=== PATIENT | male | born 1945 | race Caucasian/White ===

== ENCOUNTER 2024-03-02 16:07 | Observation (INO) ==
[2024-03-02 16:58] LABS: Basophils # (auto) 0.03 K/uL (0.00-0.20); Basophils % (auto) 0.3 %; Eosinophils # (auto) 0.06 K/uL (0.00-0.50); Eosinophils % (auto) 0.6 %; Hematocrit (blood only) 33.4 % (42.0-52.0); Hemoglobin 11.7 g/dl (14.0-18.0); Immature Granulocytes # (auto) 0.06 K/uL (0.01-0.20); Immature Granulocytes % (auto) 0.6 %; Lymphocytes # (auto) 1.51 K/uL (1.20-3.40); Lymphocytes % (auto) 13.9 %; Mean Corpuscular Hemoglobin 32.2 pg (25.0-34.0); Mean Platelet Volume 9.5 fL (9.4-12.4); Monocytes # (auto) 0.89 K/uL (0.11-0.59); Monocytes % (auto) 8.2 %; Neutrophils % (auto) 76.4 %; Platelet Count 315 K/uL (130-400); RDW Coefficient of Variation 13.7 % (11.5-14.5); RDW Standard Deviation 46.5 fL (36.4-46.3); Red Blood Count 3.63 M/uL (4.70-6.10); White Blood Count 10.85 K/ul (4.8-10.8)
[2024-03-02 17:16] LABS: Albumin Globulin Ratio 1.3 (0.9-2); Albumin Level 4.2 gm/dl (3.4-5.0); BUN Creatinine Ratio 17.8 (10-20); Bilirubin,Total 1.8 mg/dl (0.2-1.0); Calcium 9.6 mg/dl (8.6-10.3); Creatinine Clr Calc Pharmacy 45.9 ml/min; Globulin 3.3 gm/dl (2.5-4.0); Potassium 3.3 mmol/L (3.5-5.1); Total Protein 7.5 gm/dl (6.0-8.3)
--- NOTE | 2024-03-02 17:27 | XRay Report ---
EXAM: Radiograph of the Chest 1 View INDICATION: History Reason For Study weakness. TECHNIQUE: Frontal view of the chest. COMPARISON: No relevant prior studies available. FINDINGS: Lungs and pleural spaces: There is mild left basilar pleural effusion and/or thickening with mild adjacent atelectasis or scarring. No pneumothorax. No confluent consolidation or pulmonary edema. Heart: Cardiomegaly accentuated by portable technique. Right atrial and ventricular pacing wires grossly intact. Mediastinum: Normal contour. Bones/joints: Bilateral shoulder arthroplasties present. No acute osseous abnormality. Soft tissues: No abnormality noted. No radiopaque foreign body noted. Upper abdomen: No abnormality noted. IMPRESSION: There is mild left basilar pleural effusion and/or thickening with mild adjacent atelectasis or scarring. Electronically signed by Deedee Hubbard 03-02-2024 5:26 PM
[2024-03-02 17:30] LABS: Thyroid Stimulating Hormone 1.546 uIu/ml (0.300-4.500)
[2024-03-02 18:51] LABS: Appearance Urine Cloudy (Clear); Bacteria Urine Automated None Seen (None Seen); Bilirubin Urine Negative (Negative); Blood Urine Negative (Negative); Color Urine Dark Yellow; Glucose Urine UA Negative (Negative); Hyaline Casts Urine Present /lpf (None Presnt); Ketones Urine Trace (Negative); Leukocyte Esterase Urine Negative (Negative); Nitrite Urine Negative (Negative); Protein Urine 1+ (Negative); RBC Urine Automated 0-2 /hpf (0-2); Specific Gravity Urine 1.022 (1.000-1.030); Urobilinogen Urine Negative (Negative); WBC Urine Automated 0-5 /hpf (0-5); pH Urine 5.5 (4.5-7.5)
[2024-03-02] MEDS: SODIUM CHLORIDE 0.9% 1,000 ML IV SCH (19:19)
[2024-03-02 19:33] LABS: Adenovirus PCR Not Detected (NotDetected); Bordetella parapertussis PCR Not Detected (NotDetected); Bordetella pertussis PCR Not Detected (NotDetected); Chlamydia pneumoniae PCR Not Detected (NotDetected); Coronavirus 229E PCR Not Detected (NotDetected); Coronavirus CoV-2 (COVID19)PCR Not Detected (NotDetected); Coronavirus HKU1 PCR Not Detected (NotDetected); Coronavirus NL63 PCR Not Detected (NotDetected); Coronavirus OC43PCR Not Detected (NotDetected); Human Metapneumovirus PCR Not Detected (NotDetected); Influenza A PCR Not Detected (NotDetected); Influenza B PCR Not Detected (NotDetected); Mycoplasma pneumoniae PCR Not Detected (NotDetected); Parainfluenza Virus 1 PCR Not Detected (NotDetected); Parainfluenza Virus 2 PCR Not Detected (NotDetected); Parainfluenza Virus 3 PCR Not Detected (NotDetected); Parainfluenza Virus 4 PCR Not Detected (NotDetected); Respiratory Syncytial VirusPCR Not Detected (NotDetected); Rhinovirus/Enterovirus PCR Not Detected (NotDetected)
--- NOTE | 2024-03-02 21:27 | CT Scan Report ---
Exam(s): CT C SPINE EXAM: CT Cervical Spine Without Intravenous Contrast CLINICAL HISTORY: Reason for exam: fall. TECHNIQUE: Axial computed tomography images of the cervical spine without intravenous contrast. CTDI is 26.95 mGy and DLP is 576.46 mGy-cm. Automated exposure control was utilized for the study. A dose lowering technique was utilized adhering to the principles of ALARA. COMPARISON: No relevant prior studies available. FINDINGS: Vertebrae: No acute fracture. Reversal of the normal cervical lordosis. Advanced degenerative spondylosis most pronounced at C3-4, C5- 6, and C6-7. Trace retrolisthesis at C3-4. No high-grade canal stenosis. Multilevel uncovertebral and facet hypertrophy causing variable degrees of foraminal stenosis. Soft tissues: Unremarkable. IMPRESSION: No acute fracture. Electronically signed by: Edson Can MD 03/02/24 21:26 PM
--- NOTE | 2024-03-02 21:29 | CT Scan Report ---
Exam(s): CT HEAD Without Contrast EXAM: CT Head Without Intravenous Contrast CLINICAL HISTORY: Reason for exam: fall. TECHNIQUE: Axial computed tomography images of the head/brain without intravenous contrast. CTDI is 37.87 mGy and DLP is 624.41 mGy-cm. Automated exposure control was utilized for the study. A dose lowering technique was utilized adhering to the principles of ALARA. COMPARISON: No relevant prior studies available. FINDINGS: Brain: No hemorrhage, extra-axial fluid collection, mass effect, or edema. Ventricles: Unremarkable. Bones/joints: Unremarkable. No fracture. Soft tissues: Unremarkable. Sinuses: No acute sinusitis. Mastoid air cells: Unremarkable as visualized. IMPRESSION: 1. No acute intracranial abnormality. Electronically signed by: Edson Can MD 03/02/24 21:28 PM
[2024-03-02] MEDS: ACETAMINOPHEN 500 MG TAB PO STA (21:58)
[2024-03-02 22:18] LABS: Estimated Average Glucose 103 mg/dl; Hemoglobin A1C 5.2 % (4.5-5.6)
[2024-03-02 22:26] LABS: Magnesium 1.9 mg/dl (1.7-2.4)
[2024-03-02] MEDS: SODIUM CHLORIDE 0.9% 1,000 ML IV ONE (22:29)
[2024-03-02] MEDS: POTASSIUM CHLORIDE CRTAB 20 MEQ TABCR PO STA (22:37)
--- NOTE | 2024-03-02 22:39 | Emergency Department Note ---
Impression & Plan Acute kidney injury, Generalized weakness, Contusion of knee, right, CHI (closed head injury), Cervical strain, acute, Fall ED Provider Note NAME: MICHELLE SHIRLEY AGE: 78 SEX: Male INFORMANT: Patient ED PROVIDER(S): Memo Umana MD CHIEF COMPLAINT: Weakness PLAN: Disposition: Admitted Outpatient prescription management: none Referral: None MEDICAL DECISION MAKING: Patient presented because of generalized weakness. He had a minor fall. CT ridging of the head and cervical spine did not reveal any acute traumatic findings and he has a benign examination. He did have moderate tenderness about the left knee and bruising. x-ray imaging does not reveal any obvious fracture. Patient has generalized weakness. He had a very subtle leukocytosis and was found to have CHOCO on his chemistry panel. Urinalysis was unremarkable. He had flulike symptoms over a week ago. Chest x-ray reveals no clear evidence of pneumonia. The patient was gently hydrated. He was given oral Tylenol as he initially declined analgesia but then excepted. Further management in the hospital will be necessary. Consultation was made with Dr. Alexis Calvin, [facility]. Patient was evaluated in the ER and admitted for further management Care/management discussed with: operations program manager Level of care consideration(s): After review of the information above and other included data, I feel the patient requires escalation of care to admission Triage Nursing notes: reviewed and agree them. Vital Signs: reviewed and remarkable for no significant abnormalities Additional History obtained from: none Chronic Medical/Social Conditions affecting care: Parkinson's Prior/ Outside/ External records reviewed: Outpatient lab testing obtained from his primary clinic from February 20, 2024. Patient's creatinine was 1.1 Differential Diagnosis: Infection, dehydration, metabolic abnormality, hypo/hyperglycemia, electrolyte disturbance, anemia, hypoxia, cardiac sources, intracerebral event, toxicologic, neurologic, as well as other pathologies. Diagnostics, independently interpreted by me: ECG: Twelve-lead ECG reveals normal sinus rhythm at 85 beats per minute. No evidence of pericarditis, ischemia, ectopy, or dysrhythmia. Cardiac Monitoring: Cardiac monitoring ordered by me: The patient was placed on continuous cardiac monitoring and observed. It revealed a normal sinus rhythm at 71 beats per minute without ectopy or evidence of dysrhythmia. Medical decision rules: None Imaging studies: Chest x-ray. Findings: A chest x-ray was performed and revealed no pneumothorax, effusion, infiltrate, pulmonary edema, free air under the diaphragm, or wide mediastinum. Impression: No acute disease. X-ray imaging of the right knee is negative for fracture or dislocation. Head CT: A noncontrast CT scan of the head was performed and was negative for tumor, fracture, intracranial hemorrhage, or other acute pathology. CT scan of the cervical spine revealed no evidence of acute fracture. Some image degradation due to his surgical hardware noted. HPI: 78 year old Male arrives for evaluation of generalized weakness. This started over the last few days and is progressing. Patient states that he has Parkinson's. He got weak last night and fell backwards. He did strain the right side of his neck as well as hit his head. He is not on any blood thinners. He states he also bruised his right knee. Patient does note having flulike symptoms over a week ago but thought he was getting better. He has had decreased appetite. The patient has been prescribed no medication for relieving factors. Current pain is rated as 10/10 in the right knee. Pt denies LOC, fevers, chills, diaphoresis, visual changes, chest pain, breathing difficulties, nausea, vomiting, abdominal pain, back pain, melena, hematochezia, urinary symptoms, numbness, lymphadenopathy, rash, or other complaints.. PAST MEDICAL HISTORY: See Below, Parkinson's PAST SURGICAL HISTORY: See Below, SOCIAL HISTORY: See Below, retired HOME MEDICATIONS: See Below ALLERGIES: See Below VITALS: See Below PHYSICAL EXAMINATION: GENERAL: Awake, alert, well-appearing, in no distress HENT: Normocephalic, atraumatic. Oropharynx unremarkable. EYES: Normal conjunctiva. Sclera non-icteric. NECK: Inspection normal. Non-tender. Supple. No nuchal rigidity. FROM. No masses. RESPIRATORY: Clear to auscultation. No wheezes. No rales. Normal respiratory effort. CARDIAC: Normal rate. Normal rhythm. No murmurs. No rubs. Extremities warm and well perfused. Pulses equal. No JVD. GI: Soft, non-distended. No tenderness to palpation. No rebound or guarding. No masses. RECTAL: Deferred. MUSCULOSKELETAL: Upper extremities are atraumatic. Chest examination reveals no tenderness. The back is symmetrical on inspection without obvious abnormality. There is no CVA tenderness to palpation. No joint edema. LOWER EXTREMITIES: Calves are equal size bilaterally and non-tender. 1+ edema. No discoloration. There is a minor contusion to the left knee without any tenderness or joint swelling. Examination of the right knee reveals some discomfort with range of motion testing. No joint effusion present. Abrasion and associated ecchymosis. Normal quadricep function. No ligamentous instability. NEURO: Normal sensorium. No sensory or motor deficits noted. SKIN: No rash or jaundice noted. PROCEDURES: none CRITICAL CARE: none OBSERVATION NOTE: none Past Med/Surg History Problem List (Updated 03/02/24 @ 22:39 by Memo Umana MD) Fall (Acute) Cervical strain, acute (Acute) CHI (closed head injury) (Acute) Contusion of knee, right (Acute) Generalized weakness (Acute) Acute kidney injury (Acute) Social History Feels Safe at Home: Yes Allergies Allergies Allergy/AdvReac Type Severity Reaction Status Date / Time naproxen Allergy Intermediate ITCHING Verified 05/27/14 08:50 dexbrompheniramine AdvReac Intermediate nightmares, Verified 05/27/14 08:50 NOT A TRUE ALLERGY Home Meds Home Medications Medication Instructions Recorded Confirmed Calcium (Caltrate) 600 mg PO BID ##0 02/21/07 03/02/24 Fluticasone Propionate (Flonase 2 spry BERNARD DAILY ##0 02/21/07 03/02/24 Nasal Marathon *) Lisinopril (Zestril) 10 mg PO BID ##0 02/21/07 03/02/24 OMEGA 3 1,000 mg PO BID ##0 02/21/07 03/02/24 Fexofenadine Hcl (Gertrude *) 30 mg PO PRN PRN Allergy Symptoms 03/30/07 03/02/24 ##0 Aspirin Enteric Coated (Ecotrin Or 81 mg PO DAILY ##0 08/27/11 03/02/24 Generic *) Folic Acid (Folvite *) 400 mcg PO DAILY ##0 08/27/11 03/02/24 METOPROLOL TARTRATE (LOPRESSOR) 50 mg PO BID ##0 08/27/11 03/02/24 ATORVASTATIN (LIPITOR) 10 mg PO DAILY #0 tabs 05/22/14 03/02/24 CHOLECALCIFEROL (Vitamin D) 1,000 inter.unit PO DAILY #0 tabs 05/22/14 03/02/24 HYDROCHLOROTHIAZIDE (HCTZ) 25 mg PO DAILY #0 tabs 05/22/14 03/02/24 MULTIPLE VITAMINS W/ MINERALS 1 tab PO DAILY ##0 05/22/14 03/02/24 (CENTRUM SILVER) SILDENAFIL CITRATE (VIAGRA) 100 mg PO PRN #0 tabs 05/22/14 03/02/24 [facility]iotics 1 tab PO DAILY ##0 05/22/14 03/02/24 sinus washneti pot 1 applic Flush ONCE ##0 05/22/14 03/02/24 carbidopa 25 mg-levodopa 100 mg 1.5 tab PO QID 03/02/24 03/02/24 tablet trihexyphenidyl 2 mg tablet 2 mg PO DIRECTED 03/02/24 03/02/24 Results & Data (ED) Vital Signs Vital Signs - 24 hr 03/02/24 16:20 03/02/24 16:20 03/02/24 16:20 Temperature 36.9 C 36.9 C Temperature Source Oral Oral Pulse Rate 75 Pulse Rate [Apical] 75 Respiratory Rate 20 20 Respiratory Effort / Characteristics Non-Labored Spontaneous Non-Labored Spontaneous Respiratory Depth Normal Normal Blood Pressure 117/68 Blood Pressure [Right Arm] 117/68 Blood Pressure Mean 84 Blood Pressure Mean [Right Arm] 84 Pulse Oximetry 98 98 98 Oxygen Delivery Method Room Air Room Air Room Air Sepsis Recent Fever Within 48 Hours No Sepsis New/Unexplained Change in Mental Status No Sepsis Action Taken by Nursing No Action Required 03/02/24 16:31 03/02/24 17:09 03/02/24 18:00 Temperature Temperature Source Pulse Rate 67 Pulse Rate [Apical] 69 Respiratory Rate 20 Respiratory Effort / Characteristics Non-Labored Spontaneous Respiratory Depth Normal Blood Pressure Blood Pressure [Right Arm] 126/63 Blood Pressure Mean Blood Pressure Mean [Right Arm] 84 Pulse Oximetry 95 100 Oxygen Delivery Method Room Air Room Air Sepsis Recent Fever Within 48 Hours Sepsis New/Unexplained Change in Mental Status Sepsis Action Taken by Nursing 03/02/24 20:00 03/02/24 20:18 Temperature Temperature Source Pulse Rate 71 Pulse Rate [Apical] 76 Respiratory Rate 21 Respiratory Effort / Characteristics Non-Labored Spontaneous Respiratory Depth Normal Blood Pressure Blood Pressure [Right Arm] 114/67 Blood Pressure Mean Blood Pressure Mean [Right Arm] 82 Pulse Oximetry 98 Oxygen Delivery Method Room Air Sepsis Recent Fever Within 48 Hours Sepsis New/Unexplained Change in Mental Status Sepsis Action Taken by Nursing Laboratory Data 03/02/24 16:20 03/02/24 16:20 Lab Results 03/02/24 03/02/24 Range/Units 16:20 18:22 WBC 10.85 H (4.8-10.8) K/ul RBC 3.63 L (4.70-6.10) M/uL Hgb 11.7 L (14.0-18.0) g/dl Hct 33.4 L (42.0-52.0) % MCV 92.0 (80.0-100.0) fL MCH 32.2 (25.0-34.0) pg MCHC 35.0 (32.0-36.0) g/dL RDW Std Deviation 46.5 H (36.4-46.3) fL RDW Coeff of Rupinder 13.7 (11.5-14.5) % Plt Count 315 (130-400) K/uL MPV 9.5 (9.4-12.4) fL Immature Gran % (Auto) 0.6 % Neut % (Auto) 76.4 % Lymph % (Auto) 13.9 % [place] % (Auto) 8.2 % Eos % (Auto) 0.6 % Baso % (Auto) 0.3 % Neut # (Auto) 8.30 H (1.40-6.50) K/uL Lymph # (Auto) 1.51 (1.20-3.40) K/uL [place] # (Auto) 0.89 H (0.11-0.59) K/uL Eos # (Auto) 0.06 (0.00-0.50) K/uL Baso # (Auto) 0.03 (0.00-0.20) K/uL Immature Gran # (Auto) 0.06 (0.01-0.20) K/uL Sodium 136 (136-145) mmol/L Potassium 3.3 L (3.5-5.1) mmol/L Chloride 99 (98-107) mmol/L Carbon Dioxide 28 (21-32) mmol/L Anion Gap 9 (3-11) BUN 35 H (6-23) mg/dl Creatinine 1.97 H (0.6-1.4) mg/dl Est Cr Clr Drug Dosing 45.9 ml/min eGFR 34.15 BUN/Creatinine Ratio 17.8 (10-20) Glucose 113 H (70-99(Fasting)) mg/dl Estimat Average Glucose 103 mg/dl Hemoglobin A1c 5.2 (4.5-5.6) % Calcium 9.6 (8.6-10.3) mg/dl Magnesium 1.9 (1.7-2.4) mg/dl Total Bilirubin 1.8 H (0.2-1.0) mg/dl AST 39 (13-39) U/L ALT 22 (7-52) U/L Alkaline Phosphatase 90 (34-104) U/L Total Creatine Kinase 964 H (30-223) U/L Total Protein 7.5 (6.0-8.3) gm/dl Albumin 4.2 (3.4-5.0) gm/dl Globulin 3.3 (2.5-4.0) gm/dl Albumin/Globulin Ratio 1.3 (0.9-2) TSH 1.546 (0.300-4.500) uIu/ml Urine Color Dark Yellow Urine Appearance Cloudy A (Clear) Urine pH 5.5 (4.5-7.5) Ur Specific [place] 1.022 (1.000-1.030) Urine Protein 1+ H (Negative) Urine Glucose (UA) Negative (Negative) Urine Ketones Trace H (Negative) Urine Blood Negative (Negative) Urine Nitrite Negative (Negative) Urine Bilirubin Negative (Negative) Urine Urobilinogen Negative (Negative) Ur Leukocyte Esterase Negative (Negative) Urine WBC (Auto) 0-5 (0-5) /hpf Urine RBC (Auto) 0-2 (0-2) /hpf U Hyaline Cast (Auto) 11-20 H (0-2) /lpf U Epithel Cells (Auto) 3-5 H (0-2) /hpf Urine Bacteria (Auto) None Seen (None Seen) Hyaline Casts Present A (None Presnt) /lpf Adenovirus (PCR) Not Detected (NotDetected) B. pertussis DNA (PCR) Not Detected (NotDetected) B.parapertussis DNA PCR Not Detected (NotDetected) C. pneumoniae DNA (PCR) Not Detected (NotDetected) Coronavirus OC43 (PCR) Not Detected (NotDetected) Coronavirus HKU1 (PCR) Not Detected (NotDetected) Coronavirus 229E (PCR) Not Detected (NotDetected) SARS-CoV-2 (PCR) Not Detected (NotDetected) Coronavirus NL63 (PCR) Not Detected (NotDetected) Human Metapneumovir PCR Not Detected (NotDetected) Influenza Type A (PCR) Not Detected (NotDetected) Influenza Type B (PCR) Not Detected (NotDetected) M. pneumoniae (PCR) Not Detected (NotDetected) Parainfluenza 1 (PCR) Not Detected (NotDetected) Parainfluenza 2 (PCR) Not Detected (NotDetected) Parainfluenza 3 (PCR) Not Detected (NotDetected) Parainfluenza 4 (PCR) Not Detected (NotDetected) RSV (PCR) Not Detected (NotDetected) Entero/Rhino (PCR) Not Detected (NotDetected) Administered Medications Discontinued Medications Acetaminophen (Acetaminophen 500 Mg Tab) 1,000 mg PO NOW STA Stop: 03/02/24 21:51 Last Admin: 03/02/24 21:58 Dose: 1,000 mg Documented By: NATALIA Sodium Chloride (Nss) 1,000 mls @ 125 mls/hr IV .Q8H BRAD Stop: 03/03/24 18:59 Last Admin: 03/02/24 19:19 Dose: 125 mls/hr Documented By: NATALIA Imaging Data Radiologist's Impression: Chest X-Ray 03/02/24 16:43 EXAM: Radiograph of the Chest 1 View INDICATION: History Reason For Study weakness. TECHNIQUE: Frontal view of the chest. COMPARISON: No relevant prior studies available. FINDINGS: Lungs and pleural spaces: There is mild left basilar pleural effusion and/or thickening with mild adjacent atelectasis or scarring. No pneumothorax. No confluent consolidation or pulmonary edema. Heart: Cardiomegaly accentuated by portable technique. Right atrial and ventricular pacing wires grossly intact. Mediastinum: Normal contour. Bones/joints: Bilateral shoulder arthroplasties present. No acute osseous abnormality. Soft tissues: No abnormality noted. No radiopaque foreign body noted. Upper abdomen: No abnormality noted. IMPRESSION: There is mild left basilar pleural effusion and/or thickening with mild adjacent atelectasis or scarring. Electronically signed by Deedee Hubbard 03-02-2024 5:[address] 03/02/24 18:39 Exam(s): CT C SPINE EXAM: CT Cervical Spine Without Intravenous Contrast CLINICAL HISTORY: Reason for exam: fall. TECHNIQUE: Axial computed tomography images of the cervical spine without intravenous contrast. CTDI is 26.95 mGy and DLP is 576.46 mGy-cm. Automated exposure control was utilized for the study. A dose lowering technique was utilized adhering to the principles of ALARA. COMPARISON: No relevant prior studies available. FINDINGS: Vertebrae: No acute fracture. Reversal of the normal cervical lordosis. Advanced degenerative spondylosis most pronounced at C3-4, C5- 6, and C6-7. Trace retrolisthesis at C3-4. No high-grade canal stenosis. Multilevel uncovertebral and facet hypertrophy causing variable degrees of foraminal stenosis. Soft tissues: Unremarkable. IMPRESSION: No acute fracture. Electronically signed by: Edson Can MD 03/02/24 21:[address] 03/02/24 18:39 Exam(s): CT HEAD Without Contrast EXAM: CT Head Without Intravenous Contrast CLINICAL HISTORY: Reason for exam: fall. TECHNIQUE: Axial computed tomography images of the head/brain without intravenous contrast. CTDI is 37.87 mGy and DLP is 624.41 mGy-cm. Automated exposure control was utilized for the study. A dose lowering technique was utilized adhering to the principles of ALARA. COMPARISON: No relevant prior studies available. FINDINGS: Brain: No hemorrhage, extra-axial fluid collection, mass effect, or edema. Ventricles: Unremarkable. Bones/joints: Unremarkable. No fracture. Soft tissues: Unremarkable. Sinuses: No acute sinusitis. Mastoid air cells: Unremarkable as visualized. IMPRESSION: 1. No acute intracranial abnormality. Electronically signed by: Edson Can MD 03/02/24 21:28 PM Discharge Plan Visit Data Chief Complaint: Weakness Stated Complaint: Weakness ED Provider: Memo Umana Discharge Problem: Acute kidney injury, Generalized weakness, Contusion of knee, right, CHI (closed head injury), Cervical strain, acute, Fall Forms Stand Alone Forms: [employer] Prescriptions Prescriptions: No Action Calcium (Caltrate) 600 MG tablet 600 mg PO BID Qty: 0 Fluticasone Propionate (Flonase Nasal [place] *) INHALATION 2 spry BERNARD DAILY Qty: 0 Lisinopril (Zestril) 10 MG tablet 10 mg PO BID Qty: 0 OMEGA 3 1,000 mg PO BID Qty: 0 Fexofenadine Hcl (Gertrude *) 30 MG tablet 30 mg PO PRN PRN (Reason: Allergy Symptoms) Qty: 0 Aspirin Enteric Coated (Ecotrin Or Generic *) 81 MG ENTERIC COATED TAB 81 mg PO DAILY Qty: 0 Folic Acid (Folvite *) 400 MCG tablet 400 mcg PO DAILY Qty: 0 METOPROLOL TARTRATE (LOPRESSOR) 50 MG tablet 50 mg PO BID Qty: 0 ATORVASTATIN (LIPITOR) 10 MG tablet 10 mg PO DAILY Qty: 0 CHOLECALCIFEROL (Vitamin D) 1,000 INTER.UNIT tablet 1,000 inter.unit PO DAILY Qty: 0 HYDROCHLOROTHIAZIDE (HCTZ) 25 MG tablet 25 mg PO DAILY Qty: 0 MULTIPLE VITAMINS W/ MINERALS (CENTRUM SILVER) 1 CHW CHW 1 tab PO DAILY Qty: 0 SILDENAFIL CITRATE (VIAGRA) 100 MG tablet 100 mg PO PRN Qty: 0 [facility] probiotics 1 tab PO DAILY Qty: 0 sinus washneti pot 1 applic Flush ONCE Qty: 0 trihexyphenidyl 2 mg tablet 2 mg PO DIRECTED carbidopa-levodopa 25-100 mg tablet 1.5 tab PO QID Referrals Referrals: Juan F Blanco MD [Primary Care Provider] -
--- NOTE | 2024-03-02 22:39 | History & Physical Report ---
Date of Service March 02, 2024 Assessment & Plan (1) Syncope: Plan: Possible orthostasis secondary to hypovolemia from recent viral illness Rule out pacemaker dysfunction /structural cardiac pathology hx sinus node dysfunction status post PPM Rhabdomyolysis secondary to fall ARF secondary to illness hx PVD hypertension, stable hyperlipidemia, on statin Rx LEÓN on CPAP Parkinson's disease, patient intolerant to new trihexyphenidyl Rx ulcerative colitis, in remission chronic anemia, hemoglobin at baseline BPH/history urethral stricture anxiety/mood disorder, stable Hyperglycemia rule out DM OBS Medical telemetry Check orthostatic vitals, TTE, pacemaker interrogation Monitor creatinine, CPK response to IVF, renal ultrasound if without improvement Hold home diuretic, lisinopril Rx until creatinine back to baseline Hold statin for now until CPK within normal limits Hold aspirin for now given traumatic LE bruising, resume if H&H stable Check hemoglobin A1c PT OT eval DVT prophylaxis. SCDs re: traumatic LE bruising Full code Text document was generated using Funn[employer] voice recognition software. It may contain grammatical or spelling errors. Kindly contact undersigned for clarification of any documentation item in question. History of Present Illness Chief Complaint: Fall, syncope Primary Care Provider: Juan F Blanco MD History obtained from patient and records. Medical history significant for sinus node dysfunction status post PPM, PSVT, NSVT as per records, PVD, hypertension, hyperlipidemia, LEÓN on CPAP Parkinson's disease, ulcerative colitis, chronic anemia (baseline hemoglobin of 11), BPH, history urethral stricture, anxiety/mood disorder. Patient not feeling well the last few days. Flulike symptoms without chest pain/SOB. Appetite not too good. Cough symptoms improving. Patient recently started by neurologist on trihexyphenidyl for Parkinson's tremors. He stopped taking medication after few days due to increased dizziness described as lightheadedness. Patient had transient unwitnessed syncopal event at home today leading to fall. No headache, no tongue biting, no incontinence. Denies chest pain or SOB. Bilateral leg pain/bruising from fall. Patient brought to ER for evaluation. 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 Allergies Allergy/AdvReac Type Severity Reaction Status Date / Time naproxen Allergy Intermediate ITCHING Verified 05/27/14 08:50 dexbrompheniramine AdvReac Intermediate nightmares, Verified 05/27/14 08:50 NOT A TRUE ALLERGY trihexyphenidyl AdvReac Intermediate Dizziness Verified 03/03/24 07:10 Home Medications Medication Instructions Recorded Confirmed Type Calcium (Caltrate) 600 mg PO BID ##0 02/21/07 03/02/24 History Fluticasone Propionate (Flonase 2 spry BERNARD DAILY ##0 02/21/07 03/02/24 History Nasal [place] *) Lisinopril (Zestril) 10 mg PO BID ##0 02/21/07 03/02/24 History OMEGA 3 1,000 mg PO BID ##0 02/21/07 03/02/24 History Fexofenadine Hcl (Gertrude *) 30 mg PO PRN PRN Allergy Symptoms 03/30/07 03/02/24 History ##0 Aspirin Enteric Coated (Ecotrin Or 81 mg PO DAILY ##0 08/27/11 03/02/24 History Generic *) Folic Acid (Folvite *) 400 mcg PO DAILY ##0 08/27/11 03/02/24 History METOPROLOL TARTRATE (LOPRESSOR) 50 mg PO BID ##0 08/27/11 03/02/24 History ATORVASTATIN (LIPITOR) 10 mg PO DAILY #0 tabs 05/22/14 03/02/24 History CHOLECALCIFEROL (Vitamin D) 1,000 inter.unit PO DAILY #0 tabs 05/22/14 03/02/24 History HYDROCHLOROTHIAZIDE (HCTZ) 25 mg PO DAILY #0 tabs 05/22/14 03/02/24 History MULTIPLE VITAMINS W/ MINERALS 1 tab PO DAILY ##0 05/22/14 03/02/24 History (CENTRUM SILVER) SILDENAFIL CITRATE (VIAGRA) 100 mg PO PRN #0 tabs 05/22/14 03/02/[address] [facility] 1 tab PO DAILY ##0 05/22/14 03/02/24 History sinus washneti pot 1 applic Flush ONCE ##0 05/22/14 03/02/24 History carbidopa 25 mg-levodopa 100 mg 1.5 tab PO QID 03/02/24 03/02/24 History tablet trihexyphenidyl 2 mg tablet 2 mg PO DIRECTED 03/02/24 03/02/24 History Past Med/Surg History Problem List (Updated 03/03/24 @ 07:14 by Alexis Calvin MD) Syncope Fall (Acute) Cervical strain, acute (Acute) CHI (closed head injury) (Acute) Contusion of knee, right (Acute) Generalized weakness (Acute) Acute kidney injury (Acute) Social History Smoking Status: Never smoker Hx Alcohol Use: No Hx Substance Use: No Preferred Language: Azerbaijani Communication Ability: Effective 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 [employer]ation Required: No Beliefs That Will Affect Care: None Current Living Situation: Significant Other Current Living Situation Comment: lives with girlfriend Feels Safe at Home: Yes Safety Concerns: Feels Safe At This Time Assistive Devices: Cane, Denture - Upper and Walker Review of Systems Review of Systems: As per HPI, all other systems reviewed and negative Physical Exam Physical Exam: GENERAL: Comfortable, pleasant, obese, unkempt, no respiratory distress SKIN: Pallor, warm HEENT: Pale, palpebral conjunctivae, no ptosis, dry buccal mucosa NECK : Supple, short neck, no tenderness CHEST : CTA, no tenderness HEART : RRR, no obvious murmurs ABDOMEN: Some distention, nontender EXTREMITIES : Bilateral LE swelling with LE tenderness, ecchymosis over knees, no other conspicuous deformities noted NEUROLOGIC : Coherent, no facial asymmetry, RUE rest tremors, gait and stance not assessed Results & Data Results & Data Vital Signs (Past 12 Hours) Vital Signs Temp Pulse Pulse Resp BP BP Pulse Ox 03/02/24 20:18 71 03/02/24 20:00 76 21 114/67 98 03/02/24 18:00 69 20 126/63 100 03/02/24 17:09 95 03/02/24 16:31 67 03/02/24 16:20 36.9 C 75 20 117/68 98 03/02/24 16:20 98 03/02/24 16:20 36.9 C 75 20 117/68 98 O2 Del Method 03/02/24 20:18 03/02/24 20:00 Room Air 03/02/24 18:00 Room Air 03/02/24 17:09 Room Air 03/02/24 16:31 03/02/24 16:20 Room Air 03/02/24 16:20 Room Air 03/02/24 16:20 Room Air Laboratory Results Laboratory Results WBC 10.85 K/ul (4.8-10.8) H 03/02/24 16:20 RBC 3.63 M/uL (4.70-6.10) L 03/02/24 16:20 Hgb 11.7 g/dl (14.0-18.0) L 03/02/24 16:20 Hct 33.4 % (42.0-52.0) L 03/02/24 16:20 MCV 92.0 fL (80.0-100.0) 03/02/24 16:20 MCH 32.2 pg (25.0-34.0) 03/02/24 16:20 MCHC 35.0 g/dL (32.0-36.0) 03/02/24 16:20 RDW Std Deviation 46.5 fL (36.4-46.3) H 03/02/24 16:20 RDW Coeff of Rupinder 13.7 % (11.5-14.5) 03/02/24 16:20 Plt Count 315 K/uL (130-400) 03/02/24 16:20 MPV 9.5 fL (9.4-12.4) 03/02/24 16:20 Immature Gran % (Auto) 0.6 % 03/02/24 16:20 Neut % (Auto) 76.4 % 03/02/24 16:20 Lymph % (Auto) 13.9 % 03/02/24 16:20 [place] % (Auto) 8.2 % 03/02/24 16:20 Eos % (Auto) 0.6 % 03/02/24 16:20 Baso % (Auto) 0.3 % 03/02/24 16:20 Neut # (Auto) 8.30 K/uL (1.40-6.50) H 03/02/24 16:20 Lymph # (Auto) 1.51 K/uL (1.20-3.40) 03/02/24 16:20 Woods # (Auto) 0.89 K/uL (0.11-0.59) H 03/02/24 16:20 Eos # (Auto) 0.06 K/uL (0.00-0.50) 03/02/24 16:20 Baso # (Auto) 0.03 K/uL (0.00-0.20) 03/02/24 16:20 Immature Gran # (Auto) 0.06 K/uL (0.01-0.20) 03/02/24 16:20 Sodium 136 mmol/L (136-145) 03/02/24 16:20 Potassium 3.3 mmol/L (3.5-5.1) L 03/02/24 16:20 Chloride 99 mmol/L (98-107) 03/02/24 16:20 Carbon Dioxide 28 mmol/L (21-32) 03/02/24 16:20 Anion Gap 9 (3-11) 03/02/24 16:20 BUN 35 mg/dl (6-23) H 03/02/24 16:20 Creatinine 1.97 mg/dl (0.6-1.4) H 03/02/24 16:20 Est Cr Clr Drug Dosing 45.9 ml/min 03/02/24 16:20 eGFR 34.15 03/02/24 16:20 BUN/Creatinine Ratio 17.8 (10-20) 03/02/24 16:20 Glucose 113 mg/dl (70-99(Fasting)) H 03/02/24 16:20 Estimat Average Glucose 103 mg/dl 03/02/24 16:20 Hemoglobin A1c 5.2 % (4.5-5.6) 03/02/24 16:20 Calcium 9.6 mg/dl (8.6-10.3) 03/02/24 16:20 Magnesium 1.9 mg/dl (1.7-2.4) 03/02/24 16:20 Total Bilirubin 1.8 mg/dl (0.2-1.0) H 03/02/24 16:20 AST 39 U/L (13-39) 03/02/24 16:20 ALT 22 U/L (7-52) 03/02/24 16:20 Alkaline Phosphatase 90 U/L (34-104) 03/02/24 16:20 Total Creatine Kinase 964 U/L (30-223) H 03/02/24 16:20 Total Protein 7.5 gm/dl (6.0-8.3) 03/02/24 16:20 Albumin 4.2 gm/dl (3.4-5.0) 03/02/24 16:20 Globulin 3.3 gm/dl (2.5-4.0) 03/02/24 16:20 Albumin/Globulin Ratio 1.3 (0.9-2) 03/02/24 16:20 TSH 1.546 uIu/ml (0.300-4.500) 03/02/24 16:20 Urine Color Dark Yellow 03/02/24 18:22 Urine Appearance Cloudy (Clear) A 03/02/24 18:22 Urine pH 5.5 (4.5-7.5) 03/02/24 18:22 Ur Specific [place] 1.022 (1.000-1.030) 03/02/24 18: Urine Protein 1+ (Negative) H 03/02/24 18:22 Urine Glucose (UA) Negative (Negative) 03/02/24 18: Urine Ketones Trace (Negative) H 03/02/24 18:22 Urine Blood Negative (Negative) 03/02/24 18:22 Urine Nitrite Negative (Negative) 03/02/24 18: Urine Bilirubin Negative (Negative) 03/02/24 18:22 Urine Urobilinogen Negative (Negative) 03/02/24 18:22 Ur Leukocyte Esterase Negative (Negative) 03/02/24 18:22 Urine WBC (Auto) 0-5 /hpf (0-5) 03/02/24 18:22 Urine RBC (Auto) 0-2 /hpf (0-2) 03/02/24 18:22 U Hyaline Cast (Auto) 11-20 /lpf (0-2) H 03/02/24 18:22 U Epithel Cells (Auto) 3-5 /hpf (0-2) H 03/02/24 18:22 Urine Bacteria (Auto) None Seen (None Seen) 03/02/24 18:22 Hyaline Casts Present /lpf (None Presnt) A 03/02/24 18:22 Adenovirus (PCR) Not Detected (NotDetected) 03/02/24 18:22 B. pertussis DNA (PCR) Not Detected (NotDetected) 03/02/24 18:22 B.parapertussis DNA PCR Not Detected (NotDetected) 03/02/24 18:22 C. pneumoniae DNA (PCR) Not Detected (NotDetected) 03/02/24 18:22 Coronavirus OC43 (PCR) Not Detected (NotDetected) 03/02/24 18:22 Coronavirus HKU1 (PCR) Not Detected (NotDetected) 03/02/24 18:22 Coronavirus 229E (PCR) Not Detected (NotDetected) 03/02/24 18:22 SARS-CoV-2 (PCR) Not Detected (NotDetected) 03/02/24 18:22 Coronavirus NL63 (PCR) Not Detected (NotDetected) 03/02/24 18:22 Human Metapneumovir PCR Not Detected (NotDetected) 03/02/24 18:22 Influenza Type A (PCR) Not Detected (NotDetected) 03/02/24 18:22 Influenza Type B (PCR) Not Detected (NotDetected) 03/02/24 18:22 M. pneumoniae (PCR) Not Detected (NotDetected) 03/02/24 18:22 Parainfluenza 1 (PCR) Not Detected (NotDetected) 03/02/24 18:22 Parainfluenza 2 (PCR) Not Detected (NotDetected) 03/02/24 18:22 Parainfluenza 3 (PCR) Not Detected (NotDetected) 03/02/24 18:22 Parainfluenza 4 (PCR) Not Detected (NotDetected) 03/02/24 18:22 RSV (PCR) Not Detected (NotDetected) 03/02/24 18:22 Entero/Rhino (PCR) Not Detected (NotDetected) 03/02/24 18:22 Impressions Chest X-Ray 03/02/24 16:43 EXAM: Radiograph of the Chest 1 View INDICATION: History Reason For Study weakness. TECHNIQUE: Frontal view of the chest. COMPARISON: No relevant prior studies available. FINDINGS: Lungs and pleural spaces: There is mild left basilar pleural effusion and/or thickening with mild adjacent atelectasis or scarring. No pneumothorax. No confluent consolidation or pulmonary edema. Heart: Cardiomegaly accentuated by portable technique. Right atrial and ventricular pacing wires grossly intact. Mediastinum: Normal contour. Bones/joints: Bilateral shoulder arthroplasties present. No acute osseous abnormality. Soft tissues: No abnormality noted. No radiopaque foreign body noted. Upper abdomen: No abnormality noted. IMPRESSION: There is mild left basilar pleural effusion and/or thickening with mild adjacent atelectasis or scarring. Electronically signed by Deedee Hubbard 03-02-2024 5:[address] 03/02/24 18:39 Exam(s): CT C SPINE EXAM: CT Cervical Spine Without Intravenous Contrast CLINICAL HISTORY: Reason for exam: fall. TECHNIQUE: Axial computed tomography images of the cervical spine without intravenous contrast. CTDI is 26.95 mGy and DLP is 576.46 mGy-cm. Automated exposure control was utilized for the study. A dose lowering technique was utilized adhering to the principles of ALARA. COMPARISON: No relevant prior studies available. FINDINGS: Vertebrae: No acute fracture. Reversal of the normal cervical lordosis. Advanced degenerative spondylosis most pronounced at C3-4, C5- 6, and C6-7. Trace retrolisthesis at C3-4. No high-grade canal stenosis. Multilevel uncovertebral and facet hypertrophy causing variable degrees of foraminal stenosis. Soft tissues: Unremarkable. IMPRESSION: No acute fracture. Electronically signed by: Edson Can MD 03/02/24 21:[address] 03/02/24 18:39 Exam(s): CT HEAD Without Contrast EXAM: CT Head Without Intravenous Contrast CLINICAL HISTORY: Reason for exam: fall. TECHNIQUE: Axial computed tomography images of the head/brain without intravenous contrast. CTDI is 37.87 mGy and DLP is 624.41 mGy-cm. Automated exposure control was utilized for the study. A dose lowering technique was utilized adhering to the principles of ALARA. COMPARISON: No relevant prior studies available. FINDINGS: Brain: No hemorrhage, extra-axial fluid collection, mass effect, or edema. Ventricles: Unremarkable. Bones/joints: Unremarkable. No fracture. Soft tissues: Unremarkable. Sinuses: No acute sinusitis. Mastoid air cells: Unremarkable as visualized. IMPRESSION: 1. No acute intracranial abnormality. Electronically signed by: Edson Can MD 03/02/24 21:28 PM Diagnostic Findings EKG as per my interpretation : Rate 65, paced rhythm
[2024-03-02] MEDS ORDERED: PROMETHAZINE 6.25 MG/50.25 ML BAG IV PRN (22:42)
--- NOTE | 2024-03-03 00:20 | XRay Report ---
Exam(s): XR RIGHT KNEE EXAM: XR Right Knee, 3 Views CLINICAL HISTORY: Reason for exam: fall. TECHNIQUE: Three views of the right knee. COMPARISON: No relevant prior studies available. FINDINGS: Bones/joints: No acute fracture or malalignment. Moderate joint effusion. Mild medial compartment joint space narrowing. Small tricompartmental osteophytes. IMPRESSION: 1. No acute fracture or malalignment. 2. Moderate joint effusion. 3. Mild osteoarthritis. Electronically signed by: Edson Can MD 03/03/24 00:20 AM
[2024-03-03] MEDS: METOPROLOL TARTRATE 25 MG TAB PO SCH (01:20)
[2024-03-03] MEDS: CARBIDOPA/LEVODOPA 25/100MG TAB PO SCH (01:20)
--- OUTSIDE RECORDS SUMMARY | 2024-03-03 02:08 | External Medical Summary ---
Author Name Unknown Address Unknown Organization [id number][facility] [address] [place] [id number] Laboratory Report Ordering Provider Test Date Status ROSALINO BORDEN 02/20/2024 14:10:36 Final Observation Date Value Abnormality Reference (Units ) Status BUN 02/20/2024 14:10:36 20 6-20 (mg/dL) Final Creatinine 02/20/2024 14:10:36 1.1 0.6-1.2 (mg/dL) Final Glomerular filtration rate/1.73 sq M.predicted [Volume Rate/Area] in Serum, Plasma or Blood by Creatinine-based formula (CKD-EPI) 02/20/2024 14:10:36 70 >=60 (mL/min) Final eGFR is calculated based on the CKD-EPI 2020 equation. Sodium 02/20/2024 14:10:36 137 135-146 (m mol/L) Final Potassium 02/20/2024 14:10:36 4.4 3.5-5.1 (m mol/L) Final Cl 02/20/2024 14:10:36 98 98-107 (mm ol/L) Final CO2 02/20/2024 14:10:36 26 22-32 (mmo l/L) Final Anion gap 02/20/2024 14:10:36 13 7-15 (mmol /L) Final Glucose 02/20/2024 14:10:36 111 70-120 (mg /dL) Final Calcium 02/20/2024 14:10:36 10.3 Above high normal 8. 4-10.2 (mg/dL) Final Performing Location [facility] [address] [place] [id number]
--- OUTSIDE RECORDS SUMMARY | 2024-03-03 02:08 | External Medical Summary ---
Author Name Unknown Address Unknown Organization [id number]:[facility] [place] - [address] [place] [id number] Laboratory Report Ordering Provider Test Date Status FESTUS OZUNA 02/20/2024 14:10:36 Final Observation Date Value Abnormality Reference (Units ) Status Ferritin 02/20/2024 14:10:36 287 30-400 (ng /mL) Final Performing Location [facility]ATORY [facility] - [address] [place] [address]
--- OUTSIDE RECORDS SUMMARY | 2024-03-03 02:08 | External Medical Summary | Summary of Care ---
Author Name Unknown Organization [facility] Address [address] [place] [address] Phone [phone] Care Team Providers Care Spinning Lathe Operator Hydraulic Name Role Phone Juan F Blanco MD Primary Care Provider Reason for Visit * Reason Onset Date Comments Test Results 02/22/2024 Encounter Details Date Type Department Care Team (Late st Contact Info) Description 02/22/2024 Telephone Cardiology, [facility] [address] [place] [address] Vishal Kenney, [address] [place] [id number] Test Results Allergies Active Allergy Reactions Criticality Noted Date Comments Meloxicam Nausea/vomiting 07/06/2017 Nausea and head congestion Naproxen Other (Please comment) Low 02/27/2003 nightmares documented as of this encounter (statuses as of 02/22/2024) Medications Medication Sig Dispensed Refills Start Date End Date Status OMEGA-3 FATTY ACIDS 1000 MG PO CAPSIndications:Nonsp ecific (abnormal) findings on radiological and other examination of musculoskeletal system one BID o 0 04/19/2007 Active FOLIC ACID 800 MCG PO TABSIndications:Nonsp ecific (abnormal) findings on radiological and other examination of musculoskeletal system 1 TABLET EVENING 0 0 04/19/2007 Active CALCIUM-CARB 600 + D 600-125 MG-UNIT PO TABSIndications:Nonsp ecific (abnormal) findings on radiological and other examination of musculoskeletal system 1 twice daily 60 11 04/19/2007 Active ASPIRIN 81 MG PO CHEWIndications:Other specified prophylactic or treatment measure One pill by mouth once a day with food 100 Tab 5 02/24/2010 Active SINUS WASH NETI POT 2300-700 MG NA KITIndications:Allerg ic rhinitis,Chronic sinusitis flush each nostril morning and night and every 2-4 hrs as needed for nasal dryness or congestion 1 Kit 4 05/19/2010 Active VIAGRA 100 MG PO TABSIndications:Testi cular hypofunction One pill by mouth 1-4 hours before intercourse, no more than 1 dose in 24 hours. 4 Tab 5 03/14/2012 Active CENTRUM SILVER PO TABS one tablet by mouth daily ([employer] Adult Plus 1-2-3) Active Cholecalciferol 25 MCG (1000 UT) Oral Capsule 1,000 Capsules. 2 capsules daily Active Probiotic Product (PROBIOTIC ACIDOPHILUS) Capsule Take 1 Cap by mouth every evening. One capsule daily Active Fexofenadine HCl 180 MG Oral Tablet Take 1 Tablet by mouth daily as needed for Allergies. 06/06/2019 Active Vitamin C 1000 MG Oral Tablet Take 1 Tablet by mouth in the morning. Active CPAP every night at bedtime . Active busPIRone HCl 10 MG Oral Tablet (Buspar)Indications:G AD (generalized anxiety disorder) Take 1 Tablet (10 mg) by mouth 2 times a day as needed for Other (anxiety). 180 Tablet 3 04/06/2022 Active Sildenafil Citrate 100 MG Oral Tablet (Viagra) Take 1 Tablet by mouth daily as needed for Erectile Dysfunction. 1-4 hours before intercourse, no more than 1 dose in 24 hours. 4 Tablet 5 07/12/2023 Active Atorvastatin Calcium 10 MG Oral Tablet (Lipitor) TAKE 1 TABLET BY MOUTH EVERY DAY 90 Tablet 3 08/02/2023 Active Gabapentin 300 MG Oral Capsule (Neurontin)Indication s:Parkinsonian tremor (HCC) TAKE 1 CAP IN AM AND 1 CAP AT NOON AND 2 CAPS AT BEDTIME 360 Capsule 3 09/01/2023 Active Mirabegron ER 50 MG Oral Tablet Extended Release 24 Hour (Myrbetriq) Take 1 Tablet by mouth in the morning. 30 Tablet 6 09/21/2023 Active Fluticasone Propionate 50 MCG/ACT Nasal Suspension (Flonase) INSTILL 1 SPRAY INTO EACH NOSTRIL TWICE A DAY 48 mL 3 10/11/2023 Active Carbidopa-Levodopa 25-100 MG Oral Tablet (Sinemet) TAKE 1.5 TABLETS FOUR TIMES DAILY. 540 Tablet 1 11/30/2023 Active Azelastine HCl 137 MCG/SPRAY Nasal Solution INSTILL 1 SPRAY INTO EACH NOSTRIL TWICE A DAY 270 mL 3 12/08/2023 Active Finasteride 5 MG Oral Tablet (Proscar) TAKE 1 TABLET BY MOUTH EVERY DAY IN THE MORNING 90 Tablet 3 12/19/2023 Active Lisinopril 20 MG Oral Tablet (Prinivil)Indications :HTN, goal below 140/90 TAKE 1 TABLET BY MOUTH TWICE A DAY 180 Tablet 1 12/19/2023 Active Escitalopram Oxalate 10 MG Oral Tablet (Lexapro)Indications: Current moderate episode of major depressive disorder, unspecified whether recurrent (HCC) TAKE 1 TABLET BY MOUTH EVERY DAY 90 Tablet 1 12/19/2023 Active traMADol HCl 50 MG Oral Tablet (Ultram)Indications:A cute bilateral low back pain without sciatica TAKE 1 TABLET BY MOUTH 3 TIMES A DAY NEEDED FOR PAIN, SEVERE. 30 Tablet 1 12/22/2023 Active Econazole Nitrate 1 % External Cream (Spectazole) APPLY TO AFFECTED AREAS OF FEET ONCE EVERY DAY DIRECTED 10/17/2023 Active Metoprolol Tartrate 25 MG Oral Tablet (Lopressor)Indication s:Cardiac pacemaker in situ,Paroxysmal SVT (supraventricular tachycardia) (HCC) TAKE 1/2 TABLET BY MOUTH TWICE A DAY 01/17/2024 Active Mesalamine ER 0.375 GM Oral Capsule Extended Release 24 Hour (Apriso)Indications:U lcerative proctitis without complication (HCC) TAKE 2 CAPSULES BY MOUTH IN THE MORNING 180 Capsule 1 02/01/2024 Active Additional Information Patient taking differently: 0.325 gOral Daily(AM), Reported on 02/21/2024 traZODone HCl 50 MG Oral Tablet (Desyrel)Indications: Persistent insomnia TAKE 1 TABLET BY MOUTH EVERYDAY AT BEDTIME 90 Tablet 1 02/03/2024 Active Additional Information Patient taking differently: 25 mg Oral HS, TAKE 1 TABLET BY MOUTH EVERYDAY AT BEDTIME, Reported on 02/21/2024 Trihexyphenidyl HCl 2 MG Oral Tablet (Artane)Indications:P arkinson's disease without dyskinesia or fluctuating manifestations (HCC) Take 1 tablet per mouth at bedtime for day 1-3, then take 1 tab per mouth twice a day for day 4-6, then take 1 tab per mouth three times a day afterwards 90 Tablet 5 02/21/2024 Active documented as of this encounter (statuses as of 02/22/2024) Active Problems Problem Noted Date Diagnosed Date NSVT (nonsustained ventricular tachycardia) 06/30 Major depressive disorder, single episode, moder ate 07/12/2023 Nocturnal enuresis 03/15/2023 BPH with obstruction/lower urinary tract symptom s 03/15/2023 Body mass index (BMI) of 40.0 to 44.9 in adult 0 01/11/2022 Overview: Per Obesity protocol - Per Obesity protocol - Per Obesity protocol - Per Obesity protocol Atherosclerotic heart diseas e of [place] coronary artery without angina pectoris 05/30/2019 Major depressive disorder, single episode, unspe cified 05/30/2019 Essential hypertension with goal blood pressure less than 130/80 05/30/2019 Aortic root dilation 05/30/2019 Urethral stricture 04/23/2019 Hematuria of undiagnosed cause 09/29/2018 Renal cyst, left 09/29/2018 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 2018 Chronic midline low back pain with left-sided sc iatica 08/22/2018 Family history of abdominal aortic aneurysm (AAA ) 05/09/2017 Parkinson's disease 10/05/2016 Vitamin D deficiency 10/05/2016 Cardiac pacemaker in situ 06/27/2014 Junctional bradycardia 06/05/2014 Dyslipidemia, goal LDL below 100 03/30/2012 Thoracic aortic aneurysm 05/18/2011 Paroxysmal SVT (supraventricular tachycardia) Obstructive sleep apnea on CPAP 06/08/2007 Overview: 03/2014 - new CPAP device 01/2012 -- CPAP 9-15 cwp, nocturnal ox 12/2005 PSG -- CPAP at 9 cwp 05/2005 PSG -- AHI 54, hypoxia, [facility] Oxygen 01/31/12 CPAP 9 to 11 cwp ADVANCE DIRECTIVE INFORMATION 08/09/2005 Overview: No advance directive- refused info TESTICULAR HYPOFUNC NEC 07/03/2003 documented as of this encounter (statuses as of 02/22/2024) Resolved Problems Problem Noted Date Diagnosed Date Resolved Date Body mass index (BMI) of 45. 0 to 49.9 in adult 09/07/2021 01/14/2022 Overview: Per Obesity protocol - Per Obesity protocol - Per Obesity protocol Body mass index (BMI) of 40. 0 to 44.9 in adult 06/15/2021 09/10/2021 Overview: Per Obesity protocol - Per Obesity protocol Body mass index (BMI) of 45. 0 to 49.9 in adult 07/09/2019 06/17/2021 Overview: Per Obesity protocol Morbid obesity with body mas s index (BMI) of 40.0 to 44.9 in adult 05/30/2019 07/12/2019 Overview: Per Obesity protocol Body mass index (BMI) of 40. 0 to 44.9 in adult 12/11/2018 06/13/2019 Overview: Per Obesity protocol Morbid obesity with body mas s index (BMI) of 45.0 to 49.9 in adult 08/22/2018 12/14/2018 Overview: Per Obesity protocol Body mass index (BMI) of 40. 0 to 44.9 in adult 01/31/2017 09/13/2018 Overview: Per Obesity protocol #1 Sinus node dysfunction 08/21/201510/04 Deviated nasal septum 11/16/20132016 Contusion of knee, right 09/25/201308/2016 Cellulitis of knee, right 09/25/2013 Contusion of thigh, right 09/25/2013 Contusion of lower limb, right 09/25/2013 10/04/2016 HTN, goal below 140/90 08/30/201308/30 Hypertension goal BP (blood pressure) < 140/80 05/18/2011 08/30/2013 Other specified pre-operative examination 05/18/2011 08/16/2018 Other premature beats 06/02/20102016 Acute sinusitis 10/31/2009 05/19/2010 Obesity, morbid (more than 1 00 lbs over ideal weight or BMI > 40) 07/29/2009 10/04/2016 Overview: Per Obesity Taxonomy ICD-10 update of inactive term Mixed rhinitis 06/08/2007 10/04/2016 Chronic sinusitis 06/08/2007 10/04/2016 Morbid obesity, BMI not known 02/06/2007 07/29/2009 Overview: Per Obesity Taxonomy Carpal tunnel syndrome 09/18/199910/04 Allergic rhinitis 09/18/1999 06/08/2007 ROTATOR CUFF SYND NOS 09/18/19992011 ABNORM ELECTROCARDIOGRAM 09/18/1999 Hearing loss 10/04/2016 HTN, goal to be determined 1 06/06/2012 Overview: Modified per HTN protocol #16. mild Chronic sinusitis 06/06/2008 Overview: Resolved per Duplicate Protocol #2. Presbyacusis 10/04/2016 Sleep apnea 06/06/2008 Overview: Resolved per Duplicate Protocol #2. Other diseases of respirator y system, not elsewhere classified 10/04/2016 Ulcerative colitis, unspecified 10/04/2016 documented as of this encounter (statuses as of 02/22/2024) Immunizations Name Administration Dates Next Due COVID-19 mRNA, LNP-s, No Pre serve, 2-Dose Series ([employer]) 09/03/2020,08/13/2020 COVID-19, LNP-s, No Preserve , Niko-sucrose, Ages 12+ (Pfizer) 04/28/2021 Covid-19, Mrna, Lnp-s, Pf, B ivalent, 30 Mcg, IM, 12 yrs and above ([employer]) 01/27/2022 H1N1 2009 Influenza, IM 06/06/2009 Pneumococcal Conjugate Vacc, 13 Valent (Prevnar) 07/04/2015 Pneumococcal Polysaccharide PPV23 (Pneumovax) 02/03/2012 Seasonal Influenza Vac., MDV , IM, 0.5 mL (Fluzone) 03/06/2014,01/19/2013,02/03/2012,12/31,02/16/2010,02/11/2009,02/26/20 08,03/08/2007,04/10/2006 02/11/2010 Seasonal Influenza, High Dos e, Trivalent, PF, IM (Fluzone HD) 01/17/2024 Seasonal Influenza, PF, 6 M & above, IM , (FluLaval or Fluzone) 02/05/2020,02/02/2019,04/21/2018,01/01 Seasonal Influenza, Quadriva lent Hd (Fluzone Hd) 01/31/2023,01/22/2022,02/06/2021 Seasonal Influenza, Quadriva lent, No Preserve, IM 02/10/2016,02/06/2015 02/07/2016 TD, Preservative Free 12/12/2019 TDAP, Age 7 and older, IM (Adacel) 02/16/2010 Zoster Vaccine Recombinant (Shingrix) 12/21/2017 ,10/04/2017 documented as of this encounter Social History Tobacco Use Types Packs/Day Years Used Date Smoking Tobacco: Never Smokeless Tobacco: Never Comments:no passive smoke ex posures Alcohol Use Standard Drinks/Week Comments Not Currently 0 (1 standard drink = 0.6 oz pur e alcohol) 1 case beer YEAR PHQ-2 Answer Date Recorded PHQ Adult Total Score 0 07/12/2023 Hunger Vital Sign Answer Date Recorded Worried About Running Out of Food in the Last Ye ar Never true 12/12/2019 Ran Out of Food in the Last Year Never true 12/12/2019 Utilities Answer Date Recorded Do you have trouble paying y our heating, water, or electric bill? (Adult - for ages 18 years and over) Not on file 10/18/2023 Is your family able to pay t he heat, water, or electric bill? (Household - for ages 0-17 years) Not on file 10/18/2023 Does your family have access to good internet? (Household - for ages 0-17 years) Not on file 10/18/2023 Social Connections Answer Date Recorded How often do you feel lonely or isolated from those around you? (Adult - for ages 18 years and over) Not on file 10/18/2023 Sex and Gender Information Value Date Recorded Sex Assigned at Male 08/22/2018 1:05 PM EDT Gender Identity Male 08/22/2018 1:05 PM EDT Sexual Orientation Straight 08/22/2018 1: 05 PM EDT Job Start Date Occupation Industry Not on file Not on file Not on file documented as of this encounter Miscellaneous Notes * Telephone Encounter - Bonifacio Roman LPN - 02/22/2024 9:15 AM EDT Called patient and informed of Dr. Kenney's message. Patient verbalized understanding. ----- Message from Vishal Kenney DO sent at 02/21/2024 6:43 PM EDT ----- Notify patient that his chemistry panel performed on 02/20/2024 in preparation for upcoming contrast-enhanced CT angiogram of the chest revealed stable kidney function electrolytes. Calcium minimallyelevated at 10.3, upper limit of normal 10.2, likely reflects some degree of dehydration. No further workup felt to be indicated for this. Proceed with CT as planned. Vishal Kenney DO documented in this encounter Plan of Treatment Upcoming Encounters Date Type Department Care Team (Late st Contact Info) Description 04/02/2024 1:00 PM EST [facility] [address] [place] [id number] 04/10/2024 9:30 AM EST Office Visit Interventional Pain Center, [facility] [address] [place] [address] Rika Alejandre PA-C [address] [place] [address] 04/20/2024 3:30 PM EST Office Visit Cardiology, [facility] [address] [place] [address] Annita Garcia PA-C [address] [address] 05/23/2024 3:40 PM EST Office Visit [place] [address] [place] [id number] Juan F Blanco MD [address] [place] [address] 06/18/2024 2:20 PM EST Office Visit Neurology [facility] [address] [place] [address] Landon Meredith MD [address], [place] [id number] 07/31/2024 3:15 PM EDT Office Visit Urology, [facility] [address] [place] [address] Hoang Martinez MD [address] [facility] [place] [address] 09/12/2024 3:00 PM EDT Office Visit Allergy/Immunology [facility] [address] [place] [address] Sandra Macdonald PA-C [address] [facility] [place] [address] Health Maintenance Due Date Last Done Comments Adult Wellness Visit 03/22/2014 03/22/2013 Colonoscopy 10/20/2022 10/20/2021, 10/01, 01/24/2019, Additional history exists COVID-19 Vaccine ( season) 2024 01/27/2022, 04/28/2021, 09/03/2020, Additional history exists Depression Monitoring 07/11/2024 07/12/2023 GFR 02/19/2025 02/20/2024, 08/2023, 07/04/2023, Additional history exists Albumin/Creatinine Ratio 07/03/2026 07/04/2023 DTap/Tdap Vaccines (3 - Td or Tdap) 12/11/2029 12/12/2019, 02/16/2010 Pneumococcal Vaccine: 65+ Years Completed 07/04/2015, 02/03/2012 Zoster Vaccines Completed 12/21/2017, 10/04/2017 RETIRED - COLONOSCOPY-ANNUAL AGES 18-100 Discontinued 10/20/2021, 10/20/2021, 01/24/2019, Additional history exists Influenza Vaccine (FLU shot) Completed 01/17/2024, 01/31/2023, 01/22/2022, Additional history exists HPV (Gardasil) Vaccine Aged Out No lo nger eligible based on patient's age to complete this topic Hepatitis B Vaccine Aged Out No longe r eligible based on patient's age to complete this topic MENINGOCOCCAL (MENACTRA/MENVEO) Aged Out No longer eligible based on patient's age to complete this topic documented as of this encounter Medical Devices Implanted Type Area [employer] Specialist Device Identifier Shelf Expiration Date Model / Serial / Lot Clip Quick 2.8mm 230cm - [id number] Implanted:Qty: 2 on 10/20/2021 by Tanja Schulz MD at [facility] [employer] 08/30/2023 [id number] / / Duraclip 16mm Xlg Repostn - [id number] Implanted:Qty: 4 on 10/20/2021 by Tanja Schulz MD at [facility] [employer] 11/02/2023 [id number] / / documented as of this encounter Care Teams Spinning Lathe Operator Hydraulic Relationship Specialty Start Date End Date Juan F Blanco MD [address] [place] [address] PCP - General 09/02/00 documented as of this encounter
--- OUTSIDE RECORDS SUMMARY | 2024-03-03 02:08 | External Medical Summary | Summary of Care ---
Author Name Unknown Organization [facility] Address [address] [place] [address] Phone [phone] Care Team Providers Care Slip Filler Name Role Phone Juan F Blanco MD Primary Care Provider [phone] Reason for Visit * Reason Onset Date Comments Follow Up 02/03/2024 Encounter Details Date Type Department Care Team (Late st Contact Info) Description 02/03/2024 2:00 PM EDT Scheduled Telephone Interventional Pain Center, [facility] [address] [place] [address] [facility], Nurse Phone Call Interventional Pain [facility] [address] [place] [address] Allergies Active Allergy Reactions Criticality Noted Date Comments Meloxicam Nausea/vomiting 07/06/2017 Nausea and head congestion Naproxen Other (Please comment) Low 02/27/2003 nightmares documented as of this encounter (statuses as of 02/07/2024) Medications Medication Sig Dispensed Refills Start Date End Date Status OMEGA-3 FATTY ACIDS 1000 MG PO CAPSIndications:Non specific (abnormal) findings on radiological and other examination of musculoskeletal system one BID o 0 7 Active FOLIC ACID 800 MCG PO TABSIndications:Non specific (abnormal) findings on radiological and other examination of musculoskeletal system 1 TABLET EVENING 0 0 7 Active CALCIUM-CARB 600 + D 600-125 MG-UNIT PO TABSIndications:Non specific (abnormal) findings on radiological and other examination of musculoskeletal system 1 twice daily 60 11 7 Active ASPIRIN 81 MG PO CHEWIndications:Oth er specified prophylactic or treatment measure One pill by mouth once a day with food 100 Tab 5 0 Active SINUS WASH NETI POT 2300-700 MG NA KITIndications:Edmond rgic rhinitis,Chronic sinusitis flush each nostril morning and night and every 2-4 hrs as needed for nasal dryness or congestion 1 Kit 4 1 Active VIAGRA 100 MG PO TABSIndications:Ailyn ticular hypofunction One pill by mouth 1-4 hours before intercourse, no more than 1 dose in 24 hours. 4 Tab 5 2 Active CENTRUM SILVER PO TABS one tablet by mouth daily ([employer] Adult Plus 1-2-3) Active Cholecalciferol 25 MCG (1000 UT) Oral Capsule 1,000 Capsules. 2 capsules daily Active Probiotic Product (PROBIOTIC ACIDOPHILUS) Capsule Take 1 Cap by mouth every evening. One capsule daily Active Fexofenadine HCl 180 MG Oral Tablet Take 1 Tablet by mouth daily as needed for Allergies. 0 Active Vitamin C 1000 MG Oral Tablet Take 1 Tablet by mouth in the morning. Active CPAP every night at bedtime . Active busPIRone HCl 10 MG Oral Tablet (Buspar)Indications :KRIS (generalized anxiety disorder) Take 1 Tablet (10 mg) by mouth 2 times a day as needed for Other (anxiety). 180 Tablet 3 2 Active Additional Information Patient not taking.Reported on 01/17/2024 Benzonatate 100 MG Oral CapsuleIndications: Bronchitis, complicated Take 1-2 Capsules by mouth 3 times a day as needed for Cough. 30 Capsule 1 3 Active Additional Information Patient not taking.Reported on 09/13/2023 Sildenafil Citrate 100 MG Oral Tablet (Viagra) Take 1 Tablet by mouth daily as needed for Erectile Dysfunction. 1-4 hours before intercourse, no more than 1 dose in 24 hours. 4 Tablet 5 4 Active Atorvastatin Calcium 10 MG Oral Tablet (Lipitor) TAKE 1 TABLET BY MOUTH EVERY DAY 90 Tablet 3 4 Active Gabapentin 300 MG Oral Capsule (Neurontin)Indicati ons:Parkinsonian tremor (HCC) TAKE 1 CAP IN AM AND 1 CAP AT NOON AND 2 CAPS AT BEDTIME 360 Capsule 3 4 Active Mirabegron ER 50 MG Oral Tablet Extended Release 24 Hour (Myrbetriq) Take 1 Tablet by mouth in the morning. 30 Tablet 6 4 Active Fluticasone Propionate 50 MCG/ACT Nasal Suspension (Flonase) INSTILL 1 SPRAY INTO EACH NOSTRIL TWICE A DAY 48 mL 3 4 Active Carbidopa-Levodopa 25-100 MG Oral Tablet (Sinemet) TAKE 1.5 TABLETS FOUR TIMES DAILY. 540 Tablet 1 4 Active Azelastine HCl 137 MCG/SPRAY Nasal Solution INSTILL 1 SPRAY INTO EACH NOSTRIL TWICE A DAY 270 mL 3 4 Active Finasteride 5 MG Oral Tablet (Proscar) TAKE 1 TABLET BY MOUTH EVERY DAY IN THE MORNING 90 Tablet 3 4 Active Lisinopril 20 MG Oral Tablet (Prinivil)Indicatio ns:HTN, goal below 140/90 TAKE 1 TABLET BY MOUTH TWICE A DAY 180 Tablet 1 4 Active Escitalopram Oxalate 10 MG Oral Tablet (Lexapro)Indication s:Current moderate episode of major depressive disorder, unspecified whether recurrent (HCC) TAKE 1 TABLET BY MOUTH EVERY DAY 90 Tablet 1 4 Active traMADol HCl 50 MG Oral Tablet (Ultram)Indications :Acute bilateral low back pain without sciatica TAKE 1 TABLET BY MOUTH 3 TIMES A DAY NEEDED FOR PAIN, SEVERE. 30 Tablet 1 4 Active Econazole Nitrate 1 % External Cream (Spectazole) APPLY TO AFFECTED AREAS OF FEET ONCE EVERY DAY DIRECTED 4 Active Metoprolol Tartrate 25 MG Oral Tablet (Lopressor)Indicati ons:Cardiac pacemaker in situ,Paroxysmal SVT (supraventricular tachycardia) (HCC) TAKE 1/2 TABLET BY MOUTH TWICE A DAY 4 Active Mesalamine ER 0.375 GM Oral Capsule Extended Release 24 Hour (Apriso)Indications :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 (HCC) TAKE 2 CAPSULES BY MOUTH IN THE MORNING 180 Capsule 1 4 Active traZODone HCl 50 MG Oral Tablet (Desyrel)Indication s:Persistent insomnia Take 1 tablet by mouth once daily at bedtime 90 Tablet 3 3 02/03/20 24 Discontinued documented as of this encounter (statuses as of 02/07/2024) Active Problems Problem Noted Date Diagnosed Date [...] Obesity protocol Atherosclerotic heart diseas e of [place] coronary artery without angina pectoris 05/30/2019 Major [...] as of this encounter (statuses as of 02/07/2024) Resolved Problems Problem Noted Date Diagnosed Date [...] as of this encounter (statuses as of 02/07/2024) Immunizations Name Administration Dates Next Due COVID-19 mRNA, LNP-s, No Pre serve, 2-Dose Series ([email or web address]) 09/03/2020,08/13/2020 COVID-19, LNP-s, No Preserve , Niko-sucrose, Ages 12+ (Pfizer) 04/28/2021 Covid-19, Mrna, Lnp-s, Pf, B ivalent, 30 Mcg, IM, 12 yrs and above ([email or web address]) 01/27/2022 H1N1 2009 Influenza, IM 06/06/2009 Pneumococcal [...] ex posures Alcohol Use Standard Drinks/Week Comments Yes 0 (1 standard drink = 0.6 oz [...] encounter Miscellaneous Notes * Telephone Encounter - Nena Rodriguez LPN - 02/07/2024 11:04 AM EDT Pt scheduled our next available in Apr. Advised to see pcp in meantime if it gets worse or go to ER * Telephone Encounter - Nena Rodriguez LPN - 02/03/2024 10:23 AM EDT Patient states worse pain since the injection, has been unable to get out of bed without assistance, has to sit for 1-3hrs in a chair before he can move around. B/l hips, 4inches down into his thighs, L>R. Also states he saw his pcp and had new xrays as well if you want to review them, in chart. * Telephone Encounter - Nena Rodriguez LPN - 02/03/2024 9:36 AM EDT Caudal Epidural Steroid Injection on 12/30/23 Left message for patient to return call. documented in this encounter Plan of Treatment Upcoming Encounters Date Type Department Care Team (Late st Contact Info) Description 02/20/2024 1:40 PM EDT Office Visit Gastroenterology, [facility] [address] [address] Tanja Schulz MD [address] [place] [address] 02/21/2024 1:00 PM EDT Office Visit Neurology [facility] [address] [place] [address] Landon Meredith MD [address] [facility] [place] [address] 04/02/2024 1:00 PM EST Imaging Radiology [facility] 1st Floor, [place] [address] [facility] [place] [address] 04/10/2024 9:30 AM EST Office Visit Interventional Pain Center, [facility] [address] [facility] [place] [address] Rika Alejandre PA-C [address] [facility] [place] [address] 04/20/2024 3:30 PM EST Office Visit Cardiology, [facility] [address] [facility] [place] [address] Annita Garcia PA-C 132 [facility] [place] [address] 05/23/2024 3:40 PM EST [facility] [address] [place] [address] Juan F Blanco MD [address] [place] [address] 07/31/2024 3:15 PM EDT Office Visit Urology, [facility] [address] [facility] [place] [address] Hoang Martinez MD [address] [place] [address] 09/12/2024 3:00 PM EDT Office Visit Allergy/Immunology [facility] [place] [address] [place] [address] Sandra Macdonald PA-C [address] [place] [address] Health Maintenance Due Date Last Done Comments Adult Wellness Visit 03/22/2014 03/22/2013 Colonoscopy 10/20/2022 10/20/2021, 10/01, 01/24/2019, Additional history exists COVID-19 Vaccine ( season) 2024 01/27/2022, 04/28/2021, 09/03/2020, Additional history exists Depression Monitoring 07/11/2024 07/12/2023 GFR 02/02/2025 02/03/2024, 03/0 08/2023, 03/17/2022, Additional history exists Albumin/Creatinine Ratio 07/03/2026 07/04/2023 [...] this encounter Medical Devices Implanted Type Area Credentialing Assistant Device Identifier Shelf Expiration Date Model / Serial / Lot Clip Quick 2.8mm 230cm - [id number] Implanted:Qty: 2 on 10/20/2021 by Tanja Schulz MD at [facility] [employer] 08/30/2023 [id number] / / Duraclip 16mm Xlg Repostn - [id number] Implanted:Qty: 4 on 10/20/2021 by Tanja Schulz MD at [facility] [employer] 11/02/2023 [id number] / / documented as of this encounter Care Teams Slip Filler Relationship Specialty Start Date End Date Juan F Blanco MD [address] [place] [address] PCP - General 09/02/00 documented as of this encounter
--- OUTSIDE RECORDS SUMMARY | 2024-03-03 02:08 | External Medical Summary | Summary of Care ---
Author Name Unknown Organization [facility] Address [address] [place] [address] Phone [phone] Care Team Providers Care Doorperson Name Role Phone Juan F Blanco MD Primary Care Provider [phone] Reason for Visit * Reason Comments Follow Up Pt reports that he h as no symptoms. This is a routine follow up. He does complain of firm stool Encounter Details Date Type Department Care Team (Late st Contact Info) Description 02/20/2024 1:40 PM EDT Office Visit Gastroenterology, [facility] [address] [place] [address] Tanja Schulz MD [address] [place] [id number] 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 (HCC)* Allergies Active Allergy Reactions Criticality Noted Date Comments Meloxicam Nausea/vomiting 07/06/2017 Nausea and head congestion Naproxen Other (Please comment) Low 02/27/2003 nightmares documented as of this encounter (statuses as of 02/20/2024) Medications Medication Sig Dispensed Refills Start Date [...] Other (anxiety). 180 Tablet 3 04/06/2022 Active Benzonatate 100 MG Oral CapsuleIndications:Br onchitis, complicated Take 1-2 Capsules by mouth 3 times a day as needed for Cough. 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 05/30/2019 Major [...] as of this encounter (statuses as of 02/20/2024) Resolved Problems Problem Noted Date Diagnosed Date [...] as of this encounter (statuses as of 02/20/2024) Immunizations Name Administration Dates Next Due COVID-19 mRNA, LNP-s, No Pre serve, 2-Dose Series ([facility]) 09/03/2020,08/13/2020 COVID-19, LNP-s, No Preserve , Niko-sucrose, Ages 12+ (Pfizer) 04/28/2021 Covid-19, Mrna, Lnp-s, Pf, B ivalent, 30 Mcg, IM, 12 yrs and above ([facility]) 01/27/2022 H1N1 2009 Influenza, IM 06/06/2009 Pneumococcal [...] on file documented as of this encounter Last Filed Vital Signs Vital Sign Reading Time Taken Comments Blood Pressure 124/62 02/20/2024 1:37 PM EDT Pulse 80 02/20/2024 1:37 PM EDT Temperature 36.8 C (98.2 F) 02/20/2024 1:37 PM ED T Respiratory Rate - - Oxygen Saturation - - Inhaled Oxygen Concentration - - Weight 135.8 kg (299 lb 6.4 oz) 02/20/2024 1:37 PM EDT Height - - Body Mass Index 39.5 01/17/2024 2:57 PM EDT documented in this encounter Progress Notes * Tanja Schulz MD - 02/20/2024 1:53 PM EDT HPI: 75 year old male seen for IBD. Prior to October 2006, denies h/o diarrhea. Pt with 2 slightly loose BM's/day. No rectal bleeding, no nocturnal bleeding, no urgency. In October 2006, pt with fairly abrupt onset diarrhea. Pt reports 3 episodes diarrhea from October to November. During episodes of diarrhea, pt with BM's 6-10 daily. Stool is large volume, + nocturnal BM, urgency. No tenesmus, no incontinence. No bleeding. Diarrhea lasts 2-3 days, then complete resolves. Was taking 6 tablets ASA /daily during episodes of diarrhea. Pt underwent colonoscopy 12/08/06 for w/u of diarrhea which showed evidence of moderately severe rodriguez-colitis; colitis was continuous except for single small patch in sigmoid that was apparently spared.TI was normal. Bx show evidence of chronic colitis, c/w dx of UC. ESR in November was 29. SBFT showednormal SB, nodularity of colon mucosa. 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 In 2008, he had episodes of diarrhea; first episode was preceded by Keflex. He was placed brief on Asacol after first episode, then remained on maintenance Asacol after second episode. He had C diff in 2009 after amoxicillin, resolved with Flagyl. He had cscopy in 2011 - prep was fair, and there was evidence of past colitis, but biopsies did notshow active disease. He had diarrhea in September of 2012 that resolved with Flagyl. Cscopy in May 2014 - no evidence of active colitis, either by gross appearance or bx. Stopped Apriso at that time. Had diarrhea, bleeding in August 2014. Fecal calprotectin markedly elevated. Placed on Azulfidine, dueto cost --> could not tolerate, due to nausea. Cscopy in July 2015 - no evidence of active colitis. Cscopy in 12/2018 - no evidence of active colitis, polyp in cecum removed with forceps, possible adenoma Csocpy 10/21 - no evidenceo folitis, few polyps, no adenomas. Recently, he has been having issues with constipation. He has recently increased his Parkinson's medications, which coincide wht this change. He reports 1-2 BMs daily with sense of incomplete evacuation, and passage of "small pellets of stool. ROS: urinary ferquency, urgency ALLERGIES: Review of patient's allergies indicates: Naproxen Comment: diarrhea Meds: Current Outpatient Medications Medication Sig Dispense Refill OMEGA-3 FATTY ACIDS 1000 MG PO CAPS one BID o 0 FOLIC ACID 800 MCG PO TABS 1 TABLET EVENING 0 0 CALCIUM-CARB 600 + D 600-125 MG-UNIT PO TABS 1 twice daily 60 11 ASPIRIN 81 MG PO CHEW One pill by mouth once a day with food 100 Tab 5 VIAGRA 100 MG PO TABS One pill by mouth 1-4 hours before intercourse, no more than 1 dose in 24 hours. 4 Tab 5 CENTRUM SILVER PO TABS one tablet by mouth daily ([employer] Adult Plus 1-2-3) Cholecalciferol 25 MCG (1000 UT) Oral Capsule 1,000 Capsules. 2 capsules daily Probiotic Product (PROBIOTIC ACIDOPHILUS) Capsule Take 1 Cap by mouth every evening. One capsule daily Fexofenadine HCl 180 MG Oral Tablet Take 1 Tablet by mouth daily as needed for Allergies. Vitamin C 1000 MG Oral Tablet Take 1 Tablet by mouth in the morning. CPAP every night at bedtime . busPIRone HCl 10 MG Oral Tablet (Buspar) Take 1 Tablet (10 mg) by mouth 2 times a day as needed forOther (anxiety). 180 Tablet 3 Sildenafil Citrate 100 MG Oral Tablet (Viagra) Take 1 Tablet by mouth daily as needed for Erectile Dysfunction. 1-4 hours before intercourse, no more than 1 dose in 24 hours. 4 Tablet 5 Atorvastatin Calcium 10 MG Oral Tablet (Lipitor) TAKE 1 TABLET BY MOUTH EVERY DAY 90 Tablet 3 Gabapentin 300 MG Oral Capsule (Neurontin) TAKE 1 CAP IN AM AND 1 CAP AT NOON AND 2 CAPS AT [id number] Capsule 3 Mirabegron ER 50 MG Oral Tablet Extended Release 24 Hour (Myrbetriq) Take 1 Tablet by mouth in the morning. 30 Tablet 6 Fluticasone Propionate 50 MCG/ACT Nasal Suspension (Flonase) INSTILL 1 SPRAY INTO EACH NOSTRIL TWICE A DAY 48 mL 3 Carbidopa-Levodopa 25-100 MG Oral Tablet (Sinemet) TAKE 1.5 TABLETS FOUR TIMES DAILY. 540 Tablet 1 Azelastine HCl 137 MCG/SPRAY Nasal Solution INSTILL 1 SPRAY INTO EACH NOSTRIL TWICE A DAY 270 mL 3 Finasteride 5 MG Oral Tablet (Proscar) TAKE 1 TABLET BY MOUTH EVERY DAY IN THE MORNING 90 Tablet 3 Escitalopram Oxalate 10 MG Oral Tablet (Lexapro) TAKE 1 TABLET BY MOUTH EVERY DAY 90 Tablet 1 traMADol HCl 50 MG Oral Tablet (Ultram) TAKE 1 TABLET BY MOUTH 3 TIMES A DAY NEEDED FOR PAIN, SEVERE. 30 Tablet 1 Econazole Nitrate 1 % External Cream (Spectazole) APPLY TO AFFECTED AREAS OF FEET ONCE EVERY DAY ASDIRECTED Metoprolol Tartrate 25 MG Oral Tablet (Lopressor) TAKE 1/2 TABLET BY MOUTH TWICE A DAY Mesalamine ER 0.375 GM Oral Capsule Extended Release 24 Hour (Apriso) TAKE 2 CAPSULES BY MOUTH IN THE MORNING 180 Capsule 1 traZODone HCl 50 MG Oral Tablet (Desyrel) TAKE 1 TABLET BY MOUTH EVERYDAY AT BEDTIME 90 Tablet 1 SINUS WASH NETI POT 2300-700 MG NA KIT flush each nostril morning and night and every 2-4 hrs as needed for nasal dryness or congestion 1 Kit 4 Benzonatate 100 MG Oral Capsule Take 1-2 Capsules by mouth 3 times a day as needed for Cough. (Patient not taking: Reported on 09/13/2023) 30 Capsule 1 Lisinopril 20 MG Oral Tablet (Prinivil) TAKE 1 TABLET BY MOUTH TWICE A DAY 180 Tablet 1 No current facility-administered medications for this visit. Off NSAIDS. 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 h/o C diff - Cont Apriso, may consider eventual dc of this drug. Recent constipation likely related to Parkinson's and dopaminergic agents -- will use Miralax 1 cap q 1-2 days and fiber. RTC 1 year Tanja Schulz MD HPI: 75 year old male seen for IBD. Prior to October 2006, denies h/o diarrhea. Pt with 2 slightly loose BM's/day. No rectal bleeding, no nocturnal bleeding, no urgency. In October 2006, pt with fairly abrupt onset diarrhea. Pt reports 3 episodes diarrhea from October to November. During episodes of diarrhea, pt with BM's 6-10 daily. Stool is large volume, + nocturnal BM, urgency. No tenesmus, no incontinence. No bleeding. Diarrhea lasts 2-3 days, then complete resolves. Was taking 6 tablets ASA /daily during episodes of diarrhea. Pt underwent colonoscopy 12/08/06 for w/u of diarrhea which showed evidence of moderately severe rodriguez-colitis; colitis was continuous except for single small patch in sigmoid that was apparently spared.TI was normal. Bx show evidence of chronic colitis, c/w dx of UC. ESR in November was 29. SBFT showednormal SB, nodularity of colon mucosa. 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 In 2008, he had episodes of diarrhea; first episode was preceded by Keflex. He was placed brief on Asacol after first episode, then remained on maintenance Asacol after second episode. He had C diff in 2009 after amoxicillin, resolved with Flagyl. He had cscopy in 2011 - prep was fair, and there was evidence of past colitis, but biopsies did notshow active disease. He had diarrhea in September of 2012 that resolved with Flagyl. Cscopy in May 2014 - no evidence of active colitis, either by gross appearance or bx. Stopped Apriso at that time. Had diarrhea, bleeding in August 2014. Fecal calprotectin markedly elevated. Placed on Azulfidine, dueto cost --> could not tolerate, due to nausea. Cscopy in July 2015 - no evidence of active colitis. Cscopy in 12/2018 - no evidence of active colitis, polyp in cecum removed with forceps, possible adenoma Csocpy 10/21 - no evidenceo colitis, few polyps, no adenomas. 10/22 - Mild constipation from Dopaminergic agents. Apriso 2 pills a day 1024: No complaints. ROS: Reports orthostasis. ALLERGIES: Review of patient's allergies indicates: Naproxen Comment: diarrhea Meds: Current Outpatient Medications Medication Sig Dispense Refill OMEGA-3 FATTY ACIDS 1000 MG PO CAPS one BID o 0 FOLIC ACID 800 MCG PO TABS 1 TABLET EVENING 0 0 CALCIUM-CARB 600 + D 600-125 MG-UNIT PO TABS 1 twice daily 60 11 ASPIRIN 81 MG PO CHEW One pill by mouth once a day with food 100 Tab 5 VIAGRA 100 MG PO TABS One pill by mouth 1-4 hours before intercourse, no more than 1 dose in 24 hours. 4 Tab 5 CENTRUM SILVER PO TABS one tablet by mouth daily ([employer] Adult Plus 1-2-3) Cholecalciferol 25 MCG (1000 UT) Oral Capsule 1,000 Capsules. 2 capsules daily Probiotic Product (PROBIOTIC ACIDOPHILUS) Capsule Take 1 Cap by mouth every evening. One capsule daily Fexofenadine HCl 180 MG Oral Tablet Take 1 Tablet by mouth daily as needed for Allergies. Vitamin C 1000 MG Oral Tablet Take 1 Tablet by mouth in the morning. CPAP every night at bedtime . busPIRone HCl 10 MG Oral Tablet (Buspar) Take 1 Tablet (10 mg) by mouth 2 times a day as needed forOther (anxiety). 180 Tablet 3 Sildenafil Citrate 100 MG Oral Tablet (Viagra) Take 1 Tablet by mouth daily as needed for Erectile Dysfunction. 1-4 hours before intercourse, no more than 1 dose in 24 hours. 4 Tablet 5 Atorvastatin Calcium 10 MG Oral Tablet (Lipitor) TAKE 1 TABLET BY MOUTH EVERY DAY 90 Tablet 3 Gabapentin 300 MG Oral Capsule (Neurontin) TAKE 1 CAP IN AM AND 1 CAP AT NOON AND 2 CAPS AT [id number] Capsule 3 Mirabegron ER 50 MG Oral Tablet Extended Release 24 Hour (Myrbetriq) Take 1 Tablet by mouth in the morning. 30 Tablet 6 Fluticasone Propionate 50 MCG/ACT Nasal Suspension (Flonase) INSTILL 1 SPRAY INTO EACH NOSTRIL TWICE A DAY 48 mL 3 Carbidopa-Levodopa 25-100 MG Oral Tablet (Sinemet) TAKE 1.5 TABLETS FOUR TIMES DAILY. 540 Tablet 1 Azelastine HCl 137 MCG/SPRAY Nasal Solution INSTILL 1 SPRAY INTO EACH NOSTRIL TWICE A DAY 270 mL 3 Finasteride 5 MG Oral Tablet (Proscar) TAKE 1 TABLET BY MOUTH EVERY DAY IN THE MORNING 90 Tablet 3 Escitalopram Oxalate 10 MG Oral Tablet (Lexapro) TAKE 1 TABLET BY MOUTH EVERY DAY 90 Tablet 1 traMADol HCl 50 MG Oral Tablet (Ultram) TAKE 1 TABLET BY MOUTH 3 TIMES A DAY NEEDED FOR PAIN, SEVERE. 30 Tablet 1 Econazole Nitrate 1 % External Cream (Spectazole) APPLY TO AFFECTED AREAS OF FEET ONCE EVERY DAY ASDIRECTED Metoprolol Tartrate 25 MG Oral Tablet (Lopressor) TAKE 1/2 TABLET BY MOUTH TWICE A DAY Mesalamine ER 0.375 GM Oral Capsule Extended Release 24 Hour (Apriso) TAKE 2 CAPSULES BY MOUTH IN THE MORNING 180 Capsule 1 traZODone HCl 50 MG Oral Tablet (Desyrel) TAKE 1 TABLET BY MOUTH EVERYDAY AT BEDTIME 90 Tablet 1 SINUS WASH NETI POT 2300-700 MG NA KIT flush each nostril morning and night and every 2-4 hrs as needed for nasal dryness or congestion 1 Kit 4 Benzonatate 100 MG Oral Capsule Take 1-2 Capsules by mouth 3 times a day as needed for Cough. (Patient not taking: Reported on 09/13/2023) 30 Capsule 1 Lisinopril 20 MG Oral Tablet (Prinivil) TAKE 1 TABLET BY MOUTH TWICE A DAY 180 Tablet 1 No current facility-administered medications for this visit. Off NSAIDS. 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 h/o C diff - Wean off Apriso - 1 pill x 1 month, then d/c. He does not want colonoscopy. Check ferritin for down trending hgb. Treat constipation with milralax. RTC 1 year Tanja Schulz MD documented in this encounter Nursing Notes * Renée Cordova LPN - 02/20/2024 1:37 PM EDT Chief Complaint Patient presents with Follow Up Pt reports that he has no symptoms. This is a routine follow up. He does complain of firm stool documented in this encounter Plan of Treatment Upcoming Encounters Date Type Department Care Team (Late st Contact Info) Description 02/21/2024 1:00 PM EDT Office Visit Neurology [facility] [address] [place] [address] Landon Meredith MD [address] [facility] [address] 04/02/2024 1:00 PM EST [facility] [address] [facility] [place] [address] 04/10/2024 9:30 AM EST Office Visit Interventional Pain Center, [facility] [address] [facility] [place] [address] Rika Alejnadre PA-C [address] [facility] [place] [address] 04/20/2024 3:30 PM EST Office Visit Cardiology, [facility] [address] [facility] [place] [address] Annita Garcia PA-C 132 [place] [address] 05/23/2024 3:40 PM EST Office Visit [facility] [address] [place] [address] Juan F Blanco MD [address] [place] [address] 07/31/2024 3:15 PM EDT Office Visit Urology, [facility] [address] [facility] [place] [address] Hoang Martinez MD [address] [facility] [place] [address] 09/12/2024 3:00 PM EDT Office Visit Allergy/Immunology [facility] [address] [place] [address] Sandra Macdonald PA-C [address] [facility], [place] [address] Pending Results Name Type Priority Associated Diagnoses Date /Time FERRITIN Lab Routine 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 (HCC) 02/20/2024 2:10 PM EDT VITAMIN B12 Lab Routine 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 (HCC) 02/20/2024 2:10 PM EDT FOLIC ACID Lab Routine 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 (HCC) 02/20/2024 2:10 PM EDT Scheduled Orders Name Type Priority Associated Diagnoses Orde r Schedule FERRITIN Lab Routine 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 (HCC) Expected: 02/20/2024, Expires: 02/19/2025 VITAMIN B12 Lab Routine 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 (HCC) Expected: 02/20/2024, Expires: 02/19/2025 FOLIC ACID Lab Routine 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 (HCC) Expected: 02/20/2024, Expires: 02/19/2025 Health Maintenance Due Date Last Done Comments Adult Wellness Visit 03/22/2014 03/22/2013 Colonoscopy 10/20/2022 10/20/2021, 10/01, 01/24/2019, Additional history exists COVID-19 Vaccine ( season) 2024 01/27/2022, 04/28/2021, 09/03/2020, Additional history exists Depression Monitoring 07/11/2024 07/12/2023 GFR 02/02/2025 02/03/2024, 08/2023, 03/17/2022, Additional history exists Albumin/Creatinine Ratio [...] this encounter Medical Devices Implanted Type Area Commercial Credit Specialist Device Identifier Shelf Expiration Date Model / Serial / Lot Clip Quick 2.8mm 230cm - [id number] Implanted:Qty: 2 on 10/20/2021 by Tanja Schulz MD at ENDOSCOPY [facility] [employer] 08/30/2023 [id number] / / Duraclip 16mm Xlg Repostn - [id number] Implanted:Qty: 4 on 10/20/2021 by Tanja Schulz MD at ENDOSCOPY [facility] [employer] 11/02/2023 [id number] / / documented as of this encounter Visit Diagnoses Diagnosis 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 (HCC)- Primary documented in this encounter Care Teams Doorperson Relationship Specialty Start Date End Date Juan F Blanco MD [address] [place] [address] PCP - General 09/02/00 documented as of this encounter
--- OUTSIDE RECORDS SUMMARY | 2024-03-03 02:08 | External Medical Summary | Summary of Care ---
Author Name Unknown Organization [facility] Address [address] [place] [address] Phone [phone] Care Team Providers Care Tour Bus Driver/Guide Name Role Phone Juan F Blanco MD Primary Care Provider [phone] Reason for Visit * Reason Comments Outpatient Testing Encounter Details Date Type Department Care Team (Late st Contact Info) Description 02/20/2024 2:10 PM EDT Laboratory Laboratory, [facility] [address] [place] [phone] [facility] [address] [place] [address] Aneurysm of ascending aorta without rupture (HCC); 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 (HCC) Allergies Active Allergy Reactions Criticality Noted Date Comments Meloxicam Nausea/vomiting 07/06/2017 Nausea and head congestion Naproxen Other (Please comment) Low 02/27/2003 nightmares documented as of this encounter (statuses as of 02/21/2024) Medications Medication Sig Dispensed Refills Start Date [...] as of this encounter (statuses as of 02/21/2024) Active Problems Problem Noted Date Diagnosed Date [...] Obesity protocol Atherosclerotic heart diseas e of [place] coronary artery without angina pectoris 05/30/2019 Major [...] as of this encounter (statuses as of 02/21/2024) Resolved Problems Problem Noted Date Diagnosed Date [...] as of this encounter (statuses as of 02/21/2024) Immunizations Name Administration Dates Next Due COVID-19 mRNA, LNP-s, No Pre serve, 2-Dose Series (Pfizer) 09/03/2020,08/13/2020 COVID-19, LNP-s, No Preserve , Niko-sucrose, Ages 12+ (Pfizer) 04/28/2021 Covid-19, Mrna, Lnp-s, Pf, B ivalent, 30 Mcg, IM, 12 yrs and above (Pfizer) 01/27/2022 H1N1 2009 Influenza, IM 06/06/2009 Pneumococcal [...] 0.6 oz pur e alcohol) 1 case YEAR PHQ-2 Answer Date Recorded PHQ Adult [...] on file documented as of this encounter Plan of Treatment Upcoming Encounters Date Type Department Care Team (Late st Contact Info) Description 02/21/2024 1:00 PM EDT Office Visit Neurology [facility] [address] [place] [address] Landon Meredith MD [address] [place] [address] 04/02/2024 1:00 PM EST Imaging Radiology [facility] 1st Floor, [place] [address] [place] [place] [address] 04/10/2024 9:30 AM EST Office Visit Interventional Pain Center, [facility] [place] [address] Rika Alejandre PA-C [address] [facility] [place] [address] 04/20/2024 3:30 PM EST Office Visit Cardiology, [facility] 132 [place] [address] Annita Garcia PA-C [address] [facility] [place] [address] 05/23/2024 3:40 PM EST Office Visit [place] [address] [place] [phone] Juan F Blanco MD [address] [place] [address] 07/31/2024 3:15 PM EDT Office Visit Urology, [facility] [address] [place] [address] Hoang Martinez MD [address] [place] [address] 09/12/2024 3:00 PM EDT Office Visit Allergy/Immunology [facility] [address] [place] [address] Sandra Macdonald PA-C [address] [place] [address] Health Maintenance Due Date Last Done Comments [...] this encounter Medical Devices Implanted Type Area Montessori Lead Teacher Device Identifier Shelf Expiration Date Model / Serial / Lot Clip Quick 2.8mm 230cm - [id number] Implanted:Qty: 2 on 10/20/2021 by Tanja Schulz MD at ENDOSCOPY [facility] [employer] 08/30/2023 HX-202UR.A / / Duraclip 16mm Xlg Repostn - [id number] Implanted:Qty: 4 on 10/20/2021 by Tanja Schulz MD at ENDOSCOPY [facility] [employer]AT [employer] [facility] 11/02/2023 [id number] / / documented as of this encounter Procedures Procedure Name Priority Date/Time Associated Diagnosis Comments BASIC METABOLIC PANEL Routine 02/20/2024 2:10 PM EDT Aneurysm of ascending aorta without rupture (HCC) FOLIC ACID Routine 02/20/2024 2:10 PM EDT 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 (HCC) FERRITIN Routine 02/20/2024 2:10 PM EDT 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 (HCC) VITAMIN B12 Routine 02/20/2024 2:10 PM EDT 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 (HCC) documented in this encounter Results * FOLIC ACID (02/20/2024 2:10 PM EDT) Folic Acid >20.0 >4.5 ng/mL 02/20/2024 11:43 PM EDT LABORATORY C Blood Venous blood specimen / Unknown Venipuncture / Unknown 02/20/2024 2:10 PM EDT 02/20/2024 2:10 PM EDT Tanja Schulz MD LAB BLOOD ORDER RICARDO Performing Organization Address City/[facility]/ZIP Co de Phone Number LABORATORY [place] [address] [place] [address] * VITAMIN B12 (02/20/2024 2:10 PM EDT) Vitamin B12 696 232 - 1,245 pg/mL 02/20/2024 11:43 PM EDT LABORATORY [facility] Blood Venous blood specimen / Unknown Venipuncture / Unknown 02/20/2024 2:10 PM EDT 02/20/2024 2:10 PM EDT Tanja Schulz MD LAB BLOOD ORDER RICARDO LABORATORY [facility] [address] [place] [address] * FERRITIN (02/20/2024 2:10 PM EDT) Pathologist [facility] Ferritin 287 30 - 400 ng/mL 02/20/2024 11:43 PM EDT LABORATORY [facility] Blood Venous blood specimen / Unknown Venipuncture / Unknown 02/20/2024 2:10 PM EDT 02/20/2024 2:10 PM EDT Tanja Schulz MD LAB BLOOD ORDER RICARDO LABORATORY [facility] [address] [place] [address] * (ABNORMAL) BASIC METABOLIC PANEL (02/20/2024 2:10 PM EDT) Pathologist [facility] BUN 20 6 - 20 mg/dL 02/20/2024 3:08 PM EDT LABORATORY [place]10 CREATININE 1.1 0.6 - 1.2 mg/dL 02/20/2024 3:08 PM EDT LABORATORY [place] EGFR 70 >=60 mL/min 02/20/2024 3:08 PM EDT LABORATORY [place] 57[place]10 Comment:eGFR is calculated b ased on the CKD-EPI 2020 equation. SODIUM 137 135 - 146 mmol/L 02/20/2024 3:08 PM EDT LABORATORY [place] POTASSIUM 4.4 3.5 - 5.1 mmol/L 02/20/2024 3:08 PM EDT LABORATORY [place] CHLORIDE 98 98 - 107 mmol/L 02/20/2024 3:08 PM EDT LABORATORY [place] CO2 26 22 - 32 mmol/L 02/20/2024 3:08 PM EDT LABORATORY [place] ANION GAP 13 7 - 15 mmol/L 02/20/2024 3:08 PM EDT LABORATORY [place] GLUCOSE 111 70 - 120 mg/dL 02/20/2024 3:08 PM EDT LABORATORY [place] CALCIUM 10.3(H) 8.4 - 10.2 mg/dL 02/20/2024 3:08 PM EDT LABORATORY [place] Blood Venous blood specimen / Unknown Venipuncture / Unknown 02/20/2024 2:10 PM EDT 02/20/2024 2:10 PM EDT Vishal Kenney DO LAB BLOOD ORDERABLES LABORATORY [place] [facility]10 132 [facility] [place] [address] documented in this encounter Visit Diagnoses Diagnosis Aneurysm of ascending aorta without rupture (HCC) 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 (HCC) documented in this encounter Care Teams Tour Bus Driver/Guide Relationship Specialty Start Date End Date Juan F Blanco [facility] [address] [facility] [address] PCP - General 09/02/00 documented as of this encounter
--- OUTSIDE RECORDS SUMMARY | 2024-03-03 02:08 | External Medical Summary | Summary of Care ---
Author Name Unknown Organization [facility] Address [address] [place] [address] Phone [phone] Care Team Providers Care History Teacher Name Role Phone Juan F Blanco MD Primary Care Provider [phone] Reason for Visit * Reason Comments Outpatient Testing Encounter Details Date Type Department Care Team (Late st Contact Info) Description 02/20/2024 2:10 PM EDT Laboratory Laboratory, [facility] [address] [place] [phone] [facility] [address] [place] [address] Aneurysm of ascending aorta without rupture (HCC); [...] Obesity protocol Atherosclerotic heart diseas e of [place] coronary artery without angina pectoris 05/30/2019 Major [...] 02/21/2024 1:00 PM EDT Office Visit Neurology [facility] [address] [place] [address] Landon Meredith MD [address] [place] [address] 04/02/2024 1:00 PM EST Imaging Radiology [facility] 1st Floor, [place] [address] [facility] [place] [address] 04/10/2024 9:30 AM EST Office Visit Interventional Pain Center, [facility] [place] [address] Rika Alejandre PA-C [address] [facility] [address] 04/20/2024 3:30 PM EST Office Visit Cardiology, [facility] 132 [facility] [place] [address] Annita Garcia PA-C [address] [place] [address] 05/23/2024 3:40 PM EST Office Visit [place] [address] [place] [phone] Juan F Blanco MD [address] [place] [address] 07/31/2024 3:15 PM EDT Office Visit Urology, [facility] 132 [facility] [place] [address] Hoang Martinez MD [address] [place] [address] 09/12/2024 3:00 PM EDT Office Visit Allergy/Immunology [facility] [address] [place] [address] Sandra Macdonald PA-C [address] [facility] [place] [address] Pending Results Name Type Priority Associated Diagnoses Date /Time BASIC METABOLIC PANEL Lab Routine Aneurysm of ascending aorta without rupture (HCC) 02/20/2024 2:10 PM EDT FERRITIN Lab Routine 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 (HCC) 02/20/2024 2:10 PM EDT VITAMIN B12 Lab Routine 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 (HCC) 02/20/2024 2:10 PM EDT FOLIC ACID Lab Routine 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 (HCC) 02/20/2024 2:10 PM EDT Health Maintenance Due Date Last Done Comments [...] this encounter Medical Devices Implanted Type Area Gas Pumper Device Identifier Shelf Expiration Date Model / Serial / Lot Clip Quick 2.8mm 230cm - [id number] Implanted:Qty: 2 on 10/20/2021 by Tanja Schulz MD at ENDOSCOPY [facility] [employer] 08/30/2023 HX-202UR.A / / Duraclip 16mm Xlg Repostn - [id number] Implanted:Qty: 4 on 10/20/2021 by Tanja Schulz MD at ENDOSCOPY [facility] [employer] 11/02/2023 [id number] / / documented as of this encounter Visit Diagnoses Diagnosis Aneurysm of ascending aorta without rupture (HCC) 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 (HCC) documented in this encounter Care Teams History Teacher Relationship Specialty Start Date End Date Juan F Blanco MD [address] [place] [address] PCP - General 09/02/00 documented as of this encounter
--- OUTSIDE RECORDS SUMMARY | 2024-03-03 02:08 | External Medical Summary | Summary of Care ---
Author Name Unknown Organization [facility] Address [address] [place] [address] Phone [phone] Care Team Providers Care Fisher Trawl Net Name Role Phone Juan F Blanco MD Primary Care Provider [phone] Reason for Visit * Reason Comments Outpatient Testing Encounter Details Date Type Department Care Team (Late st Contact Info) Description 02/20/2024 2:10 PM EDT Laboratory Laboratory, [facility] [address] [place] [phone] [facility] [address] [place] [address] Aneurysm of ascending aorta without rupture (HCC); 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 (HCC) Allergies Active Allergy Reactions Criticality Noted Date Comments Meloxicam Nausea/vomiting 07/06/2017 Nausea and head congestion Naproxen Other (Please comment) Low 02/27/2003 nightmares documented as of this encounter (statuses as of 02/21/2024) Medications Medication Sig Dispensed Refills Start Date End Date Status OMEGA-3 FATTY ACIDS 1000 MG PO CAPSIndications:Nons pecific (abnormal) findings on radiological and other examination of musculoskeletal system one BID o 0 04/19/2007 Active FOLIC ACID 800 MCG PO TABSIndications:Nons pecific (abnormal) findings on radiological and other examination of musculoskeletal system 1 TABLET EVENING 0 0 04/19/2007 Active CALCIUM-CARB 600 + D 600-125 MG-UNIT PO TABSIndications:Nons pecific (abnormal) findings on radiological and other examination of musculoskeletal system 1 twice daily 60 11 04/19/2007 Active ASPIRIN 81 MG PO CHEWIndications:Othe r specified prophylactic or treatment measure One pill by mouth once a day with food 100 Tab 5 02/24/2010 Active SINUS WASH NETI POT 2300-700 MG NA KITIndications:Aller gic rhinitis,Chronic sinusitis flush each nostril morning and night and every 2-4 hrs as needed for nasal dryness or congestion 1 Kit 4 05/19/2010 Active VIAGRA 100 MG PO TABSIndications: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 One pill by mouth 1-4 hours [...] Active busPIRone HCl 10 MG Oral Tablet (Buspar)Indications: KRIS (generalized anxiety disorder) Take 1 Tablet (10 [...] 08/02/2023 Active Gabapentin 300 MG Oral Capsule (Neurontin)Indicatio ns:Parkinsonian tremor (HCC) TAKE 1 CAP IN AM [...] 12/19/2023 Active Lisinopril 20 MG Oral Tablet (Prinivil)Indication s:HTN, goal below 140/90 TAKE 1 TABLET BY MOUTH TWICE A DAY 180 Tablet 1 12/19/2023 Active Escitalopram Oxalate 10 MG Oral Tablet (Lexapro)Indications :Current moderate episode of major depressive disorder, unspecified whether recurrent (HCC) TAKE 1 TABLET BY MOUTH EVERY DAY 90 Tablet 1 12/19/2023 Active traMADol HCl 50 MG Oral Tablet (Ultram)Indications: Acute bilateral low back pain without sciatica TAKE 1 TABLET BY MOUTH 3 TIMES A DAY NEEDED FOR PAIN, SEVERE. 30 Tablet 1 12/22/2023 Active Econazole Nitrate 1 % External Cream (Spectazole) APPLY TO AFFECTED AREAS OF FEET ONCE EVERY DAY DIRECTED 10/17/2023 Active Metoprolol Tartrate 25 MG Oral Tablet (Lopressor)Indicatio ns:Cardiac pacemaker in situ,Paroxysmal SVT (supraventricular tachycardia) (HCC) TAKE 1/2 TABLET BY MOUTH TWICE A DAY 01/17/2024 Active Mesalamine ER 0.375 GM Oral Capsule Extended Release 24 Hour (Apriso)Indications: 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 (HCC) TAKE 2 CAPSULES BY MOUTH IN THE MORNING 180 Capsule 1 02/01/2024 Active traZODone HCl 50 MG Oral Tablet (Desyrel)Indications :Persistent insomnia TAKE 1 TABLET BY MOUTH EVERYDAY AT BEDTIME 90 Tablet 1 02/03/2024 Active Benzonatate 100 MG Oral CapsuleIndications:B ronchitis, complicated Take 1-2 Capsules by mouth 3 times a day as needed for Cough. 30 Capsule 1 08/14/2022 02/21/20 24 Discontinu ed(Medicat ion List Clean Up) documented as of this encounter (statuses as [...] protocol Atherosclerotic heart diseas e of [place] coronary artery without angina pectoris 05/30/2019 Major [...] Description 04/02/2024 1:00 PM EST Imaging Radiology [facility] 1st Floor, [place] 132 [facility] [place] [address] 04/10/2024 9:30 AM EST Office Visit Interventional Pain Center, [facility] 132 [facility] [place] [address] Rika Alejandre PA-C [address] [facility] [place] [address] 04/20/2024 3:30 PM EST Office Visit Cardiology, [facility] 132 [facility] [place] [address] Annita Garcia PA-C 132 [facility] [place] [address] 05/23/2024 3:40 PM EST [facility] [address] [place] [address] Juan F Blanco MD [address] [place] [address] 06/18/2024 2:20 PM EST Office Visit Neurology [facility] 200 [facility] [place] [address] Landon Meredith MD [address] [place] [address] 07/31/2024 3:15 PM EDT Office Visit Urology, [facility] 132 [facility] [place] [address] Hoang Martinez MD [address] [place] [address] 09/12/2024 3:00 PM EDT Office Visit Allergy/Immunology [facility] 200 [facility] [place] [address] Sandra Macdonald PA-C 200 [facility] [place] [address] Health Maintenance Due Date Last Done Comments [...] this encounter Medical Devices Implanted Type Area Theater Manager Device Identifier Shelf Expiration Date Model / Serial / Lot Clip Quick 2.8mm 230cm - [id number] Implanted:Qty: 2 on 10/20/2021 by Tanja Schulz MD at ENDOSCOPY [facility] [employer] 08/30/2023 HX-202UR.A / / Duraclip 16mm Xlg Repostn - [id number] Implanted:Qty: 4 on 10/20/2021 by Tanja Schulz MD at ENDOSCOPY [facility] 11/02/2023 [id number] / / documented as of this encounter [...] LAB BLOOD ORDER RICARDO Performing Organization Address City/[facility]/ZIP Co de Phone Number LABORATORY [facility] [address] [place] [address] * VITAMIN B12 (02/20/2024 2:10 PM EDT) Vitamin B12 696 232 - 1,245 pg/mL 02/20/2024 11:43 PM EDT LABORATORY [facility] Blood Venous blood specimen / Unknown Venipuncture / Unknown 02/20/2024 2:10 PM EDT 02/20/2024 2:10 PM EDT Tanja Schulz MD LAB BLOOD ORDER RICARDO LABORATORY [facility] [address] [place] [address] * FERRITIN (02/20/2024 2:10 PM EDT) Pathologist [facility] Ferritin 287 30 - 400 ng/mL 02/20/2024 11:43 PM EDT LABORATORY [facility] Blood Venous blood specimen / Unknown Venipuncture / Unknown 02/20/2024 2:10 PM EDT 02/20/2024 2:10 PM EDT Tanja Schulz MD LAB BLOOD ORDER RICARDO LABORATORY [facility] [address] [place] [address] * (ABNORMAL) BASIC METABOLIC PANEL (02/20/2024 2:10 PM EDT) Pathologist [facility] BUN 20 6 - 20 mg/dL 02/20/2024 [...] Vishal Kenney DO LAB BLOOD ORDERABLES LABORATORY [facility] [place] [address] 132 [facility] [place] [address] documented in this encounter Visit Diagnoses Diagnosis Aneurysm of ascending aorta without rupture (HCC) 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 (HCC) documented in this encounter Care Teams Fisher Trawl Net Relationship Specialty Start Date End Date Juan F Blanco MD [address] [place] [address] PCP - General 09/02/00 documented as of this encounter
--- OUTSIDE RECORDS SUMMARY | 2024-03-03 02:08 | External Medical Summary | Summary of Care ---
Author Name Unknown Organization [facility] Address [address] [place] [address] Phone [phone] Care Team Providers Care Motorcycle Technician Name Role Phone Juan F Blanco MD Primary Care Provider [phone] Reason for Visit * Reason Comments Outpatient Testing Encounter Details Date Type Department Care Team (Late st Contact Info) Description 02/20/2024 2:10 PM EDT Laboratory Laboratory, [facility] [address] [place] [phone] [facility] [address] [place] [address] Aneurysm of ascending aorta without rupture (HCC); [...] Obesity protocol Atherosclerotic heart diseas e of [place] coronary artery without angina pectoris 05/30/2019 Major [...] 02/21/2024 1:00 PM EDT Office Visit Neurology [facility] [address] [place] [address] Landon Meredith MD [address] [place] [address] 04/02/2024 1:00 PM EST Imaging Radiology [facility] 1st Floor, [place] [address] [facility] [place] [address] 04/10/2024 9:30 AM EST Office Visit Interventional Pain Center, [facility] [place] [address] Rika Alejandre PA-C [address] [place] [address] 04/20/2024 3:30 PM EST Office Visit Cardiology, [facility] 132 [facility] [place] [address] Annita Garcia PA-C [address] [place] [address] 05/23/2024 3:40 PM EST Office Visit [place] [address] [place] [phone] Juan F Blanco MD [address] [place] [address] 07/31/2024 3:15 PM EDT Office Visit Urology, [facility] 132 [facility] [place] [address] Hoang Martinez MD [address] [place] [address] 09/12/2024 3:00 PM EDT Office Visit Allergy/Immunology [facility] [address] [place] [address] Sandra aMcdonald PA-C [address] [place] [address] Health Maintenance Due Date Last Done Comments [...] this encounter Medical Devices Implanted Type Area President Finance Company Device Identifier Shelf Expiration Date Model / Serial / Lot Clip Quick 2.8mm 230cm - [id number] Implanted:Qty: 2 on 10/20/2021 by Tanja Schulz MD at ENDOSCOPY [facility] [email or web address] 08/30/2023 HX-202UR.A / / Duraclip 16mm Xlg Repostn - [id number] Implanted:Qty: 4 on 10/20/2021 by Tanja Schulz MD at ENDOSCOPY [facility] [employer] [facility] 11/02/2023 [id number] / / documented as of this encounter [...] LAB BLOOD ORDER RICARDO Performing Organization Address City/[facility]/ZIP Co de Phone Number LABORATORY [place] [address] [place] [address] * VITAMIN B12 (02/20/2024 2:10 PM EDT) Vitamin B12 696 232 - 1,245 pg/mL 02/20/2024 11:43 PM EDT LABORATORY [facility] Blood Venous blood specimen / Unknown Venipuncture / Unknown 02/20/2024 2:10 PM EDT 02/20/2024 2:10 PM EDT Tanja Schulz MD LAB BLOOD ORDER RICARDO LABORATORY [facility] [address] [place] [address] * FERRITIN (02/20/2024 2:10 PM EDT) Pathologist [facility] Ferritin 287 30 - 400 ng/mL 02/20/2024 11:43 PM EDT LABORATORY [facility] Blood Venous blood specimen / Unknown Venipuncture / Unknown 02/20/2024 2:10 PM EDT 02/20/2024 2:10 PM EDT Tanja Schulz MD LAB BLOOD ORDER RICARDO LABORATORY [facility] [address] [place] [address] * (ABNORMAL) BASIC METABOLIC PANEL (02/20/2024 2:10 PM EDT) Pathologist [facility] BUN 20 6 - 20 mg/dL 02/20/2024 [...] BLOOD ORDERABLES LABORATORY [place] 132 [facility] [place] [address] documented in this encounter Visit Diagnoses Diagnosis Aneurysm of ascending aorta without rupture (HCC) 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 (HCC) documented in this encounter Care Teams Motorcycle Technician Relationship Specialty Start Date End Date Juan F [place] [facility] [address] [facility] [facility] [address] PCP - General 09/02/00 documented as of this encounter
--- OUTSIDE RECORDS SUMMARY | 2024-03-03 02:08 | External Medical Summary | Summary of Care ---
Author Name Unknown Organization [facility] Address [address] [place] [address] Phone [phone] Care Team Providers Care Truck Driver Instructor Name Role Phone Juan F Blanco MD Primary Care Provider [phone] Reason for Visit * Reason Comments NEW PATIENT Tremor * Evaluate & Treat - Unlimited Visits (Within 30 days (routine)) - Authorized Specialty Diagnoses / Procedures Referred By Contac t Referred To Contact Neurology Diagnoses Parkinson's disease without dyskinesia or fluctuating manifestations (HCC) Azul Monsivais PA-C [address] [place] [address] Referral ID Status Reason Start Date Expiration Date Visits Requested Visits Authorized [id number] Authorized Specialty Services Required 07/19/[phone] Encounter Details Date Type Department Care Team (Latest Contact Info) Description 02/21/2024 1:00 PM EDT Office Visit Neurology [facility] [address] [place] [address] Landon Meredith MD [address] [place] [address] Parkinson's disease without dyskinesia or fluctuating manifestations (HCC)* Allergies Active Allergy Reactions Criticality Noted [...] 7 Active FOLIC ACID 800 MCG PO TABSIndications:Nons pecific (abnormal) findings on radiological and other examination of musculoskeletal system 1 TABLET EVENING 0 0 7 Active CALCIUM-CARB 600 + D 600-125 MG-UNIT PO TABSIndications:Nons pecific (abnormal) findings on radiological and other examination of musculoskeletal system 1 twice daily 60 11 7 Active ASPIRIN 81 MG PO CHEWIndications:Othe r specified prophylactic or treatment measure One pill by mouth once a day with food 100 Tab 5 0 Active SINUS WASH NETI POT 2300-700 MG NA KITIndications:Aller gic rhinitis,Chronic sinusitis flush each nostril morning and night and every 2-4 hrs as needed for nasal dryness or congestion 1 Kit 4 1 Active VIAGRA 100 MG PO TABSIndications:Test icular [...] Other (anxiety). 180 Tablet 3 2 Active Sildenafil Citrate 100 MG Oral Tablet (Viagra) Take 1 Tablet by mouth daily as needed for Erectile Dysfunction. 1-4 hours before intercourse, no more than 1 dose in 24 hours. 4 Tablet 5 4 Active Atorvastatin Calcium 10 MG Oral Tablet (Lipitor) TAKE 1 TABLET BY MOUTH EVERY DAY 90 Tablet 3 4 Active Gabapentin 300 MG Oral Capsule (Neurontin)Indicatio [...] 4 Active Lisinopril 20 MG Oral Tablet (Prinivil)Indication [...] THE MORNING 180 Capsule 1 4 Active Additional Information Patient taking differently: 0.325 gOral Daily(AM), Reported on 02/21/2024 traZODone HCl 50 MG Oral Tablet (Desyrel)Indications :Persistent insomnia TAKE 1 TABLET BY MOUTH EVERYDAY AT BEDTIME 90 Tablet 1 4 Active Additional Information Patient taking differently: 25 mg Oral HS, TAKE 1 TABLET BY MOUTH EVERYDAY AT BEDTIME, Reported on 02/21/2024 Trihexyphenidyl HCl 2 MG Oral Tablet (Artane)Indications: Parkinson's disease without dyskinesia or fluctuating manifestations (HCC) Take 1 tablet per mouth at bedtime for day 1-3, then take 1 tab per mouth twice a day for day 4-6, then take 1 tab per mouth three times a day afterwards 90 Tablet 5 4 Active Benzonatate 100 MG Oral CapsuleIndications:B ronchitis, complicated Take 1-2 Capsules by mouth 3 times a day as needed for Cough. 30 Capsule 1 3 02/21/20 24 Discontinu ed(Medicat ion List Clean [...] Obesity protocol Atherosclerotic heart diseas e of [place] coronary artery without angina pectoris 05/30/2019 Major [...] mRNA, LNP-s, No Pre serve, 2-Dose Series ([employer] 09/03/2020,08/13/2020 COVID-19, LNP-s, No Preserve , Niko-sucrose, [...] Sign Reading Time Taken Comments Blood Pressure 124/70 02/21/2024 12:48 PM EDT Pulse 80 02/21/2024 12:48 PM EDT Temperature 36.7 C (98.1 F) 02/21/2024 1 2:48 PM EDT Respiratory Rate 18 02/21/2024 12:4 8 PM EDT Oxygen Saturation 94% 02/21/2024 12: 48 PM EDT Inhaled Oxygen Concentration - - Weight 136.9 kg (301 lb 12.8 oz) 2023 12:48 PM EDT Height - - Body Mass Index 39.82 01/17/2024 2:57 PM EDT documented in this encounter Progress Notes * Landon Meredith MD - 02/21/2024 1:10 PM EDT 02/21/2024 1:10 PM Gary Lakhani Jr. 78 year old male REF: AZUL MONSIVAIS [address] [place] [address] (office) [phone] (fax) Asked by Juan F Blanco MD to render opinion regarding management of Parkinson's CC: Chief Complaint Patient presents with NEW PATIENT Tremor HPI: The patient is a 78-year-old right handed gentleman with 10 year history of Parkinson's. Symptoms started first in 2013 with intermittent resting tremor of the right hand which then spread to the left side. He initially was seen by Dr. Bui and also had a 1 time appointment with the movement disorder specialists, Dr. Abel in April 2018. The tremor seems to fluctuate and has a positional component when using a fork and spoon but not with other hand activities. He lost his sense of smell 20 years ago. Has a history of constipation. He never had a DaTSCAN. He responded reasonably to carbidopa levodopa but has not had achieved full tremor control. The tremors are aggravated by anxiety. He was last seen by Ms. Monsivais 6 months ago. He takes carbidopa levodopa 37.5/150 4 times a day at 9:00 a.m.-1:00 p.m.-5:00 p.m. and 9:00 p.m.. He denies any wearing off in between doses. Last levodopa dose was 1 hour prior to this evaluation. He has tried amantadine and primidone in the past with side effects. Is on a beta-rhea right now.He was not interested in deep brain stimulation before. He has not tried anticholinergics so far. Has chronic low back pain. Needs help in the morning to get out of bed. Comorbidities are obstructive sleep apnea, sick sinus syndrome with pacemaker insertion, chronic thoracic aortic aneurysm, peripheral neuropathy, bilateral carpal tunnel decompressions, shoulder surgeries. Drinks 2 cups of caffeinated coffee per day. He has lot of anxiety. He lost 5 family members, siblings and mother, also lost his oldest son from vascular EDS. He has some difficulty with names. He had a maternal uncle with Parkinson's. He drools at night. 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 He also had to stop writing recently. 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] 05/30/2019 Major depressive disorder, single episode, unspecified [F32.9] 05/30/2019 Essential hypertension with goal blood pressure less than 130/80 [I10] 05/30/2019 Aortic root dilation ([facility]) [I77.810] 05/30/2019 Urethral stricture [N35.919] 04/23/2019 Hematuria of undiagnosed cause [R31.9] 09/29/2018 Renal cyst, left [N28.1] 09/29/2018 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 ([facility]) [K51.20] 08/22/2018 Chronic midline low back pain with left-sided sciatica [M54.42, G89.29] 08/22/2018 Family history of abdominal aortic aneurysm (AAA) [Z82.49] 05/09/2017 Parkinson's disease ([facility]) [G20.A1] 10/05/2016 Vitamin D deficiency [E55.9] 10/05/2016 Cardiac pacemaker in situ [Z95.0] 06/27/2014 Junctional bradycardia [R00.1] 06/05/2014 Dyslipidemia, goal LDL below 100 [E78.5] 03/30/2012 Thoracic aortic aneurysm ([facility]) [I71.20] 05/18/2011 Paroxysmal SVT (supraventricular tachycardia) ([facility]) [I47.10] 06/02/2010 Obstructive sleep apnea on CPAP [G47.33] 06/08/200703/2014 - new CPAP device 01/2012 -- CPAP 9-15 cwp, nocturnal ox 12/2005 PSG -- CPAP at 9 cwp 05/2005 PSG -- AHI 54, hypoxia, [facility]M [facility] Plus Oxygen 01/31/12 CPAP 9 to 11 cwp ADVANCE DIRECTIVE INFORMATION 08/09/2005 No advance directive- refused info 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 CPAP every night at bedtime . busPIRone [...] CAP AT NOON AND 2 CAPS AT [id number] Capsule 3 Mirabegron ER 50 MG Oral [...] DAY IN THE MORNING 90 Tablet 3 Lisinopril 20 MG Oral Tablet (Prinivil) TAKE 1 TABLET BY MOUTH TWICE A DAY 180 Tablet 1 Escitalopram Oxalate 10 MG Oral Tablet (Lexapro) [...] 2 CAPSULES BY MOUTH IN THE MORNING (Patient taking differently: Take 0.325 g by mouth in the morning.) 180 Capsule 1 traZODone HCl 50 MG Oral Tablet (Desyrel) TAKE 1 TABLET BY MOUTH EVERYDAY AT BEDTIME (Patient taking differently: Take 0.5 Tablets by mouth at bedtime. TAKE 1 TABLET BY MOUTH EVERYDAY AT BEDTIME) 90 Tablet 1 Vitamin C 1000 MG Oral Tablet Take 1 Tablet by mouth in the morning. Benzonatate 100 MG Oral Capsule Take 1-2 Capsules by mouth 3 times a day as needed for Cough. 30 Capsule 1 No current facility-administered medications for this visit. ALLERGIES: Review of patient's allergies indicates: Allergen Reactions Meloxicam Nausea/vomiting Nausea and head congestion Naproxen Other (Please comment) nightmares Social History Socioeconomic History Marital status: Spouse name: Not on file Number of children: 2 Years of education: Not on file Highest education level: Not on file Occupational History Not on file Tobacco Use Smoking status: Never Smokeless tobacco: Never Tobacco comments: no passive smoke exposures Vaping Use Vaping status: Never Used Substance and Sexual Activity Alcohol use: Not Currently Comment: 1 case beer YEAR Drug use: No Sexual activity: Yes Partners: Female Other Topics Concern Not on file Social History Narrative [facility] [employer] [place] INFORMATION ENVIRONMENTAL HISTORY: Type of Home: [employer] Type of Heating System: Oil and Hot water: Air Conditioning: Yes Patient's bedroom and Living room Basement: Finished, Carpeted rooms, No evidence mold, mildew and Dry Home have cockroaches: No Irritants in the home: None Patient's bedroom location: Floor: first Type of jia: Hardwood Beds: Number: 1 Type of beds: Mattress Pillows: Number: 4 Type of pillows: Feather (down) Bedroom contains: Minimal items Pets: none Lives on a farm: No 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 Entered by: Nikolai Osborne MD 06/08/2007 tool [employer] Social Determinants of Health Financial Resource Strain: Not on file Food Insecurity: No Food Insecurity (12/12/2019) Hunger Vital Sign Worried About Running Out of Food in the Last Year: Never true Ran Out of Food in the Last Year: Never true Transportation Needs: Not on file Social Connections: Unknown (10/18/2023) Social Connections How often do you feel lonely or isolated from those around you? (Adult - for ages 18 years and over): Not on file Housing Stability: Not on file Occupation: HIV risk factors: None FAMILY HISTORY Family History Problem Relation Name Age of Onset Diabetes Uncle (Unspecified) Parkinsonism Uncle (Unspecified) Hypertension Aunt (Unspecified) Family Status Relation Status Mo Alive 86 in 2009 Fa at age 69 lung disease UNCLE (Not Specified) AUNT (Not Specified) REVIEW OF SYSTEMS: The patient denies new cardiac, lung, kidney, liver, skin, thyroid, bladder, or digestive problems.The patient also denies acute changes in hearing or vision. Otherwise, all other systems are negative or as noted above. BP 124/70 | Pulse 80 | Temp 36.7 C (98.1 F) (Tympanic) | Resp 18 | Wt (!) 136.9 kg (301 lb 12.8oz) | SpO2 94% | BMI 39.82 kg/m | BSA 2.66 m The patient is a 78 year old male who is well developed and appears to be their stated age. NEUROLOGIC EXAMINATION: Mental status: Intact higher integrative functions. Orientated to person, place, and time. Recent and remote memory functions are intact. Attention, concentration, language, and fund of knowledge arenormal. Judgment and insight are intact. Mood and affect are normal. He has mild hypomimia and hypophonia, no hypokinetic dysarthria. Motor exam shows very mild bradykinesia on the right with a coarse resting tremor or 5 hertz frequency, minimal tremor on the left. Has also a postural tremor component, minimal action component. He has cogwheeling rigidity on the right. Gait was not tested because of his significant low back pain but he was observed while walking to the check out counter and had a stooped posture but no clear shuffling. IMPRESSION: The patient has medically refractory tremor dominant Parkinson's. In my opinion, he would be a great candidate for deep brain stimulation. He can not have focused ultrasound because he has a pacemaker. Also anticholinergics were not tried yet and it may be able to tolerate low-dose which could significantly diminish his tremor amplitude. RECOMMENDATIONS: I will trial him on low-dose trihexyphenidyl 2 milligrams which will be gradually titrated over 1 week to a dose of 2 milligrams 3 times a day. Possible side effects were mentioned and he understands. If he has no significant benefit with trihexyphenidyl we will consider low-dose zonisamide. If he also fails zonisamide, we will start the process for deep brain stimulation. I already gave him a brochure today about this procedure. I explained to him that we would have to have a neuropsychological assessment prior to starting the Neurosurgery referral. I asked him to continue taking the same dose of carbidopa/levodopa for now. I spent approximately 45 minutes with this patient greater than half the time was spent reviewing diagnosis, physical exam, and treatment. I will have him back again in 4 months. Thank-you for letting me participate in the care of this patient. Landon Meredith MD Neurology [address] [address] Please send copy to requesting physician, Juan F Blanco MD documented in this encounter Nursing Notes * Denise Quijano MED ASSIST - 02/21/2024 12:46 PM EDT Chief Complaint Patient presents with NEW PATIENT Tremor documented in this encounter Plan of Treatment Upcoming Encounters Date Type Department Care Team (Late st Contact Info) Description 04/02/2024 1:00 PM EST Imaging Radiology [address] [place] [address] 04/10/2024 9:30 AM EST Office Visit Interventional Pain Center, [facility] [address] [facility] [place] [address] Rika Alejandre PA-C [address] [facility] [place] [address] 04/20/2024 3:30 PM EST Office Visit Cardiology, [facility] [address] [facility] [place] [address] Annita Garcia PA-C [facility] [address] 05/23/2024 3:40 PM EST Office Visit [address] [phone] Juan F Blanco MD [address] [place] [address] 06/18/2024 2:20 PM EST Office Visit Neurology [facility] [address] [place] [address] Landon Meredith MD [address] [place] [address] 07/31/2024 3:15 PM EDT Office Visit Urology, [facility] [address] [facility] [place] [address] Hoang Martinez MD [address] [place] [address] 09/12/2024 3:00 PM EDT Office Visit Allergy/Immunology [facility] [address] [place] [address] Sandra Macdonald PA-C [address] [place] [address] Health Maintenance Due Date Last Done Comments [...] this encounter Medical Devices Implanted Type Area Thermo Cementing Folder Operator Device Identifier Shelf Expiration Date Model / Serial / Lot Clip Quick 2.8mm 230cm - [id number] Implanted:Qty: 2 on 10/20/2021 by Tanja Schulz MD at ENDOSCOPY [facility] [employer] 08/30/2023 [id number]-202UR.A / / Duraclip 16mm Xlg Repostn - [id number] Implanted:Qty: 4 on 10/20/2021 by Tanja Schulz MD at [facility]COPY [facility] [employer] 11/02/2023 [id number] / / documented as of this encounter Visit Diagnoses Diagnosis Parkinson's disease without dyskinesia or fluctuating manifestations (HCC)- Primary documented in this encounter Care Teams Truck Driver Instructor Relationship Specialty Start Date End Date Juan F Blanco MD [address] [address] PCP - General 09/02/00 documented as of this encounter"
--- OUTSIDE RECORDS SUMMARY | 2024-03-03 02:08 | External Medical Summary ---
Author Name Unknown Address Unknown Organization K01:[facility] [place] [address] [place] [address] Laboratory Report Ordering Provider Test Date Status EDNA [id number] 02/20/2024 14:10:36 Final Observation Date Value Abnormality Reference (Units ) Status Vitamin B12 02/20/2024 14:10:36 [phone] (pg/mL) Final Performing Location [facility] [place] [address] [facility] [address]
--- OUTSIDE RECORDS SUMMARY | 2024-03-03 02:08 | External Medical Summary | Summary of Care ---
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 (HCC) Allergies Active Allergy Reactions Criticality Noted Date Comments Meloxicam Nausea/vomiting 07/06/2017 Nausea and head congestion Naproxen Other (Please comment) Low 02/27/2003 nightmares documented as of this encounter (statuses as of 02/08/2024) Medications Medication Sig Dispensed Refills Start Date [...] as of this encounter (statuses as of 02/08/2024) Active Problems Problem Noted Date Diagnosed Date [...] Obesity protocol Atherosclerotic heart diseas e of [place] coronary artery without angina pectoris 05/30/2019 Major [...] as of this encounter (statuses as of 02/08/2024) Resolved Problems Problem Noted Date Diagnosed Date [...] as of this encounter (statuses as of 02/08/2024) Immunizations Name Administration Dates Next Due COVID-19 mRNA, LNP-s, No Pre serve, 2-Dose Series ([employer]) 09/03/2020,08/13/2020 COVID-19, LNP-s, No Preserve , Niko-sucrose, Ages 12+ ([employer]) 04/28/2021 Covid-19, Mrna, Lnp-s, Pf, B ivalent, 30 Mcg, IM, 12 yrs and above ([employer]) 01/27/2022 H1N1 2009 Influenza, IM 06/06/2009 Pneumococcal [...] 02/20/2024 1:40 PM EDT Office Visit Gastroenterology, [facility] 132 [facility] [place] [address] Tanja Schulz MD 132 [place] [address] 02/21/2024 1:00 PM EDT Office Visit Neurology [facility] [address] [place] [address] Landon Meredith MD [address] [place], [place] [id number] 04/02/2024 1:00 PM EST Imaging Radiology [facility] [facility] 132 [facility] [place] [address] 04/10/2024 9:30 AM EST Office Visit Interventional Pain Center, [facility] [address] [facility] [place] [address] Rika Alejandre PA-C [address] [place] [place] [address] 04/20/2024 3:30 PM EST Office Visit Cardiology, [facility] [address] [facility] [place] [address] Annita Garcia PA-C [address] [place] [address] 05/23/2024 3:40 PM EST Office Visit [facility] [place] [address] [place] [phone] Juan F Blanco MD [address] [place] [address] 07/31/2024 3:15 PM EDT Office Visit Urology, [facility] [address] [place] [address] Hoang Martinez MD [address] [place] [address] 09/12/2024 3:00 PM EDT Office Visit Allergy/Immunology [facility] 200 [facility] [place] [address] Sandra Macdonald PA-C 200 [facility] [place] [address] Health Maintenance Due Date Last Done Comments [...] this encounter Medical Devices Implanted Type Area Tool Honing Machine Set Up Operator Device Identifier Shelf Expiration Date Model / Serial / Lot Clip Quick 2.8mm 230cm - [id number] Implanted:Qty: 2 on 10/20/2021 by Tanja Schulz MD at ENDOSCOPY [facility] [employer] 08/30/2023 [id number]-202UR.A / / Duraclip 16mm Xlg Repostn - [id number] Implanted:Qty: 4 on 10/20/2021 by Tanja Schulz MD at ENDOSCOPY 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 SODIUM 138 135 - 146 mmol/L 02/04/2024 3:52 AM EDT LABORATORY C POTASSIUM 4.1 3.5 - 5.1 mmol/L 02/04/2024 3:52 AM EDT LABORATORY C CHLORIDE 100 98 - 107 mmol/L 02/04/2024 3:52 AM EDT LABORATORY C CO2 28 22 - 32 mmol/L 02/04/2024 3:52 AM EDT LABORATORY C ANION GAP 10 7 - 15 mmol/L 02/04/2024 3:52 AM EDT LABORATORY C GLUCOSE 104 70 - 120 mg/dL 02/04/2024 3:52 AM EDT [facility] CALCIUM 9.8 8.4 - 10.2 mg/dL 02/04/2024 3:52 AM EDT [facility] Blood Venous blood specimen / Unknown Venipuncture / Unknown 02/03/2024 3:21 PM EDT 02/03/2024 3:21 PM EDT Tanja Schulz MD LAB BLOOD ORDER [facility] [address] [place] [address] * (ABNORMAL) CBC (02/03/2024 3:21 PM EDT) WBC 9.48 4.00 - 10.80 K/uL 02/03/2024 11:35 PM EDT [facility] RBC 3.60 4.50 - 5.25 M/uL 02/03/2024 11:35 PM EDT [facility] HGB 11.5(L) 14.0 - 16.8 g/dL 02/03/2024 11:35 PM EDT [facility] HCT 36.3(L) 40.0 - 48.4 % 02/03/2024 11:35 PM EDT [facility] MCV 100.8 82.0 - 99.5 fL 02/03/2024 11:35 PM EDT [facility] MCH 31.9 27.0 - 34.0 pg 02/03/2024 11:35 PM EDT [facility] MCHC 31.7 32.0 - 36.0 g/dL 02/03/2024 11:35 PM EDT [facility] RDW 14.4 11.5 - 15.5 % 02/03/2024 11:35 PM EDT [facility] PLT 304 140 - 400 K/uL 02/03/2024 11:35 PM EDT [facility] MPV 9.6 6.6 - 11.1 fL 02/03/2024 11:35 PM EDT [facility] nRBCs 0 <=0 /100 WBCs 02/03/2024 11:35 PM EDT [facility] Blood Venipuncture / Unknown 02/03/2024 3:21 PM EDT 02/03/2024 3:21 PM EDT [facility] LAB BLOOD OR DERABLES 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
--- OUTSIDE RECORDS SUMMARY | 2024-03-03 02:08 | External Medical Summary ---
Author Name Unknown Address Unknown Organization K01:[facility] [place] [address] [place] [address] Laboratory Report Ordering Provider Test Date Status FESTUS OZUNA 02/20/2024 14:10:36 Final Observation Date Value Abnormality Reference (Units ) Status Folic Acid 02/20/2024 14:10:36 >20.0 >4.5 (ng/ mL) Final Performing Location [facility] [place] [address] [facility] [address]
--- OUTSIDE RECORDS SUMMARY | 2024-03-03 02:09 | External Medical Summary | Summary of Care ---
Author Name Unknown Organization [facility] Address [address] [place] [address] Phone [phone] Care Team Providers Care Lead Java J2Ee Developer Name Role Phone Juan F Blanco MD Primary Care Provider [phone] Reason for Visit * Reason Onset Date Comments Follow Up 02/03/2024 Encounter Details Date Type Department Care Team (Late st Contact Info) Description 02/03/2024 2:00 PM EDT Scheduled Telephone Interventional Pain Center, [facility] [address] [place] [address] [facility], Nurse Phone Call Interventional Pain [facility] [address] [place] [address] Allergies Active Allergy Reactions Criticality Noted Date Comments Meloxicam Nausea/vomiting 07/06/2017 Nausea and head congestion Naproxen Other (Please comment) Low 02/27/2003 nightmares documented as of this encounter (statuses as of 02/03/2024) Medications Medication Sig Dispensed Refills Start Date [...] Other (anxiety). 180 Tablet 3 04/06/2022 Active Additional Information Patient not taking.Reported on 01/17/2024 Benzonatate 100 MG Oral CapsuleIndications:Br onchitis, complicated Take 1-2 Capsules by mouth 3 times a day as needed for Cough. 30 Capsule 1 08/14/2022 Active Additional Information Patient not taking.Reported on 09/13/2023 traZODone HCl 50 MG Oral Tablet (Desyrel)Indications: Persistent insomnia Take 1 tablet by mouth once daily at bedtime 90 Tablet 3 04/12/2023 Active Sildenafil Citrate 100 MG Oral Tablet [...] THE MORNING 180 Capsule 1 02/01/2024 Active documented as of this encounter (statuses as of 02/03/2024) Active Problems Problem Noted Date Diagnosed Date NSVT (nonsustained ventricular tachycardia) 03/1 06/2023 Major depressive disorder, single episode, moder ate 07/12/2023 Nocturnal enuresis 03/15/2023 BPH with obstruction/lower urinary tract symptom s 03/15/2023 Body mass index (BMI) of 40.0 to 44.9 in adult 0 01/11/2022 Overview: Per Obesity protocol - Per Obesity protocol - Per Obesity protocol - Per Obesity protocol Atherosclerotic heart diseas e of [place] coronary artery without angina pectoris 05/30/2019 Major [...] as of this encounter (statuses as of 02/03/2024) Resolved Problems Problem Noted Date Diagnosed Date [...] as of this encounter (statuses as of 02/03/2024) Immunizations Name Administration Dates Next Due COVID-19 mRNA, LNP-s, No Pre serve, 2-Dose Series ([employer]) 09/03/2020,08/13/2020 COVID-19, LNP-s, No Preserve , Niko-sucrose, Ages 12+ (Pfizer) 04/28/2021 Covid-19, Mrna, Lnp-s, Pf, B ivalent, 30 Mcg, IM, 12 yrs and above (Thirsty) 01/27/2022 H1N1 2009 Influenza, IM 06/06/2009 Pneumococcal [...] 02/20/2024 1:40 PM EDT Office Visit Gastroenterology, [facility] [address] [address] Tanja Schulz MD [address] [address] 02/21/2024 1:00 PM EDT Office Visit Neurology [facility] [address] [place] [address] Landon Meredith MD [address] [place] [address] 04/02/2024 1:00 PM EST Imaging [facility] [address] [address] 04/20/2024 3:30 PM EST Office Visit Cardiology, [facility] [address] [address] Annita Garcia PA-C [address] [place] [address] 05/23/2024 3:40 PM EST Office Visit Family [facility] [address] [place] [address] Juan F Blanco MD [address] [place] [address] 07/31/2024 3:15 PM EDT Office Visit Urology, [facility] [address] [place] [address] Hoang Martinez MD 27 [facility] [place] [address] 09/12/2024 3:00 PM EDT Office Visit Allergy/Immunology [facility] 200 [facility] [place] [address] Sandra Macdonald PA-C 200 [facility] [place] [address] Health Maintenance Due Date Last Done Comments Adult Wellness Visit 03/22/2014 03/22/2013 Colonoscopy 10/20/2022 10/20/2021, 10/01, 01/24/2019, Additional history exists COVID-19 Vaccine ( season) 2024 01/27/2022, 04/28/2021, 09/03/2020, Additional history exists GFR 07/03/2024 07/04/2023, 03/02, 10/16/2021, Additional history exists Depression Monitoring 07/11/2024 07/12/2023 Albumin/Creatinine Ratio 07/03/2026 07/04/2023 DTap/Tdap Vaccines (3 [...] this encounter Medical Devices Implanted Type Area Cable Coverer Device Identifier Shelf Expiration Date Model / Serial / Lot Clip Quick 2.8mm 230cm - [id number] Implanted:Qty: 2 on 10/20/2021 by Tanja Schulz MD at ENDOSCOPY [facility] [employer] 08/30/2023 HX-202UR.A / / Duraclip 16mm Xlg Repostn - [id number] Implanted:Qty: 4 on 10/20/2021 by Tanja Schulz MD at ENDOSCOPY [facility] [employer] LELE 11/02/2023 [id number] / / documented as of this encounter Care Teams Lead Java J2Ee Developer Relationship Specialty Start Date End Date Juan F Blanco MD [address] [place] [address] PCP - General 09/02/00 documented as of this encounter
--- OUTSIDE RECORDS SUMMARY | 2024-03-03 02:09 | External Medical Summary ---
Author Name Unknown Address Unknown Organization K01:[facility]ATORY [facility] [place] - [facility] [address] [facility] [facility] [address] Laboratory Report Ordering Provider Test Date Status FRANCISCO RICE 02/03/2024 15:21:54 Final Observation Date Value Abnormality Reference (Units ) Status WBC, Total 02/03/2024 15:21:54 9.48 4.00-10.80 (K/uL) Final RBC 02/03/2024 15:21:54 3.60 4.50-5.25 (M/uL) Final Hemoglobin 02/03/2024 15:21:54 11.5 Below low normal 14.0-16.8 (g/dL) Final HCT 02/03/2024 15:21:54 36.3 Below low normal 40.0-48.4 (%) Final MCV 02/03/2024 15:21:54 100.8 82.0-99.5 (fL) Final MCH 02/03/2024 15:21:54 31.9 27.0-34.0 (pg) Final MCHC 02/03/2024 15:21:54 31.7 32.0-36.0 (g/dL) Final RDW 02/03/2024 15:21:54 14.4 11.5-15.5 (%) Final Platelets 02/03/2024 15:21:54 304 140-400 (K/uL) Final MPV 02/03/2024 15:21:54 9.6 6.6-11.1 (fL) Final Nucleated erythrocytes/100 leukocytes [Ratio] in Blood by Automated count 02/03/2024 15:21:54 0 <=0 (/100 WBCs) Final Performing Location LABORATORY [facility] [place] - [address] [place] [address]
--- OUTSIDE RECORDS SUMMARY | 2024-03-03 02:09 | External Medical Summary | Summary of Care ---
Author Name Unknown Organization [facility] Address [address] [place] [address] Phone [phone] Care Team Providers Care Respiratory Therapy Aide Name Role Phone Juan F Blanco MD Primary Care Provider [phone] Reason for Visit * Reason Comments Outpatient Testing Encounter Details Date Type Department Care Team (Late st Contact Info) Description 02/03/2024 3:20 PM EDT Laboratory Laboratory, [place] [address] [place] [address] [place], [facility] [address] [place] [address] Encounter for long-term (current) use of medications; [...] Obesity protocol Atherosclerotic heart diseas e of [place] coronary artery without angina pectoris 05/30/2019 Major [...] mRNA, LNP-s, No Pre serve, 2-Dose Series ([employer]) 09/03/2020,08/13/2020 COVID-19, LNP-s, No Preserve , Niko-sucrose, Ages 12+ (Pfizer) 04/28/2021 Covid-19, Mrna, Lnp-s, Pf, B ivalent, 30 Mcg, IM, 12 yrs and above ([employer]) 01/27/2022 H1N1 2009 Influenza, IM 06/06/2009 Pneumococcal [...] 02/20/2024 1:40 PM EDT Office Visit Gastroenterology, [facility] 132 [facility] [place] [address] Tanja Schulz MD 132 [facility] [place] [address] 02/21/2024 1:00 PM EDT Office Visit Neurology [facility] [address] [place] [address] Landon Meredith MD [address] [place] [address] 04/02/2024 1:00 PM EST Imaging Radiology [address] [place] [place] [address] 04/20/2024 3:30 PM EST Office Visit Cardiology, [facility] 132 [place] [address] Annita Garcia PA-C [address] [place] [address] 05/23/2024 3:40 PM EST Office Visit [place] [address] [place] [address] Juan F Blanco MD [address] [place] [address] 07/31/2024 3:15 PM EDT Office Visit Urology, [facility] [address] [place] [address] Hoang Martinez MD [address] [place] [address] 09/12/2024 3:00 PM EDT Office Visit Allergy/Immunology [facility] [address] [place] [address] Sandra Macdonald PA-C 200 [facility] [place] [address] Pending Results Name Type Priority Associated Diagnoses Date /Time CBC Lab Routine Encounter for long-term (current) use of medications 02/03/2024 3:21 PM EDT BASIC METABOLIC PANEL Lab Routine 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 (HCC) 02/03/2024 3:21 PM EDT Health Maintenance Due Date Last [...] this encounter Medical Devices Implanted Type Area Regulatory Technician Device Identifier Shelf Expiration Date Model / Serial / Lot Clip Quick 2.8mm 230cm - [id number] Implanted:Qty: 2 on 10/20/2021 by Tanja Schulz MD at ENDOSCOPY [facility] [employer] 08/30/2023 HX-202UR.A / / Duraclip 16mm Xlg Repostn - [id number] Implanted:Qty: 4 on 10/20/2021 by Tanja Schulz MD at ENDOSCOPY [facility] [employer] LELE 11/02/2023 [id number] / / documented as of this encounter Visit Diagnoses Diagnosis Encounter for long-term (current) use of medications Encounter for long-term (current) use of other medications 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 (HCC) documented in this encounter Care Teams Respiratory Therapy Aide Relationship Specialty Start Date End Date Juan F Blanco MD [address] [place] [address] PCP - General 09/02/00 documented as of this encounter
--- OUTSIDE RECORDS SUMMARY | 2024-03-03 02:09 | External Medical Summary | Summary of Care ---
Author Name Unknown Organization [facility] Address [address] [place] [address] Phone [phone] Care Team Providers Care Brick Carrier Name Role Phone Jose M Blanco MD Primary Care Provider [phone] Reason for Visit * Reason Comments eRx-Medication Refill Encounter Details Date Type Department Care Team (Late st Contact Info) Description 02/03/2024 Refill [facility] [address] [place] [address] Jose M Blanco MD [address] [place] [address] Persistent insomnia Allergies Active Allergy Reactions Criticality Noted Date [...] 50 MG Oral Tablet (Desyrel)Indication s:Persistent insomnia TAKE 1 TABLET BY MOUTH EVERYDAY AT BEDTIME 90 Tablet 1 4 Active traZODone HCl 50 MG [...] Obesity protocol Atherosclerotic heart diseas e of [place] coronary artery without angina pectoris 05/30/2019 Major [...] mRNA, LNP-s, No Pre serve, 2-Dose Series ([employer]) 09/03/2020,08/13/2020 COVID-19, LNP-s, No Preserve , Niko-sucrose, Ages 12+ (Pfizer) 04/28/2021 Covid-19, Mrna, Lnp-s, Pf, B ivalent, 30 Mcg, IM, 12 yrs and above ([employer]) 01/27/2022 H1N1 2009 Influenza, IM 06/06/2009 Pneumococcal [...] encounter Miscellaneous Notes * Telephone Encounter - Isabelle Cisse [facility] - 02/03/2024 4:00 PM EDT Signed Prescriptions: Disp Refills traZODone HCl 50 MG Oral Tablet (Desyrel) 90 Tab*1 Sig: TAKE 1 TABLET BY MOUTH EVERYDAY AT BEDTIMEAuthorizing Provider: JOSE M BLANCO User: ISABELLE CISSE documented in this encounter Plan of Treatment Upcoming Encounters Date Type Department Care Team (Late st Contact Info) Description 02/20/2024 1:40 PM EDT Office Visit Gastroenterology, [facility] [address] [place] [address] Tanja Schulz MD 132 [facility] [place] [address] 02/21/2024 1:00 PM EDT Office Visit Neurology [facility] [address] [place] [address] Landon Meredith MD [address] [place], [place] [address] 04/02/2024 1:00 PM EST Imaging Radiology [facility] 1st [facility] 132 [facility] [place] [address] 04/20/2024 3:30 PM EST Office Visit Cardiology, [facility] [address] [place] [address] Annita Garcia PA-C [address] [place] [address] 05/23/2024 3:40 PM EST Office Visit Family [facility] [address] [place] [address] Jose M Blanco MD [address] [place] [address] 07/31/2024 3:15 PM EDT Office Visit Urology, [facility] 132 [facility] [place] [address] Hoang Martinez MD 27 [facility] [place] [address] 09/12/2024 3:00 PM EDT Office Visit Allergy/Immunology [facility] 200 [facility] [place] [address] Sandra Macdonald PA-C 200 [facility] [place] [address] Health Maintenance Due Date Last Done Comments [...] this encounter Medical Devices Implanted Type Area Getter Filler Device Identifier Shelf Expiration Date Model / Serial / Lot Clip Quick 2.8mm 230cm - [id number] Implanted:Qty: 2 on 10/20/2021 by Tanja Schulz MD at ENDOSCOPY [facility] [employer] 08/30/2023 HX-202UR.A / / Duraclip 16mm Xlg Repostn - [id number] Implanted:Qty: 4 on 10/20/2021 by Tanja Schulz MD at ENDOSCOPY [facility] In[employer] 11/02/2023 [id number] / / documented as of this encounter Visit Diagnoses Diagnosis Persistent insomnia Persistent disorder of initiating or maintaining sleep documented in this encounter Care Teams Brick Carrier Relationship Specialty Start Date End Date Jose M Blanco MD [address] [place] [address] PCP - General 09/02/00 documented as of this encounter
--- OUTSIDE RECORDS SUMMARY | 2024-03-03 02:09 | External Medical Summary ---
Author Name Unknown Address Unknown Organization K01:LABORATORY [facility] [place] - [address] [place] [address] Laboratory Report Ordering Provider Test Date Status FESTUS OZUNA 02/03/2024 15:21:54 Final Observation Date Value Abnormality Reference (Units ) Status BUN 02/03/2024 15:21:54 21 Above high normal 6-20 (mg/dL) Final Creatinine 02/03/2024 15:21:54 1.1 0.6-1.2 (mg/dL) Final Glomerular filtration rate/1.73 sq M.predicted [Volume Rate/Area] in Serum, Plasma or Blood by Creatinine-based formula (CKD-EPI) 02/03/2024 15:21:54 66 >=60 (mL/min) Final eGFR is calculated based on the CKD-EPI 2020 equation. Sodium 02/03/2024 15:21:54 138 135-146 (m mol/L) Final Potassium 02/03/2024 15:21:54 4.1 3.5-5.1 (m mol/L) Final Cl 02/03/2024 15:21:54 100 98-107 (mm ol/L) Final CO2 02/03/2024 15:21:54 28 22-32 (mmo l/L) Final Anion gap 02/03/2024 15:21:54 10 7-15 (mmol /L) Final Glucose 02/03/2024 15:21:54 104 70-120 (mg /dL) Final Calcium 02/03/2024 15:21:54 9.8 8.4-10.2 ( mg/dL) Final Performing Location LABORATORY [facility] [place] - [address] [place] [address]
--- OUTSIDE RECORDS SUMMARY | 2024-03-03 02:09 | External Medical Summary | Summary of Care ---
Author Name Unknown Organization [facility] Address [address] [place] [address] Phone [phone] Care Team Providers Care Consultant Electronics Name Role Phone Juan F Blanco MD Primary Care Provider [phone] Reason for Visit * Reason Comments eRx-Medication Refill Encounter Details Date Type Department Care Team (Late st Contact Info) Description 01/30/2024 Refill Gastroenterology, [facility] [address] [place] [address] Tanja Mortensen MD [address] [place] [address] Encounter for long-term (current) use of medications*; 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 (HCC) Allergies Active Allergy Reactions Criticality Noted Date Comments Meloxicam Nausea/vomiting 07/06/2017 Nausea and head congestion Naproxen Other (Please comment) Low 02/27/2003 nightmares documented as of this encounter (statuses as of 02/06/2024) Medications Medication Sig Dispensed Refills Start Date [...] 90 Tablet 3 3 02/03/20 24 Discontinued Mesalamine ER 0.375 GM Oral Capsule Extended Release 24 Hour (Apriso)Indications :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 (HCC) TAKE 2 CAPSULES BY MOUTH IN THE MORNING 180 Capsule 1 4 02/01/20 24 Discontinued documented as of this encounter (statuses as of 02/06/2024) Active Problems Problem Noted Date Diagnosed Date [...] Obesity protocol Atherosclerotic heart diseas e of [place] coronary artery without angina pectoris 05/30/2019 Major [...] as of this encounter (statuses as of 02/06/2024) Resolved Problems Problem Noted Date Diagnosed Date [...] as of this encounter (statuses as of 02/06/2024) Immunizations Name Administration Dates Next Due COVID-19 mRNA, LNP-s, No Pre serve, 2-Dose Series ([employer]) 09/03/2020,08/13/2020 COVID-19, LNP-s, No Preserve , Niko-sucrose, Ages 12+ (Pfizer) 04/28/2021 Covid-19, Mrna, Lnp-s, Pf, B ivalent, 30 Mcg, IM, 12 yrs and above ([employer]) 01/27/2022 H1N1 2009 Influenza, IM 06/06/2009 Pneumococcal [...] encounter Miscellaneous Notes * Telephone Encounter - Tanja Mortensen MD - 02/01/2024 2:07 PM EDT Signed Prescriptions: Disp Refills Mesalamine ER 0.375 GM Oral Capsule Extend*180 Ca*1 Sig: TAKE 2 CAPSULES BY MOUTH IN THE MORNING Authorizing Provider: TANJA MORTENSEN * Telephone Encounter - Zee Lopez CPhT - 02/01/2024 10:31 AM EDTPending Prescriptions: Disp Refills Mesalamine ER 0.375 GM Oral Capsule Extend*180 Ca*1 Sig: TAKE 2 CAPSULES BY MOUTH IN THE MORNING * Telephone Encounter - Zee Lopez CPhT - 02/01/2024 10:31 AM EDT Received message from [facility] regarding patient needing labs. Call Placed, Left message on voicemail advising of required labs Thank you, Zee Lopez CPhT Pressure Vessel Inspector [facility] 02/01/2024,10:31 AM * Telephone Encounter - Alex Ann [facility] - 01/31/2024 10:58 AM EDT Pending Prescriptions: Disp Refills Mesalamine ER 0.375 GM Oral Capsule Extend*180 Ca*1 Sig: TAKE 2 CAPSULES BY MOUTH IN THE MORNING * Telephone Encounter - Alex Ann RP - 01/31/2024 10:55 AM EDT Unable to authorize medication refills for pended medication(s) at this time. Per refill protocol patient should have CBC on file within past year. Reviewed AMP report, Care Gaps/Health Maintenance, medications list, and for any routine labs typically ordered for this patient. Lab orders placed. Please contact patient to advise of labs ordered for blood draw. Fasting is not required. Advise toobtain labs before requesting the next refill. After contacting patient, please forward request to Tanja Mortensen MD . Thanks, Alex Ann, PharmD Clinical Pharmacist [facility] [phone] 01/31/2024, 10:57 AM documented in this encounter Plan of Treatment Upcoming Encounters Date Type Department Care Team (Late st Contact Info) Description 02/20/2024 1:40 PM EDT Office Visit Gastroenterology, [facility] [address] [address] Tanja Mortensen MD [address] [address] 02/21/2024 1:00 PM EDT Office Visit Neurology [facility] [address] [place] [address] Landon Meredith MD [address] [place] [address] 04/02/2024 1:00 PM EST Imaging Radiology [facility] [address] [facility] 132 [place] [address] 04/20/2024 3:30 PM EST Office Visit Cardiology, [facility] 132 [place] [address] Annita Garcia, PA-C 132 [place] [address] 05/23/2024 3:40 PM EST Office Visit [address] [phone] Juan F Blanco MD [address] [place] [address] 07/31/2024 3:15 PM EDT Office Visit Urology, [facility] 132 [place] [address] Hoang Martinez MD 27 [facility] [place] [address] 09/12/2024 3:00 PM EDT Office [facility] [address] [place] [address] Sandra Macdonald, PA-C [address] [place] [address] Health Maintenance Due Date Last Done Comments [...] this encounter Medical Devices Implanted Type Area Job Site Supervisor Device Identifier Shelf Expiration Date Model / Serial / Lot Clip Quick 2.8mm 230cm - [id number] Implanted:Qty: 2 on 10/20/2021 by Tanja Mortensen MD at ENDOSCOPY [facility] [employer] 08/30/2023 HX-202UR.A / / Duraclip 16mm Xlg Repostn - [id number] Implanted:Qty: 4 on 10/20/2021 by Tanja Mortensen MD at ENDOSCOPY [facility] 5 CUPS and some sugar 11/02/2023 [id number] / / documented as of this encounter Results * (ABNORMAL) CBC (02/03/2024 3:21 PM EDT) Pathologist [facility] WBC 9.48 4.00 - 10.80 K/uL 02/03/2024 [...] EDT 02/03/2024 3:21 PM EDT Alex Ann [facility] LAB BLOOD OR [facility] [address] [place] [address] documented in this encounter Visit Diagnoses Diagnosis Encounter for long-term (current) use of medications- Primary Encounter for long-term (current) use of other medications 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 (HCC) documented in this encounter Care Teams Consultant Electronics Relationship Specialty Start Date End Date Juan F Blanco MD [address] [place] [address] PCP - General 09/02/00 documented as of this encounter
--- OUTSIDE RECORDS SUMMARY | 2024-03-03 02:09 | External Medical Summary | Summary of Care ---
Author Name Unknown Organization [facility] Address [address] [place] [address] Phone [phone] Care [address] Shaft And Steering Post Repairer Name Role Phone Juan F Blanco MD Primary Care Provider [phone] Encounter Details Date Type Department Care Team (Late st Contact Info) Description 02/03/2024 Orders Only PATIENT PORTAL DO NOT DELETE THIS DEPT USED BY MARCELO WINDHAMKATHERINE [id number] Allergies Active Allergy Reactions Criticality Noted Date [...] Obesity protocol Atherosclerotic heart diseas e of [place] coronary artery without angina pectoris 05/30/2019 Major [...] mRNA, LNP-s, No Pre serve, 2-Dose Series ([employer]) 09/03/2020,08/13/2020 COVID-19, LNP-s, No Preserve , Niko-sucrose, [...] PM EDT Scheduled Telephone Interventional Pain Center, [facility] [address] [place] [address] Daniel Nurse Phone Call Interventional Pain [facility] [address] [place] [address] 02/20/2024 1:40 PM EDT Office Visit Gastroenterology, [facility] 132 [facility] [place] [address] Tnaja Schulz MD 132 [facility] [place] [address] 02/21/2024 1:00 PM EDT Office Visit Neurology [facility] [address] [place] [address] Landon Meredith MD [address] [place] [address] 04/02/2024 1:00 PM EST Imaging Radiology [address] 132 [facility] [place] [address] 04/20/2024 3:30 PM EST Office Visit Cardiology, [facility] 132 [facility] [place] [address] Annita Garcia, PA-C 132 [facility] [place] [address] 05/23/2024 3:40 PM EST Office Visit [facility] [address] [place] [id number] Juan F Blanco MD [address] [place] [address] 07/31/2024 3:15 PM EDT Office Visit Urology, [facility] 132 [facility] [place] [address] Hoang Martinez MD [address] [place] [address] 09/12/2024 3:00 PM EDT Office Visit Allergy/Immunology [facility] 200 [facility] [place] [address] Sandra Macdonald PA-C 200 [facility] [place] [address] Health Maintenance Due Date Last Done Comments [...] this encounter Medical Devices Implanted Type Area Market President Device Identifier Shelf Expiration Date Model / Serial / Lot Clip Quick 2.8mm 230cm - [id number] Implanted:Qty: 2 on 10/20/2021 by Tanja Schulz MD at ENDOSCOPY [facility] [employer] [facility] 08/30/2023 HX-202UR.A / / Duraclip 16mm Xlg Repostn - [id number] Implanted:Qty: 4 on 10/20/2021 by Tanja Schulz MD at ENDOSCOPY [facility] [employer] [facility] 11/02/2023 [id number] / / documented as of this encounter Care Teams Drive Shaft And Steering Post Repairer Relationship Specialty Start Date End Date Juan F Blanco MD [address] [place] [address] PCP - General 09/02/00 documented as of this encounter
--- OUTSIDE RECORDS SUMMARY | 2024-03-03 02:09 | External Medical Summary | Summary of Care ---
Author Name Unknown Organization [facility] Address [address] [place] [address] Phone [phone] Care Team Providers Care Travel Professional Name Role Phone Juan F Blanco MD Primary Care Provider [phone] Reason for Visit * Reason Onset Date Comments Test Results 01/25/2024 Encounter Details Date Type Department Care Team (Late st Contact Info) Description 01/25/2024 Telephone [facility] [address] [place] [address] Juan F Blanco MD [address] [place] [address] Test Results Allergies Active Allergy Reactions Criticality Noted Date Comments Meloxicam Nausea/vomiting 07/06/2017 Nausea and head congestion Naproxen Other (Please comment) Low 02/27/2003 nightmares documented as of this encounter (statuses as of 02/01/2024) Medications Medication Sig Dispensed Refills Start Date [...] BY MOUTH TWICE A DAY 01/17/2024 Active documented as of this encounter (statuses as of 02/01/2024) Active Problems Problem Noted Date Diagnosed Date [...] Obesity protocol Atherosclerotic heart diseas e of [place] coronary artery without angina pectoris 05/30/2019 Major [...] as of this encounter (statuses as of 02/01/2024) Resolved Problems Problem Noted Date Diagnosed Date [...] as of this encounter (statuses as of 02/01/2024) Immunizations Name Administration Dates Next Due COVID-19 mRNA, LNP-s, No Pre serve, 2-Dose Series ([employer]) 09/03/2020,08/13/2020 COVID-19, LNP-s, No Preserve , Niko-sucrose, [...] encounter Miscellaneous Notes * Telephone Encounter - Yaneth Wright LPN - 01/25/2024 12:45 PM EDT Patient called. Informed of message. Verbalized understanding. He had started PT and stopped. He has it all set up. He plans on going back next week to PT. 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 This is not out of ordinary for someone 78 years of age. No fracture. I suggest more liberal use of the Tramadol and give it some time. documented in this encounter Plan of Treatment Upcoming Encounters Date Type Department Care Team (Late st Contact Info) Description 02/03/2024 2:00 PM EDT Scheduled Telephone Interventional Pain Center, [facility] [address] [place] [address] Sanchez Nurse Phone Call Interventional Pain [facility] 132 [place] [address] 02/20/2024 1:40 PM EDT Office Visit Gastroenterology, [facility] 132 [place] [address] Tanja Schulz MD [address] [address] 02/21/2024 1:00 PM EDT Office Visit Neurology [facility] [address] [place] [address] Landon Meredith MD [address] [place] [address] 04/02/2024 1:00 PM EST Imaging Radiology [facility] 1st [facility] [address] [place] [address] 04/20/2024 3:30 PM EST Office Visit Cardiology, [facility] 132 [facility] [place] [address] Annita Garcia PA-C 132 [facility] [place] [address] 05/23/2024 3:40 PM EST Office Visit [facility] [address] [place] [address] Juan F Blanco MD [address] [place] [address] 07/31/2024 3:15 PM EDT Office Visit Urology, [facility] 132 [facility] [place] [address] Hoang Martinez MD 27 [facility] [place] [address] 09/12/2024 3:00 PM EDT Office Visit [facility]Immun[facility] 200 [facility] [place] [address] Sandra Macdonald PA-C 200 [facility] [place] [address] Scheduled Orders Name Type Priority Associated Diagnoses Orde r Schedule BASIC METABOLIC PANEL Lab Routine 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 (HCC) Expected: 02/01/2024, Expires: 01/31/2025 Health Maintenance Due Date Last Done Comments [...] this encounter Medical Devices Implanted Type Area Incident Coordinator Device Identifier Shelf Expiration Date Model / Serial / Lot Clip Quick 2.8mm 230cm - [id number] Implanted:Qty: 2 on 10/20/2021 by Tanja Schulz MD at ENDOSCOPY [facility] [employer] 08/30/2023 HX-202UR.A / / Duraclip 16mm Xlg Repostn - [id number] Implanted:Qty: 4 on 10/20/2021 by Tanja Schulz MD at ENDOSCOPY [facility] [employer] 11/02/2023 [id number] / / documented as of this encounter Visit Diagnoses Diagnosis 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 (HCC)- Primary documented in this encounter Care Teams Travel Professional Relationship Specialty Start Date End Date Juan F Blanco MD [address] [place] [address] PCP - General 09/02/00 documented as of this encounter
--- OUTSIDE RECORDS SUMMARY | 2024-03-03 02:09 | External Medical Summary | Summary of Care ---
Author Name Unknown Organization [facility] Address [address] [place] [address] Phone [phone] Care Team Providers Care Senior Manager Mmcoe Name Role Phone Juan F Blanco MD Primary Care Provider [phone] Reason for Visit * Reason Comments eRx-Medication Refill Encounter Details Date Type Department Care Team (Late st Contact Info) Description 01/30/2024 Refill Gastroenterology, [facility] [address] [place] [address] Tanja Mortensen MD [address] [place] [address] Encounter for long-term (current) use of medications*; [...] 09/13/2023 traZODone HCl 50 MG Oral Tablet (Desyrel)Indication s:Persistent insomnia Take 1 tablet by mouth once daily at bedtime 90 Tablet 3 3 Active Sildenafil Citrate 100 MG Oral Tablet [...] THE MORNING 180 Capsule 1 4 Active Mesalamine ER 0.375 GM Oral [...] Obesity protocol Atherosclerotic heart diseas e of [place] coronary artery without angina pectoris 05/30/2019 Major [...] mRNA, LNP-s, No Pre serve, 2-Dose Series ([employer]) 09/03/2020,08/13/2020 COVID-19, LNP-s, No Preserve , Niko-sucrose, Ages 12+ (Pfizer) 04/28/2021 Covid-19, Mrna, Lnp-s, Pf, B ivalent, 30 Mcg, IM, 12 yrs and above ([employer]) 01/27/2022 H1N1 2009 Influenza, IM 06/06/2009 Pneumococcal [...] 02/01/2024 10:31 AM EDT Received message from [facility] regarding patient needing labs. Call Placed, Left message on voicemail advising of required labs Thank you, Zee Lopez CPhT Docking Saw Operator [facility] 02/01/2024,10:31 AM * Telephone Encounter - Alex Ann [facility] - 01/31/2024 10:58 AM EDT Pending Prescriptions: Disp Refills Mesalamine ER 0.375 GM Oral Capsule Extend*180 Ca*1 Sig: TAKE 2 CAPSULES BY MOUTH IN THE MORNING * Telephone Encounter - Alex Ann [facility] - 01/31/2024 10:55 AM EDT Unable to [...] PharmD Clinical Pharmacist [facility] [phone] 01/31/2024, 10:57 AM documented in this encounter Plan of Treatment Upcoming Encounters Date Type Department Care Team (Late st Contact Info) Description 02/03/2024 2:00 PM EDT Scheduled Telephone Interventional Pain Center, [facility] 132 [place] [address] Daniel Nurse Phone Call Interventional Pain [facility] 132 [place] [address] 02/20/2024 1:40 PM EDT Office Visit Gastroenterology, [facility] [place] [address] Tanja Mortensen MD 132 [facility] [place] [address] 02/21/2024 1:00 PM EDT Office Visit Neurology [facility] [address] [place] [address] Landon Meredith MD [address] [place] [address] 04/02/2024 1:00 PM EST Imaging Radiology [address] 132 [facility] [address] 04/20/2024 3:30 PM EST Office Visit Cardiology, [facility] 132 [place] [address] Annita Garcia, PA-C 132 [facility] [address] 05/23/2024 3:40 PM EST Office Visit [place] [address] [place] [address] Juan F Blanco MD [address] [place] [address] 07/31/2024 3:15 PM EDT Office Visit Urology, [facility] 132 [facility] [place] [address] Hoang Martinez MD 27 [place] [address] 09/12/2024 3:00 PM EDT Office Visit Allergy/Immunology [facility] [address] [place] [address] Sandra Macdonald PADedrickC [address] [place] [address] Scheduled Orders Name Type Priority Associated Diagnoses Orde r Schedule CBC Lab Routine Encounter for long-term (current) use of medications Expected: 02/07/2024 (Approximate), Expires: 01/30/2025 Health Maintenance Due Date Last Done Comments [...] this encounter Medical Devices Implanted Type Area Specialty Manufacturing Supervisor Device Identifier Shelf Expiration Date Model / Serial / Lot Clip Quick 2.8mm 230cm - [id number] Implanted:Qty: 2 on 10/20/2021 by Tanja Mortensen MD at ENDOSCOPY [facility] [employer] [facility] 08/30/2023 HX-202UR.A / / Duraclip 16mm Xlg Repostn - [id number] Implanted:Qty: 4 on 10/20/2021 by Tanja Mortensen MD at ENDOSCOPY [facility] [employer] [facility] 11/02/2023 [id number] / / documented as of this encounter Visit Diagnoses Diagnosis Encounter for long-term (current) use of medications- Primary Encounter for long-term (current) use of other medications 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 (HCC) documented in this encounter Care Teams Senior Manager Mmcoe Relationship Specialty Start Date End Date Juan F Blanco MD [address] [place] [address] PCP - General 09/02/00 documented as of this encounter
--- OUTSIDE RECORDS SUMMARY | 2024-03-03 02:10 | External Medical Summary | Summary of Care ---
Author Name Unknown Organization [facility] Address [address] [place] [address] Phone [phone] Care Team Providers Care Furnace Puncher Name Role Phone Juan F Blanco MD Primary Care Provider [phone] Reason for Visit * Reason Onset Date Comments Advice 01/06/2024 Encounter Details Date Type Department Care Team (Late st Contact Info) Description 01/06/2024 Telephone Cardiology, [facility] [address] [facility] [place] [address] Vishal Kenney, [address] [place] [address] Advice Allergies Active Allergy Reactions Criticality Noted Date Comments Meloxicam Nausea/vomiting 07/06/2017 Nausea and head congestion Naproxen Other (Please comment) Low 02/27/2003 nightmares documented as of this encounter (statuses as of 01/09/2024) Medications Medication Sig Dispensed Refills Start Date [...] EVERY DAY 90 Tablet 3 08/02/2023 Active Mesalamine ER 0.375 GM Oral Capsule Extended Release 24 Hour (Apriso)Indications:U lcerative proctitis without complication (HCC) TAKE 2 CAPSULES BY MOUTH IN THE MORNING 180 Capsule 1 08/02/2023 Active Gabapentin 300 MG Oral Capsule [...] EVERY DAY 90 Tablet 1 12/19/2023 Active Metoprolol Tartrate 25 MG Oral Tablet (Lopressor)Indication s:Cardiac pacemaker in situ TAKE 1 TABLET BY MOUTH TWICE A DAY 180 Tablet 1 12/22/2023 Active traMADol HCl 50 MG Oral Tablet (Ultram)Indications:A cute bilateral low back pain without sciatica TAKE 1 TABLET BY MOUTH 3 TIMES A DAY NEEDED FOR PAIN, SEVERE. 30 Tablet 1 12/22/2023 Active documented as of this encounter (statuses as of 01/09/2024) Active Problems Problem Noted Date Diagnosed Date [...] Obesity protocol Atherosclerotic heart diseas e of [place] coronary artery without angina pectoris 05/30/2019 Major [...] as of this encounter (statuses as of 01/09/2024) Resolved Problems Problem Noted Date Diagnosed Date [...] as of this encounter (statuses as of 01/09/2024) Immunizations Name Administration Dates Next Due COVID-19 mRNA, LNP-s, No Pre serve, 2-Dose Series (Pfizer) 09/03/2020,08/13/2020 COVID-19, LNP-s, No Preserve , Niko-sucrose, Ages 12+ (Pfizer) 04/28/2021 Covid-19, Mrna, Lnp-s, Pf, B ivalent, 30 Mcg, IM, 12 yrs and above (Pfizer) 01/27/2022 H1N1 2009 Influenza, IM 06/06/2009 Pneumococcal Conjugate Vacc, 13 Valent (Prevnar) 07/04/2015 Pneumococcal Polysaccharide PPV23 (Pneumovax) 02/03/2012 Seasonal Influenza, PF, 6 M & above, IM , (FluLaval or Fluzone) 02/05/2020,02/02/2019,04/21/2018,01/01 Seasonal Influenza, Quadriva lent Hd (Fluzone Hd) 01/31/2023,01/22/2022,02/06/2021 Seasonal Influenza, Quadriva lent, No Preserve, IM 02/10/2016,02/06/2015 02/07/2016 Seasonal Influenza, Trivalen t, (IIV3), with Preserv, (Fluzone) 03/06/2014,01/19/2013,02/03/2012,12/31,02/16/2010,02/11/2009,02/26/20 08,03/08/2007,04/10/2006 02/11/2010 TD, Preservative Free 12/12/2019 TDAP, Age 7 [...] encounter Miscellaneous Notes * Telephone Encounter - Tony Benavides OSA - 01/09/2024 8:58 AM EDT Patient has been scheduled on: RETURN CARDIOLOGY at 3:30 PM (30 min)Arrive by 3:15 PM Saturday April 20, 2024 Appointment Provider:Annita Garcia PA-C in CARDIOLOGY [facility] * Telephone Encounter - Vishal Kenney DO - 01/06/2024 4:52 PM EDT Updates noted. Will review device data in follow-up next week. Agree with ED referral if symptoms emergent and do not resolve.Will arrange follow up. Vishal Kenney DO * Telephone Encounter - Bonifacio Roman LPN - 01/06/2024 4:16 PM EDT Called patient to discuss. Patient stated this lightheadedness, dizziness and presyncope episodes have been ongoing for a month. Patient is only taking metoprolol tartrate 25 once daily. Patient stated a recent device check should have been submitted. Patient advised to go to ED if symptoms persistor get worse. Patient's last OV was on 03/17/22. Scheduling please assist with an appointment. Please advise of any other recommendations. * Telephone Encounter - Michael Perez OSA - 01/06/2024 4:02 PM EDT Person calling: Gary Lakhani Relationship to patient: self Phone/Fax to return call: [phone] Reason for call(brief): Advice Pharmacy: N/A Provider Name:Dr. Kenney Detailed message to office: Dr. Kenney pt calling to speak with a nurse. Patient advised that he is lightheaded and dizzy. Patient feels like he is going to pass out after walking a short distance. Patient had pacemaker placed in [place] approx 8 years ago. Attempting to transfer call to Cardionurses at [facility]. documented in this encounter Plan of Treatment Upcoming Encounters Date Type Department Care Team (Late st Contact Info) Description 01/17/2024 9:15 AM EDT Office Visit Urology, [facility] 132 [facility] [place] [address] Hoang Martinez MD [address] [place] [address] 01/17/2024 2:20 PM EDT Office Visit [facility] [address] [place] [address] Juan F Blanco MD [address] [place] [address] 02/03/2024 2:00 PM EDT Scheduled Telephone Interventional Pain Center, [facility] 132 [facility] [place] [address] [facility] Nurse Phone Call Interventional Pain [facility] 132 [facility] [place] [address] 02/21/2024 1:00 PM EDT Office Visit Neurology [facility] 200 [facility] [place] [address] Landon Meredith MD [address] [place] [address] 04/02/2024 1:00 PM EST Imaging Radiology [facility]st [facility] 132 [facility] [place] [address] 04/20/2024 3:30 PM EST Office Visit Cardiology, [facility] 132 [facility] [place] [address] Annita Garcia PA-C 132 [facility] [place] [address] 09/12/2024 3:00 PM EDT Office Visit Allergy/Immunology [facility] [address] [place] [address] Sandra Macdonald PA-C [address] [place], [place] [address] Health Maintenance Due Date Last Done Comments Adult Wellness Visit 03/22/2014 03/22/2013 Colonoscopy 10/20/2022 10/20/2021, 10/01, 01/24/2019, Additional history exists COVID-19 Vaccine ( season) 2024 01/27/2022, 04/28/2021, 09/03/2020, Additional history exists Influenza Vaccine (FLU shot) (#1) 2024 01/31/2023, 01/22/2022, 02/06/2021, Additional history exists GFR 07/03/2024 07/04/2023, 03/02, 10/16/2021, Additional history exists Depression Monitoring 07/11/2024 07/12/2023 Albumin/Creatinine Ratio 07/03/2026 07/04/2023 DTap/Tdap Vaccines (3 - Td or Tdap) 12/11/2029 12/12/2019, 02/16/2010 Pneumococcal Vaccine: 65+ Years Completed 07/04/2015, 02/03/2012 Zoster Vaccines Completed 12/21/2017, 10/04/2017 RETIRED - COLONOSCOPY-ANNUAL AGES 18-100 Discontinued 10/20/2021, 10/20/2021, 01/24/2019, Additional history exists HPV (Gardasil) Vaccine Aged Out No lo nger eligible based on patient's age to complete this topic Hepatitis B Vaccine Aged Out No longe r eligible based on patient's age to complete this topic MENINGOCOCCAL (MENACTRA/MENVEO) Aged Out No longer eligible based on patient's age to complete this topic documented as of this encounter Medical Devices Implanted Type Area Jewelry Sales Associate Device Identifier Shelf Expiration Date Model / Serial / Lot Clip Quick 2.8mm 230cm - [id number] Implanted:Qty: 2 on 10/20/2021 by Tanja Schulz MD at ENDOSCOPY [facility] [employer] 08/30/2023 HX-202UR.A / / Duraclip 16mm Xlg Repostn - [id number] Implanted:Qty: 4 on 10/20/2021 by Tanja Schulz MD at ENDOSCOPY [facility] [employer] 11/02/2023 [id number] / / documented as of this encounter Care Teams Furnace Puncher Relationship Specialty Start Date End Date Juan F Blanco MD [address] [facility] [place] [address] PCP - General 09/02/00 documented as of this encounter
--- OUTSIDE RECORDS SUMMARY | 2024-03-03 02:10 | External Medical Summary | Summary of Care ---
Author Name Unknown Organization [facility] Address [address] [place] [address] Phone [phone] Care Team Providers Care Music Librarian Name Role Phone Juan F Blanco MD Primary Care Provider [phone] Reason for Visit * Reason Comments Follow Up Patient is here toda y for a follow up. Patient states he is still having periods of his BP dropping but not as severe as when he was taking a medication in the evening. Patient states the tremor in his right hand is getting worse. Patient states he is experiencing dizziness and feels that after his injections for his spine it is worse. Patient states a week before his last injection which was December 29 he fell and landed on his pelvis and he has concerns he could have broken something. Encounter Details Date Type Department Care Team (Late st Contact Info) Description 01/17/2024 2:20 PM EDT Office Visit [facility] [address] [place] [address] Juan F Blanco MD [address] [place], [place] [id number] Need for prophylactic vaccination and inoculation against influenza*; Cardiac pacemaker in situ; Sacral pain; Paroxysmal SVT (supraventricular tachycardia) (HCC) Allergies Active Allergy Reactions Criticality Noted Date Comments Meloxicam Nausea/vomiting 07/06/2017 Nausea and head congestion Naproxen Other (Please comment) Low 02/27/2003 nightmares documented as of this encounter (statuses as of 01/17/2024) Medications Medication Sig Dispensed Refills Start Date [...] EVERY DAY 90 Tablet 3 4 Active Mesalamine ER 0.375 GM Oral Capsule Extended Release 24 Hour (Apriso)Indications :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 (HCC) TAKE 2 CAPSULES BY MOUTH IN THE MORNING 180 Capsule 1 4 Active Gabapentin 300 MG Oral Capsule [...] BY MOUTH TWICE A DAY 4 Active Metoprolol Tartrate 25 MG Oral Tablet (Lopressor)Indicati ons:Cardiac pacemaker in situ TAKE 1 TABLET BY MOUTH TWICE A DAY 180 Tablet 1 4 01/17/20 24 Discontinued documented as of this encounter (statuses as of 01/17/2024) Active Problems Problem Noted Date Diagnosed Date [...] Obesity protocol Atherosclerotic heart diseas e of [place] coronary artery without angina pectoris 05/30/2019 Major [...] as of this encounter (statuses as of 01/17/2024) Resolved Problems Problem Noted Date Diagnosed Date [...] as of this encounter (statuses as of 01/17/2024) Immunizations Name Administration Dates Next Due COVID-19 mRNA, LNP-s, No Pre serve, 2-Dose Series ([employer]) 09/03/2020,08/13/2020 COVID-19, LNP-s, No Preserve , Niko-sucrose, Ages 12+ ([employer]) 04/28/2021 Covid-19, Mrna, Lnp-s, Pf, B ivalent, 30 Mcg, IM, 12 yrs and above (Pfizer) 01/27/2022 H1N1 2009 Influenza, IM 06/06/2009 Pneumococcal Conjugate Vacc, 13 Valent (Prevnar) 07/04/2015 Pneumococcal Polysaccharide PPV23 (Pneumovax) 02/03/2012 Seasonal Influenza, High Dos e, Trivalent, PF, [...] Sign Reading Time Taken Comments Blood Pressure 128/68 01/17/2024 2:57 PM EDT Pulse 96 01/17/2024 2:57 PM EDT Temperature 36.5 C (97.7 F) 01/17/2024 2:57 PM ED T Respiratory Rate 16 01/17/2024 2:57 PM EDT Oxygen Saturation 96% 01/17/2024 2:57 PM EDT Inhaled Oxygen Concentration - - Weight 136.4 kg (300 lb 12.8 oz) 01/17/2024 2:57 PM EDT Height 185.4 cm (6' 1") 01/17/2024 2:57 PM EDT Body Mass Index 39.69 01/17/2024 2:57 PM EDT documented in this encounter Progress Notes * Juan F Blanco MD - 01/17/2024 3:58 PM EDT Subjective: Gary Lakhani Jr. is a 78 year old male. Chief Complaint Patient presents with Follow Up Patient is here today for a follow up. Patient states he is still having periods of his BP dropping but not as severe as when he was taking a medication in the evening. Patient states the tremor in his right hand is getting worse. Patient states he is experiencing dizziness and feels that after his injections for his spine it isworse. Patient states a week before his last injection which was December 29 he fell and landed on his pelvis and he has concerns he could have broken something. HPI: 78-year-old with known history of Parkinson's disease in his status post coronary artery disease/ paroxysmal SVT/junctional bradycardia now with cardiac pacemaker in-situ. Follows with Dr. Kenney in regards to his cardiac issues. His biggest issue right now is left sacral pelvic pain. This is notably worse when he tries to get out of bed in the morning. It can take him a couple of hours to be able to get up and move about somewhat freely or can take up to 6 hours. He has had 2 separate caudal injections per pain management at [facility]. He notes that the 1st injection helped a lot -relief for up to 6 months. He does not seem to have gotten the same benefit with the 2nd injection. Additionally he had a fall in that was immediately for the 2nd injection in he is not sure if he isdealing with some results of that fall. The other issue that he has had has been of lightheadedness when standing. I decreased his metoprolol tartrate from 25 mg twice a day to 25 mg a day which he was taking in the morning. He sees Dr. Kenney in April. Also is dealing with Urology because of urinary frequency urgency and sometimes some urinary incontinence especially at nighttime with unawareness. He was placed on Myrbetriq and finasteride and he has been on finasteride now for about 3 months and he has noticed some improvement. Right now he is not scheduled to see Dr. Martinez in Urology until July of 2024 Patient Active Problem List Diagnosis TESTICULAR HYPOFUNC NEC ADVANCE DIRECTIVE INFORMATION Obstructive sleep apnea on CPAP Paroxysmal SVT (supraventricular tachycardia) ([facility]) Thoracic aortic aneurysm ([facility]) Dyslipidemia, goal LDL below 100 Junctional bradycardia Cardiac pacemaker in situ Parkinson's disease ([facility]) Vitamin D deficiency Family history of abdominal aortic aneurysm (AAA) 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 ([facility]) Chronic midline low back pain with left-sided sciatica Hematuria of undiagnosed cause Renal cyst, left 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 One capsule daily Vitamin C 1000 MG Oral Tablet Take 1 Tablet by mouth in the morning. CPAP every night at bedtime . traZODone HCl 50 MG Oral Tablet (Desyrel) Take 1 tablet by mouth once daily at bedtime 90 Tablet 3 Sildenafil Citrate 100 MG Oral Tablet (Viagra) Take 1 Tablet by mouth daily as needed for Erectile Dysfunction. 1-4 hours before intercourse, no more than 1 dose in 24 hours. 4 Tablet 5 Atorvastatin Calcium 10 MG Oral Tablet (Lipitor) TAKE 1 TABLET BY MOUTH EVERY DAY 90 Tablet 3 Mesalamine ER 0.375 GM Oral Capsule Extended Release 24 Hour (Apriso) TAKE 2 CAPSULES BY MOUTH IN THE MORNING 180 Capsule 1 Gabapentin 300 MG Oral Capsule (Neurontin) TAKE 1 CAP IN AM AND 1 CAP AT NOON AND 2 CAPS AT [id number] Capsule 3 Mirabegron ER 50 MG Oral [...] BY MOUTH EVERY DAY 90 Tablet 1 Metoprolol Tartrate 25 MG Oral Tablet (Lopressor) TAKE 1 TABLET BY MOUTH TWICE A DAY 180 Tablet 1 traMADol HCl 50 MG Oral Tablet (Ultram) TAKE 1 TABLET BY MOUTH 3 TIMES A DAY NEEDED FOR PAIN, SEVERE. 30 Tablet 1 Econazole Nitrate 1 % External Cream (Spectazole) APPLY TO AFFECTED AREAS OF FEET ONCE EVERY DAY ASDIRECTED Fexofenadine HCl 180 MG Oral Tablet Take 1 Tablet by mouth daily as needed for Allergies. busPIRone HCl 10 MG Oral Tablet (Buspar) Take 1 Tablet (10 mg) by mouth 2 times a day as needed forOther (anxiety). (Patient not taking: Reported on 01/17/2024) 180 Tablet 3 Benzonatate 100 MG Oral Capsule Take 1-2 Capsules by mouth 3 times a day as needed for Cough. (Patient not taking: Reported on 09/13/2023) 30 Capsule 1 No current facility-administered medications for this visit. Review of patient's allergies indicates: Allergen Reactions Meloxicam Nausea/vomiting Nausea and head congestion Naproxen Other (Please comment) nightmares Objective: BP 128/68 | Pulse 96 | Temp 36.5 C (97.7 F) (Tympanic) | Resp 16 | Ht 1.854 m (6' 1") | Wt (!) 136.4 kg (300 lb 12.8 oz) | SpO2 96% | BMI 39.69 kg/m | BSA 2.65 m Physical Exam: CONST: alert, pleasant, no acute distress. He did get up out of a sitting position and stand at theedge of the table. He does not have any mid line lumbosacral tenderness that I can appreciate. There is some tenderness on the left side in the region of the left sacral iliac joint. This is not exquisite HEAD: normocephalic, atraumatic Eyes - PERRLA, EOM'I OROPHARYNX: clear, no swelling or erythema, moist CV: regular rate and rhythm, no murmur CHEST: clear to auscultation bilaterally, no rales or wheezing ABD: soft, non tender, non distended, no masses or hepatosplenomegaly EXT: no edema, no joint swelling or deformities, MENTAL STATUS: no evidence of thought disorder, no delusional thought, no evidence of paranoia, thought is non-tangential. SKIN: no rash or significant lesions ASSESSMENT/PLAN: Need for prophylactic vaccination and inoculation against influenza (Primary) - INFLUENZA VAC., TRIVALENT, HD, PF, 65 AND ABOVE, 0.5 ML IM (FLUZONE HD) Cardiac pacemaker in situ -follow up with Dr Kenney Sacral pain - x-ray pelvis as well as both sacroiliac joints especially given that a fall seem to precede this significant pain. If we see a fracture then he will need appropriate referral to Orthopedics. If no fracture then I suggested he use the tramadol more liberally. He has only used a couple tramadol in the last month. He seems to tolerate without significant side effects but he is very resistant Um any regular use. He can use up to 3 a day if necessary. I think that if he used 1 before getting out of bed in the morning that that would help that early a.m. pain that seems to be the mostsignificant time of the day. Orthostasis -I think a lot of this is consequence of his Parkinson's disease. Some of it maybe medication but Um not convinced that that is causing a significant problem. I did ask that he take his metoprolol tartrate 25 mg, half a tablet twice a day instead of taking it just once a day. See again 4 months. He is given flu shot today Follow Up: Return in about 4 months (around 05/18/2024) for Return with Physician. | For: Return with Physician Juan F Blanco MD * Erica Chowdhury LPN - 01/17/2024 2:50 PM EDT PRE - ADMINISTRATION DOCUMENTATION Are you experiencing any cold symptoms or fever? No Have you had Guillain-Nara Visa Syndrome (an illness that causes paralysis) within the last 6 weeks? No Have you had the flu shot in the past? YES Have you ever had a reaction to the flu shot? No Erica Chowdhury LPN, 01/17/2024 2:50 PM documented in this encounter Nursing Notes * Erica Chowdhury LPN - 01/17/2024 3:01 PM EDT The patient has been properly identified by confirmation of name and date of . Chief Complaint Patient presents with Follow Up Patient is here today for a follow up. Patient states he is still having periods of his BP dropping but not as severe as when he was taking a medication in the evening. Patient states the tremor in his right hand is getting worse. Patient states he is experiencing dizziness and feels that after his injections for his spine it isworse. Patient states a week before his last injection which was December 29 he fell and landed on his pelvis and he has concerns he could have broken something. documented in this encounter Plan of Treatment Upcoming Encounters Date Type Department Care Team (Late st Contact Info) Description 02/03/2024 2:00 PM EDT Scheduled Telephone Interventional Pain Center, [facility] [address] [place] [address] Daniel Nurse Phone Call Interventional Pain [facility] [address] [address] 02/20/2024 1:40 PM EDT Office Visit Gastroenterology, [facility] [address] [place] [address] Tanja Schulz MD [address] [place] [address] 02/21/2024 1:00 PM EDT Office Visit Neurology [facility] [address] [place] [address] Landon Meredith MD [address] [place] [address] 04/02/2024 1:00 PM EST Imaging Radiology [facility] [address] [facility] [place] [address] 04/20/2024 3:30 PM EST Office Visit Cardiology, [facility] [address] [facility] [place] [address] Annita Garcia PA-C 132 [facility] [place] [address] 05/23/2024 3:40 PM EST Office Visit [facility] [address] [place] [facility] [place] [id number] Juan F Blanco MD [address] [place] [address] 07/31/2024 3:15 PM EDT Office Visit Urology, [facility] [address] [facility] [place] [address] Hoang Martinez MD [address] [facility] [place] [address] 09/12/2024 3:00 PM EDT Office Visit Allergy/Immunology [facility] [address] [facility] [place] [address] Sandra Macdonald PA-C [address] [facility] [place] [address] Scheduled Orders Name Type Priority Associated Diagnoses Orde r Schedule XR SACROILIAC JOINTS 3 OR MORE VIEWS Medical Imaging Routine Sacral pain Expected: 01/17/2024, Expires: 04/17/2024 XR HIP BILAT MIN 5 VIEWS INCLUDING AP OF PELVIS Medical Imaging Routine Sacral pain Expected: 01/17/2024, Expires: 03/18/2024 Health Maintenance Due Date Last Done Comments [...] this encounter Medical Devices Implanted Type Area Registered Nurse Cardiac Device Identifier Shelf Expiration Date Model / Serial / Lot Clip Quick 2.8mm 230cm - [id number] Implanted:Qty: 2 on 10/20/2021 by Tanja Schulz MD at [facility] [employer] 08/30/2023 HX-202UR.A / / Duraclip 16mm Xlg Repostn - [id number] Implanted:Qty: 4 on 10/20/2021 by Tanja Schulz MD at [facility] [employer] 11/02/2023 [id number] / / documented as of this encounter Visit Diagnoses Diagnosis Need for prophylactic vaccination and inoculation against influenza- Primary Cardiac pacemaker in situ Sacral pain Disorders of sacrum Paroxysmal SVT (supraventricular tachycardia) (HCC) Paroxysmal supraventricular tachycardia documented in this encounter Care Teams Music Librarian Relationship Specialty Start Date End Date Juan F Blanco MD [address] [place] [address] PCP - General 09/02/00 documented as of this encounter
--- OUTSIDE RECORDS SUMMARY | 2024-03-03 02:10 | External Medical Summary | Summary of Care ---
Author Name Unknown Organization [facility] Address [address] [place] [address] Phone [phone] Care Team Providers Care Glass Furnace Operator Name Role Phone Juan F Blanco MD Primary Care Provider [phone] Reason for Visit * Reason Onset Date Comments Advice 01/06/2024 Encounter Details Date Type Department Care Team (Late st Contact Info) Description 01/06/2024 Telephone Cardiology, [facility] [address] [place] [facility] [place] [address] Vishal Kenney, [address] [place] [address] Advice Allergies Active Allergy Reactions Criticality Noted [...] encounter Miscellaneous Notes * Telephone Encounter - Vishal Kenney DO - 01/09/2024 6:26 PM EDT Normal pacemaker data from download. Refer to separate report in the [employer] application Vishal Kenney DO * Telephone Encounter - Tony Benavides OSA - 01/09/2024 8:58 AM EDT Patient has been scheduled on: RETURN CARDIOLOGY at 3:30 PM (30 min)Arrive by 3:15 PM Saturday April 20, 2024 Appointment Provider:Annita Garcia PA-C in CARDIOLOGY [facility] * Telephone Encounter - Vishal Kenney DO [...] to patient: self Phone/Fax to return call: [phone] Reason for call(brief): Advice Pharmacy: N/A Provider Name:Dr. Kenney Detailed message to office: Dr. Kenney pt calling to speak with a nurse. Patient advised that he is lightheaded and dizzy. Patient feels like he is going to pass out after walking a short distance. Patient had pacemaker placed in [place] approx 8 years ago. Attempting to transfer call to Cardionurses at [facility]. documented in this encounter Plan of Treatment Upcoming Encounters Date Type Department Care Team (Late st Contact Info) Description 01/17/2024 9:15 AM EDT Office Visit Urology, [facility] 132 [facility] [place] [address] Hoang Martinez MD [address] [place] [address] 01/17/2024 2:20 PM EDT Office Visit [place] [address] [place] [address] Juan F Blanco MD [address] [place] [address] 02/03/2024 2:00 PM EDT Scheduled Telephone Interventional Pain Center, [facility] [address] [facility] [place] [address] [facility], Nurse Phone Call Interventional Pain [facility] 132 [facility] [place] [address] 02/21/2024 1:00 PM EDT Office Visit Neurology [facility] [address] [place] [address] Landon Meredith MD [address] [place] [address] 04/02/2024 1:00 PM EST Imaging [facility] 132 [facility] [place] [address] 04/20/2024 3:30 PM EST Office Visit Cardiology, [facility] [address] [facility] [place] [address] Annita Garcia PADedrickC 132 [facility] [place] [address] 09/12/2024 3:00 PM EDT Office Visit Allergy/Immunology [facility] [address] [place] [address] Sandra Macdonald PA-C [address] [place] [address] Health Maintenance Due Date Last Done Comments Adult Wellness Visit 03/22/2014 03/22/2013 Colonoscopy 10/20/2022 10/20/2021, 10/01, 01/24/2019, Additional history exists COVID-19 Vaccine (2022- season) 2024 01/27/2022, 04/28/2021, 09/03/2020, Additional history [...] this encounter Medical Devices Implanted Type Area Net Developer Device Identifier Shelf Expiration Date Model / Serial / Lot Clip Quick 2.8mm 230cm - [id number] Implanted:Qty: 2 on 10/20/2021 by Tanja Schulz MD at [facility] [employer] 08/30/2023 HX-202UR.A / / Duraclip 16mm Xlg Repostn - [id number] Implanted:Qty: 4 on 10/20/2021 by Tanja Schulz MD at [facility] [employer] 11/02/2023 [id number] / / documented as of this encounter Care Teams Glass Furnace Operator Relationship Specialty Start Date End Date Juan F Blanco MD [address] [place] [address] PCP - General 09/02/00 documented as of this encounter
--- OUTSIDE RECORDS SUMMARY | 2024-03-03 02:10 | External Medical Summary | Summary of Care ---
Author Name Unknown Organization [facility] Address [address] [place] [address] Phone [phone] Care Team Providers Care Cell Plasterer Name Role Phone Juan F Blanco MD Primary Care Provider [phone] Reason for Visit * Reason Onset Date Comments Advice 01/06/2024 Encounter Details Date Type Department Care Team (Late st Contact Info) Description 01/06/2024 Telephone Cardiology, [facility] [address] [place] [facility] [place] [address] Vishal Kenney, [address] [place] [address] Advice Allergies Active Allergy Reactions Criticality Noted Date Comments Meloxicam Nausea/vomiting 07/06/2017 Nausea and head congestion Naproxen Other (Please comment) Low 02/27/2003 nightmares documented as of this encounter (statuses as of 01/10/2024) Medications Medication Sig Dispensed Refills Start Date [...] as of this encounter (statuses as of 01/10/2024) Active Problems Problem Noted Date Diagnosed Date [...] Obesity protocol Atherosclerotic heart diseas e of [place] coronary artery without angina pectoris 05/30/2019 Major [...] as of this encounter (statuses as of 01/10/2024) Resolved Problems Problem Noted Date Diagnosed Date [...] as of this encounter (statuses as of 01/10/2024) Immunizations Name Administration Dates Next Due COVID-19 [...] Telephone Encounter - Tony Benavides OSA - 01/10/2024 10:45 AM EDT Called patient, patient stated he will be here for the appt. Will also mail him a reminder letter. * Telephone Encounter - Vishal Kenney DO - 01/09/2024 6:26 PM EDT Normal pacemaker data from download. Refer to separate report in the [employer] application Vishal Kenney DO * Telephone Encounter - Tony Benavides OSA - 01/09/2024 8:58 AM EDT Patient has been scheduled on: RETURN CARDIOLOGY at 3:30 PM (30 min)Arrive by 3:15 PM Saturday April 20, 2024 Appointment Provider:Annita Garcia PA-C in CARDIOLOGY [facility] * Telephone Encounter - Vishal Kenney DO [...] to patient: self Phone/Fax to return call: [phone] Reason for call(brief): Advice Pharmacy: N/A Provider Name:Dr. Kenney Detailed message to office: Dr. Kenney pt calling to speak with a nurse. Patient advised that he is lightheaded and dizzy. Patient feels like he is going to pass out after walking a short distance. Patient had pacemaker placed in [place] approx 8 years ago. [facility]. documented in this encounter Plan of Treatment Upcoming Encounters Date Type Department Care Team (Late st Contact Info) Description 01/17/2024 9:15 AM EDT Office Visit Urology, [facility] 132 [facility] [place] [address] Hoang Martinez MD [address] [place] [address] 01/17/2024 2:20 PM EDT Office Visit [facility] [address] [place] [address] Juan F Blanco MD [address] [place] [address] 02/03/2024 2:00 PM EDT Scheduled Telephone Interventional Pain Center, [facility] 132 [facility] [place] [address] [facility], Nurse Phone Call Interventional Pain [address] [place] [address] 02/21/2024 1:00 PM EDT Office Visit Neurology [facility] 200 [facility] [place] [address] Landon Meredith MD [address] [place] [address] 04/02/2024 1:00 PM EST Imaging Radiology [facility] 1st Floor, [place] [address] [place] [address] 04/20/2024 3:30 PM EST Office Visit Cardiology, [facility] [address] [place] [address] Annita Garcia PA-C [address] [place] [address] 09/12/2024 3:00 PM EDT Office Visit Allergy/Immunology [facility] [place] 200 [facility] [place] [address] Sandra Macdonald PA-C 200 [facility] [place] [address] Health Maintenance Due Date Last Done Comments [...] this encounter Medical Devices Implanted Type Area Geographic Information System Surveyor Device Identifier Shelf Expiration Date Model / Serial / Lot Clip Quick 2.8mm 230cm - [id number] Implanted:Qty: 2 on 10/20/2021 by Tanja Schulz MD at [facility] [employer] 08/30/2023 HX-202UR.A / / Duraclip 16mm Xlg Repostn - [id number] Implanted:Qty: 4 on 10/20/2021 by Tanja Schulz MD at [facility] [employer] 11/02/2023 [id number] / / documented as of this encounter Care Teams Cell Plasterer Relationship Specialty Start Date End Date Juan F Blanco MD [address] [place] [address] PCP - General 09/02/00 documented as of this encounter
--- OUTSIDE RECORDS SUMMARY | 2024-03-03 02:10 | External Medical Summary | Summary of Care ---
Author Name Unknown Organization [facility] Address [address] [place] [address] Phone [phone] Care Team Providers Care Behavioral Sciences Instructor Name Role Phone Juan F Blanco MD Primary Care Provider [phone] Reason for Visit * Auth/Cert Specialty Diagnoses / Procedures Referred By Whitney t Referred To Contact Diagnoses Spinal stenosis of lumbar region with neurogenic claudication Spinal stenosis of lumbar region with neurogenic claudication [M48.062] Procedures INJECT DX/THER SUBSTANCE INTERLAMINAR LUMBAR/SACRAL W IMAGE GUIDE INJECTION SPINE LUMBAR OR SACRAL Kelechi Evangelista MD [address] [place] [address] Or [facility] [address] [facility] [place] [address] Referral ID Status Reason Start Date Expiration Date Visits Re quested Visits Authorized [id number] Encounter Details Date Type Department Care Team (Late st Contact Info) Description 12/30/2023 12:16 PM EDT - 12/30/2023 1:56 PM EDT Hospital Encounter OR [facility], Operating Room [facility] [address] [facility] [place] [address] Kelechi Evangelista MD [address] [place] [address] Discharge Disposition: Home - Self Care Allergies Active Allergy Reactions Criticality Noted Date Comments Meloxicam Nausea/vomiting 07/06/2017 Nausea and head congestion Naproxen Other (Please comment) Low 02/27/2003 nightmares documented as of this encounter (statuses as of 12/31/2023) Medications Medication Sig Dispensed Refills Start Date [...] as of this encounter (statuses as of 12/31/2023) Active Problems Problem Noted Date Diagnosed Date [...] Obesity protocol Atherosclerotic heart diseas e of [place] coronary artery without angina pectoris 05/30/2019 Major [...] as of this encounter (statuses as of 12/31/2023) Resolved Problems Problem Noted Date Diagnosed Date [...] as of this encounter (statuses as of 12/31/2023) Immunizations Name Administration Dates Next Due COVID-19 mRNA, LNP-s, No Pre serve, 2-Dose Series ([employer]row[employer]) 09/03/2020,08/13/2020 COVID-19, LNP-s, No Preserve , Niko-sucrose, [...] Sign Reading Time Taken Comments Blood Pressure 127/78 12/30/2023 1:53 PM EDT Pulse 85 12/30/2023 1:53 PM EDT Temperature 36.4 C (97.6 F) 12/30/2023 1:22 PM ED T Respiratory Rate 16 12/30/2023 1:53 PM EDT Oxygen Saturation 97% 12/30/2023 1:53 PM EDT Inhaled Oxygen Concentration - - Weight - - Height - - Body Mass Index - - documented in this encounter Discharge Instructions * Discharge Instr - AVS* Kelechi Evangelista MD - 12/30/2023 1:26 PM EDT Discharge Date: 12/30/2023 Check your Patient Education Brochure for further information. If you have any further questions call your physician at [phone]. The information below provides you with the instructions and the list of medications you need to betaking following discharge from the hospital. If you have any questions, please ask before leaving.If you have questions after you leave, you can reach us at the number above. You had the following procedure performed: Caudal Epidural Steroid Injection Wound Care: You may shower normally, but be sure to keep the injection site clean and dry. No soaking in a bathfor 48 hours. Activity: You may resume your regular diet as tolerated. Return to normal activities slowly as tolerated. Walking is very important for healing and your rehabilitation. Initially, you should walk at least two to three times daily. Then slowly and gradually increase your distance as your tolerance for physical activity increases. You may go up and down stairs carefully. You may resume home medications. If you received sedation, for the next 24 hours, you should NOT: Drive a vehicle, operate power machinery or power equipment Drink alcoholic beverages, including beer Make important decisions, such as signing contracts, etc. Notify physician for: Temperature greater than 101 degrees F. Increased pain. Calf swelling or tenderness. Drainage or redness of the incision. Chest pain or shortness of breath (and go to the Emergency Department) Date you may return to work or school: tomorrow documented in this encounter H&P Notes * Kelechi Evangelista MD - 12/30/2023 1:23 PM EDT Gary Lakhani Jr. : 1945 Today's date: 12/30/23 History of Present Illness: Gary Lakhani Jr. is a 77 year old year-old male who presents in follow-up evaluation. Caudal ESIperformed 06/27/2023. States he experienced 90% relief which has persisted for nearly 3 months. He states that prior injections had only worked for a few weeks. Voices satisfaction. Still having morning pain that dissipates throughout the day. He does have some lower back pain buthis pain is mostly in his legs a/w heaviness. Has not done PT recently. Review of Systems: A focused 12-pt ROS were of reviewed with the patient including difficulty with sleep, snoring, aspiration history, dysphagia, stomach pain, nausea and vomiting, severe headaches, confusion, open skin lesions or wounds, chest pain, shortness of breath, excessive thirst, somnolence, dysuria, incomplete bladder emptying, easy bruising, recent clotting problems or bleeding, depression or rushed thoughts unless noted previously. Allergies, Medications, Past Medical History, Past Surgical History reviewed and documented in Epic. See detailed report if needed. Pertinent Labs/Test Results: INR ( ) Date Value 06/12/2014 1.04 No results found for: "CREATININE" Hemoglobin A1C (%) Date Value 05/10/2016 5.3 Lab Results Component Value Date/Time AMPHETAMINES - [facility] NEGATIVE 08/22/2018 02:58 PM BENZODIAZEPINES - [facility] NEGATIVE 08/22/2018 02:58 PM METHADONE METABOLITE NEGATIVE 08/22/2018 02:58 PM OXYCODONE NEGATIVE 08/22/2018 02:58 PM CANNABINOIDS - [facility] NEGATIVE 08/22/2018 02:58 PM URINE TEMPERATURE 96 08/22/2018 02:58 PM Imaging: FLUORO INTERVENTIONAL PAIN PROCEDURE NONBILLABLE This procedure will not be read by a Radiologist. Please see operative note. Objective Physical Exam: Vital Signs: BP 113/82 | Pulse 88 | Temp 36.4 C (97.6 F) (Tympanic) | Resp 16 | SpO2 94% There is no height or weight on file to calculate BMI. General: No apparent distress. Assistive Devices: walking stick/cane. Grooming: appropriate. Eyes: pupils equal and round, sclera white, pupils midsize. ENT: mucous membranes moist Resp: Non-labored breathing CV: Extremities warm and well-perfused. Psych: Oriented; affect warm, insight good. Skin: No rashes or lesions appreciated on exposed skin Neuromuscular Exam: deferrd Assessment: Gary is a 77 year old year-old male with: Spinal stenosis of lumbar region with neurogenic claudication (Primary) Plan: Caudal MATT documented in this encounter Nursing Notes * Katheryn Jones RN - 12/30/2023 1:55 PM EDT Patient tolerated pain injection well. Ready for discharge to home. * Dyana Deleon RN - 12/30/2023 1:48 PM EDT Band aid applied to area. Patient transferred to PACU 11 via wheelchair * Dyana Deleon RN - 12/30/2023 1:42 PM EDT Patient tolerating pain management injection well. documented in this encounter OR Notes * OR Surgeon - Kelechi Evangelista MD - 12/30/2023 1:25 PM EDT Procedure note Caudal epidural steroid injection Procedure Date: 12/30/2023 Gary Quinonez Kar Cristina Date of : 1945 Attending: Rudy Evangelista M.D. PREOPERATIVE DIAGNOSIS: Lumbosacral radiculopathy POSTOPERATIVE DIAGNOSIS: Same OPERATION PERFORMED: Caudal Epidural Steroid Injection ESTIMATED BLOOD LOSS: None SPECIMENS AND DRAINS: None FLUIDS: None FLUOROSCOPY WAS USED. INDICATIONS FOR PROCEDURE: This is a 78 year old year old male with a clinical picture consistent with the above-mentioned diagnosis, consistent with low back pain with lumbar/sacral radicular pain. PROCEDURE AND FINDINGS: The patient was greeted in the pre procedure holding area. The risk, benefits and alternatives to the procedure were again reviewed with the patient and written informed consent was placed in the chart. Prior to the procedure a time out was completed, verifying correct patient, procedure, site, positioning, and implants and/or special equipment. The patient was taken to the procedure room and positioned prone on the fluoroscopy table. The skinover the caudal area was then prepped and draped in the usual sterile fashion. The sacral cornua were then palpated on either side of the sacral hiatus. This level was then confirmed on lateral fluoroscopy. The overlying skin and subcutaneous tissue was anesthetized using a 25-gauge 1-1/2-inch needle with 1% preservative-free lidocaine for a total volume of 3mls. Then under fluoroscopic guidance using an AP and lateral view a 22 G 3-1/2 inch spinal needle was inserted into the caudal epidural space, to the level of S4. 1-2mls of Omnipaque 180 mg/ml dye was injected under AP view with live fluoroscopy and confirmed adequate spread along the nerve root and in the epidural space. There was no evidence of intravascularuptake or intrathecal spread on imaging. At this point, 1mL of 10mg/mL dexamethasone and 4mLs of PFNS were injected easily. The needle was then flushed and removed. The needle insertion site was dressed appropriately. The patient was taken to the recovery room where they were monitored for a brief period of time. They tolerated the procedure well and were discharged home in stable condition with post procedural instructions. Follow-up will be in clinic. COMPLICATIONS: None documented in this encounter Plan of Treatment Upcoming Encounters Date Type Department Care Team (Late st Contact Info) Description 01/17/2024 9:15 AM EDT Office Visit Urology, [facility] [address] [place] [address] Hoang Martinez MD [address] [place] [id number] 01/17/2024 2:20 PM EDT Office Visit [facility] [address] [place] [address] Juan F Blanco MD [address] [place] [address] 02/03/2024 2:00 PM EDT Scheduled Telephone Interventional Pain Center, [facility] [address] [facility] [place] [address] [facility], Nurse Phone Call Interventional Pain [facility] 132 [place] [address] 02/21/2024 1:00 PM EDT Office Visit Neurology [facility] [address] [place] [address] Landon Meredith MD [address] [place] [address] 04/02/2024 1:00 PM EST Imaging [facility] [address] 09/12/2024 3:00 PM EDT Office Visit Allergy/Immunology [facility] [address] [place] [address] Sandra Macdonald PA-C [address] [place] [address] Scheduled Orders Name Type Priority Associated Diagnoses Order Schedule FLUORO INTERVENTIONAL PAIN PROCEDURE NONBILLABLE Medical Imaging Routine One Time for 1 Occurrences starting 12/30/2023 until 12/30/2023 Health Maintenance Due Date Last Done Comments Adult Wellness Visit 03/22/2014 03/22/2013 Colonoscopy 10/20/2022 10/20/2021, 10/01, 01/24/2019, Additional history exists COVID-19 Vaccine ( season) 2022 01/27/2022, 04/28/2021, 09/03/2020, Additional history exists Influenza [...] this encounter Medical Devices Implanted Type Area Machine Finisher Device Identifier Shelf Expiration Date Model / Serial / Lot Clip Quick 2.8mm 230cm - [id number] Implanted:Qty: 2 on 10/20/2021 by Tanja Schulz MD at [facility]COPY [facility] [employer] 08/30/2023 HX-202UR.A / / Duraclip 16mm Xlg Repostn - [id number] Implanted:Qty: 4 on 10/20/2021 by Tanja Schulz MD at [facility] [employer] 11/02/2023 [id number] / / documented as of this encounter Procedures Procedure Name Priority Date/Time Associated Diagnosis Comments FLUORO INTERVENTIONAL PAIN PROCEDURE NONBILLABLE Routine 12/30/2023 1:50 PM EDT documented in this encounter Results * FLUORO INTERVENTIONAL PAIN PROCEDURE NONBILLABLE (12/30/2023 1:50 PM EDT) Narrative Scheduling, Silent - 12/30/2023 1:51 PM EDT This procedure will not be read by a Radiologist. Please see operative note. Kelechi Evangelista MD RAD FLUOROSCOPY documented in this encounter Administered Medications Inactive Administered Medications - up to 3 most recent administrations Medication Order MAR Action Action Date Dose Rate Site dexamethasone sod phosphate PF (Decadron) 10 MG/ML inj 8 mg 8 mg, Intramuscular, ONCE, On Tue12/30/23 at 1400, For 1 dose, PROTECT FROM LIGHT Given 12/30/2023 1:46 PM EDT 10 mg Other-Specify Iohexol (Omnipaque 240) inj 0.5 mL 0.5 mL, Injection, ONCE, On Tue12/30/23 at 1400, For 1 dose Given 12/30/2023 1:44 PM EDT 2 mL lidocaine 1 % inj 20 mg 20 mg (2 mL), Subcutaneous, ONCE, On Tue12/30/23 at 1400, For 1 dose Given 12/30/2023 1:42 PM EDT 3 mL O ther-Specify documented in this encounter Active and Recently Administered Medications Times are shown in EDT. Scheduled Medication Order 2023 12/29/2023 12/30/2023 dexamethasone sod phosphate PF (Decadron) 10 MG/ML inj 8 mg (COMPLETED) 8 mg, Intramuscular, ONCE, On Tue12/30/23 at 1400, For 1 dose, PROTECT FROM LIGHT 1346 (Given - Provid er: Dyana Deleon RN) Iohexol (Omnipaque 240) inj 0.5 mL (COMPLETED) 0.5 mL, Injection, ONCE, On Tue12/30/23 at 1400, For 1 dose 1344 (Given - Provid er: Dyana Deleon RN) lidocaine 1 % inj 20 mg (COMPLETED) 20 mg (2 mL), Subcutaneous, ONCE, On Tue12/30/23 at 1400, For 1 dose 1342 (Given - Provid er: Dyana Deleon RN) documented in this encounter Care Teams Behavioral Sciences Instructor Relationship Specialty Start Date End Date Juan F Blanco MD [address] [facility] [place] [id number] PCP - General 09/02/00 documented as of this encounter
--- OUTSIDE RECORDS SUMMARY | 2024-03-03 02:10 | External Medical Summary | Summary of Care ---
Author Name Unknown Organization [facility] Address [address] [place] [address] Phone [phone] Care Team Providers Care Medical Photographer Name Role Phone Juan F Blanco MD Primary Care Provider Reason for Visit * Reason Onset Date Comments Advice 01/06/2024 Encounter Details Date Type Department Care Team (Late st Contact Info) Description 01/06/2024 Telephone Cardiology, [facility] [address] [facility] [place] [address] Vishal Kenney, [address] [place] [address] Advice Allergies Active Allergy Reactions Criticality Noted Date Comments Meloxicam Nausea/vomiting 07/06/2017 Nausea and head congestion Naproxen Other (Please comment) Low 02/27/2003 nightmares documented as of this encounter (statuses as of 01/06/2024) Medications Medication Sig Dispensed Refills Start Date [...] as of this encounter (statuses as of 01/06/2024) Active Problems Problem Noted Date Diagnosed Date [...] Obesity protocol Atherosclerotic heart diseas e of [place] coronary artery without angina pectoris 05/30/2019 Major [...] as of this encounter (statuses as of 01/06/2024) Resolved Problems Problem Noted Date Diagnosed Date [...] as of this encounter (statuses as of 01/06/2024) Immunizations Name Administration Dates Next Due COVID-19 [...] to patient: self Phone/Fax to return call: [phone] Reason for call(brief): Advice Pharmacy: N/A Provider Name:Dr. Kenney Detailed message to office: Dr. Kenney pt calling to speak with a nurse. Patient advised that he is lightheaded and dizzy. Patient feels like he is going to pass out after walking a short distance. Patient had pacemaker placed in [place] approx 8 years ago. Attempting to transfer call to [facility] at [facility] documented in this encounter Plan of Treatment Upcoming Encounters Date Type Department Care Team (Late st Contact Info) Description 01/17/2024 9:15 AM EDT Office Visit Urology, [facility] 132 [facility] [place] [address] Hoang Martinez MD 27 [facility] [place] [address] 01/17/2024 2:20 PM EDT Office Visit [place] [address] [address] [facility] [place] [address] Juan F Blanco MD [address] [place] [address] 02/03/2024 2:00 PM EDT Scheduled Telephone Interventional Pain Center, [facility] 132 [facility] [place] [address] Daniel, Nurse Phone Call Interventional Pain [facility] 132 [facility] [place] [address] 02/21/2024 1:00 PM EDT Office Visit Neurology [facility] 200 [facility] [place] [address] Landon Meredith MD [address] [place], [place] [address] 04/02/2024 1:00 PM EST Imaging Radiology [facility] [address] 09/12/2024 3:00 PM EDT Office Visit Allergy/Immunology [facility] [address] [facility] [place] [address] Sandra Macdonald PA-C 200 [facility] [place] [address] Health Maintenance Due Date Last Done Comments [...] encounter Medical Devices Implanted Type Area Gas Compressor Turbine Operator Device Identifier Shelf Expiration Date Model / Serial / Lot Clip Quick 2.8mm 230cm - [id number] Implanted:Qty: 2 on 10/20/2021 by Tanja Schulz MD at [facility] [employer] 08/30/2023 HX-202UR.A / / Duraclip 16mm Xlg Repostn - [id number] Implanted:Qty: 4 on 10/20/2021 by Tanja Schulz MD at [facility] [employer] 11/02/2023 [id number] / / documented as of this encounter Care Teams Medical Photographer Relationship Specialty Start Date End Date Juan F Blanco MD [address] [place] [address] PCP - General 09/02/00 documented as of this encounter
--- OUTSIDE RECORDS SUMMARY | 2024-03-03 02:10 | External Medical Summary | Summary of Care ---
Author Name Unknown Organization [facility] Address [address] [place] [address] Phone [phone] Care Team Providers Care Garden Equipment Mechanic Name Role Phone Juan F Blanco MD Primary Care Provider [phone] Encounter Details Date Type Department Care Team (Late st Contact Info) Description 01/09/2024 Result Scan Unspecified Department Vishal Kenney, DO [address] [place] [id number] <No scans attached> Allergies Active Allergy Reactions Criticality Noted Date [...] Obesity protocol Atherosclerotic heart diseas e of [place] coronary artery without angina pectoris 05/30/2019 Major [...] mRNA, LNP-s, No Pre serve, 2-Dose Series ([employer]) 09/03/2020,08/13/2020 COVID-19, LNP-s, No Preserve , Niko-sucrose, [...] 01/17/2024 9:15 AM EDT Office Visit Urology, [facility] [address] [facility] [place] [id number] Hoang Martinez MD [address] [place] [id number] 01/17/2024 2:20 PM EDT Office Visit [address] [place] [address] Juan F Blanco MD [address] [place] [address] 02/03/2024 2:00 PM EDT Scheduled Telephone Interventional Pain Center, [address] [place] [address] [facility], Nurse Phone Call Interventional Pain [facility] 132 [place] [address] 02/21/2024 1:00 PM EDT Office Visit Neurology [facility] 200 [facility] [place] [address] Landon Meredith MD [address] [place] [address] 04/02/2024 1:00 PM EST Imaging [facility] [address] 04/20/2024 3:30 PM EST Office Visit Cardiology, [facility] [address] [place] [address] Annita Garcia PADedrickC [facility] [place] [address] 09/12/2024 3:00 PM EDT Office Visit Allergy/Immunology [facility] [address] [facility] [place] [address] Sandra Macdonald PARyanne 200 [facility] [place] [address] Health Maintenance Due Date Last Done Comments [...] this encounter Medical Devices Implanted Type Area Heddler Tier Device Identifier Shelf Expiration Date Model / Serial / Lot Clip Quick 2.8mm 230cm - [id number] Implanted:Qty: 2 on 10/20/2021 by Tanja Schulz MD at [facility]COPY [facility] [employer] 08/30/2023 HX-202UR.A / / Duraclip 16mm Xlg Repostn - [id number] Implanted:Qty: 4 on 10/20/2021 by Tanja Schulz MD at [facility] [employer] 11/02/2023 [id number] / / documented as of this encounter Procedures Procedure Name Priority Date/Time Associated Diagnosis Comments CARDIOLOGY SCANNED RESULT 01/09/2024 documented in this encounter Results * CARDIOLOGY SCANNED RESULT (01/09/2024) 01/09/2024 Vishal Kenney DO OTHER documented in this encounter Care Teams Garden Equipment Mechanic Relationship Specialty Start Date End Date Juan F Blanco MD [address] [facility] [place] [phone] PCP - General 09/02/00 documented as of this encounter
--- OUTSIDE RECORDS SUMMARY | 2024-03-03 02:11 | External Medical Summary | Summary of Care ---
Author Name Unknown Organization [facility] Address [address] [place] [address] Phone [phone] Care Team Providers Care Lithographer Helper Name Role Phone Jose M Blanco MD Primary Care Provider Reason for Visit * Reason Comments eRx-Medication Refill Encounter Details Date Type Department Care Team (Late st Contact Info) Description 12/21/2023 Refill [facility] [address] [place] [address] Jose M Blanco MD [address] [place] [address] Cardiac pacemaker in situ; Acute bilateral low back pain without sciatica Allergies Active Allergy Reactions Criticality Noted Date Comments Meloxicam Nausea/vomiting 07/06/2017 Nausea and head congestion Naproxen Other (Please comment) Low 02/27/2003 nightmares documented as of this encounter (statuses as of 12/22/2023) Medications Medication Sig Dispensed Refills Start Date [...] Other (anxiety). 180 Tablet 3 2 Active Benzonatate 100 MG Oral CapsuleIndications: Bronchitis, complicated [...] EVERY DAY 90 Tablet 1 4 Active Metoprolol Tartrate 25 MG Oral Tablet (Lopressor)Indicati ons:Cardiac pacemaker in situ TAKE 1 TABLET BY MOUTH TWICE A DAY 180 Tablet 1 4 Active traMADol HCl 50 MG Oral Tablet (Ultram)Indications :Acute bilateral low back pain without sciatica TAKE 1 TABLET BY MOUTH 3 TIMES A DAY NEEDED FOR PAIN, SEVERE. 30 Tablet 1 4 Active traMADol HCl 50 MG Oral Tablet (Ultram)Indications :Acute bilateral low back pain without sciatica Take 1 Tablet by mouth 3 times a day as needed for Pain, Severe. 30 Tablet 1 3 12/22/19 24 Discontinued Metoprolol Tartrate 25 MG Oral Tablet (Lopressor)Indicati ons:Cardiac pacemaker in situ TAKE 1 TABLET BY MOUTH TWICE A DAY 180 Tablet 1 4 12/22/19 24 Discontinued documented as of this encounter (statuses as of 12/22/2023) Active Problems Problem Noted Date Diagnosed Date [...] Obesity protocol Atherosclerotic heart diseas e of [place] coronary artery without angina pectoris 05/30/2019 Major [...] as of this encounter (statuses as of 12/22/2023) Resolved Problems Problem Noted Date Diagnosed Date [...] as of this encounter (statuses as of 12/22/2023) Immunizations Name Administration Dates Next Due COVID-19 mRNA, LNP-s, No Pre serve, 2-Dose Series ([employer]) 09/03/2020,08/13/2020 COVID-19, LNP-s, No Preserve , Niko-sucrose, [...] No Preserve, IM 02/10/2016,02/06/2015 02/07/2016 Seasonal Influenza, Split, I IV3, With Preserve, Inj 03/06/2014,01/19/2013,02/03/2012,12/31,02/16/2010,02/11/2009,02/26/20,03/08/2007,04/10/2006 02/11/2010 TD, Preservative Free 12/12/2019 TDAP, Age [...] encounter Miscellaneous Notes * Telephone Encounter - Jose M Blanco MD - 12/22/2023 3:04 PM EDTSigned Prescriptions: Disp Refills Metoprolol Tartrate 25 MG Oral Tablet (Lop*180 Ta*1 Sig: TAKE 1 TABLET BY MOUTH TWICE A DAY Authorizing Provider: JOSE M BLANCO Ordering User: ANANT VELÁZQUEZ traMADol HCl 50 MG Oral Tablet (Ultram) 30 Tab*1 Sig: TAKE 1 TABLET BY MOUTH 3 TIMES A DAY NEEDED FOR PAIN, SEVERE. Authorizing Provider: JOSE M BLANCO * Telephone Encounter - Anant Velázquez [facility] - 12/22/2023 2:04 PM EDT Pending Prescriptions: Disp Refills traMADol HCl 50 MG Oral Tablet (Ultram) 30 Tab*1 Sig: TAKE 1 TABLET BY MOUTH 3 TIMES A DAY NEEDED FOR PAIN, SEVERE. Signed Prescriptions: Disp Refills Metoprolol Tartrate 25 MG Oral Tablet (Lop*180 Ta*1 Sig: TAKE 1 TABLET BY MOUTH TWICE A DAY Authorizing Provider: JOSE M BLANCO Ordering User: ANANT GUNN * Telephone Encounter - Anant Velázquez [facility] - 12/22/2023 1:58 PM EDT I have reviewed the patients controlled substance dispensing history in the Prescription Drug Monitoring Program in compliance with the [facility] regulations before prescribing a controlled substance. PDMP checked on 12/22/2023. Pending Prescriptions: Disp Refills traMADol HCl 50 MG Oral Tablet (Ultram) [*30 Tab*1 Sig: TAKE 1 TABLET BY MOUTH 3 TIMES A DAY NEEDED FOR PAIN, SEVERE. Signed Prescriptions: Disp Refills Metoprolol Tartrate 25 MG Oral Tablet (Lop*180 Ta*1 Sig: TAKE 1 TABLET BY MOUTH TWICE A DAY Authorizing Provider: JOSE M BLANCO Ordering User: ANANT VELÁZQUEZ Last Visit: 07/12/2023 (in office), Visit date not found (telemedicine) Next Visit: 01/17/2024 Date medication was last filled: 01/18/2023 Date medication is due for refill: 01/28/2024 [id number] [address] [facility] Is this request for a controlled substance? Yes and Urine Drug Screen Not completed Toxicology results: Results for orders placed or performed in visit on 08/22/18 TOX SCREEN, URINE, W/O CONFIRMATION Result Value Amphetamine NEGATIVE Benzodiazepines NEGATIVE Cannabinoids NEGATIVE Cocaine Metabolite NEGATIVE HYDROCODONE NEGATIVE Morphine / Codeine NEGATIVE OXYCODONE NEGATIVE METHADONE METABOLITE NEGATIVE NOTE: THE ABOVE SCREENING RESULTS ARE PRESUMPTIVE AND CAN ONLY BE USED FOR MEDICAL PURPOSES. CONFIRMATORY TESTING IS AVAILABLE UPON REQUEST. Cutoff Concentration *Note: Due to a large number of results and/or encounters for the requested time period, some results have not been displayed. A complete set of results can be found in Results Review. Please approve if appropriate. Thank You, Anant Velázquez, Pharm-D Clinical Pharmacist [facility] ([facility]) [phone] 12/22/2023, 1:58 PM documented in this encounter Plan of Treatment Upcoming Encounters Date Type Department Care Team (Late st Contact Info) Description 12/30/2023 2:10 PM EDT Hospital Encounter OR [facility], Operating Room [facility] [address] [facility] [place] [address] Kelechi Evangelista MD [address] [place] [address] [place] [address] 12/30/2023 2:10 PM EDT - 12/30/2023 2:30 PM EDT Surgery OR [facility], Operating Room [facility] [address] [facility] [place] [phone] Kelechi Evangelista MD [address] [facility] [place] [address] INJECTION SPINE LUMBAR OR SACRAL 01/17/2024 9:15 AM EDT Office Visit Urology, [facility] [address] [facility] [place] [address] Hoang Martinez MD [address] [place] [address] 01/17/2024 2:20 PM EDT Office Visit [facility] [address] [place] [address] Jose M Blanco MD [address] [place] [address] 02/21/2024 1:00 PM EDT Office Visit Neurology [facility] [address] [facility] [place] [address] Landon Meredith MD [address] [facility] [place] [address] 04/02/2024 1:00 PM EST Imaging Radiology [facility] [address] [facility] [place] [address] 09/12/2024 3:00 PM EDT Office Visit Allergy/Immunology [facility] [address] [place] [address] Sandra Macdonald PA-C [address] [facility] [place] [address] Scheduled Procedures Name Priority Associated Diagnoses Date/Ti me INJECTION SPINE LUMBAR OR SACRAL Spinal stenosis of lumbar region with neurogenic claudication 12/30/2023 2:10 PM EDT Health Maintenance Due Date Last Done Comments Adult Wellness Visit 03/22/2014 03/22/2013 Colonoscopy 10/20/2022 10/20/2021, 10/01, 01/24/2019, Additional history exists COVID-19 Vaccine ( - 2022- season) 2022 01/27/2022, 04/28/2021, 09/03/2020, Additional history exists Influenza Vaccine (FLU shot) (#1) 2024 01/31/2023, 01/22/2022, 02/06/2021, Additional history exists GFR 07/03/2024 07/04/2023, 03/02, 10/16/2021, Additional history exists Depression Monitoring 07/11/2024 07/12/2023 Albumin/Creatinine Ratio 07/03/2026 07/04/2023 DTaP,Tdap,and Td Vaccines (3 - Td or Tdap) 12/11/2029 [...] this encounter Medical Devices Implanted Type Area Mill Order Scheduler Device Identifier Shelf Expiration Date Model / Serial / Lot Clip Quick 2.8mm 230cm - [id number] Implanted:Qty: 2 on 10/20/2021 by Tanja Schulz MD at ENDOSCOPY [facility] [email or web address] 08/30/2023 [id number]-202UR.A / / Duraclip 16mm Xlg Repostn - [id number] Implanted:Qty: 4 on 10/20/2021 by Tajna Schulz MD at ENDOSCOPY [facility] [employer] 11/02/2023 [id number] / / documented as of this encounter Visit Diagnoses Diagnosis Cardiac pacemaker in situ Acute bilateral low back pain without sciatica Spinal stenosis of lumbar region with neurogenic claudication Spinal stenosis, lumbar region, with neurogenic claudication documented in this encounter Care Teams Lithographer Helper Relationship Specialty Start Date End Date Jose M Blanco MD [address] [place] [address] PCP - General 09/02/00 documented as of this encounter
--- OUTSIDE RECORDS SUMMARY | 2024-03-03 02:11 | External Medical Summary | Summary of Care ---
Author Name Unknown Organization [facility] Address [address] [place] [address] Phone [phone] Care Team Providers Care Spark Plug Assembler Name Role Phone Juan F Blanco MD Primary Care Provider [phone] Reason for Visit * Reason Onset Date Comments Advice 11/18/2023 Encounter Details Date Type Department Care Team (Late st Contact Info) Description 11/18/2023 Telephone [facility] [address] [place] [address] Juan F Blanco MD [address] [place] [address] Advice Allergies Active Allergy Reactions Criticality Noted Date Comments Meloxicam Nausea/vomiting 07/06/2017 Nausea and head congestion Naproxen Other (Please comment) Low 02/27/2003 nightmares documented as of this encounter (statuses as of 11/23/2023) Medications Medication Sig Dispensed Refills Start Date [...] Additional Information Patient not taking.Reported on 09/13/2023 traMADol HCl 50 MG Oral Tablet (Ultram)Indications:A cute bilateral low back pain without sciatica Take 1 Tablet by mouth 3 times a day as needed for Pain, Severe. 30 Tablet 1 12/31/2022 Active Escitalopram Oxalate 10 MG Oral Tablet (Lexapro)Indications: Current moderate episode of major depressive disorder, unspecified whether recurrent (HCC) TAKE 1 TABLET BY MOUTH EVERY DAY 90 Tablet 3 01/27/2023 Active Finasteride 5 MG Oral Tablet (Proscar) Take 1 Tablet by mouth in the morning. 90 Tablet 3 03/15/2023 Active traZODone HCl 50 MG Oral Tablet (Desyrel)Indications: Persistent insomnia Take 1 tablet by mouth once daily at bedtime 90 Tablet 3 04/12/2023 Active Metoprolol Tartrate 25 MG Oral Tablet (Lopressor)Indication s:Cardiac pacemaker in situ TAKE 1 TABLET BY MOUTH TWICE A DAY 180 Tablet 1 07/06/2023 Active Carbidopa-Levodopa 25-100 MG Oral Tablet (Sinemet) TAKE 1.5 TABLETS FOUR TIMES DAILY. 540 Tablet 1 07/20/2023 Active Sildenafil Citrate 100 MG Oral Tablet [...] THE MORNING 180 Capsule 1 08/02/2023 Active Lisinopril 20 MG Oral Tablet (Prinivil)Indications :HTN, goal below 140/90 TAKE 1 TABLET BY MOUTH DAILY 08/12/2023 Active Gabapentin 300 MG Oral Capsule (Neurontin)Indication s:Parkinsonian tremor (HCC) TAKE 1 CAP IN AM AND 1 CAP AT NOON AND 2 CAPS AT BEDTIME 360 Capsule 3 09/01/2023 Active Mirabegron ER 50 MG Oral Tablet Extended Release 24 Hour (Myrbetriq) Take 1 Tablet by mouth in the morning. 30 Tablet 6 09/21/2023 Active Azelastine HCl 137 MCG/SPRAY Nasal Solution INSTILL 1 SPRAY INTO EACH NOSTRIL TWICE A DAY 90 mL 3 10/11/2023 Active Fluticasone Propionate 50 MCG/ACT Nasal Suspension (Flonase) INSTILL 1 SPRAY INTO EACH NOSTRIL TWICE A DAY 48 mL 3 10/11/2023 Active documented as of this encounter (statuses as of 11/23/2023) Active Problems Problem Noted Date Diagnosed Date [...] Obesity protocol Atherosclerotic heart diseas e of [place] coronary artery without angina pectoris 05/30/2019 Major [...] as of this encounter (statuses as of 11/23/2023) Resolved Problems Problem Noted Date Diagnosed Date [...] as of this encounter (statuses as of 11/23/2023) Immunizations Name Administration Dates Next Due COVID-19 [...] Influenza, Split, I IV3, With Preserve, Inj 03/06/2014,01/19/2013,02/03/2012,12/31,02/16/2010,02/11/2009,02/26/20 08,03/08/2007,04/10/2006 02/11/2010 TD, Preservative Free 12/12/2019 [...] encounter Miscellaneous Notes * Telephone Encounter - Kira Russo OSA - 11/23/2023 9:23 AM EDT Reason for patient's call: returning call regarding medication and dizziness Caller was transferred to [facility] at the nurse line. * Telephone Encounter - Adriana Casanova OSA - 11/23/2023 8:45 AM EDT LMOM to return call. Please give message below when patient returns call. 11/23/2023 * Telephone Encounter - Juan F Blanco MD - 11/22/2023 5:33 PM EDT IAdvsie: I would not change anything at this point. Just be careful and anticipate dizziness. So move about and up and down carefully. * Telephone Encounter - Kaelyn Abdullahi LPN - 11/22/2023 1:44 PM EDT Patient calling back: He does not have the capability to check his BP at home. He stated that the Dizziness started on Tuesday, if he tried to get up and walk from one room to another her would be dizzy and lightheaded. He stated that he was dizzy continued Tuesday and Tuesday but today he has not had any dizziness. He stated that he has been on Metoprolol for years but he was recently placed on Myrbetriq which interacts with metoprolol and increases the effectiveness. He said that Dr. Blanco had lowered the Metoprolol from BID to once daily and he feels like his system is just trying to get use to the medications. * Telephone Encounter - Julia Mejia OSA - 11/22/2023 1:37 PM EDT Patient returning call regarding having dizziness and lightheaded sx's. Transferred to the dedicated phone nurse Kaelyn. * Telephone Encounter - Erica Chowdhury LPN - 11/21/2023 3:26 PM EDT Attempted to call patient back, lm for patient to return call in regards to medication. If patient calls back please find out if he has taken his BP while on the medication, if so what have the readings been, does this occur every time he takes the medication, and is there a time where the dizziness is worse throughout the day? * Telephone Encounter - Bobbi Ayala OSA - 11/18/2023 3:36 PM EDT Patient is having dizziness on metoprolol please call him back with advice moving forward. [phone] documented in this encounter Plan of Treatment Upcoming Encounters Date Type Department Care Team (Latest Contact Info) Description 01/11/2024 12:55 PM EDT Hospital Encounter OR [facility], Operating Room [facility] [address] [place] [phone] Serjio Torre, [address] [place] [address] 01/11/2024 12:55 PM EDT - 01/11/2024 1:20 PM EDT Surgery OR [facility], Operating Room [facility] [address] [place] [phone] Serjio Torre, [address] [place] [address] INJECTION SPINE LUMBAR OR SACRAL 01/17/2024 9:15 AM EDT Office Visit Urology, [facility] [address] [place] [address] Hoang Martinez MD [address] [place] [address] 01/17/2024 2:20 PM EDT [address] [phone] Juan F Blanco MD [address] [place] [address] 02/21/2024 1:00 PM EDT Office Visit Neurology [facility] [address] [place] [address] Landon Meredith MD [address] [place] [address] 04/02/2024 1:00 PM EST Imaging Radiology [facility] [place] [address] [place] [address] 09/12/2024 3:00 PM EDT Office Visit Allergy/Immunology [facility] [address] [place] [address] Sandra Macdonald PA-C [address] [place] [address] Scheduled Procedures Name Priority Associated Diagnoses Date/Ti me INJECTION SPINE LUMBAR OR SACRAL Spinal stenosis of lumbar region with neurogenic claudication 01/11/2024 12:55 PM EDT Health Maintenance Due Date Last Done Comments Colonoscopy 10/20/2022 10/20/2021, 10/01, 01/24/2019, Additional history [...] this encounter Medical Devices Implanted Type Area Brick Off Bearer Device Identifier Shelf Expiration Date Model / Serial / Lot Clip Quick 2.8mm 230cm - [id number] Implanted:Qty: 2 on 10/20/2021 by Tanja Schulz MD at ENDOSCOPY [facility] [employer] 08/30/2023 HX-202UR.A / / Duraclip 16mm Xlg Repostn - [id number] Implanted:Qty: 4 on 10/20/2021 by Tanja Schulz MD at ENDOSCOPY [facility] [employer] 11/02/2023 [id number] / / documented as of this encounter Care Teams Spark Plug Assembler Relationship Specialty Start Date End Date Juan F Blanco MD [address] [place] [address] PCP - General 09/02/00 documented as of this encounter
--- OUTSIDE RECORDS SUMMARY | 2024-03-03 02:11 | External Medical Summary | Summary of Care ---
Author Name Unknown Organization [facility] Address [address] [place] [address] Phone [phone] Care Team Providers Care Circulating Nurse Name Role Phone Juan F Blanco MD Primary Care Provider [phone] Reason for Visit * Reason Comments eRx-Medication Refill Encounter Details Date Type Department Care Team (Late st Contact Info) Description 12/17/2023 Refill Urology, [facility] [address] [place] [address] Hoang Lopez MD [address] [place] [address] Allergies Active Allergy Reactions Criticality Noted Date Comments Meloxicam Nausea/vomiting 07/06/2017 Nausea and head congestion Naproxen Other (Please comment) Low 02/27/2003 nightmares documented as of this encounter (statuses as of 12/19/2023) Medications Medication Sig Dispensed Refills Start Date [...] 09/13/2023 traMADol HCl 50 MG Oral Tablet (Ultram)Indications :Acute bilateral low back pain without sciatica Take 1 Tablet by mouth 3 times a day as needed for Pain, Severe. 30 Tablet 1 3 Active traZODone HCl 50 MG Oral Tablet (Desyrel)Indication s:Persistent insomnia Take 1 tablet by mouth once daily at bedtime 90 Tablet 3 3 Active Metoprolol Tartrate 25 MG Oral Tablet (Lopressor)Indicati ons:Cardiac pacemaker in situ TAKE 1 TABLET BY MOUTH TWICE A DAY 180 Tablet 1 4 Active Sildenafil Citrate 100 MG Oral Tablet [...] EVERY DAY 90 Tablet 1 4 Active Finasteride 5 MG Oral Tablet (Proscar) Take 1 Tablet by mouth in the morning. 90 Tablet 3 3 12/19/19 24 Discontinued documented as of this encounter (statuses as of 12/19/2023) Active Problems Problem Noted Date Diagnosed Date [...] Obesity protocol Atherosclerotic heart diseas e of [place] coronary artery without angina pectoris 05/30/2019 Major [...] as of this encounter (statuses as of 12/19/2023) Resolved Problems Problem Noted Date Diagnosed Date [...] as of this encounter (statuses as of 12/19/2023) Immunizations Name Administration Dates Next Due COVID-19 mRNA, LNP-s, No Pre serve, 2-Dose Series ([employer]) 09/03/2020,08/13/2020 COVID-19, LNP-s, No Preserve , Niko-sucrose, Ages 12+ (Pfizer) 04/28/2021 Covid-19, Mrna, Lnp-s, Pf, B ivalent, 30 Mcg, IM, 12 yrs and above ([employer]) 01/27/2022 H1N1 2009 Influenza, IM 06/06/2009 Pneumococcal [...] encounter Miscellaneous Notes * Telephone Encounter - Hoang Lopez MD - 12/19/2023 2:57 PM EDTSigned Prescriptions: Disp Refills Finasteride 5 MG Oral Tablet (Proscar) 90 Tab*3 Sig: TAKE 1 TABLET BY MOUTH EVERY DAY IN THE MORNING Authorizing Provider: HOANG LOPEZ * Telephone Encounter - Adeline Crump LPN - 12/19/2023 11:36 AM EDT Pending Prescriptions: Disp Refills Finasteride 5 MG Oral Tablet [Pharmacy Med*90 Tab*3 Sig: TAKE 1 TABLET BY MOUTH EVERY DAY IN THE MORNING * Telephone Encounter - Adeline Crump LPN - 12/19/2023 11:36 AM EDT Refill of finasteride requested. Last appt: 03/15/2023 (in office), Visit date not found (telemedicine) Next appt: 01/17/2024 Review of patient's allergies indicates: Allergen Reactions Meloxicam Nausea/vomiting Nausea and head congestion Naproxen Other (Please comment) nightmares Thank you, Sonia documented in this encounter Plan of Treatment Upcoming Encounters Date Type Department Care Team (Late st Contact Info) Description 12/30/2023 2:10 PM EDT Hospital Encounter OR [facility], Operating Room [facility] [address] [facility] [place] [phone] Kelechi Evangelista MD [address] [place] [address] [place] [address] 12/30/2023 2:10 PM EDT - 12/30/2023 2:30 PM EDT Surgery OR [facility], Operating Room [facility] [address] [facility] [place] [phone] Kelechi Evangelisat MD [address] [facility] [place] [address] INJECTION SPINE LUMBAR OR SACRAL 01/17/2024 9:15 AM EDT Office Visit Urology, [facility] [address] [facility] [place] [address] Hoang Lopez MD [address] [place] [address] [place] [id number] 01/17/2024 2:20 PM EDT Office Visit [facility] [address] [place] [address] Juan F Blanco MD [address] [place] [address] 02/21/2024 1:00 PM EDT Office Visit Neurology [facility] [address] [place] [address] Landon Meredith MD [address] [place] [address] 04/02/2024 1:00 PM EST Imaging Radiology [address] [facility] [place] [address] 09/12/2024 3:00 PM EDT Office Visit Allergy/Immunology [facility] [address] [place] [address] Sandra Macdonald PA-C [address] [place] [address] Scheduled Procedures Name Priority Associated Diagnoses Date/Ti [...] this encounter Medical Devices Implanted Type Area Industrial Seamstress Device Identifier Shelf Expiration Date Model / Serial / Lot Clip Quick 2.8mm 230cm - [id number] Implanted:Qty: 2 on 10/20/2021 by Tanja Schulz MD at ENDOSCOPY [facility] [employer] 08/30/2023 HX-202UR.A / / Duraclip 16mm Xlg Repostn - [id number] Implanted:Qty: 4 on 10/20/2021 by Tanja Schulz MD at ENDOSCOPY [facility] [employer] 11/02/2023 [id number] / / documented as of this encounter Care Teams Circulating Nurse Relationship Specialty Start Date End Date Juan F Blanco MD [address] [facility] [place] [address] PCP - General 09/02/00 documented as of this encounter
--- OUTSIDE RECORDS SUMMARY | 2024-03-03 02:11 | External Medical Summary | Summary of Care ---
Author Name Unknown Organization [facility] Address [address] [place] [address] Phone [phone] Care Team Providers Care District Agent Name Role Phone Juan F Blanco MD Primary Care Provider [phone] Reason for Visit * Reason Onset Date Comments Medication Refill 12/08/2023 Encounter Details Date Type Department Care Team (Late st Contact Info) Description 12/08/2023 Refill Allergy/Immunology [facility] [address] [facility] [place] [address] Cristiano Foster MD [address] [place] [address] Allergies Active Allergy Reactions Criticality Noted Date Comments Meloxicam Nausea/vomiting 07/06/2017 Nausea and head congestion Naproxen Other (Please comment) Low 02/27/2003 nightmares documented as of this encounter (statuses as of 12/08/2023) Medications Medication Sig Dispensed Refills Start Date [...] 3 2 Active Benzonatate 100 MG Oral CapsuleIndications:B ronchitis, complicated Take 1-2 Capsules by mouth 3 times a day as needed for Cough. 30 Capsule 1 3 Active Additional Information Patient not taking.Reported on 09/13/2023 traMADol HCl 50 MG Oral Tablet (Ultram)Indications: Acute bilateral low back pain without sciatica Take 1 Tablet by mouth 3 times a day as needed for Pain, Severe. 30 Tablet 1 3 Active Escitalopram Oxalate 10 MG Oral Tablet (Lexapro)Indications :Current moderate episode of major depressive disorder, unspecified whether recurrent (HCC) TAKE 1 TABLET BY MOUTH EVERY DAY 90 Tablet 3 3 Active Finasteride 5 MG Oral Tablet (Proscar) Take 1 Tablet by mouth in the morning. 90 Tablet 3 3 Active traZODone HCl 50 MG Oral Tablet (Desyrel)Indications :Persistent insomnia Take 1 tablet by mouth once daily at bedtime 90 Tablet 3 3 Active Metoprolol Tartrate 25 MG Oral Tablet (Lopressor)Indicatio ns:Cardiac pacemaker in situ TAKE 1 TABLET BY [...] THE MORNING 180 Capsule 1 4 Active Lisinopril 20 MG Oral Tablet (Prinivil)Indication s:HTN, goal below 140/90 TAKE 1 TABLET BY MOUTH DAILY 4 Active Gabapentin 300 MG Oral Capsule [...] A DAY 270 mL 3 4 Active Azelastine HCl 137 MCG/SPRAY Nasal Solution INSTILL 1 SPRAY INTO EACH NOSTRIL TWICE A DAY 90 mL 3 4 12/08/19 24 Discontinu ed(Refill) documented as of this encounter (statuses as of 12/08/2023) Active Problems Problem Noted Date Diagnosed Date [...] Obesity protocol Atherosclerotic heart diseas e of [place] coronary artery without angina pectoris 05/30/2019 Major [...] as of this encounter (statuses as of 12/08/2023) Resolved Problems Problem Noted Date Diagnosed Date [...] as of this encounter (statuses as of 12/08/2023) Immunizations Name Administration Dates Next Due COVID-19 mRNA, LNP-s, No Pre serve, 2-Dose Series (FastCAP) 09/03/2020,08/13/2020 COVID-19, LNP-s, No Preserve , Niko-sucrose, [...] encounter Miscellaneous Notes * Telephone Encounter - Lisa Macdonald PA-C - 12/08/2023 3:28 PM EDT Signed Prescriptions: Disp Refills Azelastine HCl 137 MCG/SPRAY Nasal Ptdhlmws220 mL 3 Sig: INSTILL 1 SPRAY INTO EACH NOSTRIL TWICE A DAY Authorizing Provider: LISA MACDONALD * Telephone Encounter - Page Akbar LPN - 12/08/2023 2:33 PM EDT Pharmacy requesting 90 supply. Pending Prescriptions: Disp Refills Azelastine HCl 137 MCG/SPRAY Nasal Soluti*270 mL 3 Sig: INSTILL 1 SPRAY INTO EACH NOSTRIL TWICE A DAY Last Visit: 09/13/2023 (in office), Visit date not found (telemedicine) Next Visit: 09/12/2024 Last date the medication was ordered: 10/11/2023 Health Maintenance Topic Date Due Adult Wellness Visit 03/22/2014 Colonoscopy 10/20/2022 COVID-19 Vaccine (2022- season) 2022 Influenza Vaccine (FLU shot) (1) 01/01/2024 GFR 07/03/2024 Depression Monitoring 07/11/2024 Albumin/Creatinine Ratio 07/03/2026 DTaP,Tdap,and Td Vaccines (3 - Td or Tdap) 12/11/2029 Zoster Vaccines Completed Pneumococcal Vaccine: 65+ Years Completed Hepatitis B Vaccine Aged Out MENINGOCOCCAL (MENACTRA/MENVEO) Aged Out HPV (Gardasil) Vaccine Aged Out RETIRED - COLONOSCOPY-ANNUAL AGES 18-100 Discontinued Labs: Lab Results Component Value Date/Time CREATININE - [facility] 1.0 07/04/2023 12:55 PM CREATININE - [facility] 1.0 12/14/2019 11:45 AM CREATININE, RANDOM URINE - [facility] 98 07/04/2023 01:00 PM Lab Results Component Value Date/Time POTASSIUM - [facility] 4.3 07/04/2023 12:55 PM POTASSIUM - [facility] 4.1 12/14/2019 11:45 AM Lab Results Component Value Date/Time TSH - [facility] 2.43 10/16/2021 11:10 AM TSH - [facility] 3.24 08/13/2015 10:27 AM Lab Results Component Value Date/Time LDL CHOLESTEROL (CALCULATED) - [facility] 38 07/04/2023 12:55 PM LDL CHOLESTEROL (CALCULATED) - [facility] 53 01/29/2021 09:16 AM LDL CHOLESTEROL (CALCULATED) - [facility] 62 08/24/2018 09:48 AM LDL CHOLESTEROL (CALCULATED) - [facility] 59 07/05/2017 10:24 AM LDL CHOLESTEROL (DIRECT MEASURE) - [facility] 59 12/14/2019 11:45 AM LDL CHOLESTEROL (DIRECT MEASURE) - [facility] NOT APPLICABLE 07/05/2017 10:24 AM Lab Results Component Value Date/Time ALT - [facility] 14 07/04/2023 12:55 PM ALT - [facility] 14 12/14/2019 11:45 AM Hemoglobin AIC Results: Lab Results Component Value Date/Time HEMOGLOBIN A1C - [facility] 5.3 05/10/2016 10:11 AM HEMOGLOBIN A1C - [facility] 4.9 04/10/2001 08:30 AM documented in this encounter Plan of Treatment Upcoming Encounters Date Type Department Care Team (Latest Contact Info) Description 01/11/2024 12:55 PM EDT Hospital Encounter [facility], Operating Room [facility] [address] [place] [phone] Serjio Torre DO [address] [place] [address] 01/11/2024 12:55 PM EDT - 01/11/2024 1:20 PM EDT Surgery OR [facility], Operating Room [facility] [address] [place] [phone] Serjio Torre DO [address] [place] [address] INJECTION SPINE LUMBAR OR SACRAL 01/17/2024 9:15 AM EDT Office Visit Urology, [facility] [address] [place] [address] Hoang Martinez MD [address] [place] [address] 01/17/2024 2:20 PM EDT Office Visit [facility] [address] [place] [address] Juan F Blanco MD [address] [place] [address] 02/21/2024 1:00 PM EDT Office Visit Neurology [facility] [address] [facility] [place] [address] Landon Meredith MD [address] [place], [place] [address] 04/02/2024 1:00 PM EST Imaging Radiology [facility] [address] [facility] [address] [place] [address] 09/12/2024 3:00 PM EDT Office Visit Allergy/Immunology [facility] [address] [place] [address] Lisa Macdonald PA-C [address] [facility] [place] [address] Scheduled Procedures Name Priority Associated Diagnoses Date/Ti [...] this encounter Medical Devices Implanted Type Area Television Parts Tester Device Identifier Shelf Expiration Date Model / Serial / Lot Clip Quick 2.8mm 230cm - [id number] Implanted:Qty: 2 on 10/20/2021 by Tanja Schulz MD at ENDOSCOPY [facility] [employer] 08/30/2023 HX-202UR.A / / Duraclip 16mm Xlg Repostn - [id number] Implanted:Qty: 4 on 10/20/2021 by Tanja Schulz MD at ENDOSCOPY [facility] [employer] 11/02/2023 [id number] / / documented as of this encounter Care Teams District Agent Relationship Specialty Start Date End Date Juan F Blanco MD [address] [place] [facility] [place] [address] PCP - General 09/02/00 documented as of this encounter
--- OUTSIDE RECORDS SUMMARY | 2024-03-03 02:11 | External Medical Summary | Summary of Care ---
Author Name Unknown Organization [facility] Address [address] [place] [address] Phone [phone] Care Team Providers Care Servicing Rep Name Role Phone Juan F Blanco MD Primary Care Provider Reason for Visit * Reason Onset Date Comments Advice 11/18/2023 Encounter Details Date Type Department Care Team (Late st Contact Info) Description 11/18/2023 Telephone [facility] [address] [place] [address] Juan F Blanco MD [address] [place] [address] Advice Allergies Active Allergy Reactions [...] Obesity protocol Atherosclerotic heart diseas e of [place] coronary artery without angina pectoris 05/30/2019 Major [...] encounter Miscellaneous Notes * Telephone Encounter - Latoya Hendrickson LPN - 11/23/2023 9:33 AM EDT Call dropped with transfer. Attempted to call, no answer, left message to return call. * Telephone Encounter - Kira Russo OSA - 11/23/2023 9:23 AM EDT Reason for patient's call: returning call regarding medication and dizziness Caller was transferred to [facility] at the nurse line. * Telephone Encounter [...] call him back with advice moving forward. [phone] documented in this encounter Plan of Treatment Upcoming Encounters Date Type Department Care Team (Latest Contact Info) Description 01/11/2024 12:55 PM EDT Hospital Encounter OR [facility], Operating Room [facility] [address] [place] [phone] Serjio Torre DO [address] [place] [phone] 01/11/2024 12:55 PM EDT - 01/11/2024 1:20 PM EDT Surgery OR [facility], Operating Room [facility] [address] [place] [phone] Serjio Torre DO [address] [place] [phone] INJECTION SPINE LUMBAR OR SACRAL 01/17/2024 9:15 AM EDT Office Visit Urology, [facility] [address] [place] [address] Hoang Martinez MD [address] [place] [address] 01/17/2024 2:20 PM EDT Office Visit [facility] [address] [place] [address] Juan F Blanco MD [address] [place], [place] [address] 02/21/2024 1:00 PM EDT Office Visit Neurology [facility] [address] [place] [address] Landon Meredith MD [address] [place] [address] 04/02/2024 1:00 PM EST Imaging Radiology [facility] [address] [facility] [place] [address] 09/12/2024 3:00 PM EDT Office Visit Allergy/Immunology [facility] [address] [place] [address] Sandra Macdonald PA-C [address] [facility] [place] [address] Scheduled Procedures Name Priority Associated Diagnoses Date/Ti me INJECTION SPINE LUMBAR OR SACRAL Spinal stenosis of lumbar region with neurogenic claudication 01/11/2024 12:55 PM EDT Health Maintenance Due Date Last Done Comments Colonoscopy 10/20/2022 10/20/2021, 10/01, 01/24/2019, Additional history exists COVID-19 Vaccine (2022- season) 2022 01/27/2022, 04/28/2021, 09/03/2020, Additional history [...] this encounter Medical Devices Implanted Type Area Display Director Device Identifier Shelf Expiration Date Model / Serial / Lot Clip Quick 2.8mm 230cm - [id number] Implanted:Qty: 2 on 10/20/2021 by Tanja Schulz MD at ENDOSCOPY [facility] [employer] 08/30/2023 HX-202UR.A / / Duraclip 16mm Xlg Repostn - [id number] Implanted:Qty: 4 on 10/20/2021 by Tanja Schulz MD at ENDOSCOPY [facility] [employer] 11/02/2023 [id number] / / documented as of this encounter Care Teams Servicing Rep Relationship Specialty Start Date End Date Juan F Blanco MD [address] [place] [address] PCP - General 09/02/00 documented as of this encounter
--- OUTSIDE RECORDS SUMMARY | 2024-03-03 02:11 | External Medical Summary | Summary of Care ---
Author Name Unknown Organization [facility] Address [address] [place] [address] Phone [phone] Care Team Providers Care Women'S Basketball Coach Name Role Phone Juan F Blanco MD Primary Care Provider [phone] Reason for Visit * Reason Comments eRx-Medication Refill Encounter Details Date Type Department Care Team (Late st Contact Info) Description 11/29/2023 Refill Neurology [facility] [address] [place] [address] Azul Monsivais PA-C [address] [place] [address] Allergies Active Allergy Reactions Criticality Noted Date Comments Meloxicam Nausea/vomiting 07/06/2017 Nausea and head congestion Naproxen Other (Please comment) Low 02/27/2003 nightmares documented as of this encounter (statuses as of 11/30/2023) Medications Medication Sig Dispensed Refills Start Date [...] the morning. 30 Tablet 6 4 Active Azelastine HCl 137 MCG/SPRAY Nasal Solution INSTILL 1 SPRAY INTO EACH NOSTRIL TWICE A DAY 90 mL 3 4 Active Fluticasone Propionate 50 MCG/ACT Nasal Suspension (Flonase) INSTILL 1 SPRAY INTO EACH NOSTRIL TWICE A DAY 48 mL 3 4 Active Carbidopa-Levodopa 25-100 MG Oral Tablet (Sinemet) TAKE 1.5 TABLETS FOUR TIMES DAILY. 540 Tablet 1 4 Active Carbidopa-Levodopa 25-100 MG Oral Tablet (Sinemet) TAKE 1.5 TABLETS FOUR TIMES DAILY. 540 Tablet 1 4 11/30/19 24 Discontinued documented as of this encounter (statuses as of 11/30/2023) Active Problems Problem Noted Date Diagnosed Date [...] Obesity protocol Atherosclerotic heart diseas e of [place] coronary artery without angina pectoris 05/30/2019 Major [...] as of this encounter (statuses as of 11/30/2023) Resolved Problems Problem Noted Date Diagnosed Date [...] as of this encounter (statuses as of 11/30/2023) Immunizations Name Administration Dates Next Due COVID-19 [...] encounter Miscellaneous Notes * Telephone Encounter - Luiza Mesa [facility] - 11/30/2023 9:39 AM EDTSigned Prescriptions: Disp Refills Carbidopa-Levodopa 25-100 MG Oral Tablet (*540 Ta*1 Sig: TAKE 1.5 TABLETS FOUR TIMES DAILY.Authorizing Provider: Praneeth MONSIVAIS User: LUIZA MESA * Telephone Encounter - Radha Smith - 11/29/2023 7:18 PM EDTPending Prescriptions: Disp Refills Carbidopa-Levodopa 25-100 MG Oral Tablet [*540 Ta*1 Sig: TAKE 1.5 TABLETS FOUR TIMES DAILY. * Telephone Encounter - Radha Smith two - 11/29/2023 7:16 PM EDT Did you pend patient's preferred pharmacy and medication before forwarding?yes Pharmacy: [id number] [address] [facility] Pending Prescriptions: Disp Refills Carbidopa-Levodopa 25-100 MG Oral Tablet *540 Ta*1 Sig: TAKE 1.5 TABLETS FOUR TIMES DAILY. Last Visit: 07/19/2023 (in office), 12/19/2020 (telemedicine) Next Visit: 02/21/2024 If no future appointments scheduled, and last appointment is greater than a year ago, please schedule patient for a follow-up appointment Last date the medication was ordered: 07/20/2023 Is this request for a controlled substance?No Urine Drug Screen: Results for orders placed or performed in [...] results can be found in Results Review. Patient Phone Numbers Labs: Lab Results Component Value Date/Time CREAT 1.0 07/04/2023 12:55 PM CREAT 1.0 12/14/2019 11:45 AM POTASSIUM 4.3 07/04/2023 12:55 PM POTASSIUM 4.1 12/14/2019 11:45 AM TSH 2.43 10/16/2021 11:10 AM TSH 3.24 08/13/2015 10:27 AM LDLCALC 38 07/04/2023 12:55 PM LDLCALC 62 08/24/2018 09:48 AM LDLDIRECT 59 12/14/2019 11:45 AM ALT 14 07/04/2023 12:55 PM ALT 14 12/14/2019 11:45 AM HGBA1C 5.3 05/10/2016 10:11 AM documented in this encounter Plan of Treatment Upcoming Encounters Date Type Department Care Team (Latest Contact Info) Description 01/11/2024 12:55 PM EDT Hospital Encounter OR [facility], Operating Room [facility] [address] [place] [phone] Serjio Torre DO [address] [place] [phone] 01/11/2024 12:55 PM EDT - 01/11/2024 1:20 PM EDT Surgery OR [facility], Operating Room [facility] [address] [place] [phone] Serjio Torre DO [address] [place] [address] INJECTION SPINE LUMBAR OR SACRAL 01/17/2024 9:15 AM EDT Office Visit Urology, [facility] [address] [place] [address] Hoang Martinez MD [address] [place] [address] 01/17/2024 2:20 PM EDT Office Visit [facility] [address] [place] [address] Juan F Blanco MD [address] [place] [address] 02/21/2024 1:00 PM EDT Office Visit Neurology [facility] 200 [facility] [place] [address] Landon Meredith MD [address] [place], [place] [address] 04/02/2024 1:00 PM EST Imaging Radiology [facility]st [facility] [address] [place] [address] 09/12/2024 3:00 PM EDT Office Visit Allergy/Immunology [facility] [address] [facility] [place] [address] Sandra Macdonald PA-C [address] [facility] [place] [address] Scheduled Procedures Name Priority Associated Diagnoses Date/Ti [...] Pneumococcal Vaccine: 65+ Years Completed 07/04/2015, 02/03/2012 Hepatitis C Screening Completed 07/05/2017 Zoster Vaccines Completed 12/21/2017, 10/04/2017 RETIRED - [...] this encounter Medical Devices Implanted Type Area Meter Installer And Remover Device Identifier Shelf Expiration Date Model / Serial / Lot Clip Quick 2.8mm 230cm - [id number] Implanted:Qty: 2 on 10/20/2021 by Tanja Schulz MD at ENDOSCOPY [facility] [employer] 08/30/2023 HX-202UR.A / / Duraclip 16mm Xlg Repostn - [id number] Implanted:Qty: 4 on 10/20/2021 by Tanja Schulz MD at ENDOSCOPY [facility] [employer] 11/02/2023 [id number] / / documented as of this encounter Care Teams Women'S Basketball Coach Relationship Specialty Start Date End Date Juan F Blanco MD [address] [place] [address] PCP - General 09/02/00 documented as of this encounter
--- OUTSIDE RECORDS SUMMARY | 2024-03-03 02:11 | External Medical Summary | Summary of Care ---
Author Name Unknown Organization [facility] Address [address] [place] [address] Phone [phone] Care Team Providers Care Housekeeping Lead Name Role Phone Jose M Blanco MD Primary Care Provider [phone] Reason for Visit * Reason Comments eRx-Medication Refill Encounter Details Date Type Department Care Team (Late st Contact Info) Description 12/17/2023 Refill [facility] [address] [place] [address] Jose M Blanco MD [address] [place] [address] HTN, goal below 140/90; Current moderate episode of major depressive disorder, unspecified whether recurrent (HCC) Allergies Active Allergy Reactions Criticality Noted [...] Pain, Severe. 30 Tablet 1 3 Active Finasteride 5 MG Oral Tablet [...] A DAY 270 mL 3 4 Active Lisinopril 20 MG Oral Tablet (Prinivil)Indicatio ns:HTN, goal below 140/90 TAKE 1 TABLET BY MOUTH TWICE A DAY 180 Tablet 1 4 Active Escitalopram Oxalate 10 MG Oral Tablet (Lexapro)Indication s:Current moderate episode of major depressive disorder, unspecified whether recurrent (HCC) TAKE 1 TABLET BY MOUTH EVERY DAY 90 Tablet 1 4 Active Escitalopram Oxalate 10 MG Oral Tablet (Lexapro)Indication s:Current moderate episode of major depressive disorder, unspecified whether recurrent (HCC) TAKE 1 TABLET BY MOUTH EVERY DAY 90 Tablet 3 3 12/19/19 24 Discontinued Lisinopril 20 MG Oral Tablet (Prinivil)Indicatio ns:HTN, goal below 140/90 TAKE 1 TABLET BY MOUTH DAILY 4 12/19/19 24 Discontinued documented as of this [...] Obesity protocol Atherosclerotic heart diseas e of [place] coronary artery without angina pectoris 05/30/2019 Major [...] mRNA, LNP-s, No Pre serve, 2-Dose Series ([employer]) 09/03/2020,08/13/2020 COVID-19, LNP-s, No Preserve , Niko-sucrose, [...] encounter Miscellaneous Notes * Telephone Encounter - Yosef Joaquin [facility] - 12/19/2023 2:36 PM EDT Signed Prescriptions: Disp Refills Lisinopril 20 MG Oral Tablet (Prinivil) 180 Ta*1 Sig: TAKE 1 TABLET BY MOUTH TWICE A DAYAuthorizing Provider: JOSE M BLANCO User: YOSEF JOAQUIN Escitalopram Oxalate 10 MG Oral Tablet (Le*90 Tab*1 Sig: TAKE 1 TABLET BY MOUTH EVERY DAYAuthorizing Provider: JOSE M BLANCO User: YOSEF JOAQUIN documented in this encounter Plan of Treatment Upcoming Encounters Date Type Department Care Team (Late st Contact Info) Description 12/30/2023 2:10 PM EDT Hospital Encounter OR [facility], Operating Room [facility] [address] [place] [phone] Kelechi Evangelista MD [address] [place] [address] 12/30/2023 2:10 PM EDT - 12/30/2023 2:30 PM EDT Surgery OR [facility], Operating Room [facility] [address] [place] [phone] Kelechi Evangelista MD [address] [place] [address] INJECTION SPINE LUMBAR OR SACRAL 01/17/2024 9:15 AM EDT Office Visit Urology, [facility] [address] [place] [address] Hoang Jonas MD [address] [place] [address] 01/17/2024 2:20 PM EDT Office Visit [facility] [address] [place] [address] Jose M Blanco MD [address] [place] [address] 02/21/2024 1:00 PM EDT Office Visit Neurology [facility] 200 [facility] [place] [address] Landon Meredith MD [address] [place] [address] 04/02/2024 1:00 PM EST Imaging Radiology [address], [place] [address] [place] [address] 09/12/2024 3:00 PM EDT Office Visit Allergy/Immunology [facility] [address] [facility] [place] [address] Sandra Macdonald PA-C [address] [facility] [place] [address] Scheduled Procedures Name Priority Associated Diagnoses Date/Ti [...] this encounter Medical Devices Implanted Type Area Associate Director Of Sales Device Identifier Shelf Expiration Date Model / Serial / Lot Clip Quick 2.8mm 230cm - [id number] Implanted:Qty: 2 on 10/20/2021 by Tanja Schulz MD at ENDOSCOPY [facility] [employer] 08/30/2023 HX-202UR.A / / Duraclip 16mm Xlg Repostn - [id number] Implanted:Qty: 4 on 10/20/2021 by Tanja Schulz MD at ENDOSCOPY [facility] [employer] 11/02/2023 [id number] / / documented as of this encounter Visit Diagnoses Diagnosis HTN, goal below 140/90 Unspecified essential hypertension Current moderate episode of major depressive disorder, unspecified whether recurrent (HCC) Spinal stenosis of lumbar region with neurogenic claudication Spinal stenosis, lumbar region, with neurogenic claudication documented in this encounter Care Teams Housekeeping Lead Relationship Specialty Start Date End Date Jose M Blanco MD [address] [place] [address] PCP - General 09/02/00 documented as of this encounter
--- OUTSIDE RECORDS SUMMARY | 2024-03-03 02:11 | External Medical Summary | Summary of Care ---
Author Name Unknown Organization [facility] Address [address] [place] [address] Phone [phone] Care Team Providers Care Director Of Institutional Sales Name Role Phone Juan F Blanco MD Primary Care Provider [phone] Reason for Visit * Reason Onset Date Comments Advice 11/18/2023 Encounter Details Date Type Department Care Team (Late st Contact Info) Description 11/18/[address] [facility] [address] [place] [address] Juan F Blanco MD [address] [place] [address] Advice Allergies Active Allergy Reactions [...] Obesity protocol Atherosclerotic heart diseas e of [place] coronary artery without angina pectoris 05/30/2019 Major [...] encounter Miscellaneous Notes * Telephone Encounter - Olena Easley LPN - 11/23/2023 9:40 AM EDT Patient aware and verbalized understanding, will comply * Telephone Encounter - Latoya Hendrickson LPN - 11/23/2023 9:33 AM EDT Call dropped with transfer. Attempted to call, no answer, left message to return call. * Telephone Encounter - Kira Russo OSA - 11/23/2023 9:23 AM EDT Reason for patient's call: returning call regarding medication and dizziness Caller was transferred to [facility] at the nurse line. * Telephone Encounter [...] call him back with advice moving forward. [phone] documented in this encounter Plan of Treatment Upcoming Encounters Date Type Department Care Team (Latest Contact Info) Description 01/11/2024 12:55 PM EDT Hospital Encounter OR [facility], Operating Room [facility] [address] [place] [address] Serjio Torre, [address] [place] [address] 01/11/2024 12:55 PM EDT - 01/11/2024 1:20 PM EDT Surgery OR OSS, Operating Room [facility] [address] [place] [address] Sejrio Torre, [address] [place] [address] INJECTION SPINE LUMBAR OR SACRAL 01/17/2024 9:15 AM EDT Office Visit Urology, [facility] [address] [place] [address] Hoang Martinez MD [address] [place] [address] 01/17/2024 2:20 PM EDT Office Visit [facility] [address] [place] [phone] Juan F Blanco MD [address] [place] [address] 02/21/2024 1:00 PM EDT Office Visit Neurology [facility] [address] [place] [address] Landon Meredith MD [address] [place] [address] 04/02/2024 1:00 PM EST Imaging Radiology [address] [place] [address] 09/12/2024 3:00 PM EDT Office Visit Allergy/Immunology [facility] [address] [facility] [place] [address] Sandra Macdonald PA-C [address] [facility] [place] [address] Scheduled Procedures Name Priority Associated Diagnoses Date/Ti [...] this encounter Medical Devices Implanted Type Area Party Supply Specialist Device Identifier Shelf Expiration Date Model / Serial / Lot Clip Quick 2.8mm 230cm - [id number] Implanted:Qty: 2 on 10/20/2021 by Tanja Schulz MD at ENDOSCOPY [facility] [employer] 08/30/2023 HX-202UR.A / / Duraclip 16mm Xlg Repostn - [id number] Implanted:Qty: 4 on 10/20/2021 by Tanja Schulz MD at ENDOSCOPY [facility] [employer] LELE 11/02/2023 [id number] / / documented as of this encounter Care Teams Director Of Institutional Sales Relationship Specialty Start Date End Date Juan F Blanco MD [address] [place] [address] PCP - General 09/02/00 documented as of this encounter
--- OUTSIDE RECORDS SUMMARY | 2024-03-03 02:11 | External Medical Summary | Summary of Care ---
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 Please give message below when patient returns call. 11/23/2023 * Telephone Encounter - Juan F Blanco MD - 11/22/2023 5:33 PM EDT Oriana: I would not change anything at this [...] call him back with advice moving forward. [phone] documented in this encounter Plan of Treatment Upcoming Encounters Date Type Department Care Team (Latest Contact Info) Description 01/11/2024 12:55 PM EDT Hospital Encounter OR [facility], Operating Room [facility] [address] [place] [address] Serjio Torre, [address] [place] [address] 01/11/2024 12:55 PM EDT - 01/11/2024 1:20 PM EDT Surgery OR [facility], Operating Room [facility] [address] [place] [address] Serjio Torre, [address] [place] [address] INJECTION SPINE LUMBAR OR SACRAL 01/17/2024 9:15 AM EDT Office Visit Urology, [facility] [address] [place] [address] Hoang Martinez MD 27 [facility] [place] [address] 01/17/2024 2:20 PM EDT Office Visit [facility] [address] [facility] [address] Juan F Blanco MD [address] [facility] [place] [id number] 02/21/2024 1:00 PM EDT Office Visit Neurology [facility] [address] [place] [address] Landon Meredith MD [address] [facility] [place] [address] 04/02/2024 1:00 PM EST Imaging Radiology [facility]st [facility] [address] [place] [address] 09/12/2024 3:00 PM EDT Office Visit Allergy/Immunology [facility] [address] [place] [address] Sandra Macdonald PA-C [address] [place] [address] Scheduled Procedures Name Priority Associated Diagnoses Date/Ti [...] this encounter Medical Devices Implanted Type Area Pizza Chef Device Identifier Shelf Expiration Date Model / Serial / Lot Clip Quick 2.8mm 230cm - [id number] Implanted:Qty: 2 on 10/20/2021 by Tanja Schulz MD at ENDOSCOPY [facility] [employer] 08/30/2023 HX-202UR.A / / Duraclip 16mm Xlg Repostn - [id number] Implanted:Qty: 4 on 10/20/2021 by Tanja Schulz MD at ENDOSCOPY [facility] [employer] 11/02/2023 [id number] / / documented as of this encounter Care Teams Wood Carving Lathe Operator Relationship Specialty Start Date End Date Juan F Blanco MD [address] [place] [address] PCP - General 09/02/00 documented as of this encounter
--- OUTSIDE RECORDS SUMMARY | 2024-03-03 02:12 | External Medical Summary | Summary of Care ---
Author Name Unknown Organization [facility] Address [address] [place] [address] Phone [phone] Care Team Providers Care Senior Internet Sales Consultant Name Role Phone Juan F Blanco MD Primary Care Provider [phone] Reason for Visit * Reason Onset Date Comments Advice 10/14/2023 Encounter Details Date Type Department Care Team (Late st Contact Info) Description 10/14/2023 Telephone [facility] [address] [place] [address] Serjio Torre DO [address] [place] [phone] Advice Allergies Active Allergy Reactions Criticality Noted Date Comments Meloxicam Nausea/vomiting 07/06/2017 Nausea and head congestion Naproxen Other (Please comment) Low 02/27/2003 nightmares documented as of this encounter (statuses as of 10/14/2023) Medications Medication Sig Dispensed Refills Start Date [...] as of this encounter (statuses as of 10/14/2023) Active Problems Problem Noted Date Diagnosed Date [...] Obesity protocol Atherosclerotic heart diseas e of [place] coronary artery without angina pectoris 05/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 Major [...] as of this encounter (statuses as of 10/14/2023) Resolved Problems Problem Noted Date Diagnosed Date [...] as of this encounter (statuses as of 10/14/2023) Immunizations Name Administration Dates Next Due COVID-19 mRNA, LNP-s, No Pre serve, 2-Dose Series ([employer]) 09/03/2020,08/13/2020 COVID-19, LNP-s, No Preserve , Niko-sucrose, [...] in the Last Year Never true 12/12/2019 Sex and Gender Information Value Date Recorded Sex Assigned at Male 08/22/2018 1:05 PM EDT Gender Identity Male 08/22/2018 1:05 PM EDT Sexual Orientation Straight 08/22/2018 1: 05 PM EDT Job Start Date Occupation Industry Not on file Not on file Not on file documented as of this encounter Miscellaneous Notes * Telephone Encounter - Beverley Slater LPN - 10/14/2023 3:45 PM EDT Spoke with patient advised Dr. Torre agreeable to repeat injection. Patient made aware okay to continue ASA 81 mg and does not need to hold for injection. Review pre-procedure instructions with patient and will mail a copy as well. Patient encouraged to start PT as well to help with pain. Call transferred to Gina June to assist with scheduled injection. * Telephone Encounter - Beverley Slater LPN - 10/14/2023 3:20 PM EDT Patient calling in regards to pain in low back Left low back pain constant sharpness and hip. Raidates to right side if doing to much activity. Still having heaviness in bilateral legs. Denies numbness/tingling/burning in back or legs but does have tingling in bilateral feet at night. Patient having difficulty walking in the morning due to the pain but the more he walks it loosens up slightly. Pain has been since 09/15/23. No loss of bowel or bladder control. Taking gabapentin as prescribed. Taking tramadol with relief. documented in this encounter Plan of Treatment Upcoming Encounters Date Type Department Care Team (Latest Contact Info) Description 01/11/2024 12:55 PM EDT Hospital Encounter OR OSS, Operating Room [facility] [address] [place] [address] Serjio Torre, [address] [place] [address] 01/11/2024 12:55 PM EDT - 01/11/2024 1:20 PM EDT Surgery OR [facility], Operating Room [facility] [address] [place] [phone] Serjio Torre, DO [address] [place] [address] INJECTION SPINE LUMBAR OR SACRAL 01/17/2024 9:15 AM EDT Office Visit Urology, [facility] [address] [place] [address] Hoang Martinez MD [address] [address] [place] [address] 01/17/2024 2:20 PM EDT [facility] [address] [facility] [address] Juan F Blanco MD [address], [place] [address] 02/21/2024 1:00 PM EDT Office Visit Neurology [facility] [address] [place] [address] Landon Meredith MD [address] [place] [address] 04/02/2024 1:00 PM EST Imaging Radiology [facility] 1st [facility] [address] [place] [address] 09/12/2024 3:00 PM EDT Office Visit Allergy/Immunology [facility] [address] [place] [address] Sandra Macdonald PA-C [address] [place] [address] Scheduled Orders Name Type Priority Associated Diagnoses Orde r Schedule INJECT DX/THER SUBSTANCE INTERLAMINAR LUMBAR/SACRAL W IMAGE GUIDE Procedures Routine Spinal stenosis of lumbar region with neurogenic claudication Expected: 10/21/2023, Expires: 01/14/2024 Scheduled Procedures Name Priority Associated Diagnoses Date/Ti me INJECTION SPINE LUMBAR OR SACRAL Spinal stenosis of lumbar region with neurogenic claudication 01/11/2024 12:55 PM EDT Health Maintenance Due Date Last Done Comments Colonoscopy 10/20/2022 10/20/2021, 10/01, 01/24/2019, Additional history exists COVID-19 Vaccine ( season) 2022 01/27/2022, 04/28/2021, 09/03/2020, Additional history exists GFR 07/03/2024 07/04/2023, 03/02, 10/16/2021, Additional history exists Depression Monitoring 07/11/2024 07/12/2023 Albumin/Creatinine Ratio 07/03/2026 07/04/2023 DTaP,Tdap,and Td Vaccines (3 - Td or Tdap) 12/11/2029 12/12/2019, 02/16/2010 Pneumococcal Vaccine: 65+ Years Completed 07/04/2015, 02/03/2012 Zoster Vaccines Completed 12/21/2017, 10/04/2017 RETIRED - COLONOSCOPY-ANNUAL AGES 18-100 Discontinued 10/20/2021, 10/20/2021, 01/24/2019, Additional history exists Influenza Vaccine (FLU shot) Completed 01/31/2023, 01/22/2022, 02/06/2021, Additional history exists GARDASIL-HPV IMMUNIZATION SERIES Aged Out No longer eligible based on patient's age to complete this topic Hepatitis B Aged Out No longer eligi ble based on patient's age to complete this topic MENINGOCOCCAL (MENACTRA/MENVEO) Aged Out No longer eligible based on patient's age to complete this topic documented as of this encounter Medical Devices Implanted Type Area Boom Man Device Identifier Shelf Expiration Date Model / Serial / Lot Clip Quick 2.8mm 230cm - [id number] Implanted:Qty: 2 on 10/20/2021 by Tanja Schulz MD at ENDOSCOPY [facility] [employer] 08/30/2023 HX-202UR.A / / Duraclip 16mm Xlg Repostn - [id number] Implanted:Qty: 4 on 10/20/2021 by Tanja Schulz MD at ENDOSCOPY [facility] [employer] LELE 11/02/2023 [id number] / / documented as of this encounter Visit Diagnoses Diagnosis Spinal stenosis of lumbar region with neurogenic claudication- Primary Spinal stenosis, lumbar region, with neurogenic claudication Spinal stenosis of lumbar region with neurogenic claudication Spinal stenosis, lumbar region, with neurogenic claudication documented in this encounter Care Teams Senior Internet Sales Consultant Relationship Specialty Start Date End Date Juan F Blanco MD [address] [place] [address] PCP - General 09/02/00 documented as of this encounter
--- OUTSIDE RECORDS SUMMARY | 2024-03-03 02:12 | External Medical Summary | Summary of Care ---
Author Name Unknown Organization [facility] Address [address] [place] [address] Phone [phone] Care Team Providers Care Melon Packer Name Role Phone Juan F Blanco MD Primary Care Provider [phone] Reason for Visit * Reason Onset Date Comments Medication Problem 10/11/2023 Encounter Details Date Type Department Care Team (Late st Contact Info) Description 10/11/2023 Telephone Urology, [facility] 132 [facility] [place] [address] Hoang Martinez MD 27 [facility] [address] [place] [address] Medication Problem Allergies Active Allergy Reactions Criticality Noted Date Comments Meloxicam Nausea/vomiting 07/06/2017 Nausea and head congestion Naproxen Other (Please comment) Low 02/27/2003 nightmares documented as of this encounter (statuses as of 10/11/2023) Medications Medication Sig Dispensed Refills Start Date [...] as of this encounter (statuses as of 10/11/2023) Active Problems Problem Noted Date Diagnosed Date [...] Obesity protocol Atherosclerotic heart diseas e of [place] coronary artery without angina pectoris 05/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 Thanks, HM * Telephone Encounter - Roxana Hsu OSA - 10/11/2023 2:16 PM EDT Pt is having ligh headed ness and dizziness on the medication that Dr. Martinez put him on. They toldhim if he experienced that to call the clinic and stop the med. Pt calling in today because of the issues with the medication. The medication is Mirabegron ER 50 MG Oral Tablet Extended Release 24 Hour (Myrbetriq) [[id number]] (Order [id number]) Please call pt. I tried clinic but they were busy assisting another pt. Thank you Roxana documented in this encounter Plan of Treatment Upcoming Encounters Date Type Department Care Team (Late st Contact Info) Description 01/17/2024 9:15 AM EDT Office Visit Urology, [facility] 132 [place] [address] Hoang Martinez MD [address] [place] [address] [place] [address] 01/17/2024 2:20 PM EDT Office Visit [facility] [address] [place] [address] Juan F Blanco MD [address] [place] [address] 02/21/2024 1:00 PM EDT Office Visit Neurology [facility] 200 [facility] [place] [address] Landon Meredith MD [address] [place] [address] 04/02/2024 1:00 PM EST Imaging [facility] 132 [facility] [place] [address] 09/12/2024 3:00 PM EDT Office Visit Allergy/Immunology [facility] [address] [place] [address] Sandra Macdonald PA-C 200 [facility] [place] [address] Health Maintenance Due Date Last Done Comments [...] this encounter Medical Devices Implanted Type Area Shaker Repairer Device Identifier Shelf Expiration Date Model / Serial / Lot Clip Quick 2.8mm 230cm - [id number] Implanted:Qty: 2 on 10/20/2021 by Tanja Schulz MD at ENDOSCOPY [facility] [employer] 08/30/2023 HX-202UR.A / / Duraclip 16mm Xlg Repostn - [id number] Implanted:Qty: 4 on 10/20/2021 by Tanja Schulz MD at ENDOSCOPY [facility] [employer] LELE 11/02/2023 [id number] / / documented as of this encounter Care Teams Melon Packer Relationship Specialty Start Date End Date Juan F Blanco MD [address], [place] [phone] PCP - General 09/02/00 documented as of this encounter
--- OUTSIDE RECORDS SUMMARY | 2024-03-03 02:12 | External Medical Summary | Summary of Care ---
Author Name Unknown Organization [facility] Address [address] [place] [address] Phone [phone] Care Team Providers Care Pig Caster Name Role Phone Juan F Blanco MD Primary Care Provider [phone] Reason for Visit * Reason Onset Date Comments Advice 08/15/2023 Escitolopram Encounter Details Date Type Department Care Team (Late st Contact Info) Description 08/15/2023 Telephone [facility] [address] [place] [address] Juan F Blanco MD [address] [place] [address] Advice (Escitolopram ) Allergies Active Allergy Reactions Criticality Noted Date Comments Meloxicam Nausea/vomiting 07/06/2017 Nausea and head congestion Naproxen Other (Please comment) Low 02/27/2003 nightmares documented as of this encounter (statuses as of 11/14/2023) Medications Medication Sig Dispensed Refills Start Date [...] A DAY 180 Tablet 1 4 Active Carbidopa-Levodopa 25-100 MG Oral Tablet (Sinemet) TAKE 1.5 TABLETS FOUR TIMES DAILY. 540 Tablet 1 4 Active Sildenafil Citrate 100 [...] 1 TABLET BY MOUTH DAILY 4 Active Azelastine HCl 0.1 % Nasal Solution (Astelin) INSTILL 1 SPRAY INTO EACH NOSTRIL TWICE A DAY 90 mL 4 3 09/19/19 24 Discontinued Gabapentin 300 MG Oral Capsule (Neurontin)Indicati ons:Parkinsonian tremor (HCC) 1 cap in AM and 1 cap at Noon and 2 caps at bedtime 120 Capsule 11 3 09/01/19 24 Discontinued Fluticasone Propionate 50 MCG/ACT Nasal Suspension (Flonase) INSTILL 1 SPRAY INTO EACH NOSTRIL TWICE A DAY 48 mL 4 3 09/19/19 24 Discontinued documented as of this encounter (statuses as of 11/14/2023) Active Problems Problem Noted Date Diagnosed Date [...] Obesity protocol Atherosclerotic heart diseas e of [place] coronary artery without angina pectoris 05/30/2019 Major [...] as of this encounter (statuses as of 11/14/2023) Resolved Problems Problem Noted Date Diagnosed Date [...] as of this encounter (statuses as of 11/14/2023) Immunizations Name Administration Dates Next Due COVID-19 mRNA, LNP-s, No Pre serve, 2-Dose Series ([employer]) 09/03/2020,08/13/2020 COVID-19, LNP-s, No Preserve , Niko-sucrose, [...] encounter Miscellaneous Notes * Telephone Encounter - Agustina Cat LPN - 08/16/2023 3:28 PM EDT The patient is aware, and verbalizes an understanding. * Telephone Encounter - Juan F Blanco MD - 08/15/2023 5:39 PM EDT Notify Pt: I would restart Escitalopram 10mg. Take 1/2 tab daily x 1 week then 1 daily. He likely needs to remain on med indefinitely * Telephone Encounter - Erica Chowdhury LPN - 08/15/2023 5:21 PM EDT Please advise, thank you! * Telephone Encounter - Jessie Frederick OSA - 08/15/2023 4:18 PM EDT Patient stopped taking escitolopram 6 days ago and he is not feeling well. He questions if he did the right thing by just stopping medication. He feels hyper and anxious. Please advise documented in this encounter Plan of Treatment Upcoming Encounters Date Type Department Care Team (Latest Contact Info) Description 01/11/2024 12:55 PM EDT Hospital Encounter OR [facility], Operating Room [facility]SS [address] [place] [phone] Serjio Torre, [address] [place] [address] 01/11/2024 12:55 PM EDT - 01/11/2024 1:20 PM EDT Surgery OR [facility], Operating Room [facility] [address] [place] [phone] Serjio Torre DO [address] [place] [address] INJECTION SPINE LUMBAR OR SACRAL 01/17/2024 9:15 AM EDT Office Visit Urology, [facility] [address] [place] [address] Hoang Martinez MD [address] [place] [address] 01/17/2024 2:20 PM EDT Office Visit [facility] [address] [place] [address] Juan F Blanco MD [address] [place] [address] 02/21/2024 1:00 PM EDT Office Visit Neurology [facility] 200 [place] [place] [address] Landon Meredith MD [address] [place], [place] [address] 04/02/2024 1:00 PM EST Imaging Radiology [address] [place] [address] 09/12/2024 3:00 PM EDT Office Visit Allergy/Immunology [facility] 200 [facility] [place] [address] Sandra Macdonald PA-C 200 [facility] [place] [address] Scheduled Procedures Name Priority Associated Diagnoses Date/Ti [...] this encounter Medical Devices Implanted Type Area Fishing Vessel Captain Device Identifier Shelf Expiration Date Model / Serial / Lot Clip Quick 2.8mm 230cm - [id number] Implanted:Qty: 2 on 10/20/2021 by Tanja Schulz MD at ENDOSCOPY [facility] [employer] 08/30/2023 HX-202UR.A / / Duraclip 16mm Xlg Repostn - [id number] Implanted:Qty: 4 on 10/20/2021 by Tanja Schulz MD at ENDOSCOPY [facility] [employer] LELE 11/02/2023 [id number] / / documented as of this encounter Care Teams Pig Caster Relationship Specialty Start Date End Date Juan F Blanco MD [address] [place] [address] PCP - General 09/02/00 documented as of this encounter
--- OUTSIDE RECORDS SUMMARY | 2024-03-03 02:12 | External Medical Summary | Summary of Care ---
Author Name Unknown Organization [facility] Address [address] [place] [address] Phone [phone] Care Team Providers Care Allergy And Immunology Specialist Name Role Phone Juan F Blanco MD Primary Care Provider [phone] Reason for Visit * Reason Onset Date Comments Medication Problem 10/11/2023 Encounter Details Date Type Department Care Team (Late st Contact Info) Description 10/11/2023 Telephone Urology, [facility] 132 [facility] [place] [address] Hoang Martinez MD 27 [facility] 270 [place] [address] Medication Problem Allergies Active Allergy Reactions [...] Obesity protocol Atherosclerotic heart diseas e of [place] coronary artery without angina pectoris 05/30/2019 Major [...] mRNA, LNP-s, No Pre serve, 2-Dose Series (Airtime) 09/03/2020,08/13/2020 COVID-19, LNP-s, No Preserve , Niko-sucrose, [...] encounter Miscellaneous Notes * Telephone Encounter - Nahed Houston LPN - 10/11/2023 3:18 PM EDT Patient aware and states he will discontinue the Myrbetriq for 1 month. He states he had stopped taking the medication today and has already noticed an improvement in his symptoms. Patient denies anyother medication changes within the last 3 weeks. * Telephone Encounter - Hoang Martinez MD [...] Oral Tablet Extended Release 24 Hour (Myrbetriq) [[id number]] (Order [id number]) Please call pt. I tried clinic but they were busy assisting another pt. Thank you Roxana documented in this encounter Plan of Treatment Upcoming Encounters Date Type Department Care Team (Late st Contact Info) Description 01/17/2024 9:15 AM EDT Office Visit Urology, [facility] 132 [facility] [place] [address] Hoang Martinez MD [address] [address] 01/17/2024 2:20 PM EDT Office Visit [facility] [address] [place] [phone] Juan F Blanco MD [address] [place], [place] [phone] 02/21/2024 1:00 PM EDT Office Visit Neurology [facility] 200 [facility] [place] [address] Landon Meredith MD [address] [place], [place] [address] 04/02/2024 1:00 PM EST Imaging Radiology [facility] 1st [facility] 132 [facility] [place] [address] 09/12/2024 3:00 PM EDT Office Visit Allergy/Immunology [facility] 200 [facility] [place] [address] Sandra Macdonald PA-C 200 [facility] [place] [address] Health Maintenance Due Date Last Done Comments [...] this encounter Medical Devices Implanted Type Area Sterile Preparation Technician Device Identifier Shelf Expiration Date Model / Serial / Lot Clip Quick 2.8mm 230cm - [id number] Implanted:Qty: 2 on 10/20/2021 by Tanja Schulz MD at ENDOSCOPY [facility] [employer] 08/30/2023 HX-202UR.A / / Duraclip 16mm Xlg Repostn - [id number] Implanted:Qty: 4 on 10/20/2021 by Tanja Schulz MD at ENDOSCOPY [facility] [employer] 11/02/2023 [id number] / / documented as of this encounter Care Teams Allergy And Immunology Specialist Relationship Specialty Start Date End Date Juan F Blanco MD [address] [place] [address] PCP - General 09/02/00 documented as of this encounter
--- OUTSIDE RECORDS SUMMARY | 2024-03-03 02:12 | External Medical Summary | Summary of Care ---
Author Name Unknown Organization [facility] Address [address] [place] [address] Phone [phone] Care Team Providers Care Oil Speculator Name Role Phone Juan F Blanco MD Primary Care Provider [phone] Reason for Visit * Reason Onset Date Comments Medication Problem 10/11/2023 Encounter Details Date Type Department Care Team (Late st Contact Info) Description 10/11/2023 Telephone Urology, [facility] 132 [facility] [place] [address] Hoang Martinez MD 27 [facility] 270 [place] [address] Medication Problem Allergies Active Allergy Reactions [...] Obesity protocol Atherosclerotic heart diseas e of [place] coronary artery without angina pectoris 05/30/2019 Major [...] mRNA, LNP-s, No Pre serve, 2-Dose Series ([employer]Core) 09/03/2020,08/13/2020 COVID-19, LNP-s, No Preserve , Niko-sucrose, [...] Oral Tablet Extended Release 24 Hour (Myrbetriq) [[id number]] (Order [id number]) Please call pt. I tried clinic but they were busy assisting another pt. Thank you Roxana documented in this encounter Plan of Treatment Upcoming Encounters Date Type Department Care Team (Late st Contact Info) Description 01/17/2024 9:15 AM EDT Office Visit Urology, [facility] 132 [facility] [address] Hoang Martinez MD [address] [place] 270 [place] [address] 01/17/2024 2:20 PM EDT Office Visit [facility] [address] [place] [phone] Juan F Blanco MD [address] [place] [address] 02/21/2024 1:00 PM EDT Office Visit Neurology [facility] 200 [facility] [place] [address] Landon Meredith MD [address] [place] [address] 04/02/2024 1:00 PM EST Imaging Radiology [facility] 132 [facility] [place] [address] 09/12/2024 3:00 PM EDT Office Visit Allergy/Immunology [facility] 200 [address] [place] [address] Sandra Macdonald PA-C 200 [facility] [place] [address] Health Maintenance Due Date Last Done Comments [...] this encounter Medical Devices Implanted Type Area Motor Winder Device Identifier Shelf Expiration Date Model / Serial / Lot Clip Quick 2.8mm 230cm - [id number] Implanted:Qty: 2 on 10/20/2021 by Tanja Schulz MD at ENDOSCOPY [facility] [employer] 08/30/2023 HX-202UR.A / / Duraclip 16mm Xlg Repostn - [id number] Implanted:Qty: 4 on 10/20/2021 by Tanja Schulz MD at ENDOSCOPY [facility] [employer] 11/02/2023 [id number] / / documented as of this encounter Care Teams Oil Speculator Relationship Specialty Start Date End Date Juan F Blanco MD [address] [place], [place] [phone] PCP - General 09/02/00 documented as of this encounter
--- OUTSIDE RECORDS SUMMARY | 2024-03-03 02:12 | External Medical Summary | Summary of Care ---
Author Name Unknown Organization [facility] Address [address] [place] [address] Phone [phone] Care Team Providers Care Tile Molder Name Role Phone Juan F Blanco MD Primary Care Provider [phone] Reason for Visit * Reason Onset Date Comments Medication Refill 10/11/2023 Encounter Details Date Type Department Care Team (Late st Contact Info) Description 10/11/2023 Refill Allergy/Immunology [facility] [address] [place] [address] Tracy Franks MD [address] [place] [address] Allergies Active Allergy Reactions Criticality Noted Date [...] A DAY 48 mL 3 4 Active Fluticasone Propionate 50 MCG/ACT Nasal Suspension (Flonase) INSTILL 1 SPRAY INTO EACH NOSTRIL TWICE A DAY 16 mL 4 10/11/19 24 Discontinu ed(Refill) Azelastine HCl 137 MCG/SPRAY Nasal Solution INSTILL 1 SPRAY INTO EACH NOSTRIL TWICE A DAY 30 mL 4 10/11/19 24 Discontinu ed(Refill) documented as of this [...] Obesity protocol 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 Major [...] mRNA, LNP-s, No Pre serve, 2-Dose Series ([employer]) 09/03/2020,08/13/2020 COVID-19, LNP-s, No Preserve , Niko-sucrose, Ages 12+ ([employer]) 04/28/2021 Covid-19, Mrna, Lnp-s, Pf, B ivalent, [...] encounter Miscellaneous Notes * Telephone Encounter - Tracy Franks MD - 10/11/2023 1:18 PM EDTSigned Prescriptions: Disp Refills Azelastine HCl 137 MCG/SPRAY Nasal Gsqwytzi10 mL 3 Sig: INSTILL 1 SPRAY INTO EACH NOSTRIL TWICE A DAY Authorizing Provider: TRACY FRANKS Fluticasone Propionate 50 MCG/ACT Nasal Child*48 mL 3 Sig: INSTILL 1 SPRAY INTO EACH NOSTRIL TWICE A DAY Authorizing Provider: TRACY FRANKS * Telephone Encounter - Berenice Clemons LPN - 10/11/2023 1:06 PM EDT No prescriptions requested or ordered in this encounter Last Visit: 09/13/2023 (in office), Visit date not found (telemedicine) Next Visit: 09/12/2024 Last date the medication was ordered: 09/19/23. Health Maintenance Topic Date Due Colonoscopy 10/20/2022 COVID-19 Vaccine (2022- season) 2022 GFR 07/03/2024 Depression Monitoring 07/11/2024 Albumin/Creatinine Ratio 07/03/2026 DTaP,Tdap,and Td Vaccines (3 - Td or Tdap) 12/11/2029 Influenza Vaccine (FLU shot) Completed Zoster Vaccines Completed Pneumococcal Vaccine: 65+ Years Completed Hepatitis B Aged Out MENINGOCOCCAL (MENACTRA/MENVEO) Aged Out GARDASIL-HPV IMMUNIZATION SERIES Aged Out RETIRED - COLONOSCOPY-ANNUAL AGES 18-100 [...] 01/17/2024 9:15 AM EDT Office Visit Urology, [facility] 132 [facility] [place] [address] Hoang Martinez MD 27 [address] [place] [address] 01/17/2024 2:20 PM EDT Office Visit [facility] [address] [place] [phone] Juan F Blanco MD [address] [place] [address] 02/21/2024 1:00 PM EDT Office Visit Neurology [facility] [address] [place] [address] Landon Meredith MD [address] [place] [address] 04/02/2024 1:00 PM EST Imaging Radiology [address] 132 [facility] [place] [address] 09/12/2024 3:00 PM EDT Office Visit Allergy/Immunology [facility] [address] [place] [address] Sandra Macdonald PA-C 200 [facility] [place] [address] Health Maintenance Due Date Last Done Comments [...] this encounter Medical Devices Implanted Type Area Central Lab Technician Device Identifier Shelf Expiration Date Model / Serial / Lot Clip Quick 2.8mm 230cm - [id number] Implanted:Qty: 2 on 10/20/2021 by Tanja Schulz MD at [facility]OSCOPY [facility] [employer] 08/30/2023 HX-202UR.A / / Duraclip 16mm Xlg Repostn - [id number] Implanted:Qty: 4 on 10/20/2021 by Tanja Schulz MD at [facility]OSCOPY [facility] [employer] LELE 11/02/2023 [id number] / / documented as of this encounter Care Teams Tile Molder Relationship Specialty Start Date End Date Juan F Blanco MD [address] [place] [address] PCP - General 09/02/00 documented as of this encounter
--- OUTSIDE RECORDS SUMMARY | 2024-03-03 02:12 | External Medical Summary | Summary of Care ---
Author Name Unknown Organization [facility] Address [address] [place] [address] Phone [phone] Care Team Providers Care Compliance Investigator Name Role Phone Juan F Blanco MD Primary Care Provider [phone] Reason for Visit * Reason Onset Date Comments Medication Problem 10/11/2023 Encounter Details Date Type Department Care Team (Late st Contact Info) Description 10/11/2023 Telephone Urology, [facility] 132 [facility] [place] [address] Hoang Martinez MD 27 [facility] 270 [place] [address] Medication Problem Allergies Active Allergy Reactions [...] Obesity protocol 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 I tried clinic but they were busy assisting another pt. Thank you Roxana documented in this encounter Plan of Treatment Upcoming Encounters Date Type Department Care Team (Late st Contact Info) Description 01/17/2024 9:15 AM EDT Office Visit Urology, [facility] 132 [facility] [place] [address] Hoang Martinez MD [address] [place] [address] [place] [address] 01/17/2024 2:20 PM EDT Office Visit [facility] [address] [place] [phone] Juan F Blanco MD [address] [place] [address] 02/21/2024 1:00 PM EDT Office Visit Neurology [facility] 200 [place] [address] Landon Meredith MD [address] [place], [place] [address] 04/02/2024 1:00 PM EST Imaging Radiology [address] 132 [place] [address] 09/12/2024 3:00 PM EDT Office Visit Allergy/Immunology [facility] [address] [place], [place] [address] Sandra Macdonald PA-C 200 [facility] [place] [address] Health Maintenance Due Date Last Done Comments [...] this encounter Medical Devices Implanted Type Area Toy Packer Device Identifier Shelf Expiration Date Model / Serial / Lot Clip Quick 2.8mm 230cm - [id number] Implanted:Qty: 2 on 10/20/2021 by Tanja Schulz MD at ENDOSCOPY [facility] [employer] 08/30/2023 HX-202UR.A / / Duraclip 16mm Xlg Repostn - [id number] Implanted:Qty: 4 on 10/20/2021 by Tanja Schulz MD at ENDOSCOPY [facility] [employer] LELE 11/02/2023 [id number] / / documented as of this encounter Care Teams Compliance Investigator Relationship Specialty Start Date End Date Juan F Blanco MD [address] [place] [address] PCP - General 09/02/00 documented as of this encounter
--- OUTSIDE RECORDS SUMMARY | 2024-03-03 02:13 | External Medical Summary | Summary of Care ---
Author Name Unknown Organization [facility] Address [address] [place] [address] Phone [phone] Care Team Providers Care Obstetrics Scrub Nurse Name Role Phone Juan F Blanco MD Primary Care Provider [phone] Reason for Visit * Reason Onset Date Comments Medication Question 10/03/2023 Encounter Details Date Type Department Care Team (Late st Contact Info) Description 10/03/2023 Telephone Urology, [facility] 132 [place], [place] [phone] Services, Scheduling [address] [place] [address] Medication Question Allergies Active Allergy Reactions Criticality Noted Date Comments Meloxicam Nausea/vomiting 07/06/2017 Nausea and head congestion Naproxen Other (Please comment) Low 02/27/2003 nightmares documented as of this encounter (statuses as of 10/04/2023) Medications Medication Sig Dispensed Refills Start Date [...] AT BEDTIME 360 Capsule 3 09/01/2023 Active Fluticasone Propionate 50 MCG/ACT Nasal Suspension (Flonase) INSTILL 1 SPRAY INTO EACH NOSTRIL TWICE A DAY 16 mL 14 09/19/2023 Active Azelastine HCl 137 MCG/SPRAY Nasal Solution INSTILL 1 SPRAY INTO EACH NOSTRIL TWICE A DAY 30 mL 14 09/19/2023 Active Mirabegron ER 50 MG Oral Tablet Extended Release 24 Hour (Myrbetriq) Take 1 Tablet by mouth in the morning. 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 Patient will remain on both medications. Patient will watch for signsof low BP and contact office with any questions. * Telephone Encounter - Hoang Martinez MD - 10/04/2023 11:52 AM EDT The main concern would be difficulties with blood pressure control. If this is not taking place, hecan continue both medications. He can review with primary care if there is any concern on their part. Thanks, HM * Telephone Encounter - Adeline Crump LPN - 10/04/2023 10:40 AM EDT Spoke with pt. Myrbetriq may interact with metoprolol per pamphlet in medications. He is currently taking both and is not having any noticeable side effects. Patient asking if he is ok to continue both, or if you have different recommendations. Please advise Thank you Sonia * Telephone Encounter - Lyudmila Caceres OSA - 10/03/2023 12:29 PM EDT Pt calling in stating that he was recently prescribed myrbetriq. Pt states there is a medication interaction between this medication and metoprolol which pt is currently taking. Please advise documented in this encounter Plan of Treatment Upcoming Encounters Date Type Department Care Team (Late st Contact Info) Description 01/17/2024 9:15 AM EDT Office Visit Urology, [facility] 132 [place] [address] Hoang Martinez MD [address] [place] [address] [place] [address] 01/17/2024 2:20 PM EDT Office Visit [facility] [address] [place] [phone] Juan F lBanco MD [address] [place] [address] 02/21/2024 1:00 PM EDT Office Visit Neurology [facility] 200 [facility] [place] [address] Landon Meredith MD [address] [place] [address] 04/02/2024 1:00 PM EST Imaging Radiology [facility] 1st [facility] 132 [facility] [address] 09/12/2024 3:00 PM EDT Office Visit Allergy/Immunology [facility] 200 [facility] [place] [address] Sandra Macdonald PA-C 200 [facility] [place], [place] [address] Health Maintenance Due Date Last Done Comments Colonoscopy 10/20/2022 10/20/2021, 10/01, 01/24/2019, Additional history exists COVID-19 Vaccine ( season) 2022 01/27/2022, 04/28/2021, 09/03/2020, Additional history exists GFR 07/03/2024 07/04/2023, 03/02, 10/16/2021, Additional history exists Albumin/Creatinine Ratio 07/03/2026 07/04/2023 DTaP,Tdap,and Td Vaccines [...] this encounter Medical Devices Implanted Type Area National Sales Representative Device Identifier Shelf Expiration Date Model / Serial / Lot Clip Quick 2.8mm 230cm - [id number] Implanted:Qty: 2 on 10/20/2021 by Tanja Schulz MD at [facility]OSCOPY [facility] [employer] 08/30/2023 HX-202UR.A / / Duraclip 16mm Xlg Repostn - [id number] Implanted:Qty: 4 on 10/20/2021 by Tanja Schulz MD at ENDOSCOPY [facility] [employer] 11/02/2023 [id number] / / documented as of this encounter Care Teams Obstetrics Scrub Nurse Relationship Specialty Start Date End Date Juan F Blnaco MD [address] [place] [phone] PCP - General 09/02/00 documented as of this encounter
--- OUTSIDE RECORDS SUMMARY | 2024-03-03 02:13 | External Medical Summary | Summary of Care ---
Author Name Unknown Organization [facility] Address [address] [place] [address] Phone [phone] Care Team Providers Care Rebar Bender Name Role Phone Juan F Blanco MD Primary Care Provider [phone] Reason for Visit * Reason Comments eRx-Medication Refill Encounter Details Date Type Department Care Team (Late st Contact Info) Description 09/19/2023 Refill [facility] 200 [place] [address] Tracy Franks MD [address] [place] [facility] [place] [address] Allergies Active Allergy Reactions Criticality Noted Date Comments Meloxicam Nausea/vomiting 07/06/2017 Nausea and head congestion Naproxen Other (Please comment) Low 02/27/2003 nightmares documented as of this encounter (statuses as of 09/19/2023) Medications Medication Sig Dispensed Refills Start Date [...] with food 100 Tab 5 0 Active Additional Information Patient not taking.Reported on 09/15/2023 SINUS WASH NETI POT 2300-700 MG NA [...] AT BEDTIME 360 Capsule 3 4 Active Azelastine HCl 137 MCG/SPRAY Nasal Solution INSTILL 1 SPRAY INTO EACH NOSTRIL TWICE A DAY 30 mL 14 4 Active Azelastine HCl 0.1 % Nasal Solution (Astelin) INSTILL 1 SPRAY INTO EACH NOSTRIL TWICE A DAY 90 mL 4 3 09/19/19 24 Discontinued documented as of this encounter (statuses as of 09/19/2023) Active Problems Problem Noted Date Diagnosed Date [...] Obesity protocol 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/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 Major [...] as of this encounter (statuses as of 09/19/2023) Resolved Problems Problem Noted Date Diagnosed Date [...] as of this encounter (statuses as of 09/19/2023) Immunizations Name Administration Dates Next Due COVID-19 mRNA, LNP-s, No Pre serve, 2-Dose Series (Pfizer) 09/03/2020,08/13/2020 COVID-19, LNP-s, No Preserve , Nkio-sucrose, Ages 12+ (Pfizer) 04/28/2021 Covid-19, Mrna, Lnp-s, [...] 03/06/2014,01/19/2013,02/03/2012,12/31,02/16/2010,02/11/2009,02/26/20 08,03/08/2007,04/10/2006 02/11/2010 TD, Preservative Free 12/12/2019 TDAP (age 11 and older)(Adacel) 02/16/2010 Zoster Vaccine Recombinant (Shingrix) 12/21/2017 ,10/04/2017 [...] Telephone Encounter - Tracy Franks MD - 09/19/2023 7:34 AM EDTSigned Prescriptions: Disp Refills Azelastine HCl 137 MCG/SPRAY Nasal [id number] mL 14 Sig: INSTILL 1 SPRAY INTO EACH NOSTRIL TWICE A DAY Authorizing Provider: TRACY FRANKS * Telephone Encounter - Angelia Sams LPN - 09/19/2023 7:09 AM EDT Pending Prescriptions: Disp Refills Azelastine HCl 137 MCG/SPRAY Nasal Solutio* 14 Sig: INSTILL 1 SPRAY INTO EACH NOSTRIL TWICE A DAY * Telephone Encounter - Angelia Sams LPN - 09/19/2023 7:08 AM EDT Pending Prescriptions: Disp Refills Azelastine HCl 137 MCG/SPRAY Nasal Soluti* 14 Sig: INSTILL 1 SPRAY INTO EACH NOSTRIL TWICE A DAY Last Visit: 09/13/2023 (in office), Visit date not found (telemedicine) Next Visit: 09/12/2024 Last date the medication was ordered: 06/28/22 Health Maintenance Topic Date Due Colonoscopy 10/20/2022 COVID-19 Vaccine (2022- season) 2022 GFR 07/03/2024 Albumin/Creatinine Ratio 07/03/2026 DTaP,Tdap,and Td Vaccines (3 [...] Care Team (Late st Contact Info) Description 09/21/2023 3:00 PM EDT Procedure Only Urology, [facility] 132 [facility] [place] [address] Hoang Martinez MD 27 [facility] [address] [place] [address] 01/17/2024 2:20 PM EDT Office Visit [facility] [address] [place] [address] Juan F Blanco MD [address] [place] [address] 02/21/2024 1:00 PM EDT [facility] [address] [place] [address] Landon Meredith MD [address] [place] [address] 04/02/2024 1:00 PM EST Imaging Radiology [facility] 1st [facility] 132 [facility] [place] [address] 09/12/2024 3:00 PM EDT [facility] 200 [place] [address] Sandra Macdonald PA-C 200 [facility] [place] [address] Health Maintenance Due Date Last Done Comments [...] this encounter Medical Devices Implanted Type Area Building Surveyor Device Identifier Shelf Expiration Date Model / Serial / Lot Clip Quick 2.8mm 230cm - [id number] Implanted:Qty: 2 on 10/20/2021 by Tanja Schulz MD at ENDOSCOPY [facility] [employer] 08/30/2023 HX-202UR.A / / Duraclip 16mm Xlg Repostn - [id number] Implanted:Qty: 4 on 10/20/2021 by Tanja Schulz MD at ENDOSCOPY [facility] [employer] LELE 11/02/2023 [id number] / / documented as of this encounter Care Teams Rebar Bender Relationship Specialty Start Date End Date Juan F Blanco MD [address] [place] [address] PCP - General 09/02/00 documented as of this encounter
--- OUTSIDE RECORDS SUMMARY | 2024-03-03 02:13 | External Medical Summary ---
Author Name Unknown Address Unknown Organization [id number]:[facility] - [address] [facility] [address] Laboratory Report Ordering Provider Test Date Status MELIA SALGUERO 09/21/2023 16:10:58 Final Observation Date Value Abnormality Reference (Units) Status Bacteria identified in Specimen by Culture 09/21/2023 16:10:58 No significant growth Final Test: Culture, Urine, Quanti tative
Specimen Source: Urine, Clean Catch
Specimen Type: Urine
Specimen Date: 09/21/2023 1610
Result Date: 09/22/2023 1640
Result Status: Final result
Resulting Lab: [facility]
[address]
[place] [address]

CULTURE

No significant growth

null Performing Location [facility] - [address] [facility] [address]
--- OUTSIDE RECORDS SUMMARY | 2024-03-03 02:13 | External Medical Summary | Summary of Care ---
Author Name Unknown Organization [facility] Address [address] [place] [address] Phone [phone] Care Team Providers Care Revenue Research Analyst Name Role Phone Jose M Blanco MD Primary Care Provider [phone] Reason for Visit * Reason Comments Follow Up Encounter Details Date Type Department Care Team (Latest Contact Info) Description 09/21/2023 3:00 PM EDT Procedure Only Urology, [facility] [address] [facility] [place] [address] Hoang Martinez MD [address] [place] [address] [facility] [place] [address] BPH with obstruction/lower urinary tract symptoms*; Nocturnal enuresis; Nocturia; Other stricture of urethral meatus in male; Other urinary incontinence Allergies Active Allergy Reactions Criticality Noted Date Comments Meloxicam Nausea/vomiting 07/06/2017 Nausea and head congestion Naproxen Other (Please comment) Low 02/27/2003 nightmares documented as of this encounter (statuses as of 09/21/2023) Medications Medication Sig Dispensed Refills Start Date [...] the morning. 30 Tablet 6 09/21/2023 Active Hospital, Clinic, or Other Facility Administered Medication Ordered Dose Route Frequency Start Date End Date Status sulfamethoxazole-trimethopr im DS (Bactrim DS) 800-160 MG 1 TabletIndications:BPH with obstruction/lower urinary tract symptoms,Nocturnal enuresis,Nocturia,Other stricture of urethral meatus in male 1 Tablet OR ONCE 09/21/2023 09/21/2023 Ended documented as of this encounter (statuses as of 09/21/2023) Active Problems Problem Noted Date Diagnosed Date [...] Obesity protocol Atherosclerotic heart diseas e of [place] coronary artery without angina pectoris 05/30/2019 Major [...] as of this encounter (statuses as of 09/21/2023) Resolved Problems Problem Noted Date Diagnosed Date [...] as of this encounter (statuses as of 09/21/2023) Immunizations Name Administration Dates Next Due COVID-19 mRNA, LNP-s, No Pre serve, 2-Dose Series (idio) 09/03/2020,08/13/2020 COVID-19, LNP-s, No Preserve , Niko-sucrose, [...] Inj 03/06/2014,01/19/2013,02/03/2012,12/31,02/16/2010,02/11/2009,02/26/20,03/08/2007,04/10/2006 02/11/2010 TD, Preservative Free 12/12/2019 TDAP (age [...] on file documented as of this encounter Progress Notes * Hoang Martinez MD - 09/21/2023 3:00 PM EDT [id number] PCP: JOSE M BLANCO [place] [address] Gary Lakhani Jr. is a 77 year old male, who presents for for follow-up of his voiding symptoms. Patient's previous cystoscopy findings in May of 2023 are reviewed. Patient notes recurrent nocturia and incontinence. He is quite frustrated with his symptoms. BPH: Patient is being seen for BPH today. He has previously had the following symptoms: intermittency ofstream, nocturia x 6-18, urgency, and incontinence of urine. Severity is high. Using diapers He has tried finasteride, added Mar 2023. He has previously had office cystoscopy done, last May 2023 showing small, obstructive prostate and open stricture disease. Cysto August 2023 - no change Problem has been present for years. Problem is stable. Current Outpatient Medications Medication Sig Dispense Refill OMEGA-3 FATTY ACIDS 1000 MG PO CAPS one BID o 0 FOLIC ACID 800 MCG PO TABS 1 TABLET EVENING 0 0 CALCIUM-CARB 600 + D 600-125 MG-UNIT PO TABS 1 twice daily 60 11 ASPIRIN 81 MG PO CHEW One pill by mouth once a day with food (Patient not taking: Reported on 09/15/2023) 100 Tab 5 SINUS WASH NETI POT [...] as needed forOther (anxiety). 180 Tablet 3 Benzonatate 100 MG Oral Capsule Take 1-2 Capsules by mouth 3 times a day as needed for Cough. (Patient not taking: Reported on 09/13/2023) 30 Capsule 1 traMADol HCl 50 MG Oral Tablet (Ultram) Take 1 Tablet by mouth 3 times a day as needed for Pain, Severe. 30 Tablet 1 Escitalopram Oxalate 10 MG Oral Tablet (Lexapro) TAKE 1 TABLET BY MOUTH EVERY DAY 90 Tablet 3 Finasteride 5 MG Oral Tablet (Proscar) Take 1 Tablet by mouth in the morning. 90 Tablet 3 traZODone HCl 50 MG Oral Tablet (Desyrel) Take 1 tablet by mouth once daily at bedtime 90 Tablet 3 Metoprolol Tartrate 25 MG Oral Tablet (Lopressor) TAKE 1 TABLET BY MOUTH TWICE A DAY 180 Tablet 1 Carbidopa-Levodopa 25-100 MG Oral Tablet (Sinemet) TAKE 1.5 TABLETS FOUR TIMES DAILY. 540 Tablet 1 Sildenafil Citrate 100 MG Oral Tablet (Viagra) [...] MOUTH IN THE MORNING 180 Capsule 1 Lisinopril 20 MG Oral Tablet (Prinivil) TAKE 1 TABLET BY MOUTH DAILY Gabapentin 300 MG Oral Capsule (Neurontin) TAKE 1 CAP IN AM AND 1 CAP AT NOON AND 2 CAPS AT [id number] Capsule 3 Fluticasone Propionate 50 MCG/ACT Nasal Suspension (Flonase) INSTILL 1 SPRAY INTO EACH NOSTRIL TWICE A DAY 16 mL 14 Azelastine HCl 137 MCG/SPRAY Nasal Solution INSTILL 1 SPRAY INTO EACH NOSTRIL TWICE A DAY 30 mL 14 No current facility-administered medications for this visit. Review of patient's allergies indicates: Allergen Reactions Meloxicam Nausea/vomiting Nausea and head congestion Naproxen Other (Please comment) nightmares Social History: Social History Tobacco Use Smoking status: Never Smokeless tobacco: Never Tobacco comments: no passive smoke exposures Substance Use Topics Alcohol use: Yes Comment: 1 case beer YEAR Vaping/E-Cigarette Use Vaping/E-Cigarette Use Never User Vaping/E-Cigarette Substances Vaping/E-Cigarette Devices Past Surgical History: Procedure Laterality Date CARPAL TUNNEL SURGERY one right CARPAL TUNNEL SURGERY left CARPAL TUNNEL SURGERY left CARPAL TUNNEL SURGERY left with vein graft from right leg COLONOSCOPY, DIAGNOSTIC (RECTUM) 01/27/2012 no evidence of active inflammation inthe intestine - biopsies show that colitis is in remission, noevidence of precancerous change in the intestine COLONOSCOPY, DIAGNOSTIC (RECTUM) 05/27/2014 colitis in remission, repeat 1 yr/[facility] COLONOSCOPY, DIAGNOSTIC (RECTUM) 07/23/2015 inactive colitis, diverticulosis/COLONOSCOPY FLEXIBLE PROXIMAL DIAGNOSTIC performed by Tanja Schulz MD at ENDOSCOPY [facility] COLONOSCOPY, DIAGNOSTIC (RECTUM) 01/24/2019 active inflammation, fair prep/COLONOSCOPY FLEXIBLE PROXIMAL DIAGNOSTIC performed by Frances Irizarry MDat [facility]OSCOPY [facility] COLONOSCOPY, DIAGNOSTIC (RECTUM) 10/20/2021 prep-fair, multi polyps hepatic flexure, transverse, AVM's, divertilucosis / biopsies benign / COLONOSCOPY FLEXIBLE PROXIMAL DIAGNOSTIC performed by Tanja Schulz MD at ENDOSCOPY [facility] INFORMATION 6 surgeries,carpal tunnel all failed INJECT DX/THER SUBSTANCE INTERLAMINAR LUMBAR/SACRAL W IMAGE GUIDE 02/10/2017 INJECTION SPINE LUMBAR OR SACRAL performed by Cresencio Maldonado, DO at OR [facility] INJECT DX/THER SUBSTANCE INTERLAMINAR LUMBAR/SACRAL W IMAGE GUIDE 02/20/2018 INJECTION SPINE LUMBAR OR SACRAL performed by Cresencio Maldonado, DO at [facility] INJECT DX/THER SUBSTANCE INTERLAMINAR LUMBAR/SACRAL W IMAGE GUIDE 04/03/2018 INJECTION SPINE LUMBAR OR SACRAL performed by Cresencio Maldonado, DO at [facility] INJECT DX/THER SUBSTANCE INTERLAMINAR LUMBAR/SACRAL W IMAGE GUIDE 10/18/2019 INJECTION SPINE LUMBAR OR SACRAL performed by Cresencio Maldonado, DO at [facility] INJECT DX/THER SUBSTANCE INTERLAMINAR LUMBAR/SACRAL W IMAGE GUIDE 02/16/2023 INJECTION SPINE LUMBAR OR SACRAL performed by Cresencio Maldonado, DO at [facility] INJECT DX/THER SUBSTANCE INTERLAMINAR LUMBAR/SACRAL W IMAGE GUIDE 06/27/2023 INJECTION SPINE LUMBAR OR SACRAL performed by Serjio Torre, at [facility] MISCELLANEOUS ORDER ([facility] ONLY) 2006 right shoulder replacement/ [place] MISCELLANEOUS ORDER ([facility] ONLY) 08/31/2011 left shoulder replacement( [place]) SACROILIAC JOINT INJECT W/GUIDANCE 11/19/2019 INJECTION SACROILIAC JOINT performed by Cresencio Maldonado, DO at [facility] SACROILIAC JOINT INJECT W/GUIDANCE 06/09/2020 INJECTION SACROILIAC JOINT performed by Cresencio Maldonado, DO at [facility] SACROILIAC JOINT INJECT W/GUIDANCE 12/01/2022 INJECTION SACROILIAC JOINT performed by Cresencio Maldonado, DO at [facility] Past Medical History: Diagnosis Date Allergic rhinitis Chronic sinusitis 2006 Hearing loss HTN, goal to be determined mild Other diseases of respiratory system, not elsewhere classified 2006 Presbyacusis 2006 Sensorineural hearing loss, bilateral 2006 Sleep apnea 2006 Ulcerative colitis, unspecified 01/27/12 - biopsies show that colitis in remission Patient Active Problem List Diagnosis TESTICULAR HYPOFUNC NEC ADVANCE DIRECTIVE INFORMATION Obstructive sleep apnea on CPAP Paroxysmal SVT (supraventricular tachycardia) ([facility]) Thoracic aortic aneurysm (HCC) Dyslipidemia, goal LDL below 100 Junctional bradycardia Cardiac pacemaker in situ Parkinson's disease ([facility]) Vitamin D deficiency Family history of abdominal aortic aneurysm (AAA) 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 ([facility]) Chronic midline low back pain with left-sided sciatica Hematuria of undiagnosed cause Renal cyst, left 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 Major depressive disorder, single episode, unspecified Essential hypertension with goal blood pressure less than 130/80 Aortic root dilation ([facility]) Body mass index (BMI) of 40.0 to 44.9 in adult ([facility]) Nocturnal enuresis BPH with obstruction/lower urinary tract symptoms NSVT (nonsustained ventricular tachycardia) ([facility]) Major depressive disorder, single episode, moderate ([facility]) Male : See HPI Cystoscopy Procedure Note: Patient was properly identified and appropriate consent was confirmed. Risks and benefits of the procedure were reviewed and the patient was prepped and draped in the standard fashion for the procedure. A well lubricated 16 [place] flexible cystoscope was introduced through the meatus into the urethra. Urethra demonstrated mild urethral stenosis at meatus, able to be bypassed with scope with open,at risk urethra not causing dramatic obstruction . Prostatic urethra demonstrated a short, open prostate . Bladder neck was visualized and bladder was entered. Sterile saline irrigation was used to distend the bladder which was noted to have no tumors, stones or mucosal abnormalities and iikn-sy-tfmnppyc PVR with grade 2 trabeculation. Bladder was completely inspected including retroflexion of the scope. Ureteral orifices were noted to be in the normal anatomic position bilaterally. After this was completed the cystoscope was removed. Patient tolerated the procedure well without complicationsor difficulties. Tumbling Barrel Painter was present for entire procedure. Perioperative Bactrim was provided. Impression/Plan: 77-year-old male with persistent nocturnal enuresis. I suspect that the patient's parkinsonism may be a significant contributor rather than bladder outlet obstruction. Will provide a trial of Myrbetriq to avoid risk of anticholinergic side effects. Prescription sent to the patient's pharmacy. Will see back in 3 months to check on progress. Contact ussooner with any significant difficulties with medication tolerance. Above content is personally reviewed. Hoang Martinez MD 1:54 PM 09/21/2023 documented in this encounter Nursing Notes * Adeline Crump LPN - 09/21/2023 2:54 PM EDT 4 month ret / cystoscopy Recent nocturnal incontinence Sildenafil, finasteride Patient's skin was prepped with hibiclens, and 2% lidocaine jelly was inserted into urethra for cystoscopy. Patient tolerated well. documented in this encounter Plan of Treatment Upcoming Encounters Date Type Department Care Team (Late st Contact Info) Description 01/10/2024 10:45 AM EDT Office Visit Urology, [facility] 132 [facility] [place] [address] Hoang Martinez MD [address] [address] 01/17/2024 2:20 PM EDT Office Visit [facility] [address] [place] [id number] Jose M Blanco MD [address] [place] [address] 02/21/2024 1:00 PM EDT Office Visit Neurology [facility] [address] [facility] [place] [address] Landon Meredith MD [address] [place] [address] 04/02/2024 1:00 PM EST Imaging Radiology [facility] 1st [facility] 132 [facility] [place] [address] 09/12/2024 3:00 PM EDT Office Visit Allergy/Immunology [facility] [address] [place] [address] Sandra Macdonald PA-C [address] [place] [address] Scheduled Orders Name Type Priority Associated Diagnoses Orde r Schedule CYSTOSCOPY Procedures Routine BPH with obstruction/lower urinary tract symptoms Nocturnal enuresis Nocturia Other stricture of urethral meatus in male Ordered: 09/21/2023 Health Maintenance Due Date Last Done Comments [...] this encounter Medical Devices Implanted Type Area Forestry Biology Specialist Device Identifier Shelf Expiration Date Model / Serial / Lot Clip Quick 2.8mm 230cm - [id number] Implanted:Qty: 2 on 10/20/2021 by Tanja Schulz MD at [facility]OSCOPY [facility] [employer] 08/30/2023 [id number]-202UR.A / / Duraclip 16mm Xlg Repostn - [id number] Implanted:Qty: 4 on 10/20/2021 by Tanja Schulz MD at ENDOSCOPY [facility] [employer] 11/02/2023 [id number] / / documented as of this encounter Visit Diagnoses Diagnosis BPH with obstruction/lower urinary tract symptoms- Primary Hypertrophy of prostate with urinary obstruction and other lower urinary tract symptoms (LUTS) Nocturnal enuresis Nocturia Other stricture of urethral meatus in male Other urinary incontinence documented in this encounter Administered Medications Inactive Administered Medications - up to 3 most recent administrations Medication Order MAR Action Action Date Dose Rate Site sulfamethoxazole-trimethoprim DS (Bactrim DS) 800-160 MG 1 Tablet 1 Tablet, Oral, ONCE, On Tue09/21/23 at 1600, For 1 dose Given 09/21/2023 4:10 PM EDT 1 Tablet documented in this encounter Care Teams Revenue Research Analyst Relationship Specialty Start Date End Date Jose M Blanco MD [address] [place] [address] PCP - General 09/02/00 documented as of this encounter
--- OUTSIDE RECORDS SUMMARY | 2024-03-03 02:13 | External Medical Summary | Summary of Care ---
Author Name Unknown Organization [facility] Address [address] [place] [address] Phone [phone] Care Team Providers Care Management Professional Name Role Phone Juan F Blanco MD Primary Care Provider Reason for Visit * Reason Comments eRx-Medication Refill Encounter Details Date Type Department Care Team (Late st Contact Info) Description 09/17/2023 Refill Allergy/Immunology [facility] 200 [facility] [place] [address] Tracy Franks MD [address] [place] [address] Allergies Active Allergy Reactions Criticality Noted Date [...] AT BEDTIME 360 Capsule 3 4 Active Fluticasone Propionate 50 MCG/ACT Nasal Suspension (Flonase) INSTILL 1 SPRAY INTO EACH NOSTRIL TWICE A DAY 16 mL 14 4 Active Azelastine HCl 0.1 % Nasal Solution (Astelin) INSTILL 1 SPRAY INTO EACH NOSTRIL TWICE A DAY 90 mL 4 3 09/19/19 24 Discontinued Fluticasone Propionate 50 MCG/ACT Nasal [...] Obesity protocol Atherosclerotic heart diseas e of [place] coronary artery without angina pectoris 05/30/2019 Major [...] Encounter - Tracy Franks MD - 09/19/2023 7:33 AM EDTSigned Prescriptions: Disp Refills Fluticasone Propionate 50 MCG/ACT Nasal Child*16 mL 14 Sig: INSTILL 1 SPRAY INTO EACH NOSTRIL TWICE A DAY Authorizing Provider: TRACY FRANKS * Telephone Encounter - Angelia Sams LPN - 09/19/2023 7:08 AM EDT Pending Prescriptions: Disp Refills Fluticasone Propionate 50 MCG/ACT Nasal Child*16 mL 14 Sig: INSTILL 1 SPRAY INTO EACH NOSTRIL TWICE A DAY * Telephone Encounter - Angelia Sams LPN - 09/19/2023 7:08 AM EDT Pending Prescriptions: Disp Refills Fluticasone Propionate 50 MCG/ACT Nasal S*16 mL 14 Sig: INSTILL 1 SPRAY INTO EACH NOSTRIL TWICE A DAY Last Visit: 09/13/2023 (in office), Visit date not found (telemedicine) Next Visit: 09/12/2024 Last date the medication was ordered: 08/23/22 Health Maintenance Topic Date Due Colonoscopy 10/20/2022 [...] 09/21/2023 3:00 PM EDT Procedure Only Urology, [facility] 132 [facility] [place] [address] Hoang Martinez MD 27 [facility] [address] [place] [address] 01/17/2024 2:20 PM EDT Office Visit [facility] [address] [place] [phone] Juan F Blanco MD [address] [place] [address] 02/21/2024 1:00 PM EDT Office Visit Neurology [facility] [address] [place] [address] Landon Meredith MD [address] [place] [address] 04/02/2024 1:00 PM EST Imaging Radiology [facility] 1st [facility] [place] [address] [place] [address] 09/12/2024 3:00 PM EDT Office Visit Allergy/Immunology [facility] [place] [address] [facility] [place] [address] Sandra Macdonald PA-C [address] [place] [address] Health Maintenance Due Date Last Done Comments [...] this encounter Medical Devices Implanted Type Area Dental Assistant Instructor Device Identifier Shelf Expiration Date Model / Serial / Lot Clip Quick 2.8mm 230cm - [id number] Implanted:Qty: 2 on 10/20/2021 by Tanja Schulz MD at [facility]COPY [facility] [employer] 08/30/2023 [id number]-202UR.A / / Duraclip 16mm Xlg Repostn - [id number] Implanted:Qty: 4 on 10/20/2021 by Tanja Schulz MD at [facility] [employer] 11/02/2023 [id number] / / documented as of this encounter Care Teams Management Professional Relationship Specialty Start Date End Date Juan F Blanco MD [address] [place], [place] [id number] PCP - General 09/02/00 documented as of this encounter
--- OUTSIDE RECORDS SUMMARY | 2024-03-03 02:13 | External Medical Summary | Summary of Care ---
Author Name Unknown Organization [facility] Address [address] [place] [address] Phone [phone] Care Team Providers Care Driver Name Role Phone Jose M Blanco MD Primary Care Provider [phone] Reason for Visit * Reason Comments Follow Up Encounter Details Date Type Department Care Team (Latest Contact Info) Description 09/21/2023 3:00 PM EDT Procedure Only Urology, [facility] [address] [facility] [place] [address] Hoang Martinez MD [address] [place] [address] [place] [address] BPH with obstruction/lower urinary tract symptoms*; Nocturnal enuresis; Nocturia; Other stricture of urethral meatus in male Allergies Active Allergy Reactions Criticality Noted Date [...] Obesity protocol Atherosclerotic heart diseas e of [place] coronary artery without angina pectoris 05/30/2019 Major [...] mRNA, LNP-s, No Pre serve, 2-Dose Series (Eventful) 09/03/2020,08/13/2020 COVID-19, LNP-s, No Preserve , Niko-sucrose, Ages 12+ (Pfizer) 04/28/2021 Covid-19, Mrna, Lnp-s, Pf, B ivalent, 30 Mcg, IM, 12 yrs and above (Eventful) 01/27/2022 H1N1 2009 Influenza, IM 06/06/2009 Pneumococcal [...] Martinez MD - 09/21/2023 3:00 PM EDT [id number] PCP: JOSE M BLANCO [employer] [place] [address] Gary Lakhani Jr. is a [...] CAP AT NOON AND 2 CAPS AT [id number] Capsule 3 Fluticasone Propionate 50 MCG/ACT Nasal [...] (RECTUM) 05/27/2014 colitis in remission, repeat 1 yr/[facility] COLONOSCOPY, DIAGNOSTIC (RECTUM) 07/23/2015 inactive colitis, diverticulosis/COLONOSCOPY FLEXIBLE PROXIMAL DIAGNOSTIC performed by Tanja Schulz MD at [facility] COLONOSCOPY, DIAGNOSTIC (RECTUM) 01/24/2019 active inflammation, fair prep/COLONOSCOPY FLEXIBLE PROXIMAL DIAGNOSTIC performed by Frances Irizarry MDat [facility]OSCOPY [facility] COLONOSCOPY, DIAGNOSTIC (RECTUM) 10/20/2021 prep-fair, multi polyps hepatic flexure, transverse, AVM's, divertilucosis / biopsies benign / COLONOSCOPY FLEXIBLE PROXIMAL DIAGNOSTIC performed by Tanja Schulz MD at ENDOSCOPY [facility] INFORMATION 6 surgeries,carpal tunnel all failed INJECT [...] Serjio Torre, at OR [facility] MISCELLANEOUS ORDER ([facility] ONLY) 2006 right shoulder replacement/ [place] MISCELLANEOUS ORDER ([facility] ONLY) 08/31/2011 left shoulder replacement( [place]) SACROILIAC [...] apnea on CPAP Paroxysmal SVT (supraventricular tachycardia) ([facility]) Thoracic aortic aneurysm ([facility]) Dyslipidemia, goal LDL below 100 Junctional bradycardia Cardiac pacemaker in situ Parkinson's disease ([facility]) Vitamin D deficiency Family history of abdominal aortic aneurysm (AAA) 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 ([facility]) Chronic midline low back pain with left-sided sciatica Hematuria of undiagnosed cause Renal cyst, left 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 Major depressive disorder, single episode, unspecified Essential hypertension with goal blood pressure less than 130/80 Aortic root dilation ([facility]) Body mass index (BMI) of 40.0 to 44.9 in adult ([facility]) Nocturnal enuresis BPH with obstruction/lower urinary tract symptoms NSVT (nonsustained ventricular tachycardia) ([facility]) Major depressive disorder, single episode, moderate ([facility]) Male : See HPI Cystoscopy Procedure Note: Patient was properly identified and appropriate consent was confirmed. Risks and benefits of the procedure were reviewed and the patient was prepped and draped in the standard fashion for the procedure. A well lubricated 16 Russian flexible cystoscope was introduced through the meatus [...] no tumors, stones or mucosal abnormalities and [id number] PVR with grade 2 trabeculation. Bladder was completely inspected including retroflexion of the scope. Ureteral orifices were noted to be in the normal anatomic position bilaterally. After this was completed the cystoscope was removed. Patient tolerated the procedure well without complicationsor difficulties. Therapeutic Assistant was present for entire procedure. Perioperative Bactrim was provided. Impression/Plan: 77-year-old male with persistent nocturnal enuresis. I suspect that the patient's parkinsonism may be a significant contributor rather than bladder outlet obstruction. Will provide a trial of Myrbetriq to avoid risk of anticholinergic side effects. Prescription sent to the patient's pharmacy. Will see back in 3 months to check on progress. Contact [employer] with any significant difficulties with medication tolerance. [...] 01/10/2024 10:45 AM EDT Office Visit Urology, [facility] [address] [facility] [place] [address] Hoang Martinez MD 27 [facility] [address] [place] [address] 01/17/2024 2:20 PM EDT [facility] [address] [place] [phone] Jose M Blanco MD [address] [place] [address] 02/21/2024 1:00 PM EDT Office Visit Neurology [facility] [address] [place] [address] Landon Meredith MD [address] [place], [place] [id number] 04/02/2024 1:00 PM EST Imaging Radiology [facility] 1st [facility] [address] [facility] [place] [address] 09/12/2024 3:00 PM EDT Office Visit Allergy/Immunology [facility] Mcleod [address] [facility] [place] [address] Sandra Macdonald PA-C [address] [facility] [address] Scheduled Orders Name Type Priority Associated Diagnoses [...] this encounter Medical Devices Implanted Type Area Recruiter Specialist Device Identifier Shelf Expiration Date Model / Serial / Lot Clip Quick 2.8mm 230cm - [id number] Implanted:Qty: 2 on 10/20/2021 by Tanja Schulz MD at [facility]COPY [facility] [employer] 08/30/2023 HX-202UR.A / / Duraclip 16mm Xlg Repostn - [id number] Implanted:Qty: 4 on 10/20/2021 by Tanja Schulz MD at [facility]COPY [facility] [employer] LE[employer] 11/02/2023 [id number] / / documented as of this encounter Visit Diagnoses Diagnosis BPH with obstruction/lower urinary tract symptoms- Primary Hypertrophy of prostate with urinary obstruction and other lower urinary tract symptoms (LUTS) Nocturnal enuresis Nocturia Other stricture of urethral meatus in male documented in this encounter Administered Medications Inactive Administered Medications - up to 3 most recent administrations Medication Order MAR Action Action Date Dose Rate Site sulfamethoxazole-trimethoprim DS (Bactrim DS) 800-160 MG 1 Tablet 1 Tablet, Oral, ONCE, On Tue09/21/23 at 1600, For 1 dose Given 09/21/2023 4:10 PM EDT 1 Tablet documented in this encounter Care Teams Driver Relationship Specialty Start Date End Date Jose M Blanco MD [address] [place] [address] PCP - General 09/02/00 documented as of this encounter
--- OUTSIDE RECORDS SUMMARY | 2024-03-03 02:13 | External Medical Summary | Summary of Care ---
Author Name Unknown Organization [facility] Address [address] [place] [address] Phone [phone] Care Team Providers Care Lap Welder Name Role Phone Juan F Blanco MD Primary Care Provider [phone] Encounter Details Date Type Department Care Team (Late st Contact Info) Description 09/17/2023 Orders Only PATIENT PORTAL DO NOT DELETE THIS [place] [address] Allergies Active Allergy Reactions Criticality Noted Date Comments Meloxicam Nausea/vomiting 07/06/2017 Nausea and head congestion Naproxen Other (Please comment) Low 02/27/2003 nightmares documented as of this encounter (statuses as of 09/17/2023) Medications Medication Sig Dispensed Refills Start Date [...] with food 100 Tab 5 02/24/2010 Active Additional Information Patient not taking.Reported on [...] mouth daily ([employer] Adult Plus 1-2-3) 0 Active Cholecalciferol 25 MCG (1000 UT) Oral Capsule 1,000 Capsules. 2 capsules daily 0 Active Probiotic Product (PROBIOTIC ACIDOPHILUS) Capsule Take 1 Cap by mouth every evening. One capsule daily 0 Active Fexofenadine HCl 180 MG Oral Tablet Take 1 Tablet by mouth daily as needed for Allergies. 0 06/06/2019 Active Vitamin C 1000 MG Oral Tablet Take 1 Tablet by mouth in the morning. 0 Active CPAP every night at bedtime . 0 Active busPIRone HCl 10 MG Oral Tablet (Buspar)Indications:G AD (generalized anxiety disorder) Take 1 Tablet (10 mg) by mouth 2 times a day as needed for Other (anxiety). 180 Tablet 3 04/06/2022 Active Azelastine HCl 0.1 % Nasal Solution (Astelin) INSTILL 1 SPRAY INTO EACH NOSTRIL TWICE A DAY 90 mL 4 06/28/2022 Active Benzonatate 100 MG Oral CapsuleIndications:Br onchitis, complicated Take 1-2 Capsules by mouth 3 times a day as needed for Cough. 30 Capsule 1 08/14/2022 Active Additional Information Patient not taking.Reported on 09/13/2023 Fluticasone Propionate 50 MCG/ACT Nasal Suspension (Flonase) INSTILL 1 SPRAY INTO EACH NOSTRIL TWICE A DAY 48 mL 4 08/23/2022 Active traMADol HCl 50 MG Oral Tablet [...] 140/90 TAKE 1 TABLET BY MOUTH DAILY 0 08/12/2023 Active Gabapentin 300 MG Oral Capsule (Neurontin)Indication s:Parkinsonian tremor (HCC) TAKE 1 CAP IN AM AND 1 CAP AT NOON AND 2 CAPS AT BEDTIME 360 Capsule 3 09/01/2023 Active documented as of this encounter (statuses as of 09/17/2023) Active Problems Problem Noted Date Diagnosed Date [...] Obesity protocol 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 05/30/2019 [...] as of this encounter (statuses as of 09/17/2023) Resolved Problems Problem Noted Date Diagnosed Date [...] as of this encounter (statuses as of 09/17/2023) Immunizations Name Administration Dates Next Due COVID-19 mRNA, LNP-s, No Pre serve, 2-Dose Series ([employer]) 09/03/2020,08/13/2020 COVID-19, LNP-s, No Preserve , Niko-sucrose, [...] 09/21/2023 3:00 PM EDT Procedure Only Urology, [facility] [address] [facility] [place] [address] Hoang Martinez MD 27 [facility] [address] [place] [address] 01/17/2024 2:20 PM EDT Office Visit [place] [address] [place] [phone] Juan F Blanco MD [address] [place] [address] 02/21/2024 1:00 PM EDT Office Visit Neurology [facility] [address] [place] [address] Landon Meredith MD [address] [place], [place] [id number] 04/02/2024 1:00 PM EST Imaging Radiology [facility] 1st [facility] [address] [facility] [place] [address] 09/12/2024 3:00 PM EDT Office Visit Allergy/Immunology [facility] [address] [place] [address] Sandra Macdonald PA-C 200 [facility] [place] [address] Health Maintenance Due Date Last Done Comments [...] this encounter Medical Devices Implanted Type Area Campaign Consultant Device Identifier Shelf Expiration Date Model / Serial / Lot Clip Quick 2.8mm 230cm - [id number] Implanted:Qty: 2 on 10/20/2021 by Tanja Schulz MD at ENDOSCOPY [facility] [employer] 08/30/2023 HX-202UR.A / / Duraclip 16mm Xlg Repostn - [id number] Implanted:Qty: 4 on 10/20/2021 by Tanja Schulz MD at ENDOSCOPY [facility] [employer] LELE 11/02/2023 [id number] / / documented as of this encounter Care Teams Lap Welder Relationship Specialty Start Date End Date Juan F Blanco MD [address] [place] [address] PCP - General 09/02/00 documented as of this encounter
--- OUTSIDE RECORDS SUMMARY | 2024-03-03 02:13 | External Medical Summary | Summary of Care ---
Author Name Unknown Organization [facility] Address [address] [place] [address] Phone [phone] Care Team Providers Care Principal Automation Engineer Name Role Phone Jose M Blanco MD Primary Care Provider [phone] Reason for Visit * Reason Comments Follow Up Encounter Details Date Type Department Care Team (Latest Contact Info) Description 09/21/2023 3:00 PM EDT Procedure Only Urology, [facility] [address] [facility] [place] [address] Hoang Martinez MD [address] [place] [address] [place] [address] BPH with obstruction/lower urinary tract [...] in male 1 Tablet OR ONCE 09/21/2023 09/22/2023 Active documented as of this encounter (statuses [...] mRNA, LNP-s, No Pre serve, 2-Dose Series ([employer]) 09/03/2020,08/13/2020 COVID-19, LNP-s, No Preserve , Niko-sucrose, Ages 12+ (Pfizer) 04/28/2021 Covid-19, Mrna, Lnp-s, Pf, B ivalent, 30 Mcg, IM, 12 yrs and above (NicOx) 01/27/2022 H1N1 2009 Influenza, IM 06/06/2009 Pneumococcal [...] Martinez MD - 09/21/2023 3:00 PM EDT [id number] PCP: JOSE M BLANCO [facility] [place] [address] Gary Lakhani Jr. is a [...] CAP AT NOON AND 2 CAPS AT [id number] Capsule 3 Fluticasone Propionate 50 MCG/ACT Nasal [...] (RECTUM) 05/27/2014 colitis in remission, repeat 1 yr/[facility] COLONOSCOPY, DIAGNOSTIC (RECTUM) 07/23/2015 inactive colitis, diverticulosis/COLONOSCOPY FLEXIBLE PROXIMAL DIAGNOSTIC performed by Tanja Schulz MD at ENDOSCOPY [facility] COLONOSCOPY, DIAGNOSTIC (RECTUM) 01/24/2019 active inflammation, fair prep/COLONOSCOPY FLEXIBLE PROXIMAL DIAGNOSTIC performed by Frances Irizarry MDat ENDOSCOPY [facility] COLONOSCOPY, DIAGNOSTIC (RECTUM) 10/20/2021 prep-fair, multi polyps hepatic flexure, transverse, AVM's, divertilucosis / biopsies benign / COLONOSCOPY FLEXIBLE PROXIMAL DIAGNOSTIC performed by Tanja Schulz MD at ENDOSCOPY [facility] INFORMATION 6 surgeries,carpal tunnel all failed INJECT [...] Serjio Torre, at OR [facility] MISCELLANEOUS ORDER ([facility] ONLY) 2006 right shoulder replacement/ [place] MISCELLANEOUS ORDER ([facility] ONLY) 08/31/2011 left shoulder replacement( [place]) SACROILIAC [...] apnea on CPAP Paroxysmal SVT (supraventricular tachycardia) ([facility]) Thoracic aortic aneurysm ([facility]) Dyslipidemia, goal LDL below 100 Junctional bradycardia Cardiac pacemaker in situ Parkinson's disease ([facility]) Vitamin D deficiency Family history of abdominal aortic aneurysm (AAA) 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 ([facility]) Chronic midline low back pain with left-sided sciatica Hematuria of undiagnosed cause Renal cyst, left 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 Major depressive disorder, single episode, unspecified Essential hypertension with goal blood pressure less than 130/80 Aortic root dilation ([facility]) Body mass index (BMI) of 40.0 to 44.9 in adult ([facility]) Nocturnal enuresis BPH with obstruction/lower urinary tract symptoms NSVT (nonsustained ventricular tachycardia) ([facility]) Major depressive disorder, single episode, moderate ([facility]) Male : See HPI Cystoscopy Procedure Note: Patient was properly identified and appropriate consent was confirmed. Risks and benefits of the procedure were reviewed and the patient was prepped and draped in the standard fashion for the procedure. A well lubricated 16 [place] [employer] flexible cystoscope was introduced through the meatus [...] no tumors, stones or mucosal abnormalities and [id number] PVR with grade 2 trabeculation. Bladder was completely inspected including retroflexion of the scope. Ureteral orifices were noted to be in the normal anatomic position bilaterally. After this was completed the cystoscope was removed. Patient tolerated the procedure well without complicationsor difficulties. Car Ferry Captain was present for entire procedure. Perioperative Bactrim was provided. Impression/Plan: 77-year-old male with persistent nocturnal enuresis. I suspect that the patient's parkinsonism may be a significant contributor rather than bladder outlet obstruction. Will provide a trial of Myrbetriq to avoid risk of anticholinergic side effects. Prescription sent to the patient's pharmacy. Will see back in 3 months to check on progress. Contact [employer] with any significant difficulties with medication tolerance. [...] 01/10/2024 10:45 AM EDT Office Visit Urology, [facility] 132 [facility] [place] [address] Hoang Martinez MD 27 [facility] [address] [place] [address] 01/17/2024 2:20 PM EDT Office Visit [facility] [address] [place] [phone] Jose M Blanco MD [address] [place] [address] 02/21/2024 1:00 PM EDT Office Visit Neurology [facility] [address] [place] [address] Landon Meredith MD [address] [place], [place] [id number] 04/02/2024 1:00 PM EST Imaging Radiology [facility] 1st [facility] 132 [facility] [place] [address] 09/12/2024 3:00 PM EDT Office Visit Allergy/Immunology [facility] Jennifer Mcleod 200 [facility] [place] [address] Sandra Macdonald PA-C 200 [facility] [place] [address] Scheduled Orders Name Type Priority Associated Diagnoses [...] this encounter Medical Devices Implanted Type Area Clay Products Glazer Device Identifier Shelf Expiration Date Model / Serial / Lot Clip Quick 2.8mm 230cm - [id number] Implanted:Qty: 2 on 10/20/2021 by Tanja Schulz MD at ENDOSCOPY [facility] [employer] 08/30/2023 HX-202UR.A / / Duraclip 16mm Xlg Repostn - [id number] Implanted:Qty: 4 on 10/20/2021 by Tanja Schulz MD at ENDOSCOPY [facility] [employer] LELE 11/02/2023 [id number] / / documented as of this encounter Visit Diagnoses Diagnosis BPH with obstruction/lower urinary tract symptoms- Primary Hypertrophy of prostate with urinary obstruction and other lower urinary tract symptoms (LUTS) Nocturnal enuresis Nocturia Other stricture of urethral meatus in male documented in this encounter Care Teams Principal Automation Engineer Relationship Specialty Start Date End Date Jose M Blanco MD [address] [place] [address] PCP - General 09/02/00 documented as of this encounter
--- OUTSIDE RECORDS SUMMARY | 2024-03-03 02:13 | External Medical Summary | Summary of Care ---
Author Name Unknown Organization [facility] Address [address] [place] [address] Phone [phone] Care Team Providers Care All Round Butcher Name Role Phone Juan F Blanco MD Primary Care Provider [phone] Encounter Details Date Type Department Care Team (Late st Contact Info) Description 10/05/2023 Result Scan Unspecified Department Vishal Kenney, DO [address] [place] [id number] <No scans attached> Allergies Active Allergy Reactions Criticality Noted Date Comments Meloxicam Nausea/vomiting 07/06/2017 Nausea and head congestion Naproxen Other (Please comment) Low 02/27/2003 nightmares documented as of this encounter (statuses as of 10/05/2023) Medications Medication Sig Dispensed Refills Start Date [...] as of this encounter (statuses as of 10/05/2023) Active Problems Problem Noted Date Diagnosed Date [...] Obesity protocol Atherosclerotic heart diseas e of [place] coronary artery without angina pectoris 05/30/2019 Major [...] as of this encounter (statuses as of 10/05/2023) Resolved Problems Problem Noted Date Diagnosed Date [...] as of this encounter (statuses as of 10/05/2023) Immunizations Name Administration Dates Next Due COVID-19 mRNA, LNP-s, No Pre serve, 2-Dose Series ([employer]) 09/03/2020,08/13/2020 COVID-19, LNP-s, No Preserve , Niko-sucrose, [...] 01/17/2024 9:15 AM EDT Office Visit Urology, [facility] [address] [place] [address] Hoang Martinez MD 27 [facility] [address] [place] [address] 01/17/2024 2:20 PM EDT Office Visit [facility] [address] [place] [phone] Juan F Blanco MD [address] [place] [address] 02/21/2024 1:00 PM EDT Office Visit Neurology [facility] [address] [place] [address] Landon Meredith MD [address] [place] [address] 04/02/2024 1:00 PM EST Imaging Radiology [facility] 1st [facility] [address] [place] [address] 09/12/2024 3:00 PM EDT Office Visit Allergy/Immunology [facility] Jennifer Mcleod 200 [facility] [place] [address] Sandra Macdonald PA-C 200 [facility] [place] [address] Health Maintenance Due Date Last Done Comments [...] this encounter Medical Devices Implanted Type Area Operating Cost Clerk Device Identifier Shelf Expiration Date Model / Serial / Lot Clip Quick 2.8mm 230cm - [id number] Implanted:Qty: 2 on 10/20/2021 by Tanja Schulz MD at ENDOSCOPY [facility] [employer] [facility] 08/30/2023 HX-202UR.A / / Duraclip 16mm Xlg Repostn - [id number] Implanted:Qty: 4 on 10/20/2021 by Tanja Schulz MD at ENDOSCOPY [facility] [employer] [facility] 11/02/2023 [id number] / / documented as of this encounter Procedures Procedure Name Priority Date/Time Associated Diagnosis Comments CARDIOLOGY SCANNED RESULT 10/05/2023 documented in this encounter Results * CARDIOLOGY SCANNED RESULT (10/05/2023) 10/05/2023 Vishal Kenney DO OTHER documented in this encounter Care Teams All Round Butcher Relationship Specialty Start Date End Date Juan F Blanco MD [address] [place] [address] PCP - General 09/02/00 documented as of this encounter
--- OUTSIDE RECORDS SUMMARY | 2024-03-03 02:14 | External Medical Summary | Summary of Care ---
Author Name Unknown Organization [facility] Address [address] [place] [address] Phone [phone] Care Team Providers Care Welfare Officer Name Role Phone Juan F Blanco MD Primary Care Provider [phone] Reason for Visit * Reason Onset Date Comments Test Results 09/15/2023 Urinalysis Encounter Details Date Type Department Care Team (Late st Contact Info) Description 09/15/2023 Telephone [facility] [address] [place] [address] Juan F Blanco MD [address] [place] [address] Test Results (Urinalysis) Allergies Active Allergy Reactions Criticality Noted Date Comments Meloxicam Nausea/vomiting 07/06/2017 Nausea and head congestion Naproxen Other (Please comment) Low 02/27/2003 nightmares documented as of this encounter (statuses as of 09/15/2023) Medications Medication Sig Dispensed Refills Start Date [...] Tab 5 02/24/2010 Active Additional Information Patient taking differently: (No route reported), Reported on 03/17/2022 SINUS WASH NETI POT 2300-700 MG NA [...] as of this encounter (statuses as of 09/15/2023) Active Problems Problem Noted Date Diagnosed Date [...] Obesity protocol Atherosclerotic heart diseas e of [place] coronary artery without angina pectoris 05/30/2019 [...] as of this encounter (statuses as of 09/15/2023) Resolved Problems Problem Noted Date Diagnosed Date [...] as of this encounter (statuses as of 09/15/2023) Immunizations Name Administration Dates Next Due COVID-19 mRNA, LNP-s, No Pre serve, 2-Dose Series ([employer]) 09/03/2020,08/13/2020 COVID-19, LNP-s, No Preserve , [...] Telephone Encounter - Agustina Cat LPN - 09/15/2023 2:23 PM EDT Called patient he is aware, and verbalizes an understanding. He states that he has an appt on september [address] Martinez. * Telephone Encounter - Juan F Blanco MD - 09/15/2023 1:58 PM EDT NotifyPt: urine culture was negative. No infection found. He needs to follow up with Dr Martinez (urology) * Telephone Encounter - Donna Melendrez RN - 09/15/2023 10:48 AM EDT [place] patient * Telephone Encounter - Virgilio Klein OSA - 09/15/2023 10:35 AM EDT Who is Requesting Test Results: Patient Primary Care Provider : Juan F Blanco MD Tests Results Requested : Urinalysis Date of Test : 09/12/23 Location of Test: [place] Ordering Provider: Dr. Blanco Patient has been made aware that the turnaround time for test results are typically as follows: Laboratory results = within 2-3 days ([facility]), 3-5 days ([facility], ie. [facility]) Urine Cultures = within 2-3 days depending on growth within the culture Pathology results (biopsy results/PAP) = 1-2 weeks Radiology results = about 1 week Cologuard results = within 2 weeks from the shipment date COVID testing = about 24 hours documented in this encounter Plan of Treatment Upcoming Encounters Date Type Department Care Team (Late st Contact Info) Description 09/15/2023 3:25 PM EDT Office Visit Interventional Pain Center, [facility] [address] [facility] [place] [address] Serjio Torre DO [address] [place] [phone] 09/21/2023 3:00 PM EDT Procedure Only Urology, [facility] [address] [place] [address] Hoang Martinez MD [address] [place] [address] 01/17/2024 2:20 PM EDT Office Visit [address] [phone] Juan F Blanco MD [address] [place] [address] 02/21/2024 1:00 PM EDT Office Visit Neurology [facility] [address] [place] [address] Landon Meredith MD [address] [facility] [place] [address] 04/02/2024 1:00 PM EST Imaging Radiology [address], [place] [address] [facility] [place] [address] 09/12/2024 3:00 PM EDT Office Visit Allergy/Immunology [facility] [address] [place] [address] Sandra Macdonald PA-C [address] [place] [address] Scheduled Orders Name Type Priority Associated Diagnoses Orde r Schedule CULTURE, URINE, QUANTITATIVE Lab Routine Other urinary incontinence Expected: 09/15/2023, Expires: 09/14/2024 Health Maintenance Due Date Last Done Comments [...] this encounter Medical Devices Implanted Type Area Safe Expert Device Identifier Shelf Expiration Date Model / Serial / Lot Clip Quick 2.8mm 230cm - [id number] Implanted:Qty: 2 on 10/20/2021 by Tanja Schulz MD at ENDOSCOPY [facility] [employer] 08/30/2023 HX-202UR.A / / Duraclip 16mm Xlg Repostn - [id number] Implanted:Qty: 4 on 10/20/2021 by Tanja Schulz MD at ENDOSCOPY [facility] [employer] 11/02/2023 [id number] / / documented as of this encounter Visit Diagnoses Diagnosis Other urinary incontinence- Primary documented in this encounter Care Teams Welfare Officer Relationship Specialty Start Date End Date Juan F Blanco MD [address] [place] [address] PCP - General 09/02/00 documented as of this encounter
--- OUTSIDE RECORDS SUMMARY | 2024-03-03 02:14 | External Medical Summary | Summary of Care ---
Author Name Unknown Organization [facility] Address [address] [place] [address] Phone [phone] Care Team Providers Care Computer Language Coder Name Role Phone Juan F Blanco MD Primary Care Provider [phone] Reason for Referral * Evaluate & Treat - Unlimited Visits (Within 10 days (routine)) - Authorized Specialty Diagnoses / Procedures Referred By Contac t Referred To Contact Physical Therapy / Physical Medicine And Rehab Diagnoses Spinal stenosis of lumbar region with neurogenic claudication Serjio Torre DO [address] [place] [address] Referral ID Status Reason Start Date Expiration Date Visits Requested Visits Authorized [id number] Authorized Specialty Services Required 09/15/[phone] Question Answer Referral Priority Within 10 days (routine) Where should this appointment be scheduled? External Comments Evaluate and treat. Patient has spinal stenosis, would benefit from core strengthening/postural improvement and leg strengthening for gait improvement or as otherwise indicated. Reason for Visit * Reason Comments Back Pain Encounter Details Date Type Department Care Team (Late st Contact Info) Description 09/15/2023 3:25 PM EDT Office Visit Interventional Pain Center, [facility] [address] [place] [address] Serjio Torre DO [address] [place] [address] Spinal stenosis of lumbar region with neurogenic claudication* Allergies Active Allergy Reactions Criticality Noted Date [...] Obesity protocol Atherosclerotic heart diseas e of [place] coronary artery without angina pectoris 05/30/2019 [...] mRNA, LNP-s, No Pre serve, 2-Dose Series ([employer]) 09/03/2020,08/13/2020 COVID-19, LNP-s, No Preserve , Niko-sucrose, Ages 12+ (Pfizer) 04/28/2021 Covid-19, Mrna, Lnp-s, Pf, B ivalent, 30 Mcg, IM, 12 yrs and above ([employer]) 01/27/2022 H1N1 2009 Influenza, IM 06/06/2009 Pneumococcal [...] as of this encounter Progress Notes * Serjio Torre, - 09/15/2023 3:48 PM EDT Interventional Pain Follow-up Appointment Subjective: Chief Complaint: Chief Complaint Patient presents with Back Pain History of Present Illness: Gary Lakhani JrNichole is a 77 year old year-old male [...] operative note. Objective Physical Exam: Vital Signs: There were no vitals taken for this visit. There is no height or weight on [...] of lumbar region with neurogenic claudication (Primary) - PHYSICAL THERAPY REFERRAL OP Plan: PT referral issued for gait improvement and postural optimizatoin. Patient to call us when/if pain recurs. Recommend 1G of acetaminophen before bedtime and 1G upon awakening if pain is severe. Patient v/u. Clarified that this is 2 extra strength tylenol tabs/capsules. Medical Decision Making I spent 20 minutes reviewing the patient's prior visit office notes, procedure notes, images, conducting the history and physical examination, formulating a care plan, considering interventional options, drafting orders and medication prescriptions as well as recording the medical documentation. Serjio Torre DO Inter[facility] Center, [facility] [address] [facility] [address] documented in this encounter Nursing Notes * Nena Rodriguez LPN - 09/15/2023 3:26 PM EDT Patient reports at least 90% improvement after caudal injection Still has some left leg weakness but is trying to walk more Has some bl hip pain when sitting on edge of chair documented in this encounter Plan of Treatment Upcoming Encounters Date Type Department Care Team (Late st Contact Info) Description 09/21/2023 3:00 PM EDT Procedure Only Urology, [facility] [address] [place] [address] Hoang Martinez MD 27 [facility] [address] [facility] [place] [address] 01/17/2024 2:20 PM EDT Office Visit [facility] [address] [place] [phone] Juan F Blanco MD [address] [place] [address] 02/21/2024 1:00 PM EDT Office Visit Neurology [facility] [address] [place] [address] Landon Meredith MD [address] [place] [address] 04/02/2024 1:00 PM EST Imaging Radiology [address] [facility] [place] [address] 09/12/2024 3:00 PM EDT Office Visit Allergy/Immunology [facility] [address] [place] [address] Sandra Macdonald PA-C [address] [place] [address] Scheduled Referrals Name Type Priority Associated Diagnoses Orde r Schedule PHYSICAL THERAPY REFERRAL OP Referral Within 10 days (routine) Spinal stenosis of lumbar region with neurogenic claudication Ordered: 09/15/2023 Health Maintenance Due Date Last Done Comments [...] this encounter Medical Devices Implanted Type Area Provider Network Manager Device Identifier Shelf Expiration Date Model / Serial / Lot Clip Quick 2.8mm 230cm - [id number] Implanted:Qty: 2 on 10/20/2021 by Tanja Schulz MD at ENDOSCOPY [facility] [employer] 08/30/2023 HX-202UR.A / / Duraclip 16mm Xlg Repostn - [id number] Implanted:Qty: 4 on 10/20/2021 by Tanja Schulz MD at ENDOSCOPY [facility] [employer] 11/02/2023 [id number] / / documented as of this encounter Visit Diagnoses Diagnosis Spinal stenosis of lumbar region with neurogenic claudication- Primary Spinal stenosis, lumbar region, with neurogenic claudication documented in this encounter Care Teams Computer Language Coder Relationship Specialty Start Date End Date Juan F Blanco MD [address] [place] [address] PCP - General 09/02/00 documented as of this encounter
--- OUTSIDE RECORDS SUMMARY | 2024-03-03 02:14 | External Medical Summary | Summary of Care ---
Author Name Unknown Organization [facility] Address [address] [place] [address] Phone [phone] Care Team Providers Care Scheduling Specialist Name Role Phone Juan F Blanco MD Primary Care Provider Reason for Visit * Reason Onset Date Comments Test Results 09/15/2023 Urinalysis Encounter Details Date Type Department Care Team (Late st Contact Info) Description 09/15/2023 Telephone [facility] [address] [place] [address] Juan F Blanco MD [address] [place] [address] Test Results (Urinalysis) Allergies Active [...] Obesity protocol Atherosclerotic heart diseas e of [place] coronary artery without angina pectoris 05/30/2019 Major [...] mRNA, LNP-s, No Pre serve, 2-Dose Series ([employer]) 09/03/2020,08/13/2020 COVID-19, LNP-s, No Preserve , Niko-sucrose, [...] encounter Miscellaneous Notes * Telephone Encounter - Juan F Blanco MD - 09/15/2023 1:58 PM EDT NotifyPt: urine culture was negative. No infection found. He needs to follow up with Dr Martinez (urology) * Telephone Encounter - Donna Melendrez RN - 09/15/2023 10:48 AM EDT [place] patient * Telephone Encounter - Virgilio Klein OSA - 09/15/2023 10:35 AM EDT Who is Requesting Test Results: Patient Primary Care Provider : Juan F Blanco MD Tests Results Requested : Urinalysis Date of Test : 09/12/23 Location of Test: [place] Ordering Provider: Dr. Blanco Patient has been [...] PM EDT Office [facility] [place] [address] Serjio Torre DO [address] [place] [phone] 09/21/2023 3:00 PM EDT Procedure Only [facility], [facility] [place] [address] Hoang Martinez MD 27 [facility] [address] [place] [address] 01/17/2024 2:20 PM EDT Office Visit [facility] [address] [place] [phone] Juan F Blanco MD [address] [place] [address] 02/21/2024 1:00 PM EDT Office Visit Neurology [facility] [address] [place] [address] Landon Meredith MD [address] [place] [address] 04/02/2024 1:00 PM EST Imaging Radiology [facility] [facility] [place] [address] 09/12/2024 3:00 PM EDT Office Visit Allergy/Immunology [facility] [place] [address] [facility] [place] [address] Sandra Macdonald PA-C [address] [place] [address] Scheduled Orders Name Type Priority Associated Diagnoses [...] this encounter Medical Devices Implanted Type Area Vocational Rehabilitation Consultant Device Identifier Shelf Expiration Date Model / Serial / Lot Clip Quick 2.8mm 230cm - [id number] Implanted:Qty: 2 on 10/20/2021 by Tanja Schulz MD at ENDOSCOPY [facility] [employer] 08/30/2023 HX-202UR.A / / Duraclip 16mm Xlg Repostn - [id number] Implanted:Qty: 4 on 10/20/2021 by Tanja Schulz MD at ENDOSCOPY [facility] [employer] 11/02/2023 [id number] / / documented as of this encounter Visit Diagnoses Diagnosis Other urinary incontinence- Primary documented in this encounter Care Teams Scheduling Specialist Relationship Specialty Start Date End Date Juan F Blanco MD [address] [place] [address] PCP - General 09/02/00 documented as of this encounter
--- OUTSIDE RECORDS SUMMARY | 2024-03-03 02:14 | External Medical Summary | Summary of Care ---
Author Name Unknown Organization [facility] Address [address] [place] [address] Phone [phone] Care Team Providers Care Revenue Field Agent Name Role Phone Juan F Blanco MD Primary Care Provider [phone] Encounter Details Date Type Department Care Team (Late st Contact Info) Description 09/15/2023 Telephone Urology, [facility] [address] [place] [address] Services, Scheduling [address] [place] [address] Allergies Active Allergy Reactions Criticality Noted Date [...] Obesity protocol Atherosclerotic heart diseas e of [place] coronary artery without angina pectoris 05/30/2019 Major [...] mRNA, LNP-s, No Pre serve, 2-Dose Series ([employer]) 09/03/2020,08/13/2020 COVID-19, LNP-s, No Preserve , Niko-sucrose, Ages 12+ (Pfizer) 04/28/2021 Covid-19, Mrna, Lnp-s, Pf, B ivalent, 30 Mcg, IM, 12 yrs and above ([employer]) 01/27/2022 H1N1 2009 Influenza, IM 06/06/2009 Pneumococcal [...] encounter Miscellaneous Notes * Telephone Encounter - Shannan Hair OSA - 09/15/2023 1:50 PM EDT Doing the PVR on 09/20 along with the cysto * Telephone Encounter - Lourdes Fuller OSA - 09/15/2023 1:06 PM EDT Patient needs to reschedule his appointment from today 09/15/23. documented in this encounter Plan of Treatment Upcoming Encounters Date Type Department Care Team (Late st Contact Info) Description 09/15/2023 3:25 PM EDT Office Visit Interventional Pain Center, [facility] [address] [place] [address] Serjio Torre, [address] [place] [address] 09/21/2023 3:00 PM EDT Procedure Only Urology, [facility] [address] [place] [address] Hoang Martinez MD [address] [facility] [address] 01/17/2024 2:20 PM EDT Office Visit [facility] [address] [place] [phone] Juan F Blanco MD [address] [place] [address] 02/21/2024 1:00 PM EDT Office Visit Neurology [facility] 200 [facility] [place] [address] Landon Meredith MD [address] [place] [address] 04/02/2024 1:00 PM EST Imaging Radiology [facility]st [facility] [address] [facility] [address] 09/12/2024 3:00 PM EDT Office Visit Allergy/Immunology [facility] [address] [place] [address] Sandra Macdonald PA-C [address] [place] [address] Health Maintenance Due Date Last Done Comments [...] this encounter Medical Devices Implanted Type Area Glass Deposition Tender Device Identifier Shelf Expiration Date Model / Serial / Lot Clip Quick 2.8mm 230cm - [id number] Implanted:Qty: 2 on 10/20/2021 by Tanja Schulz MD at ENDOSCOPY [facility] [employer] 08/30/2023 HX-202UR.A / / Duraclip 16mm Xlg Repostn - [id number] Implanted:Qty: 4 on 10/20/2021 by Tanja Schulz MD at ENDOSCOPY [facility] [employer] 11/02/2023 [id number] / / documented as of this encounter Care Teams Revenue Field Agent Relationship Specialty Start Date End Date Juan F Blanco MD [address] [place] [address] PCP - General 09/02/00 documented as of this encounter
--- OUTSIDE RECORDS SUMMARY | 2024-03-03 02:14 | External Medical Summary | Summary of Care ---
Author Name Unknown Organization [facility] Address [address] [place] [address] Phone [phone] Care Team Providers Care Equipment Specialist Name Role Phone Jose M Blanco MD Primary Care Provider [phone] Reason for Visit * Reason Comments Allergy Return Encounter Details Date Type Department Care Team (Late st Contact Info) Description 09/13/2023 3:30 PM EDT Office Visit Allergy/Immunology [facility] [address] [facility] [place] [address] Cristiano Foster MD [address] [facility] [place] [address] Seasonal allergic rhinitis due to pollen*; Allergic rhinitis due to dust mite; Rhinitis, nonallergic Allergies Active Allergy Reactions Criticality Noted Date Comments Meloxicam Nausea/vomiting 07/06/2017 Nausea and head congestion Naproxen Other (Please comment) Low 02/27/2003 nightmares documented as of this encounter (statuses as of 09/13/2023) Medications Medication Sig Dispensed Refills Start Date [...] as of this encounter (statuses as of 09/13/2023) Active Problems Problem Noted Date Diagnosed Date [...] Obesity protocol 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 [...] as of this encounter (statuses as of 09/13/2023) Resolved Problems Problem Noted Date Diagnosed Date [...] as of this encounter (statuses as of 09/13/2023) Immunizations Name Administration Dates Next Due COVID-19 mRNA, LNP-s, No Pre serve, 2-Dose Series (Tunepresto) 09/03/2020,08/13/2020 COVID-19, LNP-s, No Preserve , Niko-sucrose, [...] Date Smoking Tobacco: Never Smokeless Tobacco: Never Tobacco Cessation:Counseling Given: Not Answered Comments:no passive smoke exposures Alcohol Use Standard Drinks/Week Comments Yes 0 [...] Sign Reading Time Taken Comments Blood Pressure 118/74 09/13/2023 3:37 PM EDT Pulse 74 09/13/2023 3:37 PM EDT Temperature 37 C (98.6 F) 09/13/2023 3:37 PM EDT Respiratory Rate 20 09/13/2023 3:37 PM EDT Oxygen Saturation 97% 09/13/2023 3:37 PM EDT Inhaled Oxygen Concentration - - Weight 141.9 kg (312 lb 14.4 oz) 09/13/2023 3:37 PM EDT Height 187.3 cm (6' 1.75") 09/13/2023 3:37 PM ED T Body Mass Index 40.45 09/13/2023 3:37 PM EDT documented in this encounter Patient Instructions * Patient Instructions* Cristiano Foster MD - 09/13/2023 3:41 PM EDT Pollen Avoidance Measures: Keep windows, doors closed; use air conditioning; dry clothes in vented dryer, not outside on clothesline; shower/bathe and change clothes right after outdoor activity; avoid outdoor activity during high pollen counts; use HEPA type air filtration system. Dust Mite Avoidance Measures: Essential: Encase mattress, pillow, box springs in allergen-impermeable covers; wash bedding weeklyin hot water(>130 degreesF); reduce indoor humidity to <50%; dust weekly and run HEPA type vacuum wet cleaner machine. Desirable: Remove carpets from bedroom and any laid on concrete; minimize upholstered furniture; use HEPA type air filtration in bedroom and family room (close air ducts); remove stuffed toys and collectibles from bedroom. documented in this encounter Progress Notes * Cristiano Foster MD - 09/13/2023 3:41 PM EDT SUBJECTIVE: Gary is evaluated in follow-up for his allergic rhinitis, mixed type, and chronic sinusitis. With his tree pollen allergy, he has noted increased nasal congestion and sinus pressure. He does continue to take Flonase 1 spray to each nostril twice daily in addition to Astelin 1 spray to each nostril twice daily. He has yet to start Gertrude. He does report fatigue but he believes that the fatigueis secondary to a possible urinary tract infection. He does have a urine culture pending and we will be following up with his primary care practitioner tomorrow for further evaluation. Overall thoughhe has been doing fairly well with the exception of the past few weeks during tree pollen season. The patient has no history of asthma. He denies any shortness of breath, wheezing, nor chronic cough. He reports no nocturnal respiratory symptoms. He reports no ER visits nor urgent care visits secondary to pulmonary symptoms. Immunotherapy: Started: 1989 - 2006; 2 courses (Dr. Dubose) Benefit? YES Reactions? 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 M54.42, G89.29 Hematuria of undiagnosed cause R31.9 Renal cyst, left N28.1 Urethral stricture N35.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 Major depressive disorder, single episode, unspecified F32.9 Essential hypertension with goal blood pressure less than 130/80 I10 Aortic root dilation ([facility]) I77.810 Body mass index (BMI) of 40.0 to 44.9 in adult ([facility]) Z68.41 Nocturnal enuresis N39.44 BPH with obstruction/lower urinary tract symptoms N40.1, N13.8 NSVT (nonsustained ventricular tachycardia) ([facility]) I47.29 Major depressive disorder, single episode, moderate ([facility]) F32.1 Current Outpatient Medications Medication Sig Dispense Refill OMEGA-3 FATTY ACIDS 1000 MG PO CAPS one BID o 0 FOLIC ACID 800 MCG PO TABS 1 TABLET EVENING 0 0 CALCIUM-CARB 600 + D 600-125 MG-UNIT PO TABS 1 twice daily 60 11 ASPIRIN 81 MG PO CHEW One pill by mouth once a day with food (Patient taking differently: No sig reported) 100 Tab 5 SINUS WASH NETI POT [...] as needed forOther (anxiety). 180 Tablet 3 Azelastine HCl 0.1 % Nasal Solution (Astelin) INSTILL 1 SPRAY INTO EACH NOSTRIL TWICE A DAY 90 mL 4 Fluticasone Propionate 50 MCG/ACT Nasal Suspension (Flonase) INSTILL 1 SPRAY INTO EACH NOSTRIL TWICE A DAY 48 mL 4 Escitalopram Oxalate 10 MG Oral Tablet (Lexapro) [...] CAP AT NOON AND 2 CAPS AT [id number] Capsule 3 Fexofenadine HCl 180 MG Oral Tablet Take 1 Tablet by mouth daily as needed for Allergies. Benzonatate 100 MG Oral Capsule Take 1-2 Capsules by mouth 3 times a day as needed for Cough. (Patient not taking: Reported on 09/13/2023) 30 Capsule 1 traMADol HCl 50 MG Oral Tablet (Ultram) Take 1 Tablet by mouth 3 times a day as needed for Pain, Severe. 30 Tablet 1 No current facility-administered medications for this visit. Social History Main Topics Tobacco Use: Never Comment: no passive smoke exposures ENVIRONMENTAL HISTORY: Type of Home: [facility] Type of Heating System: Oil and Hot [...] (down) Bedroom contains: Minimal items Pets: none Currently unemployed PHYSICAL EXAM: GENERAL: No acute distress. EYES: Conjunctiva- normal; EARS: TM's - clear NOSE: [place] mucosa; Mild Inferior turbinate edema; no nasal polyps, no mucopus Septum - deviated to R OROPHARYNX: Mild erythema, cobblestoning; No lesions, exudates NECK: Supple; No thyroid enlargement or cervical adenopathy RESPIRATORY: Clear to A and P; No wheezes; Decreased breath sounds bilaterally; CARDIOVASCULAR: RRR; No gallops, rubs, clicks, or murmurs. SKIN: No evidence atopic dermatitis; no urticaria or angioedema Normal skin quality OBJECTIVE DATA: Allergy skin tests 06/08/07 - significant positive reactions to mixed tree pollen and dust mites. ASSESSMENT: ICD-10-CM 1. Seasonal allergic rhinitis due to pollen J30.1 2. Allergic rhinitis due to dust mite J30.89 3. Rhinitis, nonallergic J31.0 PLAN: Avoidance measures regarding pollens and dust mites were again recommended. This includes changing his clothes and prostate and shower after being outside for extended period of time, keeping his windows closed during the months of July and September, and use of air purifier with a HEPA filter. I also instructed him to wash his bed sheets in the hottest setting of the washer on a weekly basis in addition to using dust mite protectors for his mattress and pillows. In regards to his allergic rhinitis, we do recommend that he increase his Flonase and his Astelin to 2 sprays to each nostril twice daily over the course of the next month given his tree pollen allergy. Finally as he has been holding his Gertrude, I do recommend that he restart his Gertrude 180 mg daily for further control of his allergic rhinitis. He very well may have a component of nonallergic rhinitis and the combination of nasal sprays were also help out this entity. We have not pursued a 2nd course of immunotherapy since his symptoms seem to be more year-round andnot just directly related to his allergens. He is also on a beta-rhea which would be a contraindication for immunotherapy. Follow up in 1 year or sooner as needed for worsening symptoms. Thank you very much for allowing myself to participate in the care of your patient. Please do not hesitate to contact our office shouldyou have any questions or concerns. Cristiano Foster MD Allergy and Immunology [facility] Ellie Cox I spent a total of 20-29 minutes (exact time 26 mins) on the date of service in preparation, delivery, and documentation of the care provided to Gary Lakhani Jr. excluding any time spent in the performance of separately billed services. (This note was completed using the dictation program Fluency Direct. As such, there may be misspellings, word substitutions, or other variations that should not change the essence of the clinical content of this encounter note.If there is need for further clarification, please direct questions to the provider listed above.) PCP: JOSE M BLANCO [facility] Timmy [address] [facility] [place] [phone] documented in this encounter Nursing Notes * Page Akbar LPN - 09/13/2023 3:31 PM EDT The pt has been properly identified by confirmation of name and date of . Patient presents forallergy follow up. Patient states sinus congestion and fatigue, weakness. documented in this encounter Plan of Treatment Upcoming Encounters Date Type Department Care Team (Late st Contact Info) Description 09/15/2023 2:45 PM EDT Nurse Only Urology, [facility] [address] [place] [address] Daniel, Nurse Urology [place] [address] [place] [address] 09/15/2023 3:25 PM EDT Office Visit Interventional Pain Center, [facility] [address] [place] [address] Serjio Torre DO [address] [place] [address] 09/21/2023 3:00 PM EDT Procedure Only Urology, [facility] [address] [facility] [place] [address] Hoang Martinez MD [address] [place] [address] [place] [address] 01/17/2024 2:20 PM EDT Office Visit [facility] [address] [place] [phone] Jose M Blanco MD [address] [place] [address] 02/21/2024 1:00 PM EDT Office Visit Neurology [facility] [address] [facility] [place] [address] Landon Meredith MD [address] [place] [address] 04/02/2024 1:00 PM EST Imaging Radiology [facility] 1st [facility] [address] [facility] [place] [address] 09/12/2024 3:00 PM EDT Office Visit Allergy/Immunology [facility] [place] [address] Sandra Macdonald PA-C [address] [facility] [place] [address] Health Maintenance Due Date Last Done Comments [...] this encounter Medical Devices Implanted Type Area Gravity Prospector Device Identifier Shelf Expiration Date Model / Serial / Lot Clip Quick 2.8mm 230cm - [id number] Implanted:Qty: 2 on 10/20/2021 by Tanja Schulz MD at [facility] [employer] 08/30/2023 HX-202UR.A / / Duraclip 16mm Xlg Repostn - [id number] Implanted:Qty: 4 on 10/20/2021 by Tanja Schulz MD at [facility] [employer] 11/02/2023 [id number] / / documented as of this encounter Visit Diagnoses Diagnosis Seasonal allergic rhinitis due to pollen- Primary Allergic rhinitis due to dust mite Rhinitis, nonallergic Chronic rhinitis documented in this encounter Care Teams Equipment Specialist Relationship Specialty Start Date End Date Jose M Blanco MD [address] [place], [place] [phone] PCP - General 09/02/00 documented as of this encounter
--- OUTSIDE RECORDS SUMMARY | 2024-03-03 02:15 | External Medical Summary | Summary of Care ---
Author Name Unknown Organization [facility] Address [address] [place] [address] Phone [phone] Care Team Providers Care Mechanical Design Technician Name Role Phone Juan F Blanco MD Primary Care Provider Reason for Visit * Reason Onset Date Comments Advice 09/09/2023 Encounter Details Date Type Department Care Team (Late st Contact Info) Description 09/09/[address] [facility] [address] [place] [address] Juan F Blanco MD [address] [place] [address] Advice Allergies Active Allergy Reactions Criticality Noted Date Comments Meloxicam Nausea/vomiting 07/06/2017 Nausea and head congestion Naproxen Other (Please comment) Low 02/27/2003 nightmares documented as of this encounter (statuses as of 09/12/2023) Medications Medication Sig Dispensed Refills Start Date [...] for Cough. 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 Scheduled for PVR on . Scheduling - please change 09/20 appt to cystoscopy. Pt aware. Thank you Sonia * Telephone Encounter - Hoang Martinez MD - 09/12/2023 12:02 PM EDT Patient can come in for PVR with nursing staff if needed. Upcoming visit can be changed to possiblerepeat cystoscopy depending on treatment response. ER with fevers, chills or worsening symptoms. Thanks, HM * Telephone Encounter - Adeline Crump LPN - 09/12/2023 9:[address] Martinez: Spoke with pt. Complaints of incontinence last 5 nights, unusual for him. States he may normally have slight leakage overnight, but this is more. No issues during the day. Slight burning with urination, cloudy urine; denies blood in urine. Drinking 6-8 glasses of water per day. Taking finasteride. Advised patient to drop urine sample off at [facility] this morning. Any other recommendations until urine sample results are completed? Thank you Sonia * Telephone Encounter - Lourdes Fuller OSA - 09/12/2023 9:19 AM EDT Patient is following up on his previous call. He states he has been having incontinent thru the night. He is calling for advice. * Telephone Encounter - Roxana Ann OSA - 09/09/2023 4:33 PM EDT Pt has been suffering with incontinence at night for the last few days. He is wondering if there issomething to stop this from happening documented in this encounter Plan of Treatment Upcoming Encounters Date Type Department Care Team (Late st Contact Info) Description 09/13/2023 3:30 PM EDT Office Visit Allergy/Immunology [facility] [place] [address] [place] [address] Cristiano Foster MD [address] [place] [address] 09/15/2023 2:45 PM EDT Nurse Only Urology, [facility] [place] 132 [facility] [place] [address] [facility] Nurse Urology [facility] [address] [place] [address] 09/15/2023 3:25 PM EDT Office Visit Interventional Pain Center, [facility] [address] [facility] [place] [address] Serjio Torre DO [address] [place] [address] 09/21/2023 3:00 PM EDT Procedure Only Urology, [facility] [address] [facility] [place] [address] Hoang Martinez MD [address] [facility] [address] [place] [address] 01/17/2024 2:20 PM EDT Office Visit Family [facility] [address] [place] [address] Juan F Blanco MD [address] [place] [address] 02/21/2024 1:00 PM EDT Office Visit Neurology [facility] 200 [place] [address] Landon Meredith MD [address] [place] [address] 04/02/2024 1:00 PM EST [facility] [address] [facility] [place] [address] Pending Results Name Type Priority Associated Diagnoses Date /Time CULTURE, URINE, QUANTITATIVE Lab Routine 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 09/12/2023 12:04 PM EDT Scheduled Orders Name Type Priority Associated Diagnoses Orde r Schedule CULTURE, URINE, QUANTITATIVE Lab Routine 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 Expected: 09/12/2023, Expires: 09/11/2024 Health Maintenance Due Date Last Done Comments [...] encounter Medical Devices Implanted Type Area Jewelry Jobber Device Identifier Shelf Expiration Date Model / Serial / Lot Clip Quick 2.8mm 230cm - [id number] Implanted:Qty: 2 on 10/20/2021 by Tanja Schulz MD at [facility] [employer] 08/30/2023 HX-202UR.A / / Duraclip 16mm Xlg Repostn - [id number] Implanted:Qty: 4 on 10/20/2021 by Tanja Schulz MD at [facility] [employer] 11/02/2023 [id number] / / documented as of this encounter Visit Diagnoses Diagnosis 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
--- OUTSIDE RECORDS SUMMARY | 2024-03-03 02:15 | External Medical Summary | Summary of Care ---
Author Name Unknown Organization [facility] Address [address] [place] [address] Phone [phone] Care Team Providers Care Rental Salesperson Name Role Phone Juan F Blanco MD Primary Care Provider [phone] Reason for Visit * Reason Onset Date Comments Advice 09/01/2023 Encounter Details Date Type Department Care Team (Late st Contact Info) Description 09/01/2023 Telephone [facility] [address] [place] [address] Juan F Blanco MD [address] [place] [address] Advice Allergies Active Allergy Reactions Criticality Noted Date Comments Meloxicam Nausea/vomiting 07/06/2017 Nausea and head congestion Naproxen Other (Please comment) Low 02/27/2003 nightmares documented as of this encounter (statuses as of 09/09/2023) Medications Medication Sig Dispensed Refills Start Date [...] as of this encounter (statuses as of 09/09/2023) Active Problems Problem Noted Date Diagnosed Date [...] Obesity 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 Pt has been informed of below message and verbalized understanding. * Telephone Encounter - Juan F Blanco MD - 09/03/2023 11:29 AM EDT Notify Pt: he stopped the Escitalopram recently but because he did not feel well it was to be restarted. When I saw him in June we decreased his lisinopril. So no reason to believe medication changes would contribute to leg edema. Gabapentin could be contributing. Multiple other possibilities. I would suggest he try to limit salt (Sodium) in diet as much as possible and keep legs elevated when sitting. * Telephone Encounter - Agustina Cat LPN - 09/01/2023 4:28 PM EDT SWELLING/EDEMA: Yes Where is swelling occuring? Ankles Taking any medications for the problem? No What else have you done for relief? Ice Packs Dizziness: No Pitting/Indenting: No Seeping/Draining: No Shortness of Breath: No Weight Gain: No Vomiting VOMITING: Yes How long have you been vomiting? N/A Are you vomiting blood? No Are you able to keep fluids down? Yes Are you having abdominal pain? No Fever: No Patient's Action(s) What have you done or taken for this problem? Ice packs on ankles Additional Comment(s) Additional Comments: Warm flashes, nausea, and fatigue * Telephone Encounter - Erika Martell OSA - 09/01/2023 4:06 PM EDT Pt called stating he was recently taken off of a medication, unsure of the name. He is now experiencing swelling and additional symptoms, please see call details. Please advise documented in this encounter Plan of Treatment Upcoming Encounters Date Type Department Care Team (Late st Contact Info) Description 09/13/2023 3:30 PM EDT Office Visit Allergy/Immunology [facility] 200 [facility] [place] [address] Cristiano Foster MD 200 [facility] [place] [address] 09/15/2023 3:25 PM EDT Office Visit Interventional Pain Center, [facility] [address] [place] [address] Serjio Torre DO [address] [place] [phone] 09/21/2023 3:00 PM EDT Office Visit Urology, [facility] [address] [place] [address] Hoang Martinez MD [address] [place] [address] [place] [address] 01/17/2024 2:20 PM EDT Office Visit [facility] [place] [address] [place] [address] Juan F Blanco MD [address], [place] [phone] 02/21/2024 1:00 PM EDT Office Visit Neurology [facility] [address] [place], [place] [phone] Landon Meredith MD [address] [place] [address] 04/02/2024 1:00 PM EST Imaging Radiology [address] [facility] [place] [address] Health Maintenance Due Date Last Done Comments [...] this encounter Medical Devices Implanted Type Area Cloth Printing Inspector Device Identifier Shelf Expiration Date Model / Serial / Lot Clip Quick 2.8mm 230cm - [id number] Implanted:Qty: 2 on 10/20/2021 by Tanja Schulz MD at [facility] [employer] 08/30/2023 HX-202UR.A / / Duraclip 16mm Xlg Repostn - [id number] Implanted:Qty: 4 on 10/20/2021 by Tanja Schulz MD at [facility] [employer] 11/02/2023 [id number] / / documented as of this encounter Care Teams Rental Salesperson Relationship Specialty Start Date End Date Juan F Blanco MD [address] [place] [address] PCP - General 09/02/00 documented as of this encounter
--- OUTSIDE RECORDS SUMMARY | 2024-03-03 02:15 | External Medical Summary | Summary of Care ---
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 Allergies Active Allergy Reactions Criticality [...] Obesity protocol Atherosclerotic heart diseas e of [place] coronary artery without angina pectoris 05/30/2019 [...] 09/13/2023 3:30 PM EDT Office Visit Allergy/Immunology [facility] [address] [facility] [place] [address] Cristiano Foster MD [address] [facility] [place] [address] 09/15/2023 3:25 PM EDT Office Visit [facility], [facility] [place] [address] Serjio Torre DO [address] [place] [phone] 09/21/2023 3:00 PM EDT Office Visit Urology, [facility] [address] [place] [address] Hoang Martinez MD [address] [place] [address] [place] [id number] 01/17/2024 2:20 PM EDT Office Visit [facility], [place] [address] [place] [phone] Juan F Blanco MD [address] [place] [address] 02/21/2024 1:00 PM EDT Office Visit Neurology [facility] [address] [place] [address] Landon Meredith MD [address] [place] [address] 04/02/2024 1:00 PM EST Imaging Radiology [facility], [place] [address] [place] [address] Pending Results Name Type Priority Associated Diagnoses Date /Time CULTURE, URINE, QUANTITATIVE Lab Routine 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 09/12/2023 12:04 PM EDT Health Maintenance Due Date Last [...] this encounter Medical Devices Implanted Type Area Access Spec Device Identifier Shelf Expiration Date Model / Serial / Lot Clip Quick 2.8mm 230cm - [id number] Implanted:Qty: 2 on 10/20/2021 by Tanja Schulz MD at END[facility]COPY [facility] [employer] 08/30/2023 [id number]-202UR.A / / Duraclip 16mm Xlg Repostn - [id number] Implanted:Qty: 4 on 10/20/2021 by Tanja Schulz MD at ENDOSCOPY [facility] [employer] 11/02/2023 [id number] / / documented as of this encounter Visit Diagnoses Diagnosis 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
--- OUTSIDE RECORDS SUMMARY | 2024-03-03 02:15 | External Medical Summary | Summary of Care ---
Author Name Unknown Organization [facility] Address [address] [place] [address] Phone [phone] Care Team Providers Care Support Teacher Name Role Phone Juan F Blanco MD Primary Care Provider [phone] Reason for Visit * Reason Onset Date Comments Advice 09/01/2023 Encounter Details Date Type Department Care Team (Late st Contact Info) Description 09/01/2023 Telephone [facility] [address] [place] [address] Juan F Blanco MD [address] [place] [address] Advice Allergies Active Allergy Reactions Criticality Noted Date Comments Meloxicam Nausea/vomiting 07/06/2017 Nausea and head congestion Naproxen Other (Please comment) Low 02/27/2003 nightmares documented as of this encounter (statuses as of 09/06/2023) Medications Medication Sig Dispensed Refills Start Date [...] as of this encounter (statuses as of 09/06/2023) Active Problems Problem Noted Date Diagnosed Date [...] Obesity protocol Atherosclerotic heart diseas e of [place] coronary artery without angina pectoris 05/30/2019 [...] as of this encounter (statuses as of 09/06/2023) Resolved Problems Problem Noted Date Diagnosed Date [...] as of this encounter (statuses as of 09/06/2023) Immunizations Name Administration Dates Next Due COVID-19 [...] 09/13/2023 3:30 PM EDT Office Visit Allergy/Immunology [facility] [address] [facility] [place] [address] Cristiano Foster MD [address] [facility] [place] [address] 09/15/2023 3:25 PM EDT Office Visit [facility] [address] Serjio Torre DO 132 [facility] [place] [phone] 09/21/2023 3:00 PM EDT Office Visit Urology, [facility] [address] [place] [address] Hoang Martinez MD 27 [facility] [address] [place] [address] 01/17/2024 2:20 PM EDT Office Visit [address] [address] Juan F Blanco MD [address] [place] [address] 02/21/2024 1:00 PM EDT Office Visit Neurology [facility] [address] [place] [address] Landon Meredith MD [address], [place] [phone] 04/02/2024 1:00 PM EST Imaging Radiology [address] [place] [address] Health Maintenance Due Date Last Done Comments [...] this encounter Medical Devices Implanted Type Area Manager Civil Device Identifier Shelf Expiration Date Model / Serial / Lot Clip Quick 2.8mm 230cm - [id number] Implanted:Qty: 2 on 10/20/2021 by Tanja Schulz MD at ENDOSCOPY [facility] [employer] 08/30/2023 [id number]-202UR.A / / Duraclip 16mm Xlg Repostn - [id number] Implanted:Qty: 4 on 10/20/2021 by Tanja Schulz MD at ENDOSCOPY [facility] [employer] 11/02/2023 [id number] / / documented as of this encounter Care Teams Support Teacher Relationship Specialty Start Date End Date Juan F Blanco MD [address] [place] [address] PCP - General 09/02/00 documented as of this encounter
--- OUTSIDE RECORDS SUMMARY | 2024-03-03 02:15 | External Medical Summary ---
Author Name Unknown Address Unknown Organization [id number]:[facility] [address] [place] [id number] Laboratory Report Ordering Provider Test Date Status MELIA SALGUERO 09/12/2023 12:04:21 Final Observation Date Value Abnormality Reference (Units) Status Bacteria identified in Specimen by Culture 09/12/2023 12:04:21 No significant growth Final Test: Culture, Urine, Quanti tative
Specimen Source: Urine, Clean Catch
Specimen Type: Urine
Specimen Date: 09/12/2023 12:04 PM
Result Date: 09/13/2023 5:21 PM
Result Status: Final result
Resulting Lab: [facility]
[address]
[facility]

CULTURE

No significant growth

null Performing Location [facility] [address] [facility] [address]
[2024-03-03] MEDS: SODIUM CHLORIDE 0.9% 1,000 ML IV ONE (06:34)
[2024-03-03] MEDS: oxyCODONE HCL IR 5 MG TAB (IMMEDIATE RELEASE) PO PRN (07:48)
[2024-03-03] MEDS: MICONAZOLE NITRATE POWDER 85 GM EXT PRN (07:49)
[2024-03-03] MEDS: FOLIC ACID 400 MCG TAB PO SCH (07:50)
[2024-03-03] MEDS: CEROVITE ADV FORMULA TAB PO SCH (07:50)
[2024-03-03] MEDS: ADVANCED PROBIOTIC 625 MG CAPSULE PO SCH (07:52)
[2024-03-03] MEDS: FLUTICASONE PROPIONATE NA SPR 16 GM BTL SCH (07:52)
[2024-03-03 08:09] LABS: Basophils # (auto) 0.05 K/uL (0.00-0.20); Basophils % (auto) 0.5 %; Eosinophils # (auto) 0.07 K/uL (0.00-0.50); Eosinophils % (auto) 0.7 %; Hematocrit (blood only) 29.6 % (42.0-52.0); Immature Granulocytes # (auto) 0.06 K/uL (0.01-0.20); Immature Granulocytes % (auto) 0.6 %; Lymphocytes # (auto) 1.59 K/uL (1.20-3.40); Lymphocytes % (auto) 15.4 %; Mean Corpuscular Hemoglobin 31.5 pg (25.0-34.0); Mean Corpuscular Hgb Conc 33.8 g/dL (32.0-36.0); Mean Corpuscular Volume 93.4 fL (80.0-100.0); Mean Platelet Volume 9.3 fL (9.4-12.4); Monocytes # (auto) 1.12 K/uL (0.11-0.59); Monocytes % (auto) 10.9 %; Neutrophils # (auto) 7.42 K/uL (1.40-6.50); Neutrophils % (auto) 71.9 %; Platelet Count 244 K/uL (130-400); RDW Standard Deviation 46.9 fL (36.4-46.3); Red Blood Count 3.17 M/uL (4.70-6.10); White Blood Count 10.31 K/ul (4.8-10.8)
[2024-03-03 08:14] VITALS: RESP 20
[2024-03-03 08:24] LABS: BUN Creatinine Ratio 24.4 (10-20); Calcium 8.9 mg/dl (8.6-10.3); Creatinine Clr Calc Pharmacy 70.7 ml/min; Potassium 3.4 mmol/L (3.5-5.1)
[2024-03-03] MEDS: POTASSIUM CHLORIDE CRTAB 20 MEQ TABCR PO STA (11:04)
--- NOTE | 2024-03-03 11:40 | Hospitalist Progress Note ---
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 No headache or tongue biting or incontinence per patient. He is being managed for the following: Syncope Possible viral illness Poor appetite Fall Possible orthostasis and fall secondary to hypovolemia in the setting of poor appetite/possible recent viral illness. Likely accentuated by recent prescription of trihexiphenydyl. Admitting labs with some hemoconcentration and acute kidney injury noted indicating dehydration. UA negative for UTI. Respiratory pathogen panel negative. Admitting imagings CXR, C-spine CT, head CT, right knee x-ray with no acute Fracture. Continue telemetry monitoring, follow echo, monitor and replete electrolytes. Potassium repleted. PT/OT, continue with symptomatic care, fall precaution. Patient reports appetite is getting better, denies diarrhea now. Patient complaining of bilateral hip pain, will get pelvic x-ray. Hold aspirin for now given traumatic LE bruising, resume if H&H stable by nikolai. Acute kidney injury: Admitting creatinine of 1.97, status post IV fluid, creatinine of 1.27 today. Resolved. Continue to finish the current bag of IV fluid. Labs in AM. Resume home bp meds from nikolai as PO intake improves. Elevated CPK: Do not qualify for diagnosis of rhabdomyolysis yet, admitting CPK of 964, trended down to 817. Continue to encourage p.o. intake, repeat CPK in AM. Statin on hold. Other chronic medical conditions: Continue with/resume home meds as and when able. hx sinus node dysfunction status post PPM hx PVD hypertension, stable hyperlipidemia, on statin Rx LEÓN on CPAP Parkinson's disease, patient's intolerant to new trihexyphenidyl Rx, will hold until further eval w/ neurologist as OP. ulcerative colitis, in remission chronic anemia, hemoglobin at baseline BPH/history urethral stricture anxiety/mood disorder, stable Hyperglycemia rule out DM, a1c 5.2 PT OT eval DVT prophylaxis. SCDs re: traumatic LE bruising Full code Text document was generated using [employer] voice recognition software. It may contain grammatical or spelling errors. Kindly contact undersigned for clarification of any documentation item in question. Admission and Anticipated Discharge Date Admission Date: March 02, 2024 Subjective Patient was seen and examined at bedside. Patient was sitting up in chair, on room air, NAD, eating his breakfast. Patient reports strength getting better today, reports eating better today, had bowel movement/denies diarrhea, reports bilateral hip pain. Physical Exam Physical Exam: GENERAL: Comfortable, pleasant, obese, unkempt, no respiratory distress SKIN: Pallor, warm HEENT: Pale, palpebral conjunctivae, no ptosis, Moist buccal mucosa NECK : Supple, short neck, no tenderness CHEST : CTA, no tenderness HEART : RRR, no obvious murmurs ABDOMEN: Some distention, nontender EXTREMITIES : no edema, no erythema BLE, ecchymosis over knees, no other conspicuous deformities noted NEUROLOGIC : Coherent, no facial asymmetry, RUE rest tremors noted, gait and stance not assessed Results & Data Results & Data Vital Signs (Past 12 Hours) Vital Signs Temp Pulse Pulse Resp BP Pulse Ox O2 Del Method 03/03/24 08:13 36.7 C 71 20 122/86 94 Room Air 03/03/24 07:16 62 03/03/24 03:00 36.9 C 104 H 16 91/46 L 94 Room Air 03/03/24 00:30 Room Air 03/02/24 23:53 80 03/02/24 23:43 36.6 C 103 H 20 132/73 94 Room Air
[2024-03-03 11:57] VITALS: O2SAT 95
[2024-03-03] MEDS: ACETAMINOPHEN 325 MG TAB PO PRN (12:37)
--- NOTE | 2024-03-03 12:50 | XRay Report ---
XR hip BARBARA 2v w pelvis HISTORY: 78 years-old Male b/l hip pain acute bilateral hip pain COMPARISON: None TECHNIQUE: AP view of the pelvis with 2 views of the hips FINDINGS: Severe degenerative changes of the lumbar spine. [id number] osteoarthritis of the hips. Gaseous distention of the large bowel. No acute fracture, dislocation or avascular necrosis identified. IMPRESSION: No acute fracture or dislocation identified. ACT 112: Negative or not required by law. The above report was generated using voice recognition software. It may contain grammatical, syntax o r spelling errors. Electronically signed by: Karri Niño M.D. 03/03/2024 12:48 PM
[2024-03-03 15:46] VITALS: BP 114/63; TEMP 97.5
--- NOTE | 2024-03-03 16:08 | Discharge Summary ---
Date of Service March 03, 2024 Admission HPI Per Admitting Provider History obtained from patient and records. Medical history significant for sinus node dysfunction status post PPM, PSVT, NSVT as per records, PVD, hypertension, hyperlipidemia, LEÓN on CPAP Parkinson's disease, ulcerative colitis, chronic anemia (baseline hemoglobin of 11), BPH, history urethral stricture, anxiety/mood disorder. Patient not feeling well the last few days. Flulike symptoms without chest pain/SOB. Appetite not too good. Cough symptoms improving. Patient recently started by neurologist on trihexyphenidyl for Parkinson's tremors. He stopped taking medication after few days due to increased dizziness described as lightheadedness. Patient had transient unwitnessed syncopal event at home today leading to fall. No headache, no tongue biting, no incontinence. Denies chest pain or SOB. Bilateral leg pain/bruising from fall. Patient brought to ER for evaluation. 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 Admission Exam Per Admitting Provider GENERAL: Comfortable, pleasant, obese, unkempt, no respiratory distress SKIN: Pallor, warm HEENT: Pale, palpebral conjunctivae, no ptosis, dry buccal mucosa NECK : Supple, short neck, no tenderness CHEST : CTA, no tenderness HEART : RRR, no obvious murmurs ABDOMEN: Some distention, nontender EXTREMITIES : Bilateral LE swelling with LE tenderness, ecchymosis over knees, no other conspicuous deformities noted NEUROLOGIC : Coherent, no facial asymmetry, RUE rest tremors, gait and stance not assessed Principal Diagnosis Syncope Possible viral illness Poor appetite Fall Acute kidney injury Elevated CPK Discharge Exam GENERAL: Comfortable, upset and wants to go home, obese, unkempt, no respiratory distress SKIN: Pallor, warm HEENT: Pale, palpebral conjunctivae, no ptosis, Moist buccal mucosa NECK : Supple, short neck, no tenderness CHEST : CTA, no tenderness HEART : RRR, no obvious murmurs ABDOMEN: Some distention, nontender EXTREMITIES : no edema, no erythema BLE, ecchymosis over knees, no other conspicuous deformities noted NEUROLOGIC : Coherent, no facial asymmetry, RUE rest tremors noted, gait and stance not assessed Discharge Data Allergies Allergy/AdvReac Type Severity Reaction Status Date / Time naproxen Allergy Intermediate ITCHING Verified 05/27/14 08:50 dexbrompheniramine AdvReac Intermediate nightmares, Verified 05/27/14 08:50 NOT A TRUE ALLERGY trihexyphenidyl AdvReac Intermediate Dizziness Verified 03/03/24 07:10 Consultations 03/02/24 21:50 ED Decision to Admit Stat Ordered Studies 03/02/24 18:39 CT cervical spine wo con Stat CT head/brain wo con Stat Hospital Course (1) Syncope: 78-year-old male with PMH of sinus node dysfunction status post PPM, PSVT, NSVT, PVD, HTN, HLD, LEÓN on CPAP, Parkinson's disease, ulcerative colitis, chronic anemia [baseline hemoglobin of 11], BPH, ureteral stricture, anxiety/mood disorder presented to the ED with complaint of not feeling well, flulike symptoms, poor appetite, cough not improving (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 No headache or tongue biting or incontinence per patient. He was managed for the following: Syncope Possible viral illness Poor appetite Fall Possible orthostasis and fall secondary to hypovolemia in the setting of poor appetite/possible recent viral illness. Likely accentuated by recent prescription of trihexiphenydyl. Admitting labs with some hemoconcentration and acute kidney injury noted indicating dehydration. UA negative for UTI. Respiratory pathogen panel negative. Admitting imagings CXR, C-spine CT, head CT, right knee x-ray with no acute Fracture. b/l hip xr w/ no fracture. ECHO w/ no acute findings. Home blood pressure medication on hold, PT/OT was ordered but patient wants to leave before evaluation. Trihexyphenidyl held, patient advised to follow-up with PCP and neurology soon after discharge. Patient reports appetite improving today, denies any diarrhea. Patient advised to hold aspirin for next 2 days because of traumatic lower extremity bruising. Patient also advised to follow-up with PCP within 2 to 3 days and have labs repeated for close monitoring and further evaluation. Acute kidney injury: Admitting creatinine of 1.97, status post IV fluid, creatinine of 1.27 today. Resolved. Continue to finish the current bag of IV fluid. Labs in AM. Resume home bp meds from nikolai as PO intake improves. Elevated CPK: Do not qualify for diagnosis of rhabdomyolysis yet, admitting CPK of 964, trended down to 817. Continue to encourage p.o. intake, repeat CPK in AM. Statin on hold. Patient declined IV fluid and was upset and wanted to go home. Other chronic medical conditions: Continue with/resume home meds as and when able. hx sinus node dysfunction status post PPM hx PVD hypertension, stable hyperlipidemia, on statin Rx LEÓN on CPAP Parkinson's disease, patient's intolerant to new trihexyphenidyl Rx, will hold until further eval w/ neurologist as OP. ulcerative colitis, in remission chronic anemia, hemoglobin at baseline BPH/history urethral stricture anxiety/mood disorder, stable Hyperglycemia rule out DM, a1c 5.2 PT OT eval DVT prophylaxis. SCDs re: traumatic LE bruising Full code During the day, patient became upset and wanted to go home. Patient offered no reasons for being upset and stated that he just wanted to go home. He is pacing around in the room, is oriented, understand the risks of possibly going into full blown rhabdomyolysis/electrolyte abnormality/arrhythmia/acute renal failure/. he wants to go home and his significant other is arranging transport for the patient per RN. He is being discharged with following instructions: Follow-up with your primary care physician within a week time and likely you will need labs CBC/CMP/magnesium/phosphorus. As has been explained to you at bedside, it is highly recommended that you stay overnight for ongoing observation/gradual resuming of your home medication/physical & Occupational Therapy evaluation. But you want to go home regardless. We recommend that you follow-up with your PCP in 2 to 3 days time of discharge. Given your kidney injury and muscle injury, we recommend that you hold your home lisinopril/hydrochlorothiazide/atorvastatin for 2 to 3 days until further evaluation by your PCP office in 2 to 3 days which is very important. Given fall and traumatic lower extremity bruising, we recommend that you hold your aspirin for next 3 days. You can resume your aspirin thereafter. Given dizziness, we recommend that you hold your trihexyphenidyl which has been recently started until further evaluation by your neurology office in 1 to 2 weeks time upon discharge. We recommend that you continue with home health physical therapy. Take your medications as prescribed. Please make sure that you are able to get your medications today by calling your pharmacy before you leave the hospital so that your treatment continuity is not broken. Text document was generated using [employer] voice recognition software. It may contain grammatical or spelling errors. Kindly contact undersigned for clarification of any documentation item in question. Home Health Attestation I certify that this patient is under my care and that I, or a physicians commercial escrow assistant working with me, had a face to-face encounter that meets the home health [id number] encounter requirements with this patient. The encounter with the patient was in whole, or in part, for the following medical condition, which is the primary reason for home health care (list medica l condition): I certify that, based on my findings, the following services are medically necessary home health services: My clinical findings support the need for the above services because: Further, I certify that my clinical findings support that this patient is homebound (i.e. absences from home require considerable and taxing effort and are for medical reasons or sikh services or infrequently or of short duration when for other reasons) because: Certification for Home Health Services: Based on the above findings, I certify that this patient is confined to the home and needs intermittent senior living care, physical therapy and/or speech therapy or continues to need occupational therapy. The patient is under my care, and I have initiated the establishment of the plan of care. This patient will be followed by a physician who will periodically review the plan of care. Total Time Total Time Spent Total Time Spent (In Minutes): 50 Discharge Plan Discharge Items Patient Disposition: Home - Home Health Services Reason For Visit: SYNCOPE Discharge Diagnosis: Syncope Possible viral illness Poor appetite Fall Acute kidney injury Elevated CPK Activity: As commented below Activity Comment: fall precaution, pt/ot at home. Non-emergency contact: Primary Care Provider Call non-emergency contact if: you have any medication questions, your symptoms worsen and your temperature is above 101 Follow-up/Referrals: Juan F Blanco MD [Primary Care Provider] - Diet: Heart Healthy Addtl Attending Provider Instructions: Follow-up with your primary care physician within a week time and likely you will need labs CBC/CMP/magnesium/phosphorus. As has been explained to you at bedside, it is highly recommended that you stay overnight for ongoing observation/gradual resuming of your home medication/physical & Occupational Therapy evaluation. But you want to go home regardless. We recommend that you follow-up with your PCP in 2 to 3 days time of discharge. Given your kidney injury and muscle injury, we recommend that you hold your home lisinopril/hydrochlorothiazide/atorvastatin for 2 to 3 days until further evaluation by your PCP office in 2 to 3 days which is very important. Given fall and traumatic lower extremity bruising, we recommend that you hold your aspirin for next 3 days. You can resume your aspirin thereafter. Given dizziness, we recommend that you hold your trihexyphenidyl which has been recently started until further evaluation by your neurology office in 1 to 2 weeks time upon discharge. We recommend that you continue with home health physical therapy. Take your medications as prescribed. Please make sure that you are able to get your medications today by calling your pharmacy before you leave the hospital so that your treatment continuity is not broken. Pending Studies at Discharge: No Stand-Alone Forms: My buySAFE, Smoking Cessation Medications and DC Order Prescriptions: Continued Calcium (Caltrate) 600 MG tablet 600 mg PO BID Qty: 0 Fluticasone Propionate (Flonase Nasal Moore *) INHALATION 2 spry BERNARD DAILY Qty: 0 OMEGA 3 1,000 mg PO BID Qty: 0 Fexofenadine Hcl (Gertrude *) 30 MG tablet 30 mg PO PRN PRN (Reason: Allergy Symptoms) Qty: 0 Folic Acid (Folvite *) 400 MCG tablet 400 mcg PO DAILY Qty: 0 METOPROLOL TARTRATE (LOPRESSOR) 50 MG tablet 50 mg PO BID Qty: 0 CHOLECALCIFEROL (Vitamin D) 1,000 INTER.UNIT tablet 1,000 inter.unit PO DAILY Qty: 0 MULTIPLE VITAMINS W/ MINERALS (CENTRUM SILVER) 1 CHW CHW 1 tab PO DAILY Qty: 0 SILDENAFIL CITRATE (VIAGRA) 100 MG tablet 100 mg PO PRN Qty: 0 [facility] probiotics 1 tab PO DAILY Qty: 0 sinus washneti pot 1 applic Flush ONCE Qty: 0 carbidopa-levodopa 25-100 mg tablet 1.5 tab PO QID Held Lisinopril (Zestril) 10 MG tablet 10 mg PO BID Qty: 0 Hold Instructions: Resume on 03/09/24. hold until further eval by your PCP within a week time. Aspirin Enteric Coated (Ecotrin Or Generic *) 81 MG ENTERIC COATED TAB 81 mg PO DAILY Qty: 0 Hold Instructions: Resume on 03/06/24. ATORVASTATIN (LIPITOR) 10 MG tablet 10 mg PO DAILY Qty: 0 Hold Instructions: Resume on 03/09/24. hold until further eval by your PCP within a week time. HYDROCHLOROTHIAZIDE (HCTZ) 25 MG tablet 25 mg PO DAILY Qty: 0 Hold Instructions: Resume on 03/09/24. hold until further eval by your PCP within a week time. trihexyphenidyl 2 mg tablet 2 mg PO DIRECTED Hold Instructions: Resume on 03/13/24. hold until further neurology evaluation in about a week time. Admission Data Admit Date/Time: 03/02/24 22:41 Attending Provider: Mack Clark Admit Provider: Alexis Calvin Primary Care Provider: Juan F Blanco Other Providers: Alexis Calvin
[2024-03-03 16:58] VITALS: PULSE 69
--- NOTE | 2024-03-03 19:12 | Electrocardiogram Report ---
Test Reason : Blood Pressure : */* mmHG Vent. Rate : 64 BPM Atrial Rate : 64 BPM P-R Int : 236 ms QRS Dur : 140 ms QT Int : 442 ms P-R-T Axes : 53 -57 48 degrees QTcB Int : 455 ms Atrial-paced rhythm with prolonged AV conduction with premature ventricular or aberrantly conducted c omplexes Left axis deviation Non-specific intra-ventricular conduction block Minimal voltage criteria for LVH, may be normal variant ( Ramin product ) Cannot rule out Septal infarct , age undetermined Abnormal ECG When compared with ECG of 27-Aug-2011 13:06, Atrial paced rhythm is new Confirmed by Elyssa Vega ([id number]) on 03/03/2024 7:11:30 PM Referred By: REFERRED SELF Confirmed By: Elyssa Vega
== END 2024-03-03 18:17 | disposition home health service (06) ==
LOC: ED 16:07 → 2N 16:07

== ENCOUNTER 2024-11-09 03:08 | Inpatient (IN) ==
[2024-11-09] MEDS: SODIUM CHLORIDE 0.9% 1,000 ML IV SCH (03:46)
[2024-11-09 04:07] LABS: Hematocrit (blood only) 32.3 % (42.0-52.0); Hemoglobin 10.6 g/dl (14.0-18.0); Immature Granulocytes # (auto) 0.10 K/uL (0.01-0.20); Immature Granulocytes % (auto) 0.6 %; Mean Corpuscular Hemoglobin 31.2 pg (25.0-34.0); Mean Corpuscular Volume 95.0 fL (80.0-100.0); Platelet Count 281 K/uL (130-400); RDW Standard Deviation 50.4 fL (36.4-46.3); Red Blood Count 3.40 M/uL (4.70-6.10); White Blood Count 16.83 K/ul (4.8-10.8)
--- NOTE | 2024-11-09 04:22 | Emergency Department Note ---
Impression & Plan Generalized weakness, Fall, Abnormal LFTs, Acute UTI (urinary tract infection) ED Provider Note ED Provider Note NAME: MICHELLE SHIRLEY AGE:78 SEX: Male : 1945 ARRIVES VIA: EMS INFORMANT: Patient ED PROVIDER(s): Jenny Nieto DO CHIEF COMPLAINT: fall, knee abrasions HPI: This is a 78-year-old male who presents to the emergency department via EMS due to concern for fall. Patient states he tried to stand up from his chair and his feet and legs felt weak and he was shuffling more than usual. He states he does not typically need an ambulatory assistive device. He states he then tried to sit back down and missed the seat falling and landing on his butt. He states he and his significant other tried to get him back out but they could not as he was too weak. He states he tried to crawl and slide to another area to try and stand but could not. He estimates that the fall happened at around 8:30 PM. He denies any head injury, neck or back pain, abdominal pain, nausea or vomiting, or difficulty breathing. He states he has some slight rib pain from when he was crawling on his abdomen as well as abrasions to bilateral knees. Patient does note mild swelling of bilateral feet additionally. He denies any recent change in medications. He states he does take aspirin. PAST MEDICAL HISTORY:See Below PAST SURGICAL HISTORY:See Below FAMILY HISTORY:See Below SOCIAL HISTORY:See Below HOME MEDICATIONS:See Below ALLERGIES:See Below VITALS:See Below PHYSICAL EXAMINATION: GENERAL: alert, well appearing, well nourished, no distress, non-toxic HEAD: nc/at EYE EXAM: normal conjunctiva, PERRL and EOM's grossly intact OROPHARYNX: no exudate, no erythema, lips, buccal mucosa, and tongue normal and mucous membranes are mildly dry NECK: supple, no nuchal rigidity, no adenopathy, non-tender LUNGS: Clear to auscultation. Normal chest wall mechanics, no w/r/r HEART: no murmurs, S1 normal and S2 normal ABDOMEN: abdomen soft, non-tender, normo-active bowel sounds, no masses, no rebound or guarding. SKIN: no rashes, petechiae, orbruising UPPER EXTREMITIES: upper extremities are grossly normal. FROM, nml pulses b/l. LOWER EXTREMITIES: +1 bilateral pedal pitting edema. FROM, nml pulses b/l. Abrasions and mild erythema noted to bilateral anterior knees, nontender with palpation, no joint effusions, no other evidence of trauma or deformity. No pain with palpation of the hips. NEURO EXAM: Normal sensorium, cranial nerves II-XII grossly intact, normal speech, no facial droop,nogross weakness of arms, no gross weakness of legs. Gross sensation intact. No ataxia. Vital Signs: reviewed and remarkable Differential Diagnosis: ICH, CHI, fracture, contusion, sprain, strain, laceration, abrasions, hemoperitoneum, occult spine injury, acute ligamentous injury, retroperitoneal bleeding, as well as others were considered MEDICAL DECISION MAKING: This is a 78-year-old male presents emergency department following a fall at home complaining of weakness. He was afebrile and hemodynamically stable. Labs drawn and sent, IV established, EKG and xrays performed at bedside interpreted by me and patient monitored on telemetry. Patient started on IV fluids. He was noted to have abnormal LFTs however had no abdominal pain on exam and denied any prior history of abnormal LFTs or other liver dysfunction. He was sent for CT of the abdomen and pelvis as a precaution in light of this. UA abnormal also patient is on IV Rocephin. He denies noting any change in his urine or history of UTI. CT of the abdomen pelvis notes mild perinephric changes although patient clinically without overt signs of pyelonephritis. Patient unable to safely stand or walk at bedside even with two-person assist. Out of concern for patient's safety, and in consideration of his age, the fall tonight, and complex past medical history, case discussed with the hospitalist team for additional evaluation. At this time I would suspect evolving urinary tract infection could have contributed to increased weakness especially in light of prior history of Parkinson's symptoms. Unclear etiology of the abnormal LFTs at this time. Consultation(s): 0740: DIscussed with Dr. Mckee, [facility] hospitalist team, for additional evaluation and mgmt. ER Treatment Provided: See below Diagnostics Interpreted By Me: -ECG: Atrial fibrillation at a rate of 79, leftward axis, prolonged QRS and QTc, nonspecific ST/T wave changes, PVCs noted; no significant change in morphology compared to March 02, 2024 -Cardiac Monitoring: An order was placed for continuous cardiac monitoring. The monitor shows a rate of 78 with normal sinus rhythm. -Laboratory studies: As stated above and show below. -Imaging studies: X-ray Chest: A single view study of the chest was reviewed and was negative for cardiomegaly, focal infiltrate, effusion, pulmonary edema, or wide mediastinum. Triage Nursing Note Reviewed Prior/Outside Records Reviewed -prior urine cultures reviewed Past Med/Surg History Problem List (Updated 11/09/24 @ 13:25 by Wendy Mckee MD) Parkinson disease Acute UTI (urinary tract infection) (Acute) Abnormal LFTs (Acute) Fall (Acute) Generalized weakness (Acute) Syncope Fall (Acute) Cervical strain, acute (Acute) CHI (closed head injury) (Acute) Contusion of knee, right (Acute) Generalized weakness (Acute) Acute kidney injury (Acute) Social History Smoking Status: Never smoker Hx Alcohol Use: No Hx Substance Use: No Preferred Language: Spanish Communication Ability: Effective Floatlight Powder Mixer Required: No Beliefs That Will Affect Care: None Current Living Situation: Other Current Living Situation Comment: home with partner Other Information That Helps Us Care for You: No Feels Safe at Home: Yes Safety Concerns: Feels Safe At This Time Assistive Devices: None Allergies Allergies Allergy/AdvReac Type Severity Reaction Status Date / Time naproxen Allergy Intermediate ITCHING Verified 05/27/14 08:50 dexbrompheniramine AdvReac Intermediate nightmares, Verified 05/27/14 08:50 NOT A TRUE ALLERGY trihexyphenidyl AdvReac Intermediate Dizziness Verified 03/03/24 07:10 Home Meds Home Medications Medication Instructions Recorded Confirmed Calcium (Caltrate) 600 mg PO BID ##0 02/21/07 11/09/24 Fluticasone Propionate (Flonase 2 spry BERNARD DAILY ##0 02/21/07 11/09/24 Nasal Plover *) OMEGA 3 1,000 mg PO BID ##0 02/21/07 11/09/24 Fexofenadine Hcl (Gertrude *) 30 mg PO PRN PRN Allergy Symptoms 03/30/07 11/09/24 ##0 CHOLECALCIFEROL (Vitamin D) 1,000 inter.unit PO DAILY #0 tabs 05/22/14 11/09/24 MULTIPLE VITAMINS W/ MINERALS 1 tab PO DAILY ##0 05/22/14 11/09/24 (CENTRUM SILVER) carbidopa 25 mg-levodopa 100 mg 1.5 tab PO QID 03/02/24 11/09/24 tablet aspirin 81 mg tablet,delayed 81 mg PO DAILY 11/09/24 11/09/24 release atorvastatin 10 mg tablet 10 mg PO DAILY 11/09/24 11/09/24 escitalopram oxalate 10 mg tablet 10 mg DAILY 11/09/24 11/09/24 finasteride 5 mg tablet 5 mg DAILY 11/09/24 11/09/24 gabapentin 300 mg capsule 300 mg TID 11/09/24 11/09/24 midodrine 2.5 mg tablet 2.5 mg PO DAILY 11/09/24 11/09/24 mirabegron 50 mg tablet,extended 50 mg PO DAILY 11/09/24 11/09/24 release 24 hr (Myrbetriq) propranolol 10 mg tablet 10 mg TID 11/09/24 11/09/24 Results & Data (ED) Vital Signs Vital Signs - 24 hr 11/09/24 05:02 11/09/24 05:08 11/09/24 05:08 Pulse Rate Pulse Rate from SpO2 Sensor Respiratory Rate Respiratory Effort / Characteristics Non-Labored Respiratory Depth Normal Blood Pressure 125/59 L 125/59 L Blood Pressure Mean 88 88 Pulse Oximetry 11/09/24 05:12 11/09/24 05:27 11/09/24 05:39 Pulse Rate 66 68 68 Pulse Rate from SpO2 Sensor 83 68 63 Respiratory Rate 17 16 16 Respiratory Effort / Characteristics Respiratory Depth Blood Pressure Blood Pressure Mean Pulse Oximetry 93 95 95 11/09/24 05:42 11/09/24 05:51 11/09/24 06:00 Pulse Rate 65 66 Pulse Rate from SpO2 Sensor 60 64 Respiratory Rate 15 16 Respiratory Effort / Characteristics Respiratory Depth Blood Pressure 116/60 Blood Pressure Mean 74 Pulse Oximetry 96 96 11/09/24 06:00 11/09/24 06:18 11/09/24 06:21 Pulse Rate 68 70 73 Pulse Rate from SpO2 Sensor 69 73 71 Respiratory Rate 15 13 13 Respiratory Effort / Characteristics Respiratory Depth Blood Pressure Blood Pressure Mean Pulse Oximetry 96 95 97 11/09/24 06:27 11/09/24 06:31 11/09/24 06:31 Pulse Rate 66 Pulse Rate from SpO2 Sensor Respiratory Rate 15 Respiratory Effort / Characteristics Respiratory Depth Blood Pressure 116/60 116/60 Blood Pressure Mean 90 90 Pulse Oximetry 11/09/24 06:31 11/09/24 06:33 11/09/24 06:57 Pulse Rate 65 76 Pulse Rate from SpO2 Sensor Respiratory Rate 15 14 Respiratory Effort / Characteristics Respiratory Depth Blood Pressure 116/60 Blood Pressure Mean 90 Pulse Oximetry 11/09/24 07:00 11/09/24 07:00 11/09/24 07:30 Pulse Rate Pulse Rate from SpO2 Sensor Respiratory Rate Respiratory Effort / Characteristics Respiratory Depth Blood Pressure 114/65 114/65 122/79 Blood Pressure Mean 75 75 87 Pulse Oximetry 11/09/24 07:30 11/09/24 07:30 11/09/24 07:30 Pulse Rate Pulse Rate from SpO2 Sensor Respiratory Rate Respiratory Effort / Characteristics Respiratory Depth Blood Pressure 122/79 122/79 122/79 Blood Pressure Mean 87 87 87 Pulse Oximetry 11/09/24 07:30 11/09/24 07:33 11/09/24 08:01 Pulse Rate 79 68 Pulse Rate from SpO2 Sensor 81 69 Respiratory Rate 16 15 Respiratory Effort / Characteristics Respiratory Depth Blood Pressure 124/77 Blood Pressure Mean 91 Pulse Oximetry 96 95 11/09/24 08:01 11/09/24 08:06 11/09/24 08:09 Pulse Rate 67 73 Pulse Rate from SpO2 Sensor 66 Respiratory Rate 16 Respiratory Effort / Characteristics Respiratory Depth Blood Pressure 124/77 Blood Pressure Mean 91 Pulse Oximetry 95 11/09/24 08:12 11/09/24 08:27 Pulse Rate 68 77 Pulse Rate from SpO2 Sensor 66 Respiratory Rate 14 21 Respiratory Effort / Characteristics Respiratory Depth Blood Pressure Blood Pressure Mean Pulse Oximetry 97 91 Laboratory Data 11/09/24 03:18 11/09/24 03:18 Lab Results 11/09/24 11/09/24 Range/Units 03:18 04:45 WBC 16.83 H (4.8-10.8) K/ul RBC 3.40 L (4.70-6.10) M/uL Hgb 10.6 L (14.0-18.0) g/dl Hct 32.3 L (42.0-52.0) % MCV 95.0 (80.0-100.0) fL MCH 31.2 (25.0-34.0) pg MCHC 32.8 (32.0-36.0) g/dL RDW Std Deviation 50.4 H (36.4-46.3) fL RDW Coeff of Rupinder 14.6 H (11.5-14.5) % Plt Count 281 (130-400) K/uL MPV 9.9 (9.4-12.4) fL Immature Gran % (Auto) 0.6 % Neut % (Auto) 90.0 % Lymph % (Auto) 4.9 % [place] % (Auto) 4.2 % Eos % (Auto) 0.1 % Baso % (Auto) 0.2 % Neut # (Auto) 15.15 H (1.40-6.50) K/uL Lymph # (Auto) 0.82 L (1.20-3.40) K/uL [place] # (Auto) 0.71 H (0.11-0.59) K/uL Eos # (Auto) 0.01 (0.00-0.50) K/uL Baso # (Auto) 0.04 (0.00-0.20) K/uL Immature Gran # (Auto) 0.10 (0.01-0.20) K/uL PT 11.6 (9.0-12.0) Seconds INR 1.1 (0.9-1.1) Sodium 135 L (136-145) mmol/L Potassium 3.3 L (3.5-5.1) mmol/L Chloride 101 (98-107) mmol/L Carbon Dioxide 25 (21-32) mmol/L Anion Gap 9 (3-11) BUN 15 (6-23) mg/dl Creatinine 1.08 (0.6-1.4) mg/dl Est Cr Clr Drug Dosing 79.6 ml/min eGFR 70.24 BUN/Creatinine Ratio 13.9 (10-20) Glucose 128 H (70-99(Fasting)) mg/dl Calcium 8.8 (8.6-10.3) mg/dl Magnesium 1.8 (1.7-2.4) mg/dl Iron 19 L (35-175) mcg/dl TIBC 248 L (250-450) mcg/dl Transferrin 177 L (200-360) mg/dl Transferrin % Sat 8 L (20-50) % Ferritin 281.0 (8-388) ng/ml Total Bilirubin 3.9 H (0.2-1.0) mg/dl AST 135 H (13-39) U/L ALT 15 (7-52) U/L Alkaline Phosphatase 383 H (34-104) U/L Total Creatine Kinase 202 (30-223) U/L Troponin I High Sens 18.4 (0-20) pg/ml B-Natriuretic Peptide 114 H (0-100) pg/ml Total Protein 6.5 (6.0-8.3) gm/dl Albumin 3.4 (3.4-5.0) gm/dl Globulin 3.1 (2.5-4.0) gm/dl Albumin/Globulin Ratio 1.1 (0.9-2) Lipase 12 (11-82) U/L Vitamin B12 605 (180-914) pg/ml Folate > 22.30 (>5.38) ng/ml Urine Color Dark Yellow Urine Appearance Clear (Clear) Urine pH 6.5 (4.5-7.5) Ur Specific [place] 1.017 (1.000-1.030) Urine Protein 1+ H (Negative) Urine Glucose (UA) Negative (Negative) Urine Ketones Trace H (Negative) Urine Blood Negative (Negative) Urine Nitrite Positive A (Negative) Urine Bilirubin 2+ H (Negative) Urine Urobilinogen Positive H (Negative) Ur Leukocyte Esterase 1+ H (Negative) Urine WBC (Auto) 0-5 (0-5) /hpf Urine RBC (Auto) 0-2 (0-2) /hpf U Hyaline Cast (Auto) 3-5 H (0-2) /lpf U Epithel Cells (Auto) 11-20 H (0-2) /hpf Urine Bacteria (Auto) None Seen (None Seen) Calcium Oxalate Crystal Present A (None Prsent) Hyaline Casts Present A (None Presnt) /lpf Urine Comment Administered Medications Aspirin (Aspirin 81 Mg Ectab) 81 mg PO DAILY [facility] Stop: 12/09/24 08:59 Last Admin: 11/09/24 09:55 Dose: 81 mg Documented By: ML Atorvastatin Calcium (Atorvastatin 10 Mg Tab) 10 mg PO DAILY [facility]AD Stop: 12/09/24 08:59 Last Admin: 11/09/24 09:55 Dose: 10 mg Documented By: ML Calcium Carbonate (Calcium Carbonate 1250mg Tab) 1 tab PO BID BRAD Stop: 12/09/24 08:59 Last Admin: 11/09/24 21:49 Dose: 1 tab Documented By: Admin: 11/09/24 09:52 Dose: 1 tab Documented By: TOI Carbidopa/Levodopa (Carbidopa/Levodopa 25/100mg Tab) 1.5 tab PO QID BRAD Stop: 12/09/24 08:59 Last Admin: 11/09/24 21:48 Dose: 1.5 tab Documented By: Admin: 11/09/24 21:47 Dose: Not Given Documented By: Admin: 11/09/24 16:29 Dose: 1.5 tab Documented By: Admin: 11/09/24 09:52 Dose: 1.5 tab Documented By: TOI Enoxaparin Sodium (Enoxaparin Inj 40 Mg/0.4 Ml Syr) 40 mg SQ QAM [facility]AD Stop: 12/09/24 13:29 Last Admin: 11/09/24 16:30 Dose: 40 mg Documented By: DANIELLA Escitalopram Oxalate (Escitalopram Oxalate 10 Mg Tab) 10 mg PO DAILY [facility] Stop: 12/09/24 08:59 Last Admin: 11/09/24 09:51 Dose: 10 mg Documented By: TOI Finasteride (Finasteride 5 Mg Tab) 5 mg PO DAILY [facility] Stop: 12/09/24 08:59 Last Admin: 11/09/24 09:49 Dose: 5 mg Documented By: TOI Fluticasone Propionate (Fluticasone Propionate Na Spr 16 Gm Btl) 2 sprays NA DAILY [facility] Stop: 12/09/24 08:59 Last Admin: 11/09/24 09:55 Dose: 2 sprays Documented By: TOI Gabapentin (Gabapentin 300 Mg Cap) 300 mg PO TID BRAD Stop: 12/09/24 08:59 Last Admin: 11/09/24 21:46 Dose: 300 mg Documented By: Admin: 11/09/24 16:30 Dose: 300 mg Documented By: Admin: 11/09/24 09:51 Dose: 300 mg Documented By: TOI Gabapentin (Gabapentin 300 Mg Cap) 300 mg PO QPM BRAD Stop: 12/09/24 20:59 Last Admin: 11/09/24 21:46 Dose: 300 mg Documented By: LORNA Melatonin (Melatonin 3 Mg Tab) 3 mg PO HS PRN PRN Reason: Sleep Stop: 12/09/24 08:28 Last Admin: 11/09/24 21:49 Dose: 3 mg Documented By: LORNA Midodrine (Midodrine Hcl 2.5 Mg Tab) 2.5 mg PO DAILY [facility] Stop: 12/09/24 08:59 Last Admin: 11/09/24 09:54 Dose: 2.5 mg Documented By: TOI Polyethylene Glycol (Polyethylene (Miralax) 17 Gm Pack) 17 gm PO DAILY [facility] Stop: 12/09/24 08:59 Last Admin: 11/09/24 17:40 Dose: Not Given Documented By: DANIELLA Propranolol HCl (Propranolol Hcl 10 Mg Tab) 10 mg PO TID BRAD Stop: 12/09/24 08:59 Last Admin: 11/09/24 21:48 Dose: 10 mg Documented By: Admin: 11/09/24 16:29 Dose: 10 mg Documented By: Admin: 11/09/24 09:52 Dose: 10 mg Documented By: TOI Senna/Docusate Sodium (Docusate Sodium/Senna 50/8.6mg Tab) 1 tab PO QAM BRAD Stop: 12/09/24 16:59 Last Admin: 11/09/24 17:39 Dose: 1 tab Documented By: DANIELLA Vitamin D (Cholecalciferol 25 Mcg (1000 Units) Tab) 25 mcg PO DAILY [facility]AD Stop: 12/09/24 08:59 Last Admin: 11/09/24 09:54 Dose: 25 mcg Documented By: TOI Discontinued Medications Sodium Chloride (Nss) 1,000 mls @ 250 mls/hr IV .Q4H BRAD Stop: 11/09/24 07:44 Last Infusion: 11/09/24 08:52 Dose: Infused Documented By: Admin: 11/09/24 03:46 Dose: 250 mls/hr Documented By: ZEFERINO Ceftriaxone Sodium (Rocephin) 2,000 mg in 50 mls @ 100 mls/hr IV NOW STA Stop: 11/09/24 07:28 Last Infusion: 11/09/24 07:48 Dose: Infused Documented By: Admin: 11/09/24 07:14 Dose: 100 mls/hr Documented By: TOI Potassium Chloride (K Andrea / Wtr) 10 meq in 100 mls @ 100 mls/hr IV Q1H BRAD Stop: 11/09/24 09:59 Last Infusion: 11/09/24 11:35 Dose: Infused Documented By: Admin: 11/09/24 09:47 Dose: 100 mls/hr Documented By: Infusion: 11/09/24 09:47 Dose: Infused Documented By: Admin: 11/09/24 08:55 Dose: 100 mls/hr Documented By: ML Ioversol (Optiray 320 100ml) 100 ml IV ONCE ONE Stop: 11/09/24 05:07 Last Admin: 11/09/24 05:06 Dose: 93 ml Documented By: MARY Potassium Chloride (Potassium Chloride Crtab 20 Meq Tabcr) 40 meq PO NOW STA Stop: 11/09/24 08:01 Last Admin: 11/09/24 08:55 Dose: 40 meq Documented By: TOI Imaging Data Radiologist's Impression: Chest X-Ray 11/09/24 03:35 EXAM: XR chest 1V portable CLINICAL HISTORY: trauma TECHNIQUE: An X-ray image of the chest is obtained in AP projection. COMPARISON: 03/02/2024 FINDINGS: Pulmonary Parenchyma: Left lower zonal basal atelectatic changes, No evidence of consolidation, collapse, or focal opacities. No pulmonary nodules are identified. Blunted left CP angle but mild effusion/thickening. No evidence of right pleural effusion or pleural thickening. Heart and Mediastinum: Heart size is enlarged, which could be a projection. No mediastinal widening or masses. No hilar or mediastinal lymphadenopathy. Aortic calcifications. Cardiac pacemaker. Bony Thorax: Bony thorax appears intact without fractures or deformities. Right shoulder prosthesis Soft Tissues: Soft tissues overlying the chest wall are unremarkable. IMPRESSION: 1. BLunted left CP angle by mild effusion/thickening. Stable. 2. Left lower zonal basal atelectatic changes. Stable. 3. Cardiomegaly with a pacemaker. Stable. Electronically signed by Fernando Tillman 11-09-2024 05:08 AM Foot X-Ray 11/09/24 03:35 EXAM: XR foot LT min 3V routine CLINICAL HISTORY: trauma TECHNIQUE: X-ray images of the left foot were obtained in anteroposterior (AP), lateral, and oblique projections. COMPARISON: No prior studies available for comparison. FINDINGS: Bone Structure: A radiolucent zone is seen along distal aspect of cuboid bone along its lateral aspect. Accessory bone related to base of 5th metatarsal. Joint Spaces: Mild osteoarthritic changes of the 1st interphalangeal joint of big toe. Soft Tissues: Soft tissues appear normal and unremarkable. No soft tissue swelling, calcifications, or foreign bodies noted. Additional Findings: A plantar calcaneal spur. Hallux valgus. IMPRESSION: 1. A radiolucent zone is seen along the distal aspect of the cuboid bone along its lateral aspect,Correlate clinically with the patient`s point of maximum tenderness and further C"T assessment if clinically warranted to rule out fracture. 2. plantar calcaneal spur. 3. Mild osteoarthritic changes of the 1st interphalangeal joint of the big toe. 4. Hallux valgus. Disclaimer: A subtle bone abnormality or fracture may not be readily apparent on X-rays, thus clinical correlation and further imaging including follow-up CT, MRI, or follow-up X-rays are advised as needed. Electronically signed by Fernando Tillman 11-09-2024 05:11 AM Pelvis X-Ray 11/09/24 03:35 EXAM: XR pelvis 1-2V routine CLINICAL HISTORY: Trauma. TECHNIQUE: X-ray image of the pelvis was obtained in anteroposterior (AP) projection. COMPARISON: No prior studies available for comparison. FINDINGS: Bone Structure: Pelvic bones, including the iliac wings, ischium, pubis, and sacrum, are normal and intact. No evidence of fractures, dislocations, or significant osseous lesions. Hip Joints: Bilateral mild osteoarthritic changes, No evidence of hip dislocation, subluxation, or significant degenerative changes. Acetabulum: Acetabular structures appear normal and intact. No signs of acetabular fracture or dysplasia. Symphysis Pubis: Mild degenerative changes, No evidence of separation or widening. Sacroiliac Joints: Bilateral degenerative changes, Soft Tissues: Visualized soft tissues are normal and unremarkable. No soft tissue swelling, calcifications, or masses. Additional Findings: Lower lumbar spine degenerative changes. IMPRESSION: 1. No evidence of acute fractures or dislocations. 2. Mild degenerative changes of the symphysis pubis, both sacroiliac and hip joints. Disclaimer: A subtle bone abnormality or fracture may not be readily apparent on X-rays, thus clinical correlation and further imaging including follow-up CT, MRI, or follow-up X-rays are advised as needed. Electronically signed by Fernando Tillman 11-09-2024 05:14 AM Abdomen/Pelvis CT 11/09/24 04:36 EXAM: CT abd pelvis IV con only CLINICAL HISTORY: trauma, abn lfts TECHNIQUE: Contiguous axial images were obtained from the level of the diaphragm to the pubic symphysis with intravenous contrast. Coronal and sagittal reconstructions were likewise performed and indicated to increase the sensitivity for detecting clinically relevant pathology. If IV contrast material had not been administered, the likelihood of detecting abnormalities relevant to the patient's condition would have been substantially decreased. CT scan was performed according to ALARA (as low as reasonable achievable). COMPARISON: None. FINDINGS: The visualized lung bases shows subpleural atelectasis is noted on left side. The liver is normal in size and attenuation. No focal liver lesions are seen. There is no intra or extrahepatic biliary ductal dilatation. Hepatic vasculature is patent. The gallbladder is present. The spleen, pancreas, and adrenal glands are unremarkable. The kidneys are normal in size and attenuation. There is no hydronephrosisg. No renal calculi or renal masses are identified. Few simple large cortical cyst are noted in both kidneys - largest measures about 10 cm on left side and 4 cm on right side. Mild bilateral perinephric fat stranding The ureters are normal in caliber and no ureteral calculi are seen. The bladder is normal in contour. Pelvic viscera are unremarkable. No focal or diffuse bowel wall thickening or evidence of bowel obstruction is identified. The appendix is visualized in the right lower quadrant and appears within normal limits. Abdominal and pelvic vasculature is patent. No adenopathy or fluid collections are seen. No aggressive appearing osseous lesions are identified. Diffuse atherosclerotic calcification is noted involving aorta iliac arteries. Severe degenerative changes visible spine. IMPRESSION: Bilateral simple renal cortical cyst - Bosniak type I . Mild bilateral perinephric fat stranding Diffuse atherosclerotic calcification is noted involving aorta iliac arteries. 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 Electronically signed by Livan Salcido 11-09-2024 05:56 AM Discharge Plan Visit Data Chief Complaint: Fall Stated Complaint: Fall ED Provider: Jenny Nieto Discharge Problem: Generalized weakness, Fall, Abnormal LFTs, Acute UTI (urinary tract infection) Patient Disposition: Admitted As Inpatient Condition: Fair Discharge Instructions Interventions: ED Discharge Assessment Last Done: 11/09/24 10:14
[2024-11-09 04:26] LABS: Alanine Aminotransferase 15.0 U/L (7-52); Albumin Globulin Ratio 1.1 (0.9-2); Alkaline Phosphatase 383.0 U/L (34-104); Anion Gap 9.0 (3-11); Bilirubin,Total 3.9 mg/dl (0.2-1.0); Blood Urea Nitrogen 15.0 mg/dl (6-23); Calcium 8.8 mg/dl (8.6-10.3); Carbon Dioxide 25.0 mmol/L (21-32); Chloride 101.0 mmol/L (98-107); Creatine Kinase 202.0 U/L (30-223); Creatinine Clr Calc Pharmacy 79.6 ml/min; Globulin 3.1 gm/dl (2.5-4.0); Glucose 128.0 mg/dl (70-99(Fasting)); Lipase 12.0 U/L (11-82); Magnesium 1.8 mg/dl (1.7-2.4); Potassium 3.3 mmol/L (3.5-5.1); Sodium 135.0 mmol/L (136-145); Total Protein 6.5 gm/dl (6.0-8.3)
[2024-11-09 04:37] LABS: INR 1.1 (0.9-1.1); Prothrombin Time 11.6 Seconds (9.0-12.0)
[2024-11-09] MEDS: OPTIRAY 320 100ml IV ONE (05:06)
--- NOTE | 2024-11-09 05:08 | XRay Report ---
EXAM: XR chest 1V portable CLINICAL HISTORY: trauma TECHNIQUE: An X-ray image of the chest is obtained in AP projection. COMPARISON: 03/02/2024 FINDINGS: Pulmonary Parenchyma: Left lower zonal basal atelectatic changes, No evidence of consolidation, collapse, or focal opacities. No pulmonary nodules are identified. Blunted left CP angle but mild effusion/thickening. No evidence of right pleural effusion or pleural thickening. Heart and Mediastinum: Heart size is enlarged, which could be a projection. No mediastinal widening or masses. No hilar or mediastinal lymphadenopathy. Aortic calcifications. Cardiac pacemaker. Bony Thorax: Bony thorax appears intact without fractures or deformities. Right shoulder prosthesis Soft Tissues: Soft tissues overlying the chest wall are unremarkable. IMPRESSION: 1. BLunted left CP angle by mild effusion/thickening. Stable. 2. Left lower zonal basal atelectatic changes. Stable. 3. Cardiomegaly with a pacemaker. Stable. Electronically signed by Fernando Tillman 11-09-2024 05:08 AM
--- NOTE | 2024-11-09 05:12 | XRay Report ---
EXAM: XR foot LT min 3V routine CLINICAL HISTORY: trauma TECHNIQUE: X-ray images of the left foot were obtained in anteroposterior (AP), lateral, and oblique projections. COMPARISON: No prior studies available for comparison. FINDINGS: Bone Structure: A radiolucent zone is seen along distal aspect of cuboid bone along its lateral aspect. Accessory bone related to base of 5th metatarsal. Joint Spaces: Mild osteoarthritic changes of the 1st interphalangeal joint of big toe. Soft Tissues: Soft tissues appear normal and unremarkable. No soft tissue swelling, calcifications, or foreign bodies noted. Additional Findings: A plantar calcaneal spur. Hallux valgus. IMPRESSION: 1. A radiolucent zone is seen along the distal aspect of the cuboid bone along its lateral aspect,Correlate clinically with the patient`s point of maximum tenderness and further C"T assessment if clinically warranted to rule out fracture. 2. plantar calcaneal spur. 3. Mild osteoarthritic changes of the 1st interphalangeal joint of the big toe. 4. Hallux valgus. Disclaimer: A subtle bone abnormality or fracture may not be readily apparent on X-rays, thus clinical correlation and further imaging including follow-up CT, MRI, or follow-up X-rays are advised as needed. Electronically signed by Fernando Tillman 11-09-2024 05:11 AM
--- NOTE | 2024-11-09 05:14 | XRay Report ---
EXAM: XR pelvis 1-2V routine CLINICAL HISTORY: Trauma. TECHNIQUE: X-ray image of the pelvis was obtained in anteroposterior (AP) projection. COMPARISON: No prior studies available for comparison. FINDINGS: Bone Structure: Pelvic bones, including the iliac wings, ischium, pubis, and sacrum, are normal and intact. No evidence of fractures, dislocations, or significant osseous lesions. Hip Joints: Bilateral mild osteoarthritic changes, No evidence of hip dislocation, subluxation, or significant degenerative changes. Acetabulum: Acetabular structures appear normal and intact. No signs of acetabular fracture or dysplasia. Symphysis Pubis: Mild degenerative changes, No evidence of separation or widening. Sacroiliac Joints: Bilateral degenerative changes, Soft Tissues: Visualized soft tissues are normal and unremarkable. No soft tissue swelling, calcifications, or masses. Additional Findings: Lower lumbar spine degenerative changes. IMPRESSION: 1. No evidence of acute fractures or dislocations. 2. Mild degenerative changes of the symphysis pubis, both sacroiliac and hip joints. Disclaimer: A subtle bone abnormality or fracture may not be readily apparent on X-rays, thus clinical correlation and further imaging including follow-up CT, MRI, or follow-up X-rays are advised as needed. Electronically signed by Fernando Tillman 11-09-2024 05:14 AM
--- NOTE | 2024-11-09 05:57 | CT Scan Report ---
EXAM: CT abd pelvis IV con only CLINICAL HISTORY: trauma, abn lfts TECHNIQUE: Contiguous axial images were obtained from the level of the diaphragm to the pubic symphysis with intravenous contrast. Coronal and sagittal reconstructions were likewise performed and indicated to increase the sensitivity for detecting clinically relevant pathology. If IV contrast material had not been administered, the likelihood of detecting abnormalities relevant to the patient's condition would have been substantially decreased. CT scan was performed according to ALARA (as low as reasonable achievable). COMPARISON: None. FINDINGS: The visualized lung bases shows subpleural atelectasis is noted on left side. The liver is normal in size and attenuation. No focal liver lesions are seen. There is no intra or extrahepatic biliary ductal dilatation. Hepatic vasculature is patent. The gallbladder is present. The spleen, pancreas, and adrenal glands are unremarkable. The kidneys are normal in size and attenuation. There is no hydronephrosisg. No renal calculi or renal masses are identified. Few simple large cortical cyst are noted in both kidneys - largest measures about 10 cm on left side and 4 cm on right side. Mild bilateral perinephric fat stranding The ureters are normal in caliber and no ureteral calculi are seen. The bladder is normal in contour. Pelvic viscera are unremarkable. No focal or diffuse bowel wall thickening or evidence of bowel obstruction is identified. The appendix is visualized in the right lower quadrant and appears within normal limits. Abdominal and pelvic vasculature is patent. No adenopathy or fluid collections are seen. No aggressive appearing osseous lesions are identified. Diffuse atherosclerotic calcification is noted involving aorta iliac arteries. Severe degenerative changes visible spine. IMPRESSION: Bilateral simple renal cortical cyst - Bosniak type I . Mild bilateral perinephric fat stranding Diffuse atherosclerotic calcification is noted involving aorta iliac arteries. 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 Electronically signed by Livan Salcido 11-09-2024 05:56 AM
[2024-11-09 06:00] LABS: Appearance Urine Clear (Clear); Bacteria Urine Automated None Seen (None Seen); Glucose Urine UA Negative (Negative); RBC Urine Automated 0-2 /hpf (0-2); WBC Urine Automated 0-5 /hpf (0-5)
[2024-11-09] MEDS: cefTRIAXone SODIUM 2,000 MG/50 ML BAG IV STA (07:14)
--- NOTE | 2024-11-09 07:50 | History & Physical Report ---
Date of Service November 09, 2024 Assessment & Plan (1) Acute UTI (urinary tract infection): (2) Generalized weakness: (3) Parkinson disease: Plan Mr. Lakhani is a 78 year old gentleman with past medical history remarkable for Parkinsons, CKD III, paroxysmal a fib, orthostatic hypotension, ascending aortic aneurysm, and symptomatic bradycardia s/p pacemaker 2014 admitted for acute pyelonephritis and generalized weakness. #Acute pyelonephritis #BPH #Nocturnal enuresis UA suspicious for infection, CT with bilateral perinephric stranding Continue home finasteride hold mybetriq ispo possible retention Continue with CTX follow cultures Post void residual ordered will need urology follow up #Hypokalemia replace electrolytes prn #Generalized Weakness #Mechanical fall #Parkinson's disease with tremor imaging without signs of fracture - Continue propranolol for tremor -Continue current dose of carbidopa/levodopa PT/OT Fall precautions Delirium precautions==previously "psychotic with benztropine" per OP review, trialed on multiple agents for parkisons and tremor will need neurology follow up upon d/c #Paroxysmal atrial fibrillation Newly diagnosed 06/2024, not suitable for AC pending work up for [facility] Monitor on tele continue asa #symotomatic bradycardia s/p pacemaker Dual chamber pacemaker placed in 2014 monitor on tele #Orthostatic hypotension, 2/2 autonomic dysregulation iso parkinsons continue home midodrine #Abnormal CT abd -Bilateral simple renal cortical cyst - Bosniak type I : will need routine imaging follow up - Diffuse atherosclerotic calcification is noted involving aorta iliac arteries: pulses palpable in BLE - 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 DVT ppx continue SCDS and lovenox PCP Dr. Blanco DNR/DNI per discussion with patient Admission and Anticipated Discharge Date Admission Date: Time spent evaluating patient, direct bedside care, chart review, placing orders, interpretation of diagnostic studies, discussion with consultants, patient, and family members, as well as other required patient management activities is 75 minutes. History of Present Illness Chief Complaint: Fall Primary Care Provider: Juan F Blanco MD Mr. Lakhani is a 78 year old gentleman with past medical history remarkable for Parkinsons, CKD III, paroxysmal a fib, orthostatic hypotension, ascending aortic aneurysm, and symptomatic bradycardia s/p pacemaker 2014 presented to [facility] ED due to worsening generalized weakness. Patient is a poor historian, majority of history attempted to be gathered at bedside, through ED physician, and via records review. Attempted to call POC in chart x2 with no answer. Patient states that he has been dealing with falls and weakness due to progression of Parkinson's, but he has noted that his weakness has progressed. He reports standing up from his chair and falling to his knees. He stayed on the ground all evening and finally his partner called EMS. Patient denies any chest pain, palpitations, vision changes, bowel changes. He does report worsening hesitancy with urination and frequency In the ED, vitals were notable for BP of 100-150s, HR of 70-80s, and O2 sat of high 90s on room air Labs revealed leukocytosis to 16.83, chronic anemia at 10.6, mild hyponatremia to 135, hypokalemia to 3.3, BNP 114, UA with protein, ketones, + nitrate, suspicious for dehydration and infection Imaging revealed bilateral perinephric fat stranding, chest xray with left effusion and atelectatic changes EKG with QTC 525 ED interventions: CTX, IVF Patient to be admitted to med/tele for further evaluation and management of generalized weakness and complicated cystitis/pyelonephritis Allergies Allergy/AdvReac Type Severity Reaction Status Date / Time naproxen Allergy Intermediate ITCHING Verified 05/27/14 08:50 dexbrompheniramine AdvReac Intermediate nightmares, Verified 05/27/14 08:50 NOT A TRUE ALLERGY trihexyphenidyl AdvReac Intermediate Dizziness Verified 03/03/24 07:10 Home Medications Medication Instructions Recorded Confirmed Type Calcium (Caltrate) 600 mg PO BID ##0 02/21/07 11/09/24 History Fluticasone Propionate (Flonase 2 spry BERNARD DAILY ##0 02/21/07 11/09/24 History Nasal [place] *) OMEGA 3 1,000 mg PO BID ##0 02/21/07 11/09/24 History Fexofenadine Hcl (Gertrude *) 30 mg PO PRN PRN Allergy Symptoms 03/30/07 11/09/24 History ##0 CHOLECALCIFEROL (Vitamin D) 1,000 inter.unit PO DAILY #0 tabs 05/22/14 11/09/24 History MULTIPLE VITAMINS W/ MINERALS 1 tab PO DAILY ##0 05/22/14 11/09/24 History (CENTRUM SILVER) carbidopa 25 mg-levodopa 100 mg 1.5 tab PO QID 03/02/24 11/09/24 History tablet aspirin 81 mg tablet,delayed 81 mg PO DAILY 11/09/24 11/09/24 History release atorvastatin 10 mg tablet 10 mg PO DAILY 11/09/24 11/09/24 History escitalopram oxalate 10 mg tablet 10 mg DAILY 11/09/24 11/09/24 History finasteride 5 mg tablet 5 mg DAILY 11/09/24 11/09/24 History gabapentin 300 mg capsule 300 mg TID 11/09/24 11/09/24 History midodrine 2.5 mg tablet 2.5 mg PO DAILY 11/09/24 11/09/24 History mirabegron 50 mg tablet,extended 50 mg PO DAILY 11/09/24 11/09/24 History release 24 hr (Myrbetriq) propranolol 10 mg tablet 10 mg TID 11/09/24 11/09/24 History Past Med/Surg History Problem List (Updated 11/09/24 @ 13:25 by Wendy Mckee MD) Parkinson disease Acute UTI (urinary tract infection) (Acute) Abnormal LFTs (Acute) Fall (Acute) Generalized weakness (Acute) Syncope Fall (Acute) Cervical strain, acute (Acute) CHI (closed head injury) (Acute) Contusion of knee, right (Acute) Generalized weakness (Acute) Acute kidney injury (Acute) Social History Smoking Status: Never smoker Hx Alcohol Use: No Hx Substance Use: No Preferred Language: Sami Communication Ability: Effective Cook Chill Technician Required: No Beliefs That Will Affect Care: None Current Living Situation: Other Current Living Situation Comment: home with partner Other Information That Helps Us Care for You: No Feels Safe at Home: Yes Safety Concerns: Feels Safe At This Time Assistive Devices: None Review of Systems Review of Systems: Constitutional: (-) fever/chills, (-) recent loss of weight, (-) appetite changes, (-) night sweats. Head: (-) headache, (-) dizziness. Eye: (-) blurring of vision, (-) double vision, (-) redness. Ear: (-) hearing loss, (-) discharge, (-) vertigo Nose: (-) discharge, (-) bleeding, (-) congestion, (-) post nasal drip. Throat: (-) sore throat, (-) hoarseness of voice, (-) odynophagia. Cardiovascular: (-) chest pain, (-) palpitations, (-) syncope, (-) orthopnea, (- ) PND, (-) leg swelling. Respiratory: (-) shortness of breath, (-) cough, (-) wheezing, (-) hemoptysis. Neuro: (+) weakness in extremities, (-) numbness, (-) tingling, (+) tremor. Gastrointestinal: (-) belly pain, (-) belly distension, (-) nausea, (-) vomiting, (-) diarrhea, (-) constipation, (-) hematemesis, (-) hematochezia, (-) bowel incontinence Genitourinary: (-) hematuria, (-) dysuria, (-) polyuria, (+) hesitancy, (+) frequency, (-) urinary incontinence. Musculoskeletal: (-) myalgia, (-) arthralgia. Skin: (-) rashes. Endocrine: (-) heat/cold intolerance. Psychiatry: (-) depression, (-) hallucination. Physical Exam Physical Exam: GENERAL APPEARANCE: AxOx3, ill appearing male, no acute distress. resting tremor of BUE HEENT: NC, AT. MMM. EOMI, clear conjunctiva, oropharynx clear. NECK: Supple without lymphadenopathy. No stiffness or restricted ROM. HEART: irregular, normal S1/S1, no m/r/g LUNGS: CTAB, moving air well. No crackles or wheezes are heard. ABDOMEN: Soft, nontender, nondistended with good bowel sounds heard. BACK: No CVAT, no obvious deformity. EXTREMITIES: Without cyanosis, clubbing or edema. NEUROLOGICAL: Grossly nonfocal. Alert and oriented, moving all 4 extremities, rigidity noted with AROM, resting tremor Skin: Warm and dry without any rash. Results & Data Results & Data Vital Signs (Past 12 Hours) Vital Signs Temp Pulse Resp BP Pulse Ox O2 Del Method 11/09/24 07:00 114/65 11/09/24 07:00 11465 11/09/24 06:57 76 14 11/09/24 06:33 65 15 11/09/24 06:31 116/60 11/09/24 06:31 116/60 11/09/24 06:31 116/60 11/09/24 06:27 66 15 11/09/24 06:21 73 13 97 11/09/24 06:18 70 13 95 11/09/24 06:00 68 15 96 11/09/24 06:00 116/60 11/09/24 05:51 66 16 96 11/09/24 05:42 65 15 96 11/09/24 05:39 68 16 95 11/09/24 05:27 68 16 95 11/09/24 05:12 66 17 93 11/09/24 05:08 125/59 L 11/09/24 05:08 125/59 L 11/09/24 04:45 20 11/09/24 04:42 78 22 95 11/09/24 04:30 116/66 11/09/24 04:30 116/66 11/09/24 04:30 72 16 94 11/09/24 04:21 84 24 93 11/09/24 03:30 107/49 L 11/09/24 03:30 107/49 L 11/09/24 03:30 107/49 L 11/09/24 03:30 75 20 93 11/09/24 03:27 72 18 92 11/09/24 03:20 83 11/09/24 03:02 36.8 C 77 18 100/58 L 93 Nasal Cannula Diagnostic Findings EXAM: CT abd pelvis IV con only CLINICAL HISTORY: trauma, abn lfts TECHNIQUE: Contiguous axial images were obtained from the level of the diaphragm to the pubic symphysis with intravenous contrast. Coronal and sagittal reconstructions were likewise performed and indicated to increase the sensitivity for detecting clinically relevant pathology. If IV contrast material had not been administered, the likelihood of detecting abnormalities relevant to the patient's condition would have been substantially decreased. CT scan was performed according to ALARA (as low as reasonable achievable). COMPARISON: None. FINDINGS: The visualized lung bases shows subpleural atelectasis is noted on left side. The liver is normal in size and attenuation. No focal liver lesions are seen. There is no intra or extrahepatic biliary ductal dilatation. Hepatic vasculature is patent. The gallbladder is present. The spleen, pancreas, and adrenal glands are unremarkable. The kidneys are normal in size and attenuation. There is no hydronephrosisg. No renal calculi or renal masses are identified. Few simple large cortical cyst are noted in both kidneys - largest measures about 10 cm on left side and 4 cm on right side. Mild bilateral perinephric fat stranding The ureters are normal in caliber and no ureteral calculi are seen. The bladder is normal in contour. Pelvic viscera are unremarkable. No focal or diffuse bowel wall thickening or evidence of bowel obstruction is identified. The appendix is visualized in the right lower quadrant and appears within normal limits. Abdominal and pelvic vasculature is patent. No adenopathy or fluid collections are seen. No aggressive appearing osseous lesions are identified. Diffuse atherosclerotic calcification is noted involving aorta iliac arteries. Severe degenerative changes visible spine. IMPRESSION: Bilateral simple renal cortical cyst - Bosniak type I . Mild bilateral perinephric fat stranding Diffuse atherosclerotic calcification is noted involving aorta iliac arteries. 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
[2024-11-09] MEDS ORDERED: MAGNESIUM HYDROXIDE SUSP 30 ML UDC PO PRN (08:29)
[2024-11-09] MEDS ORDERED: ACETAMINOPHEN 325 MG TAB PO PRN (08:29)
--- NOTE | 2024-11-09 08:45 | Electrocardiogram Report ---
Test Reason : Blood Pressure : */* mmHG Vent. Rate : 79 BPM Atrial Rate : * BPM P-R Int : * ms QRS Dur : 132 ms QT Int : 458 ms P-R-T Axes : * -61 43 degrees QTcB Int : 525 ms Atrial paced rhythm with PACs and abberant conduction Left axis deviation Non-specific intra-ventricular conduction block Minimal voltage criteria for LVH, may be normal variant Abnormal ECG When compared with ECG of 02-Mar-2024 16:31, QT has lengthened Confirmed by Galo Traylor ([id number]) on 11/09/2024 8:45:09 AM Referred By: REFERRED SELF Confirmed By: Galo Traylor
[2024-11-09] MEDS: POTASSIUM CHLORIDE / WTR 10 MEQ/100 ML PLCT IV SCH (08:55)
[2024-11-09] MEDS: POTASSIUM CHLORIDE CRTAB 20 MEQ TABCR PO STA (08:55)
[2024-11-09 09:42] LABS: Iron 19.0 mcg/dl (35-175); Total Iron Binding Cap Calc 248.0 mcg/dl (250-450); Transferrin 177.0 mg/dl (200-360); Transferrin (FE) Percent Satur 8.0 % (20-50)
[2024-11-09] MEDS: FINASTERIDE 5 MG TAB PO SCH (09:49)
[2024-11-09] MEDS: GABAPENTIN 300 MG CAP PO SCH ×2 (09:51→21:46)
[2024-11-09] MEDS: ESCITALOPRAM OXALATE 10 MG TAB PO SCH (09:51)
[2024-11-09] MEDS: CALCIUM CARBONATE 1250MG TAB PO SCH (09:52)
[2024-11-09] MEDS: PROPRANOLOL HCL 10 MG TAB PO SCH (09:52)
[2024-11-09] MEDS: CARBIDOPA/LEVODOPA 25/100MG TAB PO SCH (09:52)
[2024-11-09] MEDS: MIDODRINE HCL 2.5 MG TAB PO SCH (09:54)
[2024-11-09] MEDS: CHOLECALCIFEROL 25 MCG (1000 UNITS) TAB PO SCH (09:54)
[2024-11-09] MEDS: ASPIRIN 81 MG ECTAB PO SCH (09:55)
[2024-11-09] MEDS: FLUTICASONE PROPIONATE NA SPR 16 GM BTL SCH (09:55)
[2024-11-09] MEDS: ATORVASTATIN 10 MG TAB PO SCH (09:55)
[2024-11-09 09:57] LABS: Folate (Folic Acid),Ser orPlas > 22.30 ng/ml (>5.38)
[2024-11-09 09:58] LABS: Vitamin B12 605 pg/ml (180-914)
[2024-11-09 09:59] LABS: Ferritin 281.0 ng/ml (8-388)
[2024-11-09 12:36] LABS: Hemoglobin A1C 5.1 % (4.5-5.6)
[2024-11-09] MEDS: ENOXAPARIN INJ 40 MG/0.4 ML SYR SQ SCH (16:30)
[2024-11-09] MEDS: DOCUSATE SODIUM/SENNA 50/8.6MG TAB PO SCH (17:39)
[2024-11-09] MEDS: POLYETHYLENE (MIRALAX) 17 GM PACK PO SCH (17:40)
[2024-11-09] MEDS ORDERED: ZONISAMIDE 25 MG CAPSULE PO SCH (21:00)
[2024-11-09] MEDS: MELATONIN 3 MG TAB PO PRN (21:49)
[2024-11-10] MEDS: cefTRIAXone SODIUM 2,000 MG/50 ML BAG IV SCH (06:05)
[2024-11-10 07:51] LABS: Hematocrit (blood only) 33.3 % (42.0-52.0); Hemoglobin 10.7 g/dl (14.0-18.0); Mean Corpuscular Hemoglobin 30.8 pg (25.0-34.0); Mean Corpuscular Volume 96.0 fL (80.0-100.0); Platelet Count 230 K/uL (130-400); RDW Standard Deviation 51.0 fL (36.4-46.3); Red Blood Count 3.47 M/uL (4.70-6.10); White Blood Count 6.97 K/ul (4.8-10.8)
[2024-11-10 08:33] LABS: Anion Gap 5.0 (3-11); Blood Urea Nitrogen 12.0 mg/dl (6-23); Calcium 8.9 mg/dl (8.6-10.3); Carbon Dioxide 31.0 mmol/L (21-32); Chloride 103.0 mmol/L (98-107); Creatinine Clr Calc Pharmacy 119.6 ml/min; Glucose 110.0 mg/dl (70-99(Fasting)); Magnesium 1.9 mg/dl (1.7-2.4); Potassium 3.4 mmol/L (3.5-5.1); Sodium 139.0 mmol/L (136-145)
--- NOTE | 2024-11-10 10:17 | Hospitalist Progress Note ---
Date of Service November 10, 2024 Assessment & Plan (1) Acute UTI (urinary tract infection): (2) Generalized weakness: (3) Parkinson disease: Plan Mr. Lakhani is a 78 year old gentleman with past medical history remarkable for Parkinsons, CKD III, paroxysmal a fib, orthostatic hypotension, ascending aortic aneurysm, and symptomatic bradycardia s/p pacemaker 2014 admitted for acute pyelonephritis and generalized weakness. Patient improving subjectively Holding mybetriq for now #Acute pyelonephritis #BPH #Nocturnal enuresis UA suspicious for infection, CT with bilateral perinephric stranding Continue home finasteride hold mybetriq ispo possible retention Continue with CTX follow cultures will need urology follow up as an out patient #Hypokalemia replace electrolytes prn trend bmp #Generalized Weakness #Mechanical fall #Parkinson's disease with tremor imaging without signs of fracture - Continue propranolol for tremor -Continue current dose of carbidopa/levodopa PT/OT Fall precautions Delirium precautions==previously "psychotic with benztropine" per OP review, trialed on multiple agents for parkisons and tremor will need neurology follow up upon d/c #Paroxysmal atrial fibrillation Newly diagnosed 06/2024, not suitable for AC pending work up for [facility] Monitor on tele continue asa #symotomatic bradycardia s/p pacemaker Dual chamber pacemaker placed in 2014 monitor on tele #Orthostatic hypotension, 2/2 autonomic dysregulation iso parkinsons continue home midodrine #Abnormal CT abd -Bilateral simple renal cortical cyst - Bosniak type I : will need routine imaging follow up - Diffuse atherosclerotic calcification is noted involving aorta iliac arteries: pulses palpable in BLE - 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 DVT ppx continue SCDS and lovenox PCP Dr. Blanco DNR/DNI per discussion with patient Admission and Anticipated Discharge Date Admission Date: November 09, 2024 Subjective NAEO Reports feeling much improved but still weak today, denies any chest pains, abdominal pain or other concerns much more awake and alert on exam Physical Exam Constitutional: WD/WN, vitals as above generalized tremulousness, predominately hands Respiratory: normal respiratory effort, lungs clear to auscultation Cardiovascular: RRR, no murmur, no edema Gastrointestinal (Abdomen): normal bowel sounds, soft, nontender, no hepatosplenomegaly Results & Data Results & Data Vital Signs (Past 12 Hours) Vital Signs Temp Pulse Pulse Resp BP Pulse Ox O2 Del Method 11/10/24 07:56 36.4 C L 64 165/82 H 95 CPAP 11/10/24 05:48 61 11/10/24 03:45 36.7 C 71 18 164/84 H 94 Room Air 11/10/24 02:10 60 18 94 11/10/24 00:07 36.7 C 67 18 130/67 93 CPAP 11/09/24 23:05 65 21 96
[2024-11-10] MEDS ORDERED: POLYETHYLENE (MIRALAX) 17 GM PACK PO PRN (10:21)
[2024-11-10] MEDS: FERROUS SULFATE 325 MG TAB PO SCH (11:09)
[2024-11-10] MEDS: POTASSIUM CHLORIDE CRTAB 20 MEQ TABCR PO SCH (13:22)
[2024-11-11 07:46] LABS: Hematocrit (blood only) 32.4 % (42.0-52.0); Hemoglobin 10.6 g/dl (14.0-18.0); Mean Corpuscular Hemoglobin 31.1 pg (25.0-34.0); Mean Corpuscular Volume 95.0 fL (80.0-100.0); Platelet Count 226 K/uL (130-400); RDW Standard Deviation 50.2 fL (36.4-46.3); Red Blood Count 3.41 M/uL (4.70-6.10); White Blood Count 5.76 K/ul (4.8-10.8)
[2024-11-11 08:02] LABS: Anion Gap 5.0 (3-11); Blood Urea Nitrogen 10.0 mg/dl (6-23); Calcium 8.7 mg/dl (8.6-10.3); Carbon Dioxide 31.0 mmol/L (21-32); Chloride 104.0 mmol/L (98-107); Creatinine Clr Calc Pharmacy 128.5 ml/min; Glucose 102.0 mg/dl (70-99(Fasting)); Magnesium 2.0 mg/dl (1.7-2.4); Potassium 3.7 mmol/L (3.5-5.1); Sodium 140.0 mmol/L (136-145)
--- NOTE | 2024-11-11 14:18 | Hospitalist Progress Note ---
Date of Service November 11, 2024 Assessment & Plan (1) Acute UTI (urinary tract infection): (2) Generalized weakness: (3) Parkinson disease: Plan Mr. Lakhani is a 78 year old gentleman with past medical history remarkable for Parkinsons, CKD III, paroxysmal a fib, orthostatic hypotension, ascending aortic aneurysm, and symptomatic bradycardia s/p pacemaker 2014 admitted for acute pyelonephritis and generalized weakness. Patient continues to improve subjectively. Holding mybetriq for now. Reports improvement in overall weakness Urine culture with low colonies of strep mitis--given improvement in patient's symptoms and risk for urinary infection will continue course with augmentin bid x 7-10s days total Patient disclosed that he is concerned about his living situation with his girlfriend noting that she may be demonstrating signs of dementia. He is aware about the progression of his own symptoms. He would be curious about [facility] given his Parkinsons disease and need for specialized experience in neurologic rehabilitation. Patient would also require assistance in pursuing assisted living or other care options #Acute pyelonephritis #BPH #Nocturnal enuresis UA suspicious for infection, CT with bilateral perinephric stranding Continue home finasteride hold mybetriq ispo possible retention Continue with CTX cultures with strep mitis, transitioned to augmentin bid will need urology follow up as an out patient #Hypokalemia replace electrolytes prn trend bmp #Generalized Weakness #Mechanical fall #Parkinson's disease with tremor imaging without signs of fracture - Continue propranolol for tremor -Continue current dose of carbidopa/levodopa PT/OT: rehab Fall precautions Delirium precautions==previously "psychotic with benztropine" per OP review, trialed on multiple agents for parkisons and tremor will need neurology follow up upon d/c #Paroxysmal atrial fibrillation Newly diagnosed 06/2024, not suitable for AC pending work up for [facility] as op Monitor on tele continue asa #symotomatic bradycardia s/p pacemaker Dual chamber pacemaker placed in 2014 monitor on tele #Orthostatic hypotension, 2/2 autonomic dysregulation iso parkinsons continue home midodrine #Abnormal CT abd -Bilateral simple renal cortical cyst - Bosniak type I : will need routine imaging follow up - Diffuse atherosclerotic calcification is noted involving aorta iliac arteries: pulses palpable in BLE - 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 DVT ppx continue SCDS and lovenox PCP Dr. Blanco DNR/DNI per discussion with patient DISPO SNF, will need assistance for assistive living Admission and Anticipated Discharge Date Admission Date: November 09, 2024 Subjective Evaluated at bedside Remarks notable improvement and feeling much more motivated that he was able to work with physical therapy, he notes he feels weak but lesser than days before He mentions that he doesn't really feel safe at home, his "live-in girlfriend" is "showing signs of dementia" he feels--he states she is forgetful. he reports he worries about going home given his progressive limitations and her unfolding memory issues. He is open to discuss placement for assistive living or other support system as he is aware that his own care is more complicated at this time Physical Exam Constitutional: much more awake, alert, communicative Respiratory: normal respiratory effort, lungs clear to auscultation Cardiovascular: RRR, no murmur, no edema Neurologic: continue tremulousness Results & Data Results & Data Vital Signs (Past 12 Hours) Vital Signs Temp Pulse Pulse Resp BP Pulse Ox O2 Del Method 11/11/24 13:24 73 11/11/24 12:23 Room Air 11/11/24 11:29 36.4 C L 56 L 20 127/74 93 Room Air 11/11/24 07:49 36.9 C 90 16 173/77 H 93 Room Air 11/11/24 05:46 61 11/11/24 03:13 36.3 C L 84 20 145/86 H 94 Room Air Laboratory Results Short CBC 11/11/24 Range/Units 07:33 WBC 5.76 (4.8-10.8) K/ul Hgb 10.6 L (14.0-18.0) g/dl Hct 32.4 L (42.0-52.0) % Plt Count 226 (130-400) K/uL BMP 11/11/24 07:33 Sodium 140 Potassium 3.7 Chloride 104 Carbon Dioxide 31 BUN 10 Creatinine 0.67 Glucose 102 H Calcium 8.7 Medications Administered Home Medications Medication Instructions Recorded Confirmed Last Taken Calcium (Caltrate) 600 mg PO BID ##0 02/21/07 11/09/24 1 Day Ago ~11/08/24 Fluticasone Propionate (Flonase 2 spry BERNARD DAILY ##0 02/21/07 11/09/24 03/01/24 Nasal [place] *) OMEGA 3 1,000 mg PO BID ##0 02/21/07 11/09/24 03/01/24 Fexofenadine Hcl (Gertrude *) 30 mg PO PRN PRN Allergy Symptoms 03/30/07 11/09/24 03/01/24 ##0 CHOLECALCIFEROL (Vitamin D) 1,000 inter.unit PO DAILY #0 tabs 05/22/14 11/09/24 03/01/24 MULTIPLE VITAMINS W/ MINERALS 1 tab PO DAILY ##0 05/22/14 11/09/24 03/01/24 (CENTRUM SILVER) carbidopa 25 mg-levodopa 100 mg 1.5 tab PO QID 03/02/24 11/09/24 1 Day Ago tablet ~11/08/24 aspirin 81 mg tablet,delayed 81 mg PO DAILY 11/09/24 11/09/24 1 Day Ago release ~11/08/24 atorvastatin 10 mg tablet 10 mg PO DAILY 11/09/24 11/09/24 1 Day Ago ~11/08/24 escitalopram oxalate 10 mg tablet 10 mg DAILY 11/09/24 11/09/24 Unknown finasteride 5 mg tablet 5 mg DAILY 11/09/24 11/09/24 Unknown gabapentin 300 mg capsule 300 mg TID 11/09/24 11/09/24 Unknown midodrine 2.5 mg tablet 2.5 mg PO DAILY 11/09/24 11/09/24 1 Day Ago ~11/08/24 mirabegron 50 mg tablet,extended 50 mg PO DAILY 11/09/24 11/09/24 Unknown release 24 hr (Myrbetriq) propranolol 10 mg tablet 10 mg TID 11/09/24 11/09/24 Unknown Active Medications Generic Name Dose Route Start Last Admin Trade Name Freq PRN Reason Stop Dose Admin Aspirin 81 mg 11/09/24 09:00 11/11/24 09:50 Aspirin 81 Mg Ectab PO 12/09/24 08:59 81 mg DAILY BRAD Administration Atorvastatin Calcium 10 mg 11/09/24 09:00 11/11/24 09:49 Atorvastatin 10 Mg Tab PO 12/09/24 08:59 10 mg DAILY BRAD Administration Calcium Carbonate 1 tab 11/09/24 09:00 11/11/24 10:38 Calcium Carbonate 1250mg Tab PO 12/09/24 08:59 1 tab BID BRAD Administration Carbidopa/Levodopa 1.5 tab 11/09/24 09:00 11/11/24 13:27 Carbidopa/Levodopa 25/100mg Tab PO 12/09/24 08:59 1.5 tab QID BRAD Administration Enoxaparin Sodium 40 mg 11/09/24 13:30 11/11/24 09:50 Enoxaparin Inj 40 Mg/0.4 Ml Syr SQ 12/09/24 13:29 40 mg QAM BRAD Administration Escitalopram Oxalate 10 mg 11/09/24 09:00 11/11/24 09:48 Escitalopram Oxalate 10 Mg Tab PO 12/09/24 08:59 10 mg DAILY BRAD Administration Ferrous Sulfate 325 mg 11/10/24 11:00 11/11/24 11:50 Ferrous Sulfate 325 Mg Tab PO 12/10/24 10:59 325 mg DAILY@1100 BRAD Administration Finasteride 5 mg 11/09/24 09:00 11/11/24 09:54 Finasteride 5 Mg Tab PO 12/09/24 08:59 5 mg DAILY BRAD Administration Fluticasone Propionate 2 sprays 11/09/24 09:00 11/11/24 09:54 Fluticasone Propionate Na Spr 16 Gm Btl NA 12/09/24 08:59 2 sprays DAILY BRAD Administration Gabapentin 300 mg 11/09/24 09:00 11/11/24 13:27 Gabapentin 300 Mg Cap PO 12/09/24 08:59 300 mg TID BRAD Administration Gabapentin 300 mg 11/09/24 21:00 11/10/24 20:28 Gabapentin 300 Mg Cap PO 12/09/24 20:59 300 mg QPM BRAD Administration Melatonin 3 mg 11/09/24 08:29 11/09/24 21:49 Melatonin 3 Mg Tab PO 12/09/24 08:28 3 mg HS PRN Administration Sleep Midodrine 2.5 mg 11/09/24 09:00 11/09/24 09:54 Midodrine Hcl 2.5 Mg Tab PO 12/09/24 08:59 2.5 mg DAILY BRAD Administration Potassium Chloride 20 meq 11/10/24 14:00 11/11/24 13:26 Potassium Chloride Crtab 20 Meq Tabcr PO 11/11/24 21:01 20 meq TID BRAD Administration Propranolol HCl 10 mg 11/09/24 09:00 11/11/24 13:27 Propranolol Hcl 10 Mg Tab PO 12/09/24 08:59 10 mg TID BRAD Administration Vitamin D 25 mcg 11/09/24 09:00 11/11/24 09:49 Cholecalciferol 25 Mcg (1000 Units) Tab PO 12/09/24 08:59 25 mcg DAILY BRAD Administration
[2024-11-11] MEDS: AMOXICILLIN/CLAVULANATE 875 MG TAB PO SCH (17:50)
[2024-11-12 08:19] LABS: Hematocrit (blood only) 33.6 % (42.0-52.0); Hemoglobin 10.8 g/dl (14.0-18.0); Mean Corpuscular Hemoglobin 30.9 pg (25.0-34.0); Mean Corpuscular Volume 96.3 fL (80.0-100.0); Platelet Count 231 K/uL (130-400); RDW Standard Deviation 50.6 fL (36.4-46.3); Red Blood Count 3.49 M/uL (4.70-6.10); White Blood Count 5.28 K/ul (4.8-10.8)
[2024-11-12 08:35] LABS: Anion Gap 4.0 (3-11); Blood Urea Nitrogen 9.0 mg/dl (6-23); Calcium 8.9 mg/dl (8.6-10.3); Carbon Dioxide 32.0 mmol/L (21-32); Chloride 103.0 mmol/L (98-107); Creatinine Clr Calc Pharmacy 132.5 ml/min; Glucose 97.0 mg/dl (70-99(Fasting)); Magnesium 2.0 mg/dl (1.7-2.4); Potassium 3.9 mmol/L (3.5-5.1); Sodium 139.0 mmol/L (136-145)
--- NOTE | 2024-11-12 13:59 | Hospitalist Progress Note ---
Date of Service November 12, 2024 Assessment & Plan (1) Acute UTI (urinary tract infection): (2) Generalized weakness: (3) Parkinson disease: Plan Mr. Lakhani is a 78 year old gentleman with past medical history remarkable for Parkinsons, CKD III, paroxysmal a fib, orthostatic hypotension, ascending aortic aneurysm, and symptomatic bradycardia s/p pacemaker 2014 admitted for acute pyelonephritis and generalized weakness. #Acute pyelonephritis #BPH #Nocturnal enuresis UA suspicious for infection, CT with bilateral perinephric stranding Continue home finasteride Continue to hold mybetriq Cultures reviewed, cultures with strep mitis, transitioned to Augmentin bid He will need urology follow up as an out patient #Hypokalemia replace electrolytes prn trend bmp #Generalized Weakness #Mechanical fall #Parkinson's disease with tremor imaging without signs of fracture - Continue propranolol for tremor -Continue current dose of carbidopa/levodopa PT/OT: rehab Fall precautions Delirium precautions==previously "psychotic with benztropine" per OP review, trialed on multiple agents for Parkinsons and tremor will need neurology follow up upon d/c #Paroxysmal atrial fibrillation Newly diagnosed 06/2024, not suitable for AC He is pending work up for [facility] as op Monitor on tele Continue Asa #symotomatic bradycardia s/p pacemaker Dual chamber pacemaker placed in 2014 monitor on tele #Orthostatic hypotension, 2/2 autonomic dysregulation iso parkinsons continue home midodrine #Abnormal CT abd -Bilateral simple renal cortical cyst - Bosniak type I : will need routine imaging follow up - Diffuse atherosclerotic calcification is noted involving aorta iliac arteries: pulses palpable in BLE - 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 DVT ppx continue SCDS and lovenox PCP Dr. Blanco DNR/DNI per discussion with patient DISPO SNF, will need assistance for assistive living Total time spent in total care coordination for this patient was 52 min Admission and Anticipated Discharge Date Admission Date: November 09, 2024 Subjective She signs, chart reviewed. Evaluated at bedside. Overall he is feeling much better is making steady progress. Still feels quite weak and feels as though he needs rehab. He does not have an ideal home situation as his girlfriend you have is struggling with possible dementia. Review of Systems Review of Systems: Constitutional- no fever; no chills, feels very weak Pulmonary- no cough, no wheezing, no shortness of breath Cardiac- no chest pain, no palpitations, no orthopnea, no dependent edema GI- no nausea, no vomiting, no diarrhea, no melena, no hematochezia - no dysuria, no hematuria Physical Exam Physical Exam: General- adult elderly male seen at bedside Head- atraumatic Eyes- PERRL, EOMI, anicteric ENT- oropharynx clear Neck- supple, no JVD, no adenopathy, no thyromegaly; carotids +2/2, no bruits appreciated Lungs- clear to auscultation and percussion Heart- regular rhythm; no murmur, no gallop, no rub appreciated Abdomen- normal bowel sounds, soft, nontender, no masses or hepatosplenomegaly Extremities- no pretibial edema, no calf tenderness; peripheral pulses intact Neuro- alert, oriented x 3; PERRL, EOMI; generalized weakness, Parkinson's tremor Skin- warm & dry Results & Data Results & Data Vital Signs (Past 12 Hours) Vital Signs Temp Pulse Pulse Resp BP Pulse Ox O2 Del Method 11/12/24 11:47 36.3 C L 62 20 143/93 H 94 Room Air 11/12/24 09:00 74 11/12/24 09:00 Room Air 11/12/24 08:20 36.4 C L 66 20 173/97 H 96 Nasal Cannula 11/12/24 03:39 138/74 11/12/24 03:18 36.4 C L 62 18 167/88 H 99 Room Air O2 Flow Rate 11/12/24 11:47 11/12/24 09:00 11/12/24 09:00 11/12/24 08:20 1 11/12/24 03:39 11/12/24 03:18 Laboratory Results Laboratory Results WBC 5.28 K/ul (4.8-10.8) 11/12/24 07:39 RBC 3.49 M/uL (4.70-6.10) L 11/12/24 07:39 Hgb 10.8 g/dl (14.0-18.0) L 11/12/24 07:39 Hct 33.6 % (42.0-52.0) L 11/12/24 07:39 MCV 96.3 fL (80.0-100.0) 11/12/24 07:39 MCH 30.9 pg (25.0-34.0) 11/12/24 07:39 MCHC 32.1 g/dL (32.0-36.0) 11/12/24 07:39 RDW Std Deviation 50.6 fL (36.4-46.3) H 11/12/24 07:39 RDW Coeff of Rupinder 14.6 % (11.5-14.5) H 11/12/24 07:39 Plt Count 231 K/uL (130-400) 11/12/24 07:39 MPV 9.6 fL (9.4-12.4) 11/12/24 07:39 Immature Gran % (Auto) 0.6 % 11/09/24 03:18 Neut % (Auto) 90.0 % 11/09/24 03:18 Lymph % (Auto) 4.9 % 11/09/24 03:18 [place] % (Auto) 4.2 % 11/09/24 03:18 Eos % (Auto) 0.1 % 11/09/24 03:18 Baso % (Auto) 0.2 % 11/09/24 03:18 Neut # (Auto) 15.15 K/uL (1.40-6.50) H 11/09/24 03:18 Lymph # (Auto) 0.82 K/uL (1.20-3.40) L 11/09/24 03:18 [place] # (Auto) 0.71 K/uL (0.11-0.59) H 11/09/24 03:18 Eos # (Auto) 0.01 K/uL (0.00-0.50) 11/09/24 03:18 Baso # (Auto) 0.04 K/uL (0.00-0.20) 11/09/24 03:18 Immature Gran # (Auto) 0.10 K/uL (0.01-0.20) 11/09/24 03:18 PT 11.6 Seconds (9.0-12.0) 11/09/24 03:18 INR 1.1 (0.9-1.1) 11/09/24 03:18 Sodium 139 mmol/L (136-145) 11/12/24 07:39 Potassium 3.9 mmol/L (3.5-5.1) 11/12/24 07:39 Chloride 103 mmol/L (98-107) 11/12/24 07:39 Carbon Dioxide 32 mmol/L (21-32) 11/12/24 07:39 Anion Gap 4 (3-11) 11/12/24 07:39 BUN 9 mg/dl (6-23) 11/12/24 07:39 Creatinine 0.65 mg/dl (0.6-1.4) 11/12/24 07:39 Est Cr Clr Drug Dosing 132.5 ml/min 11/12/24 07:39 eGFR 96.45 11/12/24 07:39 BUN/Creatinine Ratio 13.8 (10-20) 11/12/24 07:39 Glucose 97 mg/dl (70-99(Fasting)) 11/12/24 07:39 Estimat Average Glucose 100 mg/dl 11/09/24 11:33 Hemoglobin A1c 5.1 % (4.5-5.6) 11/09/24 11:33 Calcium 8.9 mg/dl (8.6-10.3) 11/12/24 07:39 Phosphorus 3.7 mg/dl (2.5-4.9) 11/12/24 07:39 Magnesium 2.0 mg/dl (1.7-2.4) 11/12/24 07:39 Iron 19 mcg/dl (35-175) L 11/09/24 03:18 TIBC 248 mcg/dl (250-450) L 11/09/24 03:18 Transferrin 177 mg/dl (200-360) L 11/09/24 03:18 Transferrin % Sat 8 % (20-50) L 11/09/24 03:18 Ferritin 281.0 ng/ml (8-388) 11/09/24 03:18 Total Bilirubin 3.9 mg/dl (0.2-1.0) H 11/09/24 03:18 AST 135 U/L (13-39) H 11/09/24 03:18 ALT 15 U/L (7-52) 11/09/24 03:18 Alkaline Phosphatase 383 U/L (34-104) H 11/09/24 03:18 Total Creatine Kinase 202 U/L (30-223) 11/09/24 03:18 Troponin I High Sens 18.4 pg/ml (0-20) 11/09/24 03:18 B-Natriuretic Peptide 114 pg/ml (0-100) H 11/09/24 03:18 Total Protein 6.5 gm/dl (6.0-8.3) 11/09/24 03:18 Albumin 3.4 gm/dl (3.4-5.0) 11/09/24 03:18 Globulin 3.1 gm/dl (2.5-4.0) 11/09/24 03:18 Albumin/Globulin Ratio 1.1 (0.9-2) 11/09/24 03:18 Lipase 12 U/L (11-82) 11/09/24 03:18 Vitamin B12 605 pg/ml (180-914) 11/09/24 03:18 Folate > 22.30 ng/ml (>5.38) 11/09/24 03:18 Urine Color Dark Yellow 11/09/24 04:45 Urine Appearance Clear (Clear) 11/09/24 04:45 Urine pH 6.5 (4.5-7.5) 11/09/24 04:45 Ur Specific [place] 1.017 (1.000-1.030) 11/09/24 04:45 Urine Protein 1+ (Negative) H 11/09/24 04:45 Urine Glucose (UA) Negative (Negative) 11/09/24 04:45 Urine Ketones Trace (Negative) H 11/09/24 04:45 Urine Blood Negative (Negative) 11/09/24 04:45 Urine Nitrite Positive (Negative) A 11/09/24 04:45 Urine Bilirubin 2+ (Negative) H 11/09/24 04:45 Urine Urobilinogen Positive (Negative) H 11/09/24 04:45 Ur Leukocyte Esterase 1+ (Negative) H 11/09/24 04:45 Urine WBC (Auto) 0-5 /hpf (0-5) 11/09/24 04:45 Urine RBC (Auto) 0-2 /hpf (0-2) 11/09/24 04:45 U Hyaline Cast (Auto) 3-5 /lpf (0-2) H 11/09/24 04:45 U Epithel Cells (Auto) 11-20 /hpf (0-2) H 11/09/24 04:45 Urine Bacteria (Auto) None Seen (None Seen) 11/09/24 04:45 Calcium Oxalate Crystal Present (None Prsent) A 11/09/24 04:45 Hyaline Casts Present /lpf (None Presnt) A 11/09/24 04:45 Urine Comment 11/09/24 04:45 Impressions Chest X-Ray 11/09/24 03:35 EXAM: XR chest 1V portable CLINICAL HISTORY: trauma TECHNIQUE: An X-ray image of the chest is obtained in AP projection. COMPARISON: 03/02/2024 FINDINGS: Pulmonary Parenchyma: Left lower zonal basal atelectatic changes, No evidence of consolidation, collapse, or focal opacities. No pulmonary nodules are identified. Blunted left CP angle but mild effusion/thickening. No evidence of right pleural effusion or pleural thickening. Heart and Mediastinum: Heart size is enlarged, which could be a projection. No mediastinal widening or masses. No hilar or mediastinal lymphadenopathy. Aortic calcifications. Cardiac pacemaker. Bony Thorax: Bony thorax appears intact without fractures or deformities. Right shoulder prosthesis Soft Tissues: Soft tissues overlying the chest wall are unremarkable. IMPRESSION: 1. BLunted left CP angle by mild effusion/thickening. Stable. 2. Left lower zonal basal atelectatic changes. Stable. 3. Cardiomegaly with a pacemaker. Stable. Electronically signed by Fernando Tillman 11-09-2024 05:08 AM Foot X-Ray 11/09/24 03:35 EXAM: XR foot LT min 3V routine CLINICAL HISTORY: trauma TECHNIQUE: X-ray images of the left foot were obtained in anteroposterior (AP), lateral, and oblique projections. COMPARISON: No prior studies available for comparison. FINDINGS: Bone Structure: A radiolucent zone is seen along distal aspect of cuboid bone along its lateral aspect. Accessory bone related to base of 5th metatarsal. Joint Spaces: Mild osteoarthritic changes of the 1st interphalangeal joint of big toe. Soft Tissues: Soft tissues appear normal and unremarkable. No soft tissue swelling, calcifications, or foreign bodies noted. Additional Findings: A plantar calcaneal spur. Hallux valgus. IMPRESSION: 1. A radiolucent zone is seen along the distal aspect of the cuboid bone along its lateral aspect,Correlate clinically with the patient`s point of maximum tenderness and further C"T assessment if clinically warranted to rule out fracture. 2. plantar calcaneal spur. 3. Mild osteoarthritic changes of the 1st interphalangeal joint of the big toe. 4. Hallux valgus. Disclaimer: A subtle bone abnormality or fracture may not be readily apparent on X-rays, thus clinical correlation and further imaging including follow-up CT, MRI, or follow-up X-rays are advised as needed. Electronically signed by Fernando Tillman 11-09-2024 05:11 AM Pelvis X-Ray 11/09/24 03:35 EXAM: XR pelvis 1-2V routine CLINICAL HISTORY: Trauma. TECHNIQUE: X-ray image of the pelvis was obtained in anteroposterior (AP) projection. COMPARISON: No prior studies available for comparison. FINDINGS: Bone Structure: Pelvic bones, including the iliac wings, ischium, pubis, and sacrum, are normal and intact. No evidence of fractures, dislocations, or significant osseous lesions. Hip Joints: Bilateral mild osteoarthritic changes, No evidence of hip dislocation, subluxation, or significant degenerative changes. Acetabulum: Acetabular structures appear normal and intact. No signs of acetabular fracture or dysplasia. Symphysis Pubis: Mild degenerative changes, No evidence of separation or widening. Sacroiliac Joints: Bilateral degenerative changes, Soft Tissues: Visualized soft tissues are normal and unremarkable. No soft tissue swelling, calcifications, or masses. Additional Findings: Lower lumbar spine degenerative changes. IMPRESSION: 1. No evidence of acute fractures or dislocations. 2. Mild degenerative changes of the symphysis pubis, both sacroiliac and hip joints. Disclaimer: A subtle bone abnormality or fracture may not be readily apparent on X-rays, thus clinical correlation and further imaging including follow-up CT, MRI, or follow-up X-rays are advised as needed. Electronically signed by Fernando Tillman 11-09-2024 05:14 AM Abdomen/Pelvis CT 11/09/24 04:36 EXAM: CT abd pelvis IV con only CLINICAL HISTORY: trauma, abn lfts TECHNIQUE: Contiguous axial images were obtained from the level of the diaphragm to the pubic symphysis with intravenous contrast. Coronal and sagittal reconstructions were likewise performed and indicated to increase the sensitivity for detecting clinically relevant pathology. If IV contrast material had not been administered, the likelihood of detecting abnormalities relevant to the patient's condition would have been substantially decreased. CT scan was performed according to ALARA (as low as reasonable achievable). COMPARISON: None. FINDINGS: The visualized lung bases shows subpleural atelectasis is noted on left side. The liver is normal in size and attenuation. No focal liver lesions are seen. There is no intra or extrahepatic biliary ductal dilatation. Hepatic vasculature is patent. The gallbladder is present. The spleen, pancreas, and adrenal glands are unremarkable. The kidneys are normal in size and attenuation. There is no hydronephrosisg. No renal calculi or renal masses are identified. Few simple large cortical cyst are noted in both kidneys - largest measures about 10 cm on left side and 4 cm on right side. Mild bilateral perinephric fat stranding The ureters are normal in caliber and no ureteral calculi are seen. The bladder is normal in contour. Pelvic viscera are unremarkable. No focal or diffuse bowel wall thickening or evidence of bowel obstruction is identified. The appendix is visualized in the right lower quadrant and appears within normal limits. Abdominal and pelvic vasculature is patent. No adenopathy or fluid collections are seen. No aggressive appearing osseous lesions are identified. Diffuse atherosclerotic calcification is noted involving aorta iliac arteries. Severe degenerative changes visible spine. IMPRESSION: Bilateral simple renal cortical cyst - Bosniak type I . Mild bilateral perinephric fat stranding Diffuse atherosclerotic calcification is noted involving aorta iliac arteries. 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 Electronically signed by Livan Salcido 11-09-2024 05:56 AM
[2024-11-13 06:46] LABS: Hematocrit (blood only) 34.1 % (42.0-52.0); Hemoglobin 11.4 g/dl (14.0-18.0); Mean Corpuscular Hemoglobin 31.8 pg (25.0-34.0); Mean Corpuscular Volume 95.0 fL (80.0-100.0); Platelet Count 270 K/uL (130-400); RDW Standard Deviation 49.9 fL (36.4-46.3); Red Blood Count 3.59 M/uL (4.70-6.10); White Blood Count 6.45 K/ul (4.8-10.8)
[2024-11-13 07:33] LABS: Anion Gap 5.0 (3-11); Blood Urea Nitrogen 11.0 mg/dl (6-23); Calcium 9.1 mg/dl (8.6-10.3); Carbon Dioxide 31.0 mmol/L (21-32); Chloride 101.0 mmol/L (98-107); Creatinine Clr Calc Pharmacy 120.9 ml/min; Glucose 99.0 mg/dl (70-99(Fasting)); Potassium 3.6 mmol/L (3.5-5.1); Sodium 137.0 mmol/L (136-145)
--- NOTE | 2024-11-13 13:45 | Hospitalist Progress Note ---
Date of Service November 13, 2024 Assessment & Plan (1) Acute UTI (urinary tract infection): (2) Generalized weakness: (3) Parkinson disease: Plan Mr. Lakhani is a 78 year old gentleman with past medical history remarkable for Parkinsons, CKD III, paroxysmal a fib, orthostatic hypotension, ascending aortic aneurysm, and symptomatic bradycardia s/p pacemaker 2014 admitted for acute pyelonephritis and generalized weakness. #Acute pyelonephritis #BPH #Nocturnal enuresis UA suspicious for infection, CT with bilateral perinephric stranding Continue home finasteride Continue to hold mybetriq Cultures reviewed, cultures with strep mitis, transitioned to Augmentin bid finish 11/16 He will need urology follow up as an out patient #Hypokalemia replace electrolytes prn trend bmp #Generalized Weakness #Mechanical fall #Parkinson's disease with tremor imaging without signs of fracture - Continue propranolol for tremor -Continue current dose of carbidopa/levodopa PT/OT: rehab Fall precautions Delirium precautions==previously "psychotic with benztropine" per OP review, trialed on multiple agents for Parkinsons and tremor will need neurology follow up upon d/c #Paroxysmal atrial fibrillation Newly diagnosed 06/2024, not suitable for AC He is pending work up for [facility] as op Monitor on tele Continue Asa #symotomatic bradycardia s/p pacemaker Dual chamber pacemaker placed in 2014 monitor on tele #Orthostatic hypotension, 2/2 autonomic dysregulation iso parkinsons continue home midodrine #Abnormal CT abd -Bilateral simple renal cortical cyst - Bosniak type I : will need routine imaging follow up - Diffuse atherosclerotic calcification is noted involving aorta iliac arteries: pulses palpable in BLE - 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 #iron-deficiency anemia cont iron supplement #elevated LFTs liver imaging is normal on CT repeat lab study in am DVT ppx continue SCDS and lovenox PCP Dr. Blanco DNR/DNI per discussion with patient DISPO SNF, will need assistance for assistive living Total time spent in total care coordination for this patient was 50 min Admission and Anticipated Discharge Date Admission Date: November 09, 2024 Subjective VS, chart reviewed. Evaluated at bedside. Had poor sleep last night. Denies CP, SOB, Nausea or emesis Physical Exam Physical Exam: General- adult male seen at bedside, chronic ill appearance. Lungs- clear to auscultation and percussion Heart- regular rhythm; no murmur, no gallop, no rub appreciated Extremities- trace pretibial edema, no calf tenderness; peripheral pulses intact Neuro- alert, oriented x 3; PERRL, EOMI; Parkinson's tremor right > left hand Skin- warm & dry Results & Data Results & Data Vital Signs (Past 12 Hours) Vital Signs Temp Pulse Resp BP Pulse Ox O2 Del Method O2 Flow Rate 11/13/24 11:07 36.5 C 62 20 157/94 H 96 Room Air 11/13/24 09:15 Room Air 11/13/24 07:24 36.6 C 61 18 146/94 H 98 Nasal Cannula 2 11/13/24 04:00 36.5 C 62 18 154/79 H 100 Nasal Cannula 2 Diagnostic Findings Laboratory Results WBC 6.45 K/ul (4.8-10.8) 11/13/24 06:05 RBC 3.59 M/uL (4.70-6.10) L 11/13/24 06:05 Hgb 11.4 g/dl (14.0-18.0) L 11/13/24 06:05 Hct 34.1 % (42.0-52.0) L 11/13/24 06:05 MCV 95.0 fL (80.0-100.0) 11/13/24 06:05 MCH 31.8 pg (25.0-34.0) 11/13/24 06:05 MCHC 33.4 g/dL (32.0-36.0) 11/13/24 06:05 RDW Std Deviation 49.9 fL (36.4-46.3) H 11/13/24 06:05 RDW Coeff of Rupinder 14.4 % (11.5-14.5) 11/13/24 06:05 Plt Count 270 K/uL (130-400) 11/13/24 06:05 MPV 9.8 fL (9.4-12.4) 11/13/24 06:05 Immature Gran % (Auto) 0.6 % 11/09/24 03:18 Neut % (Auto) 90.0 % 11/09/24 03:18 Lymph % (Auto) 4.9 % 11/09/24 03:18 Turner % (Auto) 4.2 % 11/09/24 03:18 Eos % (Auto) 0.1 % 11/09/24 03:18 Baso % (Auto) 0.2 % 11/09/24 03:18 Neut # (Auto) 15.15 K/uL (1.40-6.50) H 11/09/24 03:18 Lymph # (Auto) 0.82 K/uL (1.20-3.40) L 11/09/24 03:18 Turner # (Auto) 0.71 K/uL (0.11-0.59) H 11/09/24 03:18 Eos # (Auto) 0.01 K/uL (0.00-0.50) 11/09/24 03:18 Baso # (Auto) 0.04 K/uL (0.00-0.20) 11/09/24 03:18 Immature Gran # (Auto) 0.10 K/uL (0.01-0.20) 11/09/24 03:18 PT 11.6 Seconds (9.0-12.0) 11/09/24 03:18 INR 1.1 (0.9-1.1) 11/09/24 03:18 Sodium 137 mmol/L (136-145) 11/13/24 06:05 Potassium 3.6 mmol/L (3.5-5.1) 11/13/24 06:05 Chloride 101 mmol/L (98-107) 11/13/24 06:05 Carbon Dioxide 31 mmol/L (21-32) 11/13/24 06:05 Anion Gap 5 (3-11) 11/13/24 06:05 BUN 11 mg/dl (6-23) 11/13/24 06:05 Creatinine 0.71 mg/dl (0.6-1.4) 11/13/24 06:05 Est Cr Clr Drug Dosing 120.9 ml/min 11/13/24 06:05 eGFR 93.91 11/13/24 06:05 BUN/Creatinine Ratio 15.5 (10-20) 11/13/24 06:05 Glucose 99 mg/dl (70-99(Fasting)) 11/13/24 06:05 Estimat Average Glucose 100 mg/dl 11/09/24 11:33 Hemoglobin A1c 5.1 % (4.5-5.6) 11/09/24 11:33 Calcium 9.1 mg/dl (8.6-10.3) 11/13/24 06:05 Phosphorus 3.7 mg/dl (2.5-4.9) 11/12/24 07:39 Magnesium 2.0 mg/dl (1.7-2.4) 11/12/24 07:39 Iron 19 mcg/dl (35-175) L 11/09/24 03:18 TIBC 248 mcg/dl (250-450) L 11/09/24 03:18 Transferrin 177 mg/dl (200-360) L 11/09/24 03:18 Transferrin % Sat 8 % (20-50) L 11/09/24 03:18 Ferritin 281.0 ng/ml (8-388) 11/09/24 03:18 Total Bilirubin 3.9 mg/dl (0.2-1.0) H 11/09/24 03:18 AST 135 U/L (13-39) H 11/09/24 03:18 ALT 15 U/L (7-52) 11/09/24 03:18 Alkaline Phosphatase 383 U/L (34-104) H 11/09/24 03:18 Total Creatine Kinase 202 U/L (30-223) 11/09/24 03:18 Troponin I High Sens 18.4 pg/ml (0-20) 11/09/24 03:18 B-Natriuretic Peptide 114 pg/ml (0-100) H 11/09/24 03:18 Total Protein 6.5 gm/dl (6.0-8.3) 11/09/24 03:18 Albumin 3.4 gm/dl (3.4-5.0) 11/09/24 03:18 Globulin 3.1 gm/dl (2.5-4.0) 11/09/24 03:18 Albumin/Globulin Ratio 1.1 (0.9-2) 11/09/24 03:18 Lipase 12 U/L (11-82) 11/09/24 03:18 Vitamin B12 605 pg/ml (180-914) 11/09/24 03:18 Folate > 22.30 ng/ml (>5.38) 11/09/24 03:18 Urine Color Dark Yellow 11/09/24 04:45 Urine Appearance Clear (Clear) 11/09/24 04:45 Urine pH 6.5 (4.5-7.5) 11/09/24 04:45 Ur Specific Benton 1.017 (1.000-1.030) 11/09/24 04:45 Urine Protein 1+ (Negative) H 11/09/24 04:45 Urine Glucose (UA) Negative (Negative) 11/09/24 04:45 Urine Ketones Trace (Negative) H 11/09/24 04:45 Urine Blood Negative (Negative) 11/09/24 04:45 Urine Nitrite Positive (Negative) A 11/09/24 04:45 Urine Bilirubin 2+ (Negative) H 11/09/24 04:45 Urine Urobilinogen Positive (Negative) H 11/09/24 04:45 Ur Leukocyte Esterase 1+ (Negative) H 11/09/24 04:45 Urine WBC (Auto) 0-5 /hpf (0-5) 11/09/24 04:45 Urine RBC (Auto) 0-2 /hpf (0-2) 11/09/24 04:45 U Hyaline Cast (Auto) 3-5 /lpf (0-2) H 11/09/24 04:45 U Epithel Cells (Auto) 11-20 /hpf (0-2) H 11/09/24 04:45 Urine Bacteria (Auto) None Seen (None Seen) 11/09/24 04:45 Calcium Oxalate Crystal Present (None Prsent) A 11/09/24 04:45 Hyaline Casts Present /lpf (None Presnt) A 11/09/24 04:45 Urine Comment 11/09/24 04:45 Impressions Chest X-Ray 11/09/24 03:35 EXAM: XR chest 1V portable CLINICAL HISTORY: trauma TECHNIQUE: An X-ray image of the chest is obtained in AP projection. COMPARISON: 03/02/2024 FINDINGS: Pulmonary Parenchyma: Left lower zonal basal atelectatic changes, No evidence of consolidation, collapse, or focal opacities. No pulmonary nodules are identified. Blunted left CP angle but mild effusion/thickening. No evidence of right pleural effusion or pleural thickening. Heart and Mediastinum: Heart size is enlarged, which could be a projection. No mediastinal widening or masses. No hilar or mediastinal lymphadenopathy. Aortic calcifications. Cardiac pacemaker. Bony Thorax: Bony thorax appears intact without fractures or deformities. Right shoulder prosthesis Soft Tissues: Soft tissues overlying the chest wall are unremarkable. IMPRESSION: 1. BLunted left CP angle by mild effusion/thickening. Stable. 2. Left lower zonal basal atelectatic changes. Stable. 3. Cardiomegaly with a pacemaker. Stable. Electronically signed by Fernando Tillman 11-09-2024 05:08 AM Foot X-Ray 11/09/24 03:35 EXAM: XR foot LT min 3V routine CLINICAL HISTORY: trauma TECHNIQUE: X-ray images of the left foot were obtained in anteroposterior (AP), lateral, and oblique projections. COMPARISON: No prior studies available for comparison. FINDINGS: Bone Structure: A radiolucent zone is seen along distal aspect of cuboid bone along its lateral aspect. Accessory bone related to base of 5th metatarsal. Joint Spaces: Mild osteoarthritic changes of the 1st interphalangeal joint of big toe. Soft Tissues: Soft tissues appear normal and unremarkable. No soft tissue swelling, calcifications, or foreign bodies noted. Additional Findings: A plantar calcaneal spur. Hallux valgus. IMPRESSION: 1. A radiolucent zone is seen along the distal aspect of the cuboid bone along its lateral aspect,Correlate clinically with the patient`s point of maximum tenderness and further C"T assessment if clinically warranted to rule out fracture. 2. plantar calcaneal spur. 3. Mild osteoarthritic changes of the 1st interphalangeal joint of the big toe. 4. Hallux valgus. Disclaimer: A subtle bone abnormality or fracture may not be readily apparent on X-rays, thus clinical correlation and further imaging including follow-up CT, MRI, or follow-up X-rays are advised as needed. Electronically signed by Fernando Tillman 11-09-2024 05:11 AM Pelvis X-Ray 11/09/24 03:35 EXAM: XR pelvis 1-2V routine CLINICAL HISTORY: Trauma. TECHNIQUE: X-ray image of the pelvis was obtained in anteroposterior (AP) projection. COMPARISON: No prior studies available for comparison. FINDINGS: Bone Structure: Pelvic bones, including the iliac wings, ischium, pubis, and sacrum, are normal and intact. No evidence of fractures, dislocations, or significant osseous lesions. Hip Joints: Bilateral mild osteoarthritic changes, No evidence of hip dislocation, subluxation, or significant degenerative changes. Acetabulum: Acetabular structures appear normal and intact. No signs of acetabular fracture or dysplasia. Symphysis Pubis: Mild degenerative changes, No evidence of separation or widening. Sacroiliac Joints: Bilateral degenerative changes, Soft Tissues: Visualized soft tissues are normal and unremarkable. No soft tissue swelling, calcifications, or masses. Additional Findings: Lower lumbar spine degenerative changes. IMPRESSION: 1. No evidence of acute fractures or dislocations. 2. Mild degenerative changes of the symphysis pubis, both sacroiliac and hip joints. Disclaimer: A subtle bone abnormality or fracture may not be readily apparent on X-rays, thus clinical correlation and further imaging including follow-up CT, MRI, or follow-up X-rays are advised as needed. Electronically signed by Fernando Tillman 11-09-2024 05:14 AM Abdomen/Pelvis CT 11/09/24 04:36 EXAM: CT abd pelvis IV con only CLINICAL HISTORY: trauma, abn lfts TECHNIQUE: Contiguous axial images were obtained from the level of the diaphragm to the pubic symphysis with intravenous contrast. Coronal and sagittal reconstructions were likewise performed and indicated to increase the sensitivity for detecting clinically relevant pathology. If IV contrast material had not been administered, the likelihood of detecting abnormalities relevant to the patient's condition would have been substantially decreased. CT scan was performed according to ALARA (as low as reasonable achievable). COMPARISON: None. FINDINGS: The visualized lung bases shows subpleural atelectasis is noted on left side. The liver is normal in size and attenuation. No focal liver lesions are seen. There is no intra or extrahepatic biliary ductal dilatation. Hepatic vasculature is patent. The gallbladder is present. The spleen, pancreas, and adrenal glands are unremarkable. The kidneys are normal in size and attenuation. There is no hydronephrosisg. No renal calculi or renal masses are identified. Few simple large cortical cyst are noted in both kidneys - largest measures about 10 cm on left side and 4 cm on right side. Mild bilateral perinephric fat stranding The ureters are normal in caliber and no ureteral calculi are seen. The bladder is normal in contour. Pelvic viscera are unremarkable. No focal or diffuse bowel wall thickening or evidence of bowel obstruction is identified. The appendix is visualized in the right lower quadrant and appears within normal limits. Abdominal and pelvic vasculature is patent. No adenopathy or fluid collections are seen. No aggressive appearing osseous lesions are identified. Diffuse atherosclerotic calcification is noted involving aorta iliac arteries. Severe degenerative changes visible spine. IMPRESSION: Bilateral simple renal cortical cyst - Bosniak type I . Mild bilateral perinephric fat stranding Diffuse atherosclerotic calcification is noted involving aorta iliac arteries. 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 Electronically signed by Livan Salcido 11-09-2024 05:56 AM
--- NOTE | 2024-11-13 17:00 | Communication Note ---
Date of Service: November 13, 2024 Patient requires a peer to peer interaction for authorization. I called later but they are out of the office. This is for authorization for inpatient rehab at [facility]. Peer to peer can be completed up until 4 PM tomorrow by calling [phone].
[2024-11-14 07:51] LABS: Hematocrit (blood only) 34.1 % (42.0-52.0); Hemoglobin 10.8 g/dl (14.0-18.0); Mean Corpuscular Hemoglobin 30.3 pg (25.0-34.0); Mean Corpuscular Volume 95.8 fL (80.0-100.0); Platelet Count 262 K/uL (130-400); RDW Standard Deviation 49.8 fL (36.4-46.3); Red Blood Count 3.56 M/uL (4.70-6.10); White Blood Count 5.71 K/ul (4.8-10.8)
[2024-11-14 08:16] LABS: Alanine Aminotransferase 13.0 U/L (7-52); Alkaline Phosphatase 229.0 U/L (34-104); Anion Gap 4.0 (3-11); Bilirubin,Total 1.1 mg/dl (0.2-1.0); Blood Urea Nitrogen 9.0 mg/dl (6-23); Calcium 9.1 mg/dl (8.6-10.3); Carbon Dioxide 33.0 mmol/L (21-32); Chloride 104.0 mmol/L (98-107); Creatinine Clr Calc Pharmacy 124.7 ml/min; Glucose 100.0 mg/dl (70-99(Fasting)); Potassium 3.7 mmol/L (3.5-5.1); Sodium 141.0 mmol/L (136-145); Total Protein 6.7 gm/dl (6.0-8.3)
--- NOTE | 2024-11-14 14:51 | Hospitalist Progress Note ---
Date of Service November 14, 2024 Assessment & Plan (1) Acute UTI (urinary tract infection): (2) Generalized weakness: (3) Parkinson disease: Plan Mr. Lakhani is a 78 year old gentleman with past medical history remarkable for Parkinsons, CKD III, paroxysmal a fib, orthostatic hypotension, ascending aortic aneurysm, and symptomatic bradycardia s/p pacemaker 2014 admitted for acute pyelonephritis and generalized weakness. #Acute pyelonephritis #BPH #Nocturnal enuresis UA suspicious for infection, CT with bilateral perinephric stranding Continue home finasteride Continue to hold mybetriq Cultures reviewed, cultures with strep mitis, transitioned to Augmentin bid He will need urology follow up as an out patient #Hypokalemia replace electrolytes prn trend bmp #Generalized Weakness #Mechanical fall #Parkinson's disease with tremor imaging without signs of fracture - Continue propranolol for tremor -Continue current dose of carbidopa/levodopa PT/OT: rehab Fall precautions Delirium precautions==previously "psychotic with benztropine" per OP review, trialed on multiple agents for Parkinsons and tremor will need neurology follow up upon d/c #Paroxysmal atrial fibrillation Newly diagnosed 06/2024, not suitable for AC He is pending work up for [facility] as op Monitor on tele Continue Asa #symotomatic bradycardia s/p pacemaker Dual chamber pacemaker placed in 2014 monitor on tele #Orthostatic hypotension, 2/2 autonomic dysregulation iso parkinsons continue home midodrine #Abnormal CT abd -Bilateral simple renal cortical cyst - Bosniak type I : will need routine imaging follow up - Diffuse atherosclerotic calcification is noted involving aorta iliac arteries: pulses palpable in BLE - Spondylodegenerative changes in visible spine. #iron-deficiency anemia cont iron supplement #elevated LFTs liver imaging is normal on CT LFTs trending down DVT ppx continue SCDS and lovenox PCP Dr. Blanco DNR/DNI per discussion with patient DISPO rehab/SNF Admission and Anticipated Discharge Date Admission Date: November 09, 2024 Subjective Pt seen in follow up Hx of Parkinson's. Presented after fall, found to have pyelo Currently sitting up in chair in NAD, overall reports feeling better. hoping for rehab No fever, chills, chest pain, shortness of breath Called P2P today, waiting to hear back Review of Systems Review of Systems: All systems reviewed & are unremarkable except as noted in Subjective Physical Exam Physical Exam: General- adult male seen at bedside, chronic ill appearance. Lungs- clear to auscultation b/l Heart- regular rhythm; no murmur Extremities- trace pretibial edema, no calf tenderness; moves extremities Neuro- alert, oriented x 3; PERRL, EOMI; Parkinson's tremor right > left hand Skin- warm & dry Results & Data Results & Data Vital Signs (Past 12 Hours) Vital Signs Temp Pulse Pulse Resp BP Pulse Ox O2 Del Method 11/14/24 11:50 36.4 C 62 16 154/84 H 94 Room Air 11/14/24 08:30 Room Air 11/14/24 07:40 36.1 C L 63 20 166/87 H 94 Nasal Cannula 11/14/24 05:33 63 11/14/24 03:07 36.2 C L 67 20 156/92 H 100 Room Air O2 Flow Rate 11/14/24 11:50 11/14/24 08:30 11/14/24 07:40 4 11/14/24 05:33 11/14/24 03:07 Laboratory Results 11/14/24 Range/Units 07:16 WBC 5.71 (4.8-10.8) K/ul RBC 3.56 L (4.70-6.10) M/uL Hgb 10.8 L (14.0-18.0) g/dl Hct 34.1 L (42.0-52.0) % MCV 95.8 (80.0-100.0) fL MCH 30.3 (25.0-34.0) pg MCHC 31.7 L (32.0-36.0) g/dL RDW Std Deviation 49.8 H (36.4-46.3) fL RDW Coeff of Rupinder 14.4 (11.5-14.5) % Plt Count 262 (130-400) K/uL MPV 9.8 (9.4-12.4) fL Sodium 141 (136-145) mmol/L Potassium 3.7 (3.5-5.1) mmol/L Chloride 104 (98-107) mmol/L Carbon Dioxide 33 H (21-32) mmol/L Anion Gap 4 (3-11) BUN 9 (6-23) mg/dl Creatinine 0.69 (0.6-1.4) mg/dl Est Cr Clr Drug Dosing 124.7 ml/min eGFR 94.72 BUN/Creatinine Ratio 13.0 (10-20) Glucose 100 H (70-99(Fasting)) mg/dl Calcium 9.1 (8.6-10.3) mg/dl Total Bilirubin 1.1 H (0.2-1.0) mg/dl Direct Bilirubin 0.3 H (0-0.2) mg/dl AST 31 (13-39) U/L ALT 13 (7-52) U/L Alkaline Phosphatase 229 H (34-104) U/L Total Protein 6.7 (6.0-8.3) gm/dl Albumin 3.4 (3.4-5.0) gm/dl Medications Administered Current Inpatient Medications Acetaminophen (Acetaminophen 325 Mg Tab) 650 mg PO Q4H PRN PRN Reason: Pain or Fever Stop: 12/09/24 08:28 Amoxicillin/Clavulanate Potassium (Amoxicillin/Clavulanate 875 Mg Tab) 1 tab PO BIDM [facility]; Protocol Stop: 11/16/24 16:59 Last Admin: 11/14/24 08:02 Dose: 1 tab Aspirin (Aspirin 81 Mg Ectab) 81 mg PO DAILY [facility] [place] Stop: 12/09/24 08:59 Last Admin: 11/14/24 08:02 Dose: 81 mg Atorvastatin Calcium (Atorvastatin 10 Mg Tab) 10 mg PO DAILY [facility] [place] Stop: 12/09/24 08:59 Last Admin: 11/14/24 08:02 Dose: 10 mg Calcium Carbonate (Calcium Carbonate 1250mg Tab) 1 tab PO BID [facility] [place] Stop: 12/09/24 08:59 Last Admin: 11/14/24 08:02 Dose: 1 tab Carbidopa/Levodopa (Carbidopa/Levodopa 25/100mg Tab) 1.5 tab PO QID [facility] [place] Stop: 12/09/24 08:59 Last Admin: 11/14/24 13:59 Dose: 1.5 tab Enoxaparin Sodium (Enoxaparin Inj 40 Mg/0.4 Ml Syr) 40 mg SQ QAM [facility] [place] Stop: 12/09/24 13:29 Last Admin: 11/14/24 08:03 Dose: 40 mg Escitalopram Oxalate (Escitalopram Oxalate 10 Mg Tab) 10 mg PO DAILY [facility] [place] Stop: 12/09/24 08:59 Last Admin: 11/14/24 08:02 Dose: 10 mg Ferrous Sulfate (Ferrous Sulfate 325 Mg Tab) 325 mg PO DAILY@1100 [facility] [place] Stop: 12/10/24 10:59 Last Admin: 11/14/24 11:20 Dose: 325 mg Finasteride (Finasteride 5 Mg Tab) 5 mg PO DAILY [facility] Stop: 12/09/24 08:59 Last Admin: 11/14/24 08:02 Dose: 5 mg Fluticasone Propionate (Fluticasone Propionate Na Spr 16 Gm Btl) 2 sprays NA DAILY [facility] Stop: 12/09/24 08:59 Last Admin: 11/14/24 08:03 Dose: 2 sprays Gabapentin (Gabapentin 300 Mg Cap) 300 mg PO TID [facility] Stop: 12/09/24 08:59 Last Admin: 11/14/24 13:59 Dose: 300 mg Gabapentin (Gabapentin 300 Mg Cap) 300 mg PO QPM [facility] Stop: 12/09/24 20:59 Last Admin: 11/13/24 21:16 Dose: 300 mg Magnesium Hydroxide (Magnesium Hydroxide Susp 30 Ml Udc) 30 ml PO Q12H PRN PRN Reason: Constipation Stop: 12/09/24 08:28 Melatonin (Melatonin 3 Mg Tab) 3 mg PO HS PRN PRN Reason: Sleep Stop: 12/09/24 08:28 Last Admin: 11/09/24 21:49 Dose: 3 mg Menthol (Cough Drop (Sugar Free) Otilia 24 Otilia/1 Box) 1 otilia BUCCAL Q2H PRN PRN Reason: Sore Throat Stop: 12/11/24 23:20 Midodrine (Midodrine Hcl 2.5 Mg Tab) 2.5 mg PO DAILY [facility] Stop: 12/09/24 08:59 Last Admin: 11/09/24 09:54 Dose: 2.5 mg Polyethylene Glycol (Polyethylene (Miralax) 17 Gm Pack) 17 gm PO DAILY PRN PRN Reason: Constipation Stop: 12/09/24 08:59 Propranolol HCl (Propranolol Hcl 10 Mg Tab) 10 mg PO TID [facility] Stop: 12/09/24 08:59 Last Admin: 11/14/24 13:59 Dose: 10 mg Vitamin D (Cholecalciferol 25 Mcg (1000 Units) Tab) 25 mcg PO DAILY [facility] Stop: 12/09/24 08:59 Last Admin: 11/14/24 08:02 Dose: 25 mcg
[2024-11-14] MEDS: COUGH DROP (SUGAR FREE) LOZ 24 LOZ/1 BOX BUCCAL PRN (15:29)
[2024-11-15 05:53] LABS: Hematocrit (blood only) 35.5 % (42.0-52.0); Hemoglobin 11.7 g/dl (14.0-18.0); Mean Corpuscular Hemoglobin 31.4 pg (25.0-34.0); Mean Corpuscular Volume 95.2 fL (80.0-100.0); Platelet Count 292 K/uL (130-400); RDW Standard Deviation 49.7 fL (36.4-46.3); Red Blood Count 3.73 M/uL (4.70-6.10); White Blood Count 8.02 K/ul (4.8-10.8)
[2024-11-15 06:11] LABS: Alanine Aminotransferase 9.0 U/L (7-52); Albumin Globulin Ratio 1.1 (0.9-2); Alkaline Phosphatase 243.0 U/L (34-104); Anion Gap 5.0 (3-11); Bilirubin,Total 1.2 mg/dl (0.2-1.0); Blood Urea Nitrogen 14.0 mg/dl (6-23); Calcium 9.5 mg/dl (8.6-10.3); Carbon Dioxide 31.0 mmol/L (21-32); Chloride 102.0 mmol/L (98-107); Creatinine Clr Calc Pharmacy 101.2 ml/min; Globulin 3.4 gm/dl (2.5-4.0); Glucose 97.0 mg/dl (70-99(Fasting)); Magnesium 2.0 mg/dl (1.7-2.4); Potassium 4.1 mmol/L (3.5-5.1); Sodium 138.0 mmol/L (136-145); Total Protein 7.0 gm/dl (6.0-8.3)
--- NOTE | 2024-11-15 11:55 | Discharge Summary ---
Date of Service November 15, 2024 Admission HPI Per Admitting Provider Mr. Lakhani is a 78 year old gentleman with past medical history remarkable for Parkinsons, CKD III, paroxysmal a fib, orthostatic hypotension, ascending aortic aneurysm, and symptomatic bradycardia s/p pacemaker 2014 presented to [facility] ED due to worsening generalized weakness. Patient is a poor historian, majority of history attempted to be gathered at bedside, through ED physician, and via records review. Attempted to call POC in chart x2 with no answer. Patient states that he has been dealing with falls and weakness due to progression of Parkinson's, but he has noted that his weakness has progressed. He reports standing up from his chair and falling to his knees. He stayed on the ground all evening and finally his partner called EMS. Patient denies any chest pain, palpitations, vision changes, bowel changes. He does report worsening hesitancy with urination and frequency In the ED, vitals were notable for BP of 100-150s, HR of 70-80s, and O2 sat of high 90s on room air Labs revealed leukocytosis to 16.83, chronic anemia at 10.6, mild hyponatremia to 135, hypokalemia to 3.3, BNP 114, UA with protein, ketones, + nitrate, suspicious for dehydration and infection Imaging revealed bilateral perinephric fat stranding, chest xray with left effusion and atelectatic changes EKG with QTC 525 ED interventions: CTX, IVF Patient to be admitted to med/tele for further evaluation and management of generalized weakness and complicated cystitis/pyelonephritis Admission Exam Per Admitting Provider GENERAL APPEARANCE: AxOx3, ill appearing male, no acute distress. resting tremor of BUE HEENT: NC, AT. MMM. EOMI, clear conjunctiva, oropharynx clear. NECK: Supple without lymphadenopathy. No stiffness or restricted ROM. HEART: irregular, normal S1/S1, no m/r/g LUNGS: CTAB, moving air well. No crackles or wheezes are heard. ABDOMEN: Soft, nontender, nondistended with good bowel sounds heard. BACK: No CVAT, no obvious deformity. EXTREMITIES: Without cyanosis, clubbing or edema. NEUROLOGICAL: Grossly nonfocal. Alert and oriented, moving all 4 extremities, rigidity noted with AROM, resting tremor Skin: Warm and dry without any rash. Principal Diagnosis Fall Pyelonephritis Hx of Parkinson's dz Discharge Exam General- adult male seen at bedside, chronic ill appearance. Lungs- clear to auscultation b/l Heart- regular rhythm; no murmur Extremities- trace pretibial edema, no calf tenderness; moves extremities Neuro- alert, oriented x 3; PERRL, EOMI; Parkinson's tremor right > left hand Skin- warm & dry Discharge Data Allergies Allergy/AdvReac Type Severity Reaction Status Date / Time naproxen Allergy Intermediate ITCHING Verified 05/27/14 08:50 dexbrompheniramine AdvReac Intermediate nightmares, Verified 05/27/14 08:50 NOT A TRUE ALLERGY trihexyphenidyl AdvReac Intermediate Dizziness Verified 03/03/24 07:10 Consultations 11/09/24 07:41 ED Decision to Admit Stat Ordered Studies 11/09/24 04:36 CT abd pelvis IV con only Stat FINDINGS: The visualized lung bases shows subpleural atelectasis is noted on left side. The liver is normal in size and attenuation. No focal liver lesions are seen. There is no intra or extrahepatic biliary ductal dilatation. Hepatic vasculature is patent. The gallbladder is present. The spleen, pancreas, and adrenal glands are unremarkable. The kidneys are normal in size and attenuation. There is no hydronephrosisg. No renal calculi or renal masses are identified. Few simple large cortical cyst are noted in both kidneys - largest measures about 10 cm on left side and 4 cm on right side. Mild bilateral perinephric fat stranding The ureters are normal in caliber and no ureteral calculi are seen. The bladder is normal in contour. Pelvic viscera are unremarkable. No focal or diffuse bowel wall thickening or evidence of bowel obstruction is identified. The appendix is visualized in the right lower quadrant and appears within normal limits. Abdominal and pelvic vasculature is patent. No adenopathy or fluid collections are seen. No aggressive appearing osseous lesions are identified. Diffuse atherosclerotic calcification is noted involving aorta iliac arteries. Severe degenerative changes visible spine. IMPRESSION: Bilateral simple renal cortical cyst - Bosniak type I . Mild bilateral perinephric fat stranding Diffuse atherosclerotic calcification is noted involving aorta iliac arteries. 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 Hospital Course (1) Acute UTI (urinary tract infection): (2) Generalized weakness: (3) Parkinson disease: Plan Mr. Lakhani is a 78 year old gentleman with past medical history remarkable for Parkinsons, CKD III, paroxysmal a fib, orthostatic hypotension, ascending aortic aneurysm, and symptomatic bradycardia s/p pacemaker 2014 admitted for acute pyelonephritis and generalized weakness. #Acute pyelonephritis #BPH #Nocturnal enuresis UA suspicious for infection, CT with bilateral perinephric stranding Continue home finasteride Continue to hold mybetriq Cultures reviewed, cultures with strep mitis, transitioned to Augmentin bid He will need urology follow up as an out patient #Hypokalemia replace electrolytes prn trend bmp #Generalized Weakness #Mechanical fall #Parkinson's disease with tremor imaging without signs of fracture - Continue propranolol for tremor -Continue current dose of carbidopa/levodopa PT/OT: rehab Fall precautions Delirium precautions==previously "psychotic with benztropine" per OP review, trialed on multiple agents for Parkinsons and tremor will need neurology follow up upon d/c #Paroxysmal atrial fibrillation Newly diagnosed 06/2024, not suitable for AC He is pending work up for [facility] as op Monitor on tele Continue Asa #symotomatic bradycardia s/p pacemaker Dual chamber pacemaker placed in 2014 monitor on tele #Orthostatic hypotension, 2/2 autonomic dysregulation iso parkinsons continue home midodrine #Abnormal CT abd -Bilateral simple renal cortical cyst - Bosniak type I : will need routine imaging follow up - Diffuse atherosclerotic calcification is noted involving aorta iliac arteries: pulses palpable in BLE - 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 #iron-deficiency anemia cont iron supplement #elevated LFTs liver imaging is normal on CT LFTs trending down - recommend to follow up as outpt Total Time Total Time Spent Total Time Spent (In Minutes): 40 Discharge Plan Discharge Items Patient Disposition: [facility] Reason For Visit: PYELONEPHRITIS, MECH, FALL Discharge Diagnosis: Fall Pyelonephritis Hx of Parkinson's dz Condition on Discharge: Fair Activity: Per Instructions section Non-emergency contact: Primary Care Provider, Specialist and Neurologist Call non-emergency contact if: you have any medication questions and your symptoms worsen Follow-up/Referrals: Juan F Blanco MD [Primary Care Provider] - Diet: Heart Healthy Addtl Attending Provider Instructions: Follow up with primary care doctor and neurologist. Finish antibiotic course as prescribed. Pending Studies at Discharge: No Stand-Alone Forms: My [facility] Skilled Items Patient informed of condition?: Yes DNR: Yes Discharge Level of Care: Skilled Communicable Disease: No Discharge Prognosis: Stable Lines: None Urinary Catheter: No Medications and DC Order Prescriptions: New ferrous sulfate 325 mg (65 mg iron) Tablet,Delayed Release (Dr/Ec) 325 mg PO DAILY Qty: 30 0RF amoxicillin-pot clavulanate 875-125 mg Tablet 1 tab PO BIDM 3 Days Qty: 6 0RF Continued Calcium (Caltrate) 600 MG tablet 600 mg PO BID Qty: 0 Fluticasone Propionate (Flonase Nasal [place] *) INHALATION 2 spry BERNARD DAILY Qty: 0 OMEGA 3 1,000 mg PO BID Qty: 0 Fexofenadine Hcl (Gertrude *) 30 MG tablet 30 mg PO PRN PRN (Reason: Allergy Symptoms) Qty: 0 CHOLECALCIFEROL (Vitamin D) 1,000 INTER.UNIT tablet 1,000 inter.unit PO DAILY Qty: 0 MULTIPLE VITAMINS W/ MINERALS (CENTRUM SILVER) 1 CHW CHW 1 tab PO DAILY Qty: 0 atorvastatin 10 mg tablet 10 mg PO DAILY aspirin 81 mg tablet,delayed release (DR/EC) 81 mg PO DAILY propranolol 10 mg tablet 10 mg TID gabapentin 300 mg capsule 300 mg TID Rx Instructions: 1 cap morning, 1 cap noon, 2 cap bedtime finasteride 5 mg tablet 5 mg DAILY escitalopram oxalate 10 mg tablet 10 mg DAILY carbidopa-levodopa 25-100 mg tablet 1.5 tab PO QID Held midodrine 2.5 mg tablet 2.5 mg PO DAILY Hold Instructions: Resume on 11/19/24. discuss w/ your primary care physician if/ when to resume mirabegron [Myrbetriq] 50 mg tablet extended release 24 hr 50 mg PO DAILY Hold Instructions: Resume on 11/19/24. discuss w/ your primary care physician if/ when to resume Discharge Orders: Discharge Order (Routine); Ordered 11/15/24 Ordered By: Anant Hayden Admission Data Admit Date/Time: 11/09/24 08:30 Attending Provider: Anant Hayden Admit Provider: Wendy Mckee Primary Care Provider: Juan F Blanco Other Providers: Wendy Mckee; [place]; [facility]; [facility]; Memo Simpson
[2024-11-15 12:03] VITALS: BP 130/75; RESP 20; TEMP 97.5; O2SAT 94
[2024-11-15 15:12] VITALS: PULSE 78
== END 2024-11-15 14:45 | DRG 690 ==
LOC: ED 03:08 → SUATTDRO 08:30 → 2W 08:30